=== PATIENT | male | born 1960 | race Caucasian/White ===

== ENCOUNTER 2022-11-24 09:02 | Outpatient (CLI) | payer MEDICARE, SELFPAY ==
[2022-11-24 13:42] LABS: Chloride* 105 mmol/L (96-114); Sodium* 138 mmol/L (135-149)
[2022-11-24 13:43] LABS: Potassium* 4.7 mmol/L (3.6-5.1)
[2022-11-24 13:45] LABS: Carbon Dioxide* 28 mmol/L (20-32); Estimated Glomerular Filt Rate 84 ml/min
[2022-11-24 13:46] LABS: Blood Urea Nitrogen* 18 mg/dL (7-30); Calcium* 9.2 mg/dL (8.4-10.6); Glucose* 93 mg/dL (60-115); HDL Cholesterol* 59 mg/dL (>=40); Triglycerides* 168 mg/dL (40-149)
[2022-11-24 15:47] LABS: PSA Screen* 7.33 ng/mL (0.10-4.00)
[2022-11-25 08:56] LABS: Cholesterol* 364 mg/dL (90-199); LDL Cholesterol Calculated 271 mg/dL (<100)
== END 2022-11-24 09:03 | disposition home or self-care (01) ==
PROVIDERS: PCP Family Medicine; Visit Provider Family Medicine
DX: Z00.00 Encounter for general adult medical examination without abnormal findings (principal); R31.9 Hematuria, unspecified; E78.5 Hyperlipidemia, unspecified; I10 Essential (primary) hypertension; I48.91 Unspecified atrial fibrillation; R97.20 Elevated prostate specific antigen [PSA]
CPT/HCPCS: 80048; 80061; 84153

== ENCOUNTER 2023-03-21 11:05 | Outpatient (CLI) | payer MEDICARE, SELFPAY | END 2023-03-21 11:06 | disposition home or self-care (01) | LOC: NFLDREF 03-22 05:45 | PROVIDERS: PCP Family Medicine; Referring Provider Family Medicine; Visit Provider Family Medicine | DX: Z79.01 Long term (current) use of anticoagulants (principal) | CPT/HCPCS: 85610 ==

== ENCOUNTER 2024-01-02 09:20 | Outpatient (REF) | payer MEDICARE, SELFPAY ==
--- OUTSIDE RECORDS SUMMARY | 2024-01-03 06:20 | XMS_ITS | Clinical Summary ---
Author Name Unknown Organization [facility] Address [place], [place] [address] Care Team Providers Care Continuous Improvement Lead Name Role Phone Mauricio Pham MD Primary Care Provider Allergies Active Allergy Reactions Criticality Noted Date Comments Cats (Fur, Dander, Saliva) Anaphylaxis High 08/27/20 17 Shellfish Containing Products Anaphylaxis High 08/27 Tramadol Palpitations 10/29/2020 Medications Medication Sig Dispensed Refills Start Date End Date Status warfarin (COUMADIN) 4 mg tablet TK 2 TS PO D 0 09/02/2020 Active amoxicillin (AMOXIL) 500 mg capsule Take 500 mg by mouth. Dentist visits 0 12/23/2020 Active EPINEPHrine (EPIPEN) 0.3 mg/0.3 mL injection INJECT INTRAMUSCULARLY DIRECTED 0 07/31/2020 Active warfarin (COUMADIN) 1 mg tablet Take 8 mg by mouth. 0 Acti ve lisinopriL (PRINIVIL; ZESTRIL) 5 mg tablet Take 5 mg by mouth once daily. 0 08/06/2021 Active metoprolol tartrate (LOPRESSOR) 25 mg tabletIndications:S creening for cardiovascular condition,S/P AVR,Tachycardia Take 1 tablet by mouth for heart rate greater than 130 30 Tablet 2 10/05/2021 Active finasteride (PROSCAR) 5 mg tabletIndications:U rinary retention Take 1 Tablet (5 mg) by mouth once daily. 30 Tablet 11 11/04/2021 Active tamsulosin (FLOMAX) 0.4 mg capsuleIndications: Urinary retention Take 2 Capsules (0.8 mg) by mouth once daily after a meal. 60 Capsule 11 05/12/2022 Active Active Problems No known active problems Social History Tobacco Use Types Packs/Day Years Used Date Smoking Tobacco: Former Cigarettes 1 2002 Passive Smoke Exposure: Never Smokeless Tobacco: Current Chew Tobacco Cessation:Ready to Q uit: Not Asked; Counseling Given: Not Answered Alcohol Use Standard Drinks/Week Comments Never 0 (1 standard drink = 0.6 oz pur e alcohol) Social Connections Answer Date Recorded Frequency of Communication with Friends and Fami ly 0 05/19/2023 Financial Resource Strain Answer Date R ecorded Difficulty of Paying Living Expenses 3 05/19/2023 Difficulty of Paying Living Expenses Not on file 05/19/2023 Food Insecurity Answer Date Recorded Worried About Running Out of Food in the Last Ye ar 1 05/19/2023 Transportation Needs Answer Date Record ed Lack of Transportation (Medical) 1 05/19/2023 Housing Stability Answer Date Recorded Unable to Pay for Housing in the Last Year 1 05/19/2023 Sex and Gender Information Value Date Recorded Sex Assigned at Not on file Gender Identity Not on file Sexual Orientation Not on file Obstetrics History Last Filed Vital Signs Vital Sign Reading Time Taken Comments Blood Pressure 148/99 06/01/2023 12:28 PM CDT Pulse 81 06/01/2023 12:28 PM CDT Temperature 36.6 ??C (97.8 ??F) 06/01/2023 12:28 PM C DT Respiratory Rate 16 06/01/2023 12:28 PM CDT Oxygen Saturation 97% 06/01/2023 12:28 PM CDT Inhaled Oxygen Concentration - - Weight 74.8 kg (165 lb) 06/01/2023 12:28 PM CDT Height 170.2 cm (5' 7) 06/01/2023 12:28 PM CDT Body Mass Index 25.84 06/01/2023 12:28 PM CDT Plan of Treatment Health Maintenance Due Date Last Done Comments COVID-19 vaccine series (#1) 1958 Tdap 1969 Depression screening for age 12+ 1970 HIV for age 15-65 1973 Hepatitis C screening for ag e 18-79 1976 Tetanus booster 1978 Colonoscopy through age 75 2003 Lipids for age 45-75 2003 Zoster (shingles) series for age 50+ (1 of 2) 2008 AAA screening age 65-74 2023 Medicare Wellness for age 65+ 2023 Pneumococcal series for age 65+ (1 of 1 - PCV) 2023 Influenza for age 65+ 07/22/2023 BMI (ht and wt on same day) for age 18+ 06/01/2024 06/01/2023, 05/19/2023, 10/05/2021, Additional history exists Care Teams Continuous Improvement Lead Relationship Specialty Start Date End Date Mauricio Pham MD [address] [place] [id number] PCP - General Family Practice 08/21/21
--- OUTSIDE RECORDS SUMMARY | 2024-01-03 06:20 | XMS_ITS | Referral Summary ---
Author Name Unknown Organization [place] Address [address] [place] [id number] Care Team Providers Care Brim Cutter Name Role Phone [facility]- Primary Care Provider Allergies Active Allergy Reactions Criticality Noted Date Comments Cats 07/24/2021 Shellfish-Derived Products Anaphylaxis High 07/24/20 21 Medications Medication Sig Dispensed Refills Start Date End Date Status tamsulosin (FLOMAX) 0.4 MG capsule Take 0.4 mg by mouth daily 0 Active warfarin ANTICOAGULANT (COUMADIN) 1 MG tablet Take 8 mg by mouth daily 0 Active Social History Tobacco Use Types Packs/Day Years Used Date Smoking Tobacco: Former Cigarettes Q uit: 2000 Smokeless Tobacco: Current Alcohol Use Standard Drinks/Week Comments Not Currently 0 (1 standard drink = 0.6 oz pur e alcohol) Adolescent Education Answer Date Record ed Getting School Help Needed Not on file 08/24 Sex and Gender Information Value Date Recorded Sex Assigned at Not on file Gender Identity Not on file Sexual Orientation Not on file Last Filed Vital Signs Vital Sign Reading Time Taken Comments Blood Pressure 125/89 07/24/2021 11:00 PM CDT Pulse 68 07/24/2021 11:15 PM CDT Temperature 36.7 ??C (98 ??F) 07/24/2021 9:43 PM CDT Respiratory Rate 18 07/24/2021 11:15 PM CDT Oxygen Saturation 95% 07/24/2021 11:15 PM CDT Inhaled Oxygen Concentration - - Weight 77.1 kg (170 lb) 07/24/2021 9:43 PM CDT Height - - Body Mass Index - - Plan of Treatment Not on file Procedures Procedure Name Priority Date/Time Associated Diagnosis Comments DERMATOPATHOLOGY EXAM Routine 10/26/2023 12:00 AM JOINTER MACHINE OPERATOR Squamous cell carcinoma of skin of other parts of face from Last 3 Months Results * Dermatological Path Order and Indications (10/26/2023 12:00 AM JOINTER MACHINE OPERATOR) Case Report Surgical Pathology Report ? Case: [id number] ? Authorizing Provider: ??Silvana Carter ? Collected: ? 10/26/2023 12:00 AM ? Ordering Location: ? [facility] ? Received: ?10/26/2023 08:20 PM ? [facility] ? Pathologist: ? Oleg Lion MD ? Specimen: ?Skin, right superior preauricular cheek ? 10/28/2023 1:12 PM JOINTER MACHINE OPERATOR [facility] Final Diagnosis A. 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 Well-differentiated SCC. 10/28/2023 1:12 PM JOINTER MACHINE OPERATOR [facility] Gross Description A(). Skin, right superior preauricular cheek: The specimen is received in formalin with proper patient identification, labeled R superior preauricular cheek. The specimen consists of a 1.2 x 1.0 cm unoriented ellipse of skin and subcutaneous tissue, excised to a maximum depth of 0.2 cm. No sutures are present; the margin is inked black. The skin surface displays a 0.3 x 0.3 cm long lesion. It is 0.3 cm from the closest peripheral skin margin. No gross deep lesions are present upon sectioning. The specimen is entirely submitted. A1: Tip shave margins A2: Sections from center 10/28/2023 1:12 PM JOINTER MACHINE OPERATOR [facility] Microscopic Description The specimen exhibits flattened epidermis, dermal fibrosis and lymphohistiocytic inflammation consistent with scar from the prior procedure. Immediately adjacent to this, residual squamous cell carcinoma is present, with an endophytic proliferation of atypical squamous epithelium with superficial invasion. This residual lesion is completely excised. 10/28/2023 1:12 PM [facility] Performing Labs The technical component of this testing was completed at [facility] 10/28/2023 1:12 PM JOINTER MACHINE OPERATOR [facility] Skin SPECIMEN FROM SKIN / Unknown 10/26/2023 10/26/2023 8:20 PM JOINTER MACHINE OPERATOR Silvana [facility]EE[facility] [address] [facility] [address], [address] [place] [address], [facility] [phone] [facility] [address] [facility] [address] [facility], [address] [place] [address], [facility] [phone] from Last 3 Months Care Teams Brim Cutter Relationship Specialty Start Date End Date [facility] [address] [place] [address] PCP - General 07/24/21
== END 2024-01-02 09:21 | disposition home or self-care (01) ==
LOC: NFLDREF 09:20
PROVIDERS: PCP Family Medicine; Referring Provider Family Medicine; Visit Provider Family Medicine
DX: I48.91 Unspecified atrial fibrillation (principal); Z79.01 Long term (current) use of anticoagulants
CPT/HCPCS: 85610

== ENCOUNTER 2024-02-04 10:30 | Emergency (ER) | payer MEDICARE, SELFPAY ==
[2024-02-04 10:34] VITALS: BP 135/82; PULSE 60; RESP 18; TEMP 36.4; O2SAT 98; BMI 25.8
--- NOTE | 2024-02-04 10:45 | US_ITS ---
Patient: ARVIL TUCKER Facility:?[facility] Patient ID:?[id number] Site Patient ID:?[id number]. Site :?[id number] Study:?US-Extremity Left LEV-02/04/2024 11:13:46 AM Ordering Physician:GAYLE BRISENO Final Report: INDICATION: Leg pain and swelling TECHNIQUE: Ultrasound venous duplex lower left extremity. Compression venous exam was performed using middleton-scale, color Doppler, and spectral Doppler analysis. COMPARISON: None. FINDINGS: Sonographic imaging demonstrates the left common femoral, deep femoral, superficial femoral, popliteal, posterior tibial and greater saphenous and the contralateral right common femoral veins to be fully compressible with normal color Doppler blood flow. There is likely a small hematoma within the proximal calf measuring 2.4 centimeters x 0.7 centimeters in greatest dimensions. IMPRESSION: Normal left lower extremity venous ultrasound, no sign of deep venous thrombosis. Mild superficial hematoma within the subcutaneous soft tissues in the area of bruising and palpable concern. Dictated by Vladimir Acosta MD @ 02/04/2024 11:41:06 AM Signed by:?Vladimir Acosta MD @02/04/2024 11:41:06 AM (Electronic Signature)
--- NOTE | 2024-02-04 11:23 | ED.GENADULT ---
HPI - General Adult General Date Seen: 02/04/24 Chief complaint: Extremity Pain/Injury, Lower Stated complaint: left calf, poss blood clot Time Seen by Provider: 02/04/24 10:38 Source: patient Mode of arrival: ambulatory Limitations: no limitations History of Present Illness HPI narrative: Patient is 63-year-old male presenting for an area of localized left lower extremity swelling with of a mass felt in his calf. He was told to come here to check for signs of a blood clot. He also noticed some bruising in the area. He is on warfarin and last checked his INR couple weeks ago and was 2.9. Says he checks it once a month it is always within normal limit. Came in today with no pain. Denies chest pain, shortness of breath, lightheadedness, dizziness. States otherwise he feels fine just came to get this area checked out. No other concerns noted Related Data Home Medications Medication Instructions Recorded Confirmed epinephrine 0.3 mg/0.3 mL 0.3 ml IM .As Needed as needed PRN 06/16/22 02/04/24 injection, auto-injector finasteride 5 mg tablet 5 mg PO .Daily With Am Meal 06/16/22 02/04/24 tamsulosin 0.4 mg capsule 0.4 mg PO DAILY 06/16/22 02/04/24 Previous Rx's Medication Instructions Recorded evolocumab 140 mg/mL subcutaneous 140 mg subcut Q2W #2 mL 11/26/22 pen injector (Darin Lyons) lisinopril 5 mg tablet 5 mg PO DAILY #90 tabs 11/26/22 valacyclovir 1 gram tablet 2,000 mg (2 x 1 gram) PO BID PRN 08/05/23 (Valtrex) cold sores #20 tabs warfarin 4 mg tablet 4 mg PO DIRECTED #145 tabs 01/02/24 Allergies Allergy/AdvReac Type Severity Reaction Status Date / Time shellfish derived Allergy Severe Anaphylaxis Verified 02/04/24 10:39 tramadol Allergy Intermediate Lightheaded, Verified 02/04/24 10:39 heart racing, chest pressure cat dander Allergy Mild Verified 02/04/24 10:39 Review of Systems Status of ROS: Reports: 6 or more systems reviewed and unremarkable except as noted in History and below [facility] Medical History Herpes labialis ?B00.1 - Herpesviral vesicular dermatitis (ICD-10) Encounter for preoperative screening laboratory testing for severe acute respiratory syndrome coronavirus 2 (SARS-CoV-2) ?Z01.812 - Encounter for preprocedural laboratory examination (ICD-10) ?Z20.822 - Contact with and (suspected) exposure to covid-19 (ICD-10) Atrial fibrillation with rapid ventricular response (08/24/12) ?I48.91 - Unspecified atrial fibrillation (ICD-10) Chronic pharyngitis ?J31.2 - Chronic pharyngitis (ICD-10) Surgical History S/P right inguinal hernia repair ?Z98.890 - Other specified postprocedural states (ICD-10) ?Z87.19 - Personal history of other diseases of the digestive system (ICD-10) Status post total knee replacement ?Z96.659 - Presence of unspecified artificial knee joint (ICD-10) Status post tonsillectomy and adenoidectomy (08/21/12) ?Z90.89 - Acquired absence of other organs (ICD-10) History of prostate biopsy ?Z98.890 - Other specified postprocedural states (ICD-10) History of arthroscopy of left knee (12/30/10) ?Z98.890 - Other specified postprocedural states (ICD-10) History of aortic valve replacement (08/21/12) ?Z95.2 - Presence of prosthetic heart valve (ICD-10) Family History Brother Prostate cancer Social History Smoking Status: Never smoker Do you use any of these nicotine containing products: None How often do you have a drink containing alcohol: never AUDIT-C Alcohol total score: 0 Non-prescribed substance use: denies use Little interest or pleasure in doing things: not at all Feeling down, depressed, or hopeless: not at all Exam Narrative: Exam Narrative: Const: Well-nourished, Well-developed, in mild distress Eyes: PERRL, no conjunctival injection, and symmetrical lids HENT: Atraumatic external nose and ears. Moist mucous membranes. Neck: Symmetric, trachea midline, No thyromegaly. CVS: RRR, No murmurs or gallops. Peripheral pulses 2+ and equal in all extremities RESP: Unlabored respiratory effort. Clear to auscultation bilaterally. GI: Nontender/Nondistended, No rebound or guarding. MSK:Extremities w/o deformity, Normal Active ROM, cord-like mass palpated in the medial upper calf with bruising around it Skin: Warm, Dry. Bruising in the medial upper calf Neuro: Normal Muscle tone, No focal neurological deficits. Psych: Awake, Alert, & Oriented x3. Appropriate mood and affect. Const: Vital Signs, click to edit/add: Vital Signs - 24 hr 02/04/24 10:34 Temperature 97.5 F L Pulse Rate [Pulse Oximeter] 60 Respiratory Rate 18 Blood Pressure [Ri ght Upper Arm] 135/82 Pulse Oximetry 98 Oxygen Delivery Me thod Room Air Course Vital Signs Vital signs: Initial Vital Signs Temperature 97.5 F L 02/04/24 10:34 Temperature Source Temporal Artery Scan 02/04/24 10:34 Pulse Rate 60 02/04/24 10:34 Respiratory Rate 18 02/04/24 10:34 Blood Pressure 135/82 02/04/24 10:34 Blood Pressure Mean 99 02/04/24 10:34 Blood Pressure Position Sitting 02/04/24 10:34 Pulse Oximetry 98 02/04/24 10:34 Oxygen Delivery Method Room Air 02/04/24 10:34 Vital Signs Temperature 97.5 F L 02/04/24 10:34 Pulse Rate 60 02/04/24 10:34 Respiratory Rate 18 02/04/24 10:34 Blood Pressure 135/82 02/04/24 10:34 Pulse Oximetry 98 02/04/24 10:34 Oxygen Delivery Method Room Air 02/04/24 10:34 Temperature 97.5 F L 02/04/24 10:34 Pulse Rate 60 02/04/24 10:34 Respiratory Rate 18 02/04/24 10:34 Blood Pressure 135/82 02/04/24 10:34 Pulse Oximetry 98 02/04/24 10:34 Oxygen Delivery Method Room Air 02/04/24 10:34 Medical Decision Making MDM Narrative Medical decision making narrative: Patient is a 63-year-old male presenting for concern for a blood clot. On exam this is not appear to be I DVT. Tell patient I do have some concern for a large for superficial thrombophlebitis. This would be odd though considering his INR level. There is also concern for hematoma. We did ultrasound of this like to better evaluate it and check his INR level. Patient's ultrasound week tenderness showing a superficial hematoma in the area of concern. No signs of a DVT. We did check his INR is 2.84. Consider this is a relatively small hematoma do not find necessary for him to hold his Coumadin at this time. I did inform to speak to his primary care provider that is managing his Coumadin if he gets worsening symptoms or expanding hematoma. He is understandable. He will be discharged home. Lab Data Labs: Lab Results 02/04/24 Range/Units 11:09 INR 2.84 H (0.91-1.10) Imaging Data Lower extremity ultrasound: Radiologist's impression: Normal left lower extremity venous ultrasound, no sign of deep venous thrombosis. Mild superficial hematoma within the subcutaneous soft tissues in the area of bruising and palpable concern. Dictated by Vladimir Acosta MD @ 02/04/2024 11:41:06 AM Discharge Plan Discharge Clinical Impression: Hematoma Patient Disposition: Home, Self-Care Condition: Stable Instructions: Hematoma (ED) Additional Instructions: Continue to take your Coumadin normally. If he knows worsening pain or an expanding area of the hematoma follow-up with primary care provider on if they want to hold her Coumadin or not. Return to emergency department for new or worsening symptoms Prescriptions: No Action finasteride 5 mg tablet 5 mg PO .Daily With Am Meal tamsulosin 0.4 mg capsule 0.4 mg PO DAILY Rx Instructions: gets rx from Urologist epinephrine 0.3 mg/0.3 mL auto-injector 0.3 ml IM .As Needed as needed PRN Repatha SureClick 140 mg/mL pen injector 140 mg subcut Q2W Qty: 2 3RF lisinopril 5 mg tablet 5 mg PO DAILY Qty: 90 3RF valacyclovir [Valtrex] 1 gram tablet 2,000 mg PO BID PRN (Reason: cold sores) Qty: 20 1RF warfarin 4 mg tablet 4 mg PO DIRECTED Qty: 145 0RF Protocol: Dose Management Condition: Tuesday Dose/Route: 4 mg Instruction: 1 x 4 mg tablet Condition: Tuesday Dose/Route: 8 mg Instruction: 2 x 4 mg tablets Condition: Tuesday Dose/Route: 4 mg Instruction: 1 x 4 mg tablet Condition: Tuesday Dose/Route: 8 mg Instruction: 2 x 4 mg tablets Condition: Dose/Route: 8 mg Instruction: 2 x 4 mg tablets Condition: Tuesday Dose/Route: 8 mg Instruction: 2 x 4 mg tablets Condition: Tuesday Dose/Route: 8 mg Instruction: 2 x 4 mg tablets Protocol Text: Adjustment Start Date: Tuesday01/03/24 INR Value: 2.97 INR Date: 01/02/24 Recheck Date: 02/02/24 Rx Instructions: Girard 4 MG, M 8 MG, Tu 4 MG, W 8 MG, Th 8 MG, F 8 MG, Sa 8 MG Follow Up/Referrals: Mauricio Pham MD [Primary Care Provider] - Stand Alone Forms: [facility] Info [facility]
[2024-02-04 11:53] LABS: INR 2.84 (0.91-1.10)
== END 2024-02-04 12:24 | disposition home or self-care (01) ==
PROVIDERS: Emergency Provider Student in an Organized Health Care Education/Training Program; PCP Family Medicine
DX: R22.42 Localized swelling, mass and lump, left lower limb (principal); M79.81 Nontraumatic hematoma of soft tissue; M79.662 Pain in left lower leg
CPT/HCPCS: 36415; 85610; 93971; 99282; 99283; 99284

== ENCOUNTER 2024-05-25 11:19 | Outpatient (CLI) | payer MEDICARE, SELFPAY ==
--- OUTSIDE RECORDS SUMMARY | 2024-05-27 07:41 | XMS_ITS | Clinical Summary ---
Author Organization [place] Address [address] [place] [address]. [place] [address] Care Team Providers Care Kiln Car Repairer Name Role Phone [facility]- Primary Care Provider Allergies Active Allergy Reactions Criticality Noted Date Comments Cats 07/24/2021 Shellfish-Derived Products Anaphylaxis High 07/24/20 21 Medications Medication Sig Dispensed Refills Start Date End Date Status tamsulosin (FLOMAX) 0.4 MG capsule Take 0.4 mg by mouth daily Active warfarin ANTICOAGULANT (COUMADIN) 1 MG tablet Take 8 mg by mouth daily Active Social History Tobacco Use Types Packs/Day [...] Mass Index - - Plan of Treatment Health Maintenance Due Date Last Done Comments ADVANCE CARE PLANNING 1960 ANNUAL REVIEW OF HM ORDERS 1960 CT COLONOGRAPHY 1958 FIT 1960 FLEX SIG 1960 sDNA (Cologuard) 1958 COLONOSCOPY 1968 COLORECTAL CANCER SCREENING 1968 HEPATITIS C SCREENING 1976 DTAP/TDAP/TD IMMUNIZATION (1 - Tdap) 1983 LIPID 1998 LUNG CANCER SCREENING 2008 ZOSTER IMMUNIZATION (1 of 2) 2008 RSV VACCINE ( & 60+ ) (1 - 1-dose 60+ series) 2018 FALL RISK ASSESSMENT 2023 MEDICARE ANNUAL WELLNESS VISIT 2023 Pneumococcal Vaccine: 65+ Ye ars (1 of 1 - PCV) 2023 COVID-19 Vaccine (1 - 2022-2 4 season) 2023 PHQ-2 (once per calendar year) 2023 INFLUENZA VACCINE (#1) 2024 GLUCOSE 07/24/2024 07/24/2021 HPV IMMUNIZATION Aged Out No longer e ligible based on patient's age to complete this topic IPV IMMUNIZATION Aged Out No longer e ligible based on patient's age to complete this topic MENINGITIS IMMUNIZATION Aged Out No l onger eligible based on patient's age to complete this topic RSV MONOCLONAL ANTIBODY Aged Out No l onger eligible based on patient's age to complete this topic Procedures Procedure Name Priority Date/Time Associated Diagnosis Comments BASIC METABOLIC PANEL STAT 07/24/2021 9:48 PM CDT from Last 3 Months or Most Recently Relevant to Health Maintenance Results * (ABNORMAL) Basic metabolic panel (07/24/2021 9:48 PM CDT) Sodium 139 133 - 144 mmol/L 07/24/2021 10:14 PM CDT LABORATORY Potassium 4.1 3.4 - 5.3 mmol/L 07/24/2021 10:14 PM CDT LABORATORY Chloride 108 94 - 109 mmol/L 07/24/2021 10:14 PM CDT LABORATORY Carbon Dioxide (CO2) 26 20 - 32 mmol/L 07/24/2021 10:14 PM CDT LABORATORY Anion Gap 5 3 - 14 mmol/L 07/24/2021 10:14 PM CDT LABORATORY Urea Nitrogen 17 7 - 30 mg/dL 07/24/2021 10:14 PM CDT LABORATORY Creatinine 0.84 0.66 - 1.25 mg/dL 07/24/2021 10:14 PM CDT LABORATORY Calcium 9.3 8.5 - 10.1 mg/dL 07/24/2021 10:14 PM CDT LABORATORY Glucose 116(H) 70 - 99 mg/dL 07/24/2021 10:14 PM CDT LABORATORY GFR Estimate >90 >60 mL/min/1.7 3m2 07/24/2021 10:14 PM CDT LABORATORY Comment:As of May 31, 2021, eGFR is calculated by the CKD-EPI creatinine equation, without race adjustment. eGFR can be influenced by muscle mass, exercise, and diet. The reported eGFR is an estimation only and is only applicable if the renal function is stable. Blood STRUCTURE OF LEFT UPPER LIMB / Unknown Venipuncture / Unknown 07/24/2021 9:48 PM CDT 07/24/2021 9:56 PM CDT Adrian West MD LAB - BLOOD CECELIA INIGUEZ [facility] Organization Address City/State/ZIP Co de Phone Number LABORATORY [facility] [address], [address] [place] [address], [facility] [phone] from Last 3 Months or Most Recently Relevant to Health Maintenance Care Teams Kiln Car Repairer Relationship Specialty Start Date End Date [facility]- [address] [address] PCP - General 07/24/21
--- OUTSIDE RECORDS SUMMARY | 2024-05-27 07:42 | XMS_ITS | Data Portability ---
Author Organization [facility], [facility] Address [address] [place] [address] Care Team Providers Care Payroll Director Name Role Phone [facility] Primary Care Provider MARIA ANTONIA MONTES DE OCA Primary Care Provider Assessment No assessment recorded. Plan of Treatment Reminders Order Date Submit Date Provider Last Modified By Organization Details Last Modified Time Details Appointments None recorded. Lab biopsy, prostate 2021 022 [facility], [address], [place], [address], 2 13:27:37 prostate specific Ag, serum or plasma 2023 024 [facility], [address], [place], [address], 4 15:00:47 urinalysis, dipstick 2023 024 [facility], [address], [place], [address], 4 16:57:40 urinalysis, microscopic 2023 024 [facility], [address], [place], [address], 4 16:57:42 culture, urine 2023 024 [facility], [address], [place], [address], 4 10:08:11 Referral None recorded. Procedures None recorded. Surgeries None recorded. Imaging MRI, prostate, w/wo contrast - elevated PSA, possible UroNav biopsy 2023 024 [email or web address] 1 [facility], [address], [place], [address], 4 09:42:17 Medication Orders gentamicin 40 mg/mL injection solution 2021 022 [email or web address] 6 [facility] #[id number], [address] [place], [place], [id number], 4 12:29:20 finasteride 5 mg tablet 2023 024 [id number], [address] [place], [place], [id number], 4 22:00:16 tamsulosin 0.[address] [id number], [address] [place], [place], [id number], 4 22:00:16 Patient TargetsNo targets recorded. Patient Instructions Encounter Date Encounter Id Patient Instructions Last Modified By Organization Details Last Modified Time 11/23/2021 [id number] We will increase Flomax to 0.8 mg daily if you have difficulty voiding post biopsy. Also be prepared to catheterize yourself if needed for urinary retention.Make sure to finish the antibiotics as instructed on the handout. Drink plenty of fluids, rest and take it easy for the rest of today. Dr. Garcia will contact you with results of biopsy in 2-3 business days. Continue finasteride 5 mg daily to help shrink the prostate. You may need to temporarily increase Flomax to 0.8 mg daily for the next few days if you have difficulty urinating. You may also need to catheterize yourself if needed for urinary retention. Not available 11/23/2021 15:30:09 Elevated PSA: Patient's PSA is elevated from historic levels and may be even higher because of being on finasteride (one needs to double the PSA if one has been on finasteride for 6-12 months). His prostate is very large on exam but without nodules. Elevated PSA could be due to his enlarged prostate and/or prostate cancer. At this point, I recommend a prostate MRI to see if there are any lesions present. He may need a prostate biopsy but would have to come off anticoagulation. Will contact him with MRI results when available. I asked that he please provide me a copy of his blood work (patient has already requested labs be mailed to him). I recommend that he stop testosterone replacement therapy at this time. Gross hematuria: Discussed the different causes of blood in the urine including infections, stones, benign tumors, and cancer. I recommended obtaining urine cytology, CT urogram, and cystoscopy. Discussed that sometimes a source is not found, but my goal is to make sure that I rule out or find significant pathology. Cystoscopy today showed a very large prostate but no tumors or stones in the bladder. Will contact with urine cytology and CT urogram results. If these are negative, then I think that the bleeding was likely from the prostate due to his supratherapeutic INR. [email or web address] Not available 11/20/2021 15:15:10 12/23/2023 [id number] BPH/weak stream: Will continue the tamsulosin and finasteride. Refills sent. Discussed that he has a very large prostate. Discussed that he could be a candidate for a robotic simple prostatectomy and/or a HOLEP ( holmium laser enucleation of prostate). I recommended that he have a consultation with Dr. Reji Solis to discuss these options further and see if he's a candidate. Prostate cancer screening: Will check a PSA today. No nodules on prostate exam. [email or web address] Not available 12/23/2023 12:44:57 02/16/2024 [id number] Today we discuss ed the patient's ongoing urinary symptoms. He does have enlarged prostate (approximate 118 g on prostate MRI in 2021). It has likely grown since that time. Overall symptoms are moderate with IPSS score 14. Subjectively his description of symptoms are also mild to moderate. He is emptying the bladder well with a postvoid residual of 1 mL today. He is however averse to taking medications long-term which is why he is considering surgical management. In light of the fact that he is on chronic anticoagulation for mechanical valve with warfarin and require Lovenox bridge he is at elevated risk of having bleeding complications. With this in mind we could consider prostatic arterial embolization as a minimally invasive technique which can be performed while he is on anticoagulation. This may provide relief of symptoms. If it only provides partial relief it may make surgical procedure such as HoLEP safer with potentially reducing the risk of bleeding complications after an embolization. He will consider these options and we will discuss them at the next visit. Due to his prostate size he is interested in HoLEP. We discussed the surgery usually takes 1-4 hours under general anesthesia depending on the size of the prostate. A typical post-operative course includes need for indwelling box catheter and monitoring after surgery, including possible overnight hospital stay for observation. We discussed the associated risks of the HoLEP surgery including but not limited to the following: -Bleeding, potentially significant enough to require clot evacuation and blood transfusion -Infection, for which we will plan to treat preoperatively based on targeted antibiotic therapy -Damage to the bladder, urethra and penis including the risk of urethral stricture and bladder neck contracture -Risk of incidentally discovered prostate cancer. We discussed that this would not preclude him from further therapy though it could prolong recovery and potentially increase risk of complications associated with cancer treatment. Further preoperative workup to assess for prostate cancer prior to surgery was offered but patient deferred. -Risk of retrograde ejaculation which would be expected to occur in the majority if not all men after HoLEP -Risk of urinary incontinence. We discussed that in the majority of men this is a transient process that is generally self limited to the first 6-12 weeks after surgery though could take longer to resolve depending on baseline bladder instability. There is a high chance of short term incontinence for 4-6 weeks that may require pads or diapers. At 3 months, approximately 5% of men are still having leakage and at 6 months and beyond it is 1-2%. -Risk of postoperative urinary retention though in published series HoLEP has been found to be associated with high success rates of achieving spontaneous voiding even in men with underactive and atonic bladders. -We would need to proceed with preoperative clearance with preference to minimize all anticoagulation (if applicable) as deemed acceptable by his primary care provider. He does have an elevated PSA as high as 26 (double due to being on finasteride). We discussed the risk of potential prostate cancer in light of this elevated number. We will need to work this up further with repeat prostate MRI. We may need to proceed with a repeat prostate biopsy before considering any outlet surgery. He will be called to schedule the MRI with [facility]. I will call him once I have the MRI results and we will discuss next steps. [email or web address] Not available 02/16/2024 11:36:49 Reason for Referral None Reported. Results Created Date Observation Date Name Description Value Unit Range Abnormal Flag LastModifiedBy Organization Detail LastModifiedTime 12/23/1912/23/2023 PSA, TOTAL , SCREE N PSA, total 13.27 NG/mL 0.00-4 .00 high Not Available [facility] [address], [place], [address], 12/23/2023 15:00:47 05/21/20 24 05/21/2024 UA WITHO UT MICRO - CS URISC AN blood - uriscan LARGE negati ve abnormal Not Available [facility] [address], [place], [address], 05/21/2024 16:57:40 05/21/20 24 05/21/2024 UA WITHO UT MICRO - CS URISC AN bilirubin - uriscan NEGATI VE mg/dL negati ve Not Available [facility] [address], [place], [address], 05/21/2024 16:57:40 05/21/20 24 05/21/2024 UA WITHO UT MICRO - CS URISC AN urobilinogen - uriscan NORMAL mg/dL normal Not Available [facility] [address], [place], [address], 05/21/2024 16:57:40 05/21/20 24 05/21/2024 UA WITHO UT MICRO - CS URISC AN ketones - uriscan NEGATI VE mg/dL negati ve Not Available [facility] [address], [place], [address], 05/21/2024 16:57:40 05/21/20 24 05/21/2024 UA WITHO UT MICRO - CS URISC AN protein - uriscan 30 mg/dL negati ve abnormal Not Available [facility] [address] [place] [address], [place], [address], 05/21/2024 16:57:40 05/21/20 24 05/21/2024 UA WITHO UT MICRO - CS URISC AN nitrites - uriscan POSITI VE negati ve abnormal Not Available [facility] [address], [place], [address], 05/21/2024 16:57:40 05/21/20 24 05/21/2024 UA WITHO UT MICRO - CS URISC AN glucose - uriscan NEGATI VE mg/dL negati ve Not Available [facility] [address] [place] [address], [place], [address], 05/21/2024 16:57:40 05/21/20 24 05/21/2024 UA WITHO UT MICRO - CS URISC AN pH - uriscan 5.50 5.00-9 .00 Not Available [facility] [address] [place] [address], [place], [address], 05/21/2024 16:57:40 05/21/20 24 05/21/2024 UA WITHO UT MICRO - CS URISC AN sp. gravity - uriscan 1.01 1.01-1 .03 Not Available [facility] [address] [place] [address], [place], [address], 05/21/2024 16:57:40 05/21/20 24 05/21/2024 UA WITHO UT MICRO - CS URISC AN leukocytes - uriscan TRACE negati ve abnormal Not Available [facility] [address], [place], [address], 05/21/2024 16:57:40 05/21/20 24 05/21/2024 UA WITHO UT MICRO - CS URISC AN color - uriscan YELLOW lt. yellow ;yello w Not Available [facility] [address] [place] [address], [place], [address], 05/21/2024 16:57:40 05/21/20 24 05/21/2024 UA WITHO UT MICRO - CS URISC AN clarity - uriscan CLEAR clear Not Available [facility] [address] [place] [address], [place], [address], 05/21/2024 16:57:40 05/21/20 24 05/21/2024 UA WITHO UT MICRO - CS URISC AN total urine volume (mL) 60ML /mL Not Available [facility] [address] [place] [address], [place], [address], 05/21/2024 16:57:40 05/21/20 24 05/21/2024 UA MICRO SCOPI C U-WBC 50 - 100 [hpf] 0 - 2 abnormal Not Available [facility] [address] [place] [address], [place], [address], 05/21/2024 16:57:42 05/21/20 24 05/21/2024 UA MICRO SCOPI C U-RBC 10 - 25 [hpf] 0 - 2 abnormal Not Available [facility] [address] [place] [address], [place], [address], 05/21/2024 16:57:42 05/21/20 24 05/21/2024 UA MICRO SCOPI C bacteria MODERA TE [hpf] none;r are abnormal Not Available [facility] [address] [place] [address], [place], [address], 05/21/2024 16:57:42 05/21/20 24 05/21/2024 UA MICRO SCOPI C squamous epi SMALL /lpf negati ve,sma ll Not Available [facility] [address], [place], [address], 05/21/2024 16:57:42 05/21/20 24 05/21/2024 URINE CULTU RE final report MICROB IOLOGY RESULT S abnormal Not Available [facility] [address], [place], [address], 05/23/2024 10:08:11 12/01/19 22 11/23/2021 US, prost ate No observ ation record ed. Not Available 12/01/2021 07:50:53 02/16/20 24 bladd er scan (PROC ) No observ ation record ed. [email or web address] Not Available 02/16/2024 16:16:32 02/17/20 24 02/16/2024 imagi ng/di agnos tic resul t No observ ation record ed. [email or web address] Not Available 02/17/2024 09:41:16 Result Notes None recorded. Problems Name Status Onset Date Resolution Date Notes Provider Name and Address Organization Details Recorded Time Benign prostatic hyperplasia Active 012 600.00 : BPH (HYPERTROPHY ) WITHOUT URINARY OBSTRUCTIO Not Available [facility] 0 02:05:17 Testicular hypofunction Active 012 257.2 : TESTICULAR DYSFUNCTION/ HYPOGONADISM Not Available [facility] 0 02:05:17 Prostate specific antigen above reference range Active 013 790.93 : ELEVATED PSA Not Available [facility] 0 02:05:17 Benign prostatic hyperplasia with outflow obstruction Active 021 Victorino Edmonds MD [address] [place] [address],[address] [place] [address], [address], [place] [facility] 1 14:32:18 Slowing of urinary stream Active 021 Victorino Edmonds MD [address] [place] [address],[address], [place], [address], [place] [facility] 1 14:32:19 Elvis hematuria Active 021 Victorino Edmonds MD [address] [place] [address],[address], [place], [address], [facility] 1 14:32:20 Screening for malignant neoplasm of prostate Active 024 Victorino Edmonds MD [address] [place] [address],[address], [place], [address], [facility] 4 12:43:12 Lower urinary tract symptoms due to benign prostatic hypertrophy Active 024 Victorino Edmonds MD [address] [place] [address],[address], [place], [address], [facility] 4 12:43:14 Problem Notes None recorded. Procedures Surgical History Date Name Laterality Status Provider Name and Address Organization Details Recorded Time 05/21/20 24 Urine Culture completed Fabby white [facility] 05/21/2024 15:28:58 05/21/20 24 Urinalysis completed Fabby white [facility] 05/21/2024 16:18:17 05/21/20 24 Bladder Scan completed Fabby white [facility] 05/21/2024 16:18:30 02/16/20 24 COMPLEX VISIT completed REJI SOLIS MD [address] [place] [address],[address], [place], [address], [facility] 02/16/2024 11:31:27 02/16/20 24 Bladder Scan completed Dayanna white [facility] 02/16/2024 10:49:59 12/23/19 24 Blood Draw/BLOW PIT HELPER/PSA RESULTS completed Eh white [facility] 12/23/2023 12:49:16 11/23/19 22 Prostate Biopsy Procedure completed Kane white [facility] 11/23/2021 15:29:24 11/23/19 22 [facility] 14:11:03 07/24/20 21 Cystoscopy- male completed Victorino Edmonds MD [address] [facility],[address], [place], [address], [facility] 07/24/2021 14:37:51 07/24/20 21 Bladder Scan completed CHERYL Medina [facility] 07/24/2021 14:16:44 11/21/19 19 Colonoscopy completed CHERYL Medina [facility] 07/24/2021 14:16:32 Excise epiphyseal bar completed Not Available [facility] 07/23/2021 18:12:41 Insert epicard eltrd open completed Not Available [facility] 07/23/2021 18:12:41 Diagnostic colonoscopy completed Not Available [facility] 12/23/2023 07:52:32 Hernia repair w/mesh completed Not Available [facility] 12/23/2023 07:52:32 Imaging Results Imaging Date Name Status LastModified by Organiz ation Details LastModified Time 11/23/2021 US, prostate completed Information not available 12/01/2021 07:50:53 02/16/2024 bladder scan (PROC) completed [email or web address] Information not available 02/16/2024 16:16:32 02/16/2024 imaging/diagn ostic result completed [email or web address] Information not available 02/17/2024 09:41:16 Procedure Notes None recorded. Medical Equipment None Reported. Allergies Allergen ID Allergen Name Allergen Category Reaction Reaction Severity Criticality Documentation Date Start Date Code Code System Note Provider Name and Address Organization Details Recorded Time 031056 shellfish derived food,medi cation anaphylax is flushing Not available Not available Not available 12/23/2023 Not Available [facility] Note 4 07:52:31 024488 cat dander environme nt anaphylax is flushing respirato ry distress Not available Not available Not available Not available 12/23/2023 Not Available Health Note 4 07:52:31 683627 tramadol medicatio n irregular heart rate palpitati ons Not available Not available Not available 12/23/2023 04166 RxNorm Not Available Health Note 4 07:52:31 Medications Name Sig Start Date Stop Date Status Note LastModified by Organization Details LastModified Time amoxicill in 500 mg capsule TAKE 4 CAPSULES BY MOUTH ONE HOUR PRIOR TO DENTAL APPT 07/24 completed Not Available Not Available Not Available valacyclo vir 1 gram tablet TAKE 1 TABLET BY MOUTH TWICE DAILY NEEDED FOR COLD SORES active HN: Patient reports no longer taking Not Available Not Available Not Available hydrocodo ne 5 mg-acetam inophen 325 mg tablet TAKE 1 TABLET BY MOUTH EVERY 6 HR NEEDED FOR PAIN 07/24 completed Not Available Not Available Not Available minocycli ne 100 mg capsule TAKE 1 CAPSULE BY MOUTH EVERY DAY 12/23 completed HN: Patient reports no longer taking Not Available Not Available Not Available acetamino phen 300 mg-codein e 30 mg tablet 1 TAB BY MOUTH EVERY 6 HOURS NEEDED FOR PAIN DO NOT TAKE AT SAME TIME ADDITION AL TYLENOL 07/24 completed Not Available Not Available Not Available sulfameth oxazole 800 mg-trimet hoprim 160 mg tablet TAKE 1 TABLET BY MOUTH TWICE DAILY FOR 7 DAYS 12/23 completed HN: Patient reports no longer taking Not Available Not Available Not Available doxycycli ne monohydra te 100 mg tablet Take 1 tablet twice a day by oral route for 7 days, for UTI. 2023 active Not Available Not Available Not Avai lable triamcino lone acetonide 0.1 % topical cream APPLY TOPICALL Y TO THE AFFECTED AREA TWICE DAILY 12/23 completed HN: Patient reports no longer taking Not Available Not Available Not Available warfarin 4 mg tablet TAKE 1 TABLET BY MOUTH ON TUESDAY AND TUESDAY . TAKE 2 TABLETS ALL OTHER DAYS active Not Available Not Available No t Available famotidin e 20 mg tablet TAKE 1 TABLET BY MOUTH DAILY 12/23 completed HN: Patient reports no longer taking Not Available Not Available Not Available tamsulosi n 0.4 mg capsule TAKE 1 CAPSULE BY MOUTH EVERY DAY AT BEDTIME active Not Available Not Available No t Available cephalexi n 500 mg capsule Take 1 capsule every 8 hours by oral route for 5 days. 2023 active Not Available Not Available Not Avai lable oseltamiv ir 75 mg capsule TAKE 1 CAPSULE BY MOUTH EVERY DAY active Not Available Not Available No t Available lisinopri l 5 mg tablet TAKE 1 TABLET BY MOUTH DAILY active Not Available Not Available No t Available warfarin 1 mg tablet 12/23 completed HN: Patient reports no longer taking Not Available Not Available Not Available epinephri ne 0.3 mg/0.3 mL injection , auto-inje ctor INJECT INTRAMUS CULARLY DIRECTED 07/24 completed Not Available Not Available Not Available levofloxa charissa 500 mg tablet TAKE ONE TABLET BY MOUTH ON THE MORNING OF THE PROCEDUR E active Not Available Not Available No t Available gentamici n 40 mg/mL injection solution Take 160 mg by injectio n route. 12/23 completed HN: Patient reports no longer taking Not Available Not Available Not Available finasteri de 5 mg tablet Take 1 tablet every day by oral route. 2023 active Not Available Not Available Not Avai lable enoxapari n 80 mg/0.8 mL subcutane ous syringe NEED INSUR. INJECT 70 MG SUBCUTAN EOUSLY TWICE PER DAY 07/24 completed Not Available Not Available Not Available metoprolo l tartrate 25 mg tablet active HN: Patient reports no longer taking Not Available Not Available Not Available nitrofura ntoin monohydra te/macroc rystals 100 mg capsule TAKE 1 CAPSULE BY MOUTH TWICE DAILY 07/24 completed Not Available Not Available Not Available testoster one cypionate .5ml/200 mg 2/week active Not Available Not Available No t Available ID NOW COVID-19 Test Kit TEST DIRECTED TODAY 12/23 completed HN: Patient reports no longer taking Not Available Not Available Not Available Vitals Date Recorded Body weight Body height Body mass index (BMI) Provider Name and Address Organization Details Last Updated DateTime 12/23/2023 66528.24901 98868 g 170.18 cm 25.8 kg/m2 Not Available Health Note 12/23/2023 12:28:34 Date Recorded Body height Heart rate Systolic blood pressure Diastolic blood pressure Provider Name and Address Organization Details Last Updated DateTime 11/23/2021 170.18 cm 73 /min 149 mm[Hg] 92 mm[Hg] Vee Anguiano [facility] 11/23/2021 14:19:30 Social History Question Answer Notes LastModified by Organizat ion Details LastModified Time Tobacco Smoking Status Former Smoker Not Available Health Note 12/23/2023 07:52:32 What Is Your Level Of Alcohol Consumption? NONE [email or web address] Information not available 12/23/2023 What Is Your Level Of Caffeine Consumption? Moderate [email or web address] Information not available 12/23/2023 How Much Tobacco Do You Chew? None [email or web address] Information not available 12/23/2023 Do You Or Have You Ever Used E-cigarettes Or Vape? Never Used Electronic Cigarettes [email or web address] Information not available 12/23/2023 When Did You Quit Smoking? <1 - 5 Years Since Last Cigarette [email or web address] Information not available 12/23/2023 Recreational Drug Use No [email or web address] Information not available 07/23/2021 What Was The Date Of Your Most Recent Tobacco Screening? 05/21/2024 [email or web address] Information not available 05/21/2024 What Is Your Relationship Status? Single [email or web address] Information not available 12/23/2023 Are You Sexually Active? No [email or web address] Information not available 12/23/2023 Do You Or Have You Ever Used Smokeless Tobacco? Former Smokeless Tobacco User [email or web address] Information not available 12/23/2023 Do You Use Any Illicit Or Recreational Drugs? No [email or web address] Information not available 12/23/2023 How Many Years Have You Smoked Tobacco? 25 [email or web address] Information not available 12/23/2023 How Many Days In The Past Year Have You Consumed 5 Or More Drinks? 1 [email or web address] Information no t available 12/23/2023 Sex: Unknown Functional Status None recorded. Mental Status None recorded. Family History Nothing Reported. Medical History Condition Response High Blood Pressure N Kidney Stones N Depression N Sexually Transmitted Infection N Cancer N Bleeding Disorder N Lung Disease N GERD/Acid Reflux N High Cholesterol Y Diabetes N Heart Disease N Past Encounters Encounter ID Performer Location Encounter Start Date Encounter Closed Date Diagnosis/Indication Diagnosis SNOMED-CT Code [id number] Victorino Edmonds MD [facility] [address] [place] [id number] 07/24/2021 14:08:06 07/24/2021 14:45:22 Prostate specific antigen above reference range [id number] Benign pro static hyperplasia with outflow obstruction 850141666 Slowing of urinary stream 12173754 Elvis hematuria 62285143 5 [id number] Kane Garcia [facility] [address] [place] [id number] 11/23/2021 14:10:12 11/23/2021 16:28:42 Prostate specific antigen above reference range 451837703 Benign pro static hyperplasia with outflow obstruction 375014207 Slowing of urinary stream 95990297 Elvis hematuria 15894009 5 [id number] Vee Anguiano [facility] [address] [address] 11/23/2021 14:09:21 11/23/2021 14:20:54 Prostate specific antigen above reference range [id number] Eh Sheppard [facility] [address] [place] [id number] 12/23/2023 12:26:23 12/23/2023 12:56:11 Lower urinary tract symptoms due to benign prostatic hypertrophy [id number] Slowing of urinary stream [id number] Screening for malignant neoplasm of prostate [id number] REJ[facility] SOLIS [facility] [address] [facility] [address] [place] [address] 02/16/2024 10:37:58 02/16/2024 11:59:59 Lower urinary tract symptoms due to benign prostatic hypertrophy [id number] Prostate s pecific antigen above reference range [id number] Elvis hematuria [id number] Fabby Casey [facility] [address] [place] [id number] 05/21/2024 15:17:15 05/22/2024 08:24:21 Lower urinary tract symptoms due to benign prostatic hypertrophy [id number] Health Concerns Section Related Observation LastModified by Organization Detai ls LastModified Time None Recorded Concern Status LastModified by Organization Details LastModified Time None Recorded Advance Directives Directive None Recorded Payers Encounter Date Sequence Insurance Name Policy Number Policy Armenta Covered Member ID Armenta Member ID Guarantor Name 11/23/2021 1 [place] [employer] Oleg Sparks [id number] 8 Oleg Sparks 11/23/2021 1 [place] [employer] Oleg Sparks [id number] Oleg [place]acho 12/23/2023 1 [place] [employer] Oleg Sparks [id number] Oleg Trenthedchacho 02/16/2024 1 MEDICARE [place]: [employer] [facility] Oleg Christinel [id number] 8 Oleg Trenthedl 05/21/2024 1 MEDICARE [employer]: [facility] [employer] [facility] Oleg Christinel [id number] 8 Oleg Sparks Notes Date Note Type Note Provider Name and Address Organization Details Recorded Time 11/23/2021 text/html HPI Notes: 1: HLD, HTN, low testosterone, a. fib, mechanical AVR, on lifetime warfarin. PSA 02/19/13 = 5.2 ng/mL. Prostate biopsy on 08/29/[address] Riley was negative. PSA 12/24/13 = 6.59 ng/mL. Had voiding difficulty after inguinal surgery in winter and finasteride was added to his Flomax. PSA 07/31/2020 = 6.4 ng/mL. PSA 01/28/21 = 4.06 ng/mL. Saw Dr. Islas last on 01/28/21 (initially saw him after voiding difficulties after his inguinal surgery) and patient does know how to do self catheterization. Had gross hematuria in early/mid April 2021. Cr 05/02/21 = 0.7 (GFR >60). INR 05/02/21 = 5.37. UCx 05/02/12 and 05/05/21 = negative. States that he is here for his elevated PSA and a while back he was having gross hematuria and his INR was above 5. States that that the gross hematuria resolved in a few days. States that the gross hematuria was in April 2021. States that since he started testosterone replacement about 4 months ago -> states that he gets an injection in the butt, abdomen, and he takes a pill. He states that this is managed by a clinic called [facility]. He shows me a picture that shows he's taking testosterone 100 mg IM BID, gonadorelin 0.25 mL SQ BID, and anastrozole 0.25 mg. He states that Dr. Islas checked his testosterone and it was 800. Then he had [facility] check it and it was 350. With the finasteride, he feels that his voiding has been better. He's still taking the Flomax. He was started on Flomax around 2018. No straining to void. At times it takes a while to start his stream if he holds it too long. Nocturia 0-1x/night. Force of stream moderate. Empties bladder. No prior history of kidney stones. He states that he had a PSA drawn about 2 weeks ago with [facility] (he was getting labs for his testosterone) and he states that it was 8.1. Patient does not have the lab records with him today. MRI of the prostate August 05, 2021 showed prostate gland measuring 118 cm??. There is a PI-RADS category 3 lesion less than 1 cm in diameter right peripheral zone. Continence Function Questionnaire: [2] Urinary control: Occasional dribbling [1] Leaked urine: Never ` ng Kane Garcia [facility] 11/23/2021 15:30:25 12/23/2023 text/html HPI Notes: 1: HLD, HTN, low testosterone, a. fib, mechanical AVR, on lifetime warfarin. PSA 02/19/13 = 5.2 ng/mL. Prostate biopsy on 08/29/[address] Riley was negative. PSA 12/24/13 = 6.59 ng/mL. Had voiding difficulty after inguinal surgery in winter and finasteride was added to his Flomax. PSA 07/31/2020 = 6.4 ng/mL. PSA 01/28/21 = 4.06 ng/mL. Saw Dr. Islas last on 01/28/21 (initially saw him after voiding difficulties after his inguinal surgery) and patient does know how to do self catheterization. Had gross hematuria in early/mid April 2021. Cr 05/02/21 = 0.7 (GFR >60). INR 05/02/21 = 5.37. UCx 05/02/12 and 05/05/21 = negative. States that he is here for his elevated PSA and a while back he was having gross hematuria and his INR was above 5. States that that the gross hematuria resolved in a few days. States that the gross hematuria was in April 2021. States that since he started testosterone replacement about 4 months ago -> states that he gets an injection in the butt, abdomen, and he takes a pill. He states that this is managed by a clinic called [facility]. He shows me a picture that shows he's taking testosterone 100 mg IM BID, gonadorelin 0.25 mL SQ BID, and anastrozole 0.25 mg. He states that Dr. Islas checked his testosterone and it was 800. Then he had [facility] check it and it was 350. With the finasteride, he feels that his voiding has been better. He's still taking the Flomax. He was started on Flomax around 2018. No straining to void. At times it takes a while to start his stream if he holds it too long. Nocturia 0-1x/night. Force of stream moderate. Empties bladder. No prior history of kidney stones. He states that he had a PSA drawn about 2 weeks ago with [facility] (he was getting labs for his testosterone) and he states that it was 8.1. Patient does not have the lab records with him today. 12/23/23: When I saw him last, I recommended that he stop testosterone replacement and to get a prostate MRI. Cystoscopy 07/24/21 showed a very large prostate without any bladder tumors or stones. Urine cytology 07/24/21 = negative. Prostate MRI 08/05/21 ([place]) = 118 gram prostate, PIRADS [address] urogram 08/05/21 ([place]) = normal upper tracts, enlarged prostate, no kidney stones. S/p Uronav prostate biopsy by Dr. Garcia on 11/23/21 = negative. Dr. Garcia recommended continuing Flomax 0.8 mg and finasteride and to resume testosterone replacement therapy and follow up in 1 year. UCx 05/19/23 and 06/01/23 = >100K coag neg Staph. Hct 11/24/22 = 49.1%. Cr 11/24/22 = 1.0 (GFR >60). IPSS = 14. Here for follow up. He states that everything has been normal for a couple 3 years. He states he drinks 16 oz water, OJ, and a big mug of coffee in the morning and he'll have frequency for a couple hours. No bothersome voiding through the day. He'll have urgency sometimes. He's on tamsulosin 0.4 mg and finasteride. CHERYL Franklin - [facility] 12/23/2023 12:49:44 02/16/2024 text/html HPI Notes: 63-year-old male with history of BPH with LUTS, gross hematuria, and elevated PSA. Previously evaluated by Dr. Garcia and Dr. Edmonds with last visit on 12/23/2023. Referred for BPH management. BPH WITH LUTS Currently on dual medical therapy with tamsulosin 0.4 mg daily and finasteride 5 mg daily. 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 Riley was negative. Prostate MRI 08/05/21 ([place]) = 118 gram prostate, PIRADS 3 lesion x 1. S/p Uronav prostate biopsy by Dr. Garcia on 11/23/21 = negative. GROSS HEMATURIA Had gross hematuria in early/mid April 2021. Reportedly associated with elevated INR (~5). He underwent work up as below: Cystoscopy 07/24/21 showed a very large prostate without any bladder tumors or stones. Urine cytology 07/24/21 = negative. CT urogram 08/05/21 ([place]) = normal upper tracts, enlarged prostate, no kidney stone TESTOSTERONE He recently restarted testosterone replacement recently in [place]. PMH: HLD, HTN, low testosterone, a. fib, mechanical AVR, on lifetime warfarin. Anticoagulation: He has to bridge on lovenox for surgical procedures. REJI SOLIS MD [address] [facility],[address], [place], [address], [facility] 02/16/2024 11:50:03
--- OUTSIDE RECORDS SUMMARY | 2024-05-27 07:42 | XMS_ITS | Clinical Summary ---
Author Organization [facility] Address [place], [place] [address] Care Team Providers Care Fuel Storage Technician Name Role Phone Mauricio Pham MD Primary Care Provider [phone] Allergies Active Allergy Reactions Criticality Noted Date Comments Cats (Fur, Dander, Saliva) Anaphylaxis High 08/27/20 17 Shellfish Containing Products Anaphylaxis High 08/27 Tramadol Palpitations 10/29/2020 Medications Medication Sig Dispensed Refills Start Date End Date Status warfarin (COUMADIN) 4 mg tablet TK 2 TS PO D 09/02/2020 Active amoxicillin (AMOXIL) 500 mg capsule Take 500 mg by mouth. Dentist visits 12/23/2020 Active EPINEPHrine (EPIPEN) 0.3 mg/0.3 mL injection INJECT INTRAMUSCULARLY DIRECTED 07/31/2020 Active warfarin (COUMADIN) 1 mg tablet Take 8 mg by mouth. Acti ve lisinopriL (PRINIVIL; ZESTRIL) 5 mg tablet Take 5 mg by mouth once daily. 08/06/2021 Active metoprolol tartrate (LOPRESSOR) 25 mg [...] a meal. 60 Capsule 11 05/12/2022 Active cephalexin (KEFLEX) 500 mg capsuleIndications: UTI (urinary tract infection), uncomplicated Take 1 capsule by mouth twice daily for 10 days for urine infection 20 Capsule 04/23/2024 Active Active Problems No known active problems Encounters Date Type Department Care Team Description 04/23/2024 2:15 PM CDT Office Visit [facility] [address] [place] [address] Darcy Goodman PA Tick Bite (Happened a week ago. Right bicep area. ); Bladder Infection (Started about a week ago) 04/23/2024 Telephone [facility] [address] [address] Darcy Goodman PA Anticoagulation (bpa) 04/23/2024 Travel from Last 3 Months Social History Tobacco Use Types Packs/Day Years [...] Sign Reading Time Taken Comments Blood Pressure 148/83 04/23/2024 2:23 PM CDT Pulse 60 04/23/2024 2:23 PM CDT Temperature 36.6 ??C (97.8 ??F) 04/23/2024 2:23 PM CD T Respiratory Rate 16 04/23/2024 2:23 PM CDT Oxygen Saturation 97% 04/23/2024 2:23 PM CDT Inhaled Oxygen Concentration - - Weight 73.5 kg (162 lb) 04/23/2024 2:23 PM CDT Height 170.2 cm (5' 7) 06/01/2023 12:28 PM CDT Body Mass Index 25.37 06/01/2023 12:28 PM CDT Plan of Treatment Health Maintenance Due Date Last Done Comments Tdap 1969 Depression screening for age 12+ 1970 Hepatitis C screening for ag e 18-79 1976 Tetanus booster 1978 Colonoscopy through age 75 2003 Lipids for age 45-75 2003 Zoster (shingles) series for age 50+ (1 of 2) 2008 AAA screening age 65-74 2023 Medicare Wellness for age 65+ 2023 Pneumococcal series for age 65+ (1 of 1 - PCV) 2023 COVID-19 vaccine series ( - 2022-24 season) 2023 BMI (ht and wt on same day) for age 18+ 06/01/2024 06/01/2023, 05/19/2023, 10/05/2021, Additional history exists Influenza for age 65+ 07/22/2024 Procedures Procedure Name Priority Date/Time Associated Diagnosis Comments ANAPLASMA EHRLICHIA DETECTION PCR Routine 04/23/2024 3:20 PM CDT Skin rash LYME SCREEN W/REFLEX Routine 04/23/2024 3:20 PM CDT Skin rash URINALYSIS MICROSCOPIC STAT 04/23/2024 2:55 PM CDT UTI (urinary tract infection), uncomplicated URINE CULTURE STAT 04/23/2024 2:55 PM CDT UTI (urinary tract infection), uncomplicated UA W/ SEDIMENT EXAM REFLEXED PER CRITERIA STAT 04/23/2024 2:55 PM CDT UTI (urinary tract infection), uncomplicated from Last 3 Months Results * ANAPLASMA EHRLICHIA DETECTION PCR (04/23/2024 3:20 PM CDT) A phagocytophilum PCR Negative Negative 04/27/2024 3:10 PM CDT [facility] ([facility]) Comment: No Anaplasma phagocytophilum DNA detected. ??A. phagocytophilum has been characterized as the causative agent of Human Granulocytic Ehrlichiosis (HGE). Ehrlichia chaffeensis PCR Negative Negative 04/27/2024 3:10 PM CDT [facility] ([facility]) Comment: No Ehrlichia chaffeensis DNA detected. ??E. chaffeensis has been characterized as the causative agent of Human Monocytic Ehrlichiosis (HME). Blood BLOOD SPECIMEN / Unknown Venipuncture / Unknown 04/23/2024 3:20 PM CDT 04/23/2024 3:21 PM CDT Narrative [facility] ([facility]) - 04/27/2024 3:10 PM CDT Test(s) 992130-E. phagocytophilum PCR; [id number]- Ehrlichia chaffeensis PCR was developed and its performance characteristics determined by [facility]. It has not been cleared or approved by the Food and Drug Administration. Performed at: ??[address] ??[id number] [employer] [place]: Anabel Almeida MD, Phone: ??[phone] Darcy TORRES SEND OUTS [facility] ([facility]) [address] [place] [phone], * LYME SCREEN W/REFLEX (04/23/2024 3:20 PM CDT) Pathologist [facility] LYME SCREEN W/REFLEX Negative Negative 04/24/2024 10:47 AM CDT [facility] Comment: No laboratory evidence of infection with B. burgdorferi (Lyme disease). Negative results may occur in patients recently infected (less than or equal to 14 days) with B. burgdorferi. If recent infection is suspected, repeat testing on a new sample collected in 7-14 days is recommended. Blood BLOOD SPECIMEN / Unknown Venipuncture / Unknown 04/23/2024 3:20 PM CDT 04/23/2024 3:21 PM CDT Darcy TORRES SEND OUTS Performing Organization Address [facility]/ZIP Co de Phone Number [facility] [address] [place] [address], [place] * (ABNORMAL) URINALYSIS MICROSCOPIC (04/23/2024 2:55 PM CDT) RBC 11-25(A) 0-2, None Seen /HPF 04/23/2024 3:01 PM CDT [facility] WBC >100(A) 0-2, 3-5, None Seen /HPF 04/23/2024 3:01 PM CDT [facility] BACTERIA Moderate(A ) None Seen, Rare, Few Bacteria/H PF 04/23/2024 3:01 PM CDT [facility] EPITHELIAL CELLS Few None Seen, Few Epi/HPF 04/23/2024 3:01 PM CDT [facility] WHITE CELL CLUMPS Present(A) (none) 04/23/2024 3:01 PM CDT [facility] Urine URINE SPECIMEN / Unknown Non-Blood / Unknown 04/23/2024 2:55 PM CDT 04/23/2024 2:55 PM CDT Darcy TORRES URINE Performing Organization Address [facility]/ZIP Co de Phone Number [facility] [address] [place] [address], [place] * URINE CULTURE (04/23/2024 2:55 PM CDT) CULTURE <10,000 CFU/mL multiple organisms 04/25/2024 12:02 PM CDT [facility] Urine URINE SPECIMEN / Unknown Non-Blood / Unknown 04/23/2024 2:55 PM CDT 04/23/2024 2:55 PM CDT Darcy TORRES MICROBIOLOGY [facility] [address] [place] [address], [place] * (ABNORMAL) UA W/ SEDIMENT EXAM REFLEXED PER CRITERIA (04/23/2024 2:55 PM CDT) COLOR Yellow Yellow Color 04/23/2024 3:00 PM CDT [facility] CLARITY Cloudy(A) Clear Clarity 04/23/2024 3:00 PM CDT [facility] SPECIFIC GRAVITY,URINE 1.025 1.010, 1.015, 1.020, 1.025 04/23/2024 3:00 PM CDT [facility] PH,URINE 6.0 6.0, 7.0, 8.0, 5.5, 6.5, 7.5, 8.5 04/23/2024 3:00 PM CDT [facility] UROBILINOGEN, QUALITATIVE Normal Normal EU/dl 04/23/2024 3:00 PM CDT [facility] PROTEIN, URINE Trace(A) Negative mg/dL 04/23/2024 3:00 PM CDT [facility] GLUCOSE, URINE Negative Negative mg/dL 04/23/2024 3:00 PM CDT [facility] KETONES,URINE Negative Negative mg/dL 04/23/2024 3:00 PM CDT [facility] BILIRUBIN,URI NE Negative Negative 04/23/2024 3:00 PM CDT [facility] OCCULT BLOOD,URINE Moderate(A) Negative 04/23/2024 3:00 PM CDT [facility] NITRITE Positive(A) Negative 04/23/2024 3:00 PM CDT [facility] LEUKOCYTE ESTERASE Large(A) Negative 04/23/2024 3:00 PM CDT [facility] Urine URINE SPECIMEN / Unknown Non-Blood / Unknown 04/23/2024 2:55 PM CDT 04/23/2024 2:55 PM CDT Darcy TORRES URINE [facility] [address] [place] [address], from Last 3 Months Care Teams Fuel Storage Technician Relationship Specialty Start Date End Date Mauricio Pham MD [address] [place] [place] [id number] PCP - General Family Practice 08/21/21
--- OUTSIDE RECORDS SUMMARY | 2024-05-27 07:42 | XMS_ITS | Continuity of Care Document ---
Author Organization [facility], [facility] Address [address] [facility] [address] [place] [address] Care Team Providers Care On Site Manager Name Role Phone [facility] Primary Care Provider [phone] MARIA ANTONIA MONTES DE OCA Primary Care Provider Assessment No assessment recorded. Plan of Treatment Reminders Order Date Submit Date Provider Last Modified By Organization Details Last Modified Time Details Appointments None recorded. Lab urinalysis, dipstick 2023 024 [facility], [address], [place], [address], 4 16:57:40 urinalysis, microscopic 2023 024 [facility], [address], [place], [address], 4 16:57:42 culture, urine 2023 024 [facility], [address], [place], [address], 4 10:08:11 Referral None recorded. Procedures None recorded. Surgeries None recorded. Imaging None recorded. Medication Orders None recorded. Patient TargetsNo targets recorded. Patient InstructionsNo instructions recorded. Reason for Referral None Reported. Problems Name Status Onset Date Resolution Date Notes Provider Name and Address Organization Details Recorded Time Benign prostatic hyperplasia Active 012 600.00 : BPH (HYPERTROPHY ) WITHOUT URINARY OBSTRUCTIO Not Available [facility] 0 02:05:17 Testicular hypofunction Active 012 257.2 : TESTICULAR DYSFUNCTION/ HYPOGONADISM Not Available [facility] 0 02:05:17 Prostate specific antigen above reference range Active 013 790.93 : ELEVATED PSA Not Available [facility] 0 02:05:17 Benign prostatic hyperplasia with outflow obstruction Active 021 Victorino Edmonds MD [address] [place] [address],[address], [address], [facility] 1 14:32:18 Slowing of urinary stream Active 021 Victorino Edmonds MD [address] [place] [address],[facility] [address], [place], [address], [facility] 1 14:32:19 Elvis hematuria Active 021 Victorino Edmonds MD [address] [place] [address],[address], [address], [facility] 1 14:32:20 Screening for malignant neoplasm of prostate Active 024 Victorino Edmonds MD [address] [place] [address],[address], [place], [address], [facility] 4 12:43:12 Lower urinary tract symptoms due to benign prostatic hypertrophy Active 024 Victorino Edmonds MD [address] [place] [address],[address], [place], [address], [facility] 4 12:43:14 Problem Notes None recorded. Procedures Surgical History Date Name Laterality Status Provider Name and Address Organization Details Recorded Time 05/21/20 24 Urine Culture completed Fabby white [facility] 05/21/2024 15:28:58 05/21/20 24 Urinalysis completed Fabby white [facility] 05/21/2024 16:18:17 05/21/20 24 Bladder Scan completed Fabby white [facility] 05/21/2024 16:18:30 02/16/20 24 COMPLEX VISIT completed NAMRATA ROCKWELL MD [address] [place] [address],[facility] [address], [place], [address], [facility] 02/16/2024 11:31:27 02/16/20 24 Bladder Scan completed Dayanna Corona null, [facility] 02/16/2024 10:49:59 12/23/19 24 Blood Draw/QUALITY INTERNSHIP/PSA RESULTS completed Eh Sheppard null, [facility] 12/23/2023 12:49:16 11/23/19 22 Prostate Biopsy Procedure completed Kane Garcia null, [facility] 11/23/2021 15:29:24 11/23/19 22 Gentamicin Injection completed Vee Stubbsie null, [facility] 11/23/2021 14:11:03 07/24/20 21 Cystoscopy- male completed Victorino Edmonds MD [address] [facility],[address], [place], [address], [facility] 07/24/2021 14:37:51 07/24/20 21 Bladder Scan completed Rosana Oconnell null, [facility] 07/24/2021 14:16:44 11/21/19 19 Colonoscopy completed Rosana Oconnell [facility], [facility] 07/24/2021 14:16:32 Excise epiphyseal bar completed Not Available Health Note 07/23/2021 18:12:41 Insert epicard eltrd open completed Not Available Health Note 07/23/2021 18:12:41 Diagnostic colonoscopy completed Not Available Health Note 12/23/2023 07:52:32 Hernia repair w/mesh completed Not Available Health Note 12/23/2023 07:52:32 Imaging Results None recorded. Procedure Notes None recorded. Medical Equipment None Reported. Allergies Allergen ID Allergen Name Allergen Category Reaction Reaction Severity Criticality Documentation Date Start Date Code Code System Note Provider Name and Address Organization Details Recorded Time 648849 shellfish derived food,medi cation anaphylax is flushing Not available Not available Not available 12/23/2023 Not Available Health Note 07:52:31 267345 cat dander environme nt anaphylax is flushing respirato ry distress Not available Not available Not available Not available 12/23/2023 Not Available Health Note 07:52:31 585349 tramadol medicatio n irregular heart rate palpitati ons Not available Not available Not available 12/23/2023 98840 RxNorm Not Available Health Note 07:52:31 Medications Name Sig Start Date Stop [...] hours by oral route for 5 days. 07/02/ 2024 active Not Available Not Available Not Avai [...] Not Available Not Available Not Available Vitals None Recorded Social History Question Answer Notes LastModified by [...] Of Your Most Recent Tobacco Screening? 05/21/2024 [email or web address] Information not available 05/21/2024 What Is Your [...] Encounter Closed Date Diagnosis/Indication Diagnosis SNOMED-CT Code [id number] [facility]by [facility] [address] [place] [address] 05/21/2024 15:17:15 05/22/2024 08:24:21 Lower urinary tract symptoms due to benign prostatic hypertrophy [id number] Health Concerns Section Related Observation LastModified by Organization Detai ls LastModified Time None Recorded Concern Status LastModified by Organization Details LastModified Time None Recorded Payers Encounter Date Sequence Insurance Name Policy Number Policy Armenta Covered Member ID Armenta Member ID Guarantor Name 05/21/2024 1 [place] [employer] Oleg Sparks [id number] Oleg Sparks
--- OUTSIDE RECORDS SUMMARY | 2024-05-27 07:42 | XMS_ITS | Referral Summary ---
Author Organization [facility] Address [address] [place] [address] Care Team Providers Care Manager Heavy Duty Name Role Phone [facility]- Primary Care Provider Allergies Active Allergy [...] West MD LAB - BLOOD CECELIA INIGUEZ [facility] Organization Address City/State/ZIP Co de Phone Number LABORATORY [facility] Acute Care Lab [address] floor, [address] [place] [address], [facility] [phone] from Last 3 Months or Most Recently Relevant to Health Maintenance Care Teams Manager Heavy Duty Relationship Specialty Start Date End Date [facility]- [address] [place] [address] PCP - General 07/24/21
== END 2024-05-25 11:20 | disposition home or self-care (01) ==
LOC: NFLDREF 05-27 07:40
PROVIDERS: PCP Family Medicine; Referring Provider Family Medicine; Visit Provider Family Medicine
DX: Z95.2 Presence of prosthetic heart valve (principal); Z79.01 Long term (current) use of anticoagulants
CPT/HCPCS: 85610

== ENCOUNTER 2024-06-08 13:26 | Outpatient (CLI) | payer MEDICARE, SELFPAY ==
--- OUTSIDE RECORDS SUMMARY | 2024-06-08 13:38 | XMS_ITS | Clinical Summary ---
Author Organization [employer] [facility] Address [place], [place] [address] Care Team Providers Care Clinical Research Coordinator Name Role Phone Mauricio Pham MD Primary Care Provider [phone] Allergies Active Allergy Reactions Criticality Noted Date [...] Description 04/23/2024 2:15 PM CDT Office Visit [facility] [address] [place] [address] Darcy Goodman PA Tick Bite (Happened a week ago. Right bicep area. ); Bladder Infection (Started about a week ago) 04/23/2024 Telephone [facility] [address] [address] [...] PCR Negative Negative 04/27/2024 3:[address] [facility]) Comment: No Anaplasma phagocytophilum DNA detected. ??A. phagocytophilum has been characterized as the causative agent of Human Granulocytic Ehrlichiosis (HGE). Ehrlichia chaffeensis PCR Negative Negative 04/27/2024 3:[address] [facility] ([facility]) Comment: No Ehrlichia chaffeensis DNA detected. ??E. chaffeensis has been characterized as the causative agent of Human Monocytic Ehrlichiosis (HME). Blood BLOOD SPECIMEN / Unknown Venipuncture / Unknown 04/23/2024 3:20 PM CDT 04/23/2024 3:[address] [facility] ([facility]) - 04/27/2024 3:10 PM CDT Test(s) 622578-T. phagocytophilum PCR; 826488- Ehrlichia chaffeensis PCR was developed and its performance characteristics determined by [facility]. It has not been cleared or approved by the Food and Drug Administration. Performed at: ??[address] ??[id number] Deputy Sheriff K9 Handler: Anabel Almeida MD, Phone: ??[phone] Darcy TORRES SEND OUTS [facility] ([facility]) [address] [place] [address], * LYME SCREEN W/REFLEX (04/23/2024 3:20 PM CDT) Pathologist [facility] LYME SCREEN W/REFLEX Negative Negative 04/24/2024 10:47 AM CDT [facility] Comment: No laboratory evidence of [...] Darcy TORRES SEND OUTS Performing Organization Address [facility]/ZIP Co de Phone Number [facility]-C[facility]AL LABORATORY [address] [place] [address], [place] * (ABNORMAL) URINALYSIS MICROSCOPIC (04/23/2024 2:55 PM CDT) RBC 11-25(A) 0-2, None Seen /HPF 04/23/2024 3:01 PM CDT [facility] WBC >100(A) 0-2, 3-5, None Seen /HPF 04/23/2024 3:01 PM CDT [facility] BACTERIA Moderate(A ) None Seen, Rare, Few Bacteria/H PF 04/23/2024 3:01 PM CDT [facility] EPITHELIAL CELLS Few None Seen, Few Epi/HPF 04/23/2024 3:01 PM CDT [facility] WHITE CELL CLUMPS Present(A) (none) 04/23/2024 3:01 PM CDT [facility] Urine URINE SPECIMEN / Unknown Non-Blood / Unknown 04/23/2024 2:55 PM CDT 04/23/2024 2:55 PM CDT Darcy TORRES URINE Performing Organization Address [facility]/ZIP Co de Phone Number [facility] [address] [place] [address], [place] * URINE CULTURE (04/23/2024 2:55 PM CDT) CULTURE <10,000 CFU/mL multiple organisms 04/25/2024 12:02 PM CDT [facility] TRAL LABORATORY Urine URINE SPECIMEN / Unknown Non-Blood / Unknown 04/23/2024 2:55 PM CDT 04/23/2024 2:55 PM CDT Darcy TORRES MICROBIOLOGY [facility]-CENTRAL LABORATORY [address] [place] [address], [place] * (ABNORMAL) UA W/ SEDIMENT EXAM REFLEXED PER CRITERIA (04/23/2024 2:55 PM CDT) COLOR Yellow Yellow Color 04/23/2024 3:00 PM CDT [facility] CLARITY Cloudy(A) Clear Clarity 04/23/2024 3:00 PM CDT [facility] SPECIFIC GRAVITY,URINE 1.025 1.010, 1.015, 1.020, 1.025 04/23/2024 3:00 PM CDT [facility] PH,URINE 6.0 6.0, 7.0, 8.0, 5.5, 6.5, 7.5, 8.5 04/23/2024 3:00 PM CDT [facility] UROBILINOGEN, QUALITATIVE Normal Normal EU/dl 04/23/2024 3:00 PM CDT [facility] PROTEIN, URINE Trace(A) Negative mg/dL 04/23/2024 3:00 PM CDT [facility] GLUCOSE, URINE Negative Negative mg/dL 04/23/2024 3:00 PM CDT [facility] KETONES,URINE Negative Negative mg/dL 04/23/2024 3:00 PM CDT [facility] BILIRUBIN,URI NE Negative Negative 04/23/2024 3:00 PM CDT [facility] OCCULT BLOOD,URINE Moderate(A) Negative 04/23/2024 3:00 PM CDT [facility] NITRITE Positive(A) Negative 04/23/2024 3:00 PM CDT [facility] LEUKOCYTE ESTERASE Large(A) Negative 04/23/2024 3:00 PM CDT [facility] Urine URINE SPECIMEN / Unknown Non-Blood / Unknown 04/23/2024 2:55 PM CDT 04/23/2024 2:55 PM CDT Darcy TORRES URINE [facility] [address] [place] [address], from Last 3 Months Care Teams Clinical Research Coordinator Relationship Specialty Start Date End Date Mauricio Pham MD [address] [place] [address] PCP - General Family Practice 08/21/21
--- OUTSIDE RECORDS SUMMARY | 2024-06-08 13:38 | XMS_ITS | Clinical Summary ---
Author Organization [facility] Address [address] [place] [address]. [place] [address] Care Team Providers Care Associate Software Engineer Name Role Phone [facility]- Primary Care Provider Allergies Active Allergy Reactions [...] West MD LAB - BLOOD CECELIA INIGUEZ [facility] Organization Address City/State/ZIP Co de Phone Number LABORATORY [facility] Acute Care Lab [address] floor, [address] [place] [address], [facility] [phone] from Last 3 Months or Most Recently Relevant to Health Maintenance Care Teams Associate Software Engineer Relationship Specialty Start Date End Date [facility]- [address], [place] [address] PCP - General 07/24/21
--- OUTSIDE RECORDS SUMMARY | 2024-06-08 13:38 | XMS_ITS | Referral Summary ---
Author Organization [place] Address [address] [place] [address] Care Team Providers Care Physiologist Name Role Phone [facility]- Primary Care Provider Allergies Active [...] West MD LAB - BLOOD CECELIA INIGUEZ [facility] Organization Address City/State/ZIP Co de Phone Number LABORATORY [facility] [address] floor, [address] [place] [address], [facility] [phone] from Last 3 Months or Most Recently Relevant to Health Maintenance Care Teams Physiologist Relationship Specialty Start Date End Date [facility]- [address] [place] [address] PCP - General 07/24/21
--- OUTSIDE RECORDS SUMMARY | 2024-06-08 13:38 | XMS_ITS | Continuity of Care Document ---
Author Organization [facility] Address [address] [facility] [address] [place] [address] Care Team Providers Care Roustabout Supervisor Name Role Phone [facility] Primary Care Provider MARIA ANTONIA MONTES DE OCA Primary Care Provider Assessment No assessment recorded. Plan of Treatment Reminders Order Date Submit Date Provider Last Modified By Organization Details Last Modified Time Details Appointments None recorded. Lab urinalysis, dipstick 2023 024 [facility], [address], [place], [address], 4 16:57:40 urinalysis, microscopic 2023 024 [facility], [address], [place], [address], 4 16:57:42 culture, urine 2023 024 [facility], [address], [place], [address], 4 10:08:11 Referral None recorded. Procedures None recorded. Surgeries None recorded. Imaging None recorded. Medication Orders None recorded. Patient TargetsNo targets recorded. Patient InstructionsNo instructions recorded. Reason for Referral None Reported. 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 : TESTICULAR DYSFUNCTION/ HYPOGONADISM Not Available [facility] 0 02:05:17 Prostate specific antigen above reference range Active 013 790.93 : ELEVATED PSA Not Available [facility] 0 02:05:17 Benign prostatic hyperplasia with outflow obstruction Active 021 Victorino Edmonds MD [address] [place] [address],[address], [address], [facility] 1 14:32:18 Slowing of urinary stream Active 021 Victorino Edmonds MD [address] [place] [address],[address], [address], [facility] 1 14:32:19 Elvis hematuria Active 021 Victorino Edmonds MD [address] [place] [address],[address], [address], [facility] 1 14:32:20 Screening for malignant neoplasm of prostate Active 024 Victorino Edmonds MD [address] [place] [address],[address], [place], [address], [facility] 4 12:43:12 Lower urinary tract symptoms due to benign prostatic hypertrophy Active 024 Victorino Edmonds MD [address] [place] [address],[address], [place], [address], [facility] 4 12:43:14 Problem Notes None recorded. Procedures Surgical History Date Name Laterality Status Provider Name and Address Organization Details Recorded Time 05/29/20 24 Bladder Scan completed Brianna white [facility] 05/29/2024 16:21:06 05/21/20 24 Urine Culture completed Fabby white [facility] 05/21/2024 15:28:58 05/21/20 24 Urinalysis completed Fabby white [facility] 05/21/2024 16:18:17 05/21/20 24 Bladder Scan completed Fabby white [facility] 05/21/2024 16:18:30 02/16/20 24 COMPLEX VISIT completed NAMRATA ROCKWELL MD [address] [facility],[address], [place], [address], [facility] 02/16/2024 11:31:27 02/16/20 24 Bladder Scan completed Dayanna Corona null, [facility] 02/16/2024 10:49:59 12/23/19 24 Blood Draw/ENGINEERING DOCUMENT CONTROL CLERK/PSA RESULTS completed Eh Sheppard null, [facility] 12/23/2023 12:49:16 11/23/19 22 Prostate Biopsy Procedure completed Kane Garcia null, [facility] 11/23/2021 15:29:24 11/23/19 22 Gentamicin Injection completed Vee Anguiano null, [facility] 11/23/2021 14:11:03 07/24/20 21 Cystoscopy- male completed Victorino Edmonds MD [address] [facility],[address], [place], [address], [facility] 07/24/2021 14:37:51 07/24/20 21 Bladder Scan completed Rosana Oconnell [facility], [facility] 07/24/2021 14:16:44 11/21/19 19 Colonoscopy completed Rosana Oconnell [facility], [facility] 07/24/2021 14:16:32 Excise epiphyseal bar completed [...] Name and Address Organization Details Recorded Time 768629 shellfish derived food,medi cation anaphylax is flushing Not available Not available Not available 12/23/2023 Not Available Health Note 4 07:52:31 715633 cat dander environme nt anaphylax is flushing respirato ry distress Not available Not available Not available Not available 12/23/2023 Not Available Health Note 4 07:52:31 973354 tramadol medicatio n irregular heart rate palpitati ons Not available Not available Not available 12/23/2023 62273 RxNorm Not Available Health Note 07:52:31 Medications [...] doxycycli ne monohydra te 100 mg tablet TAKE 1 TABLET BY MOUTH TWICE DAILY FOR 14 DAYS active Not Available Not Available No t Available triamcino lone acetonide 0.1 % topical cream [...] t Available cephalexi n 500 mg capsule TAKE 1 CAPSULE BY MOUTH EVERY 8 HOURS FOR 5 DAYS active Not Available Not Available No t Available oseltamiv ir 75 mg capsule TAKE 1 [...] Date Of Your Most Recent Tobacco Screening? 05/29/2024 [email or web address] Information not available 05/29/2024 What Is Your Relationship Status? Single [email or web address] [...] History Nothing Reported. Medical History Condition Response Sexually Transmitted Infection N Diabetes N Bleeding Disorder N High Blood Pressure N Kidney Stones N Cancer N Lung Disease N Depression N High Cholesterol Y GERD/Acid Reflux N Heart Disease N Past Encounters Encounter ID Performer Location Encounter Start Date Encounter Closed Date Diagnosis/Indication Diagnosis SNOMED-CT Code [id number] Fabby Casey [facility] [address] [address] 05/21/2024 15:17:15 05/22/2024 08:24:21 Lower urinary tract symptoms due to benign prostatic hypertrophy [id number] Health Concerns Section Related Observation LastModified by Organization Detai ls LastModified Time None Recorded Concern Status LastModified by Organization Details LastModified Time None Recorded Payers Encounter Date Sequence Insurance Name Policy Number Policy Armenta Covered Member ID Armenta Member ID Guarantor Name 05/21/2024 1 [place] [employer] Oleg Sparks [id number] 8 Oleg Sparks
== END 2024-06-08 13:27 | disposition home or self-care (01) ==
PROVIDERS: PCP Family Medicine; Visit Provider Family Medicine
DX: E78.5 Hyperlipidemia, unspecified (principal); I10 Essential (primary) hypertension; Z91.013 Allergy to seafood; Z01.82 Encounter for allergy testing
CPT/HCPCS: 80053; 80061; 82785; 86003

== ENCOUNTER 2024-08-09 13:01 | Outpatient (CLI) | payer MEDICARE, SELFPAY ==
--- OUTSIDE RECORDS SUMMARY | 2024-08-10 09:20 | XMS_ITS | Encounter Summary ---
Author Organization [place] Address [address] [facility] [place] [address] Care Team Providers Care Plating Inspector Name Role Phone [facility]- Primary Care Provider Encounter Details Date Type Department Care Team (Latest Contact Info) Description 08/09/2024 Travel Social History Tobacco Use Types Packs/Day Years Used Date Smoking Tobacco: Former Cigarettes Q uit: 1999 Smokeless Tobacco: Current Alcohol Use Standard Drinks/Week Comments Not Currently 0 (1 standard drink = 0.6 oz pur e alcohol) Adolescent Education Answer Date Record ed Getting School Help Needed Not on file 08/24 Food Insecurity Answer Date Recorded Within the past 12 months, d id you worry that your food would run out before you got money to buy more? No 08/09/2024 Within the past 12 months, d id the food you bought just not last and you didn? t have money to get more? No 08/09/2024 Housing Stability Answer Date Recorded Do you have housing? ([place] g is defined as stable permanent housing and does not include staying ouside in a car, in a tent, in an abandoned building, in an overnight fpc, or couch-surfing.) Yes 08/09/2024 Are you worried about losing your housing? No 08/09/2024 Financial Resource Strain Answer Date R ecorded Within the past 12 months, h ave you or your family members you live with been unable to get utilities (heat, electricity) when it was really needed? No 08/09/2024 Transportation Needs Answer Date Record ed Within the past 12 months, h as lack of transportation kept you from medical appointments, getting your medicines, non-medical meetings or appointments, work, or from getting things that you need? No 08/09/2024 Interpersonal Safety Answer Date Record ed Do you feel physically and e motionally safe where you currently live? Yes 08/09/2024 Within the past 12 months, h ave you been hit, slapped, kicked or otherwise physically hurt by someone? No 08/09/2024 Within the past 12 months, h ave you been humiliated or emotionally abused in other ways by your partner or ex-partner? No 08/09/2024 Sex and Gender Information Value Date Recorded Sex Assigned at Not on file Gender Identity Not on file Sexual Orientation Not on file documented as of this encounter Plan of Treatment Not on file documented as of this encounter Visit Diagnoses Not on filedocumented in this encounter Care Teams Plating Inspector Relationship Specialty Start Date End Date [facility]- [address] [place] [address] PCP - General 07/24/21 documented as of this encounter
--- OUTSIDE RECORDS SUMMARY | 2024-08-10 09:20 | XMS_ITS | Encounter Summary ---
Author Organization [facility] Address [address] [place] [id number] Care Team Providers Care Brickmason Helper Name Role Phone [facility]- Primary Care Provider Reason for Visit * Reason Comments Hematuria * Auth/Cert (Routine) Specialty Diagnoses / Procedures Referred By Eric hernandez Referred To Contact Med Surg Diagnoses Gross hematuria Supratherapeutic INR Problem with Box catheter, initial encounter (H24) Gross hematuria Problem with Box catheter, initial encounter (H24) Supratherapeutic INR 5 Medical Surgical [address] [place] [address] Referral ID Status Reason Start Date Expiration Date Visits Re quested Visits Authorized [id number] 1 1 Encounter Details Date Type Department Care Team (Late st Contact Info) Description 08/09/2024 3:49 PM CDT - Present Hospital Encounter [facility] 5 Medical Surgical [address] [place] [address] Amilcar Holt MD [facility] [address] [place], [place] [id number] Ortega Preciado MD [facility] [address], [address] [address] Uziel Easton MD [address] [place] [address] Gross hematuria; Problem with Box catheter, initial encounter (H24); Supratherapeutic INR Social History Tobacco Use Types Packs/Day Years [...] Date Recorded Do you have housing? (Albino herron is defined as stable permanent housing and does not include staying ouside in a car, in a tent, in an abandoned building, in an overnight intermediate, or couch-surfing.) Yes 08/09/2024 Are you worried [...] on file documented as of this encounter Last Filed Vital Signs Vital Sign Reading Time Taken Comments Blood Pressure 109/57 08/10/2024 7:45 AM CDT Pulse 62 08/10/2024 7:45 AM CDT Temperature 37.1 ??C (98.8 ??F) 08/10/2024 7:45 AM CD T Respiratory Rate 16 08/10/2024 7:45 AM CDT Oxygen Saturation 98% 08/10/2024 7:45 AM CDT Inhaled Oxygen Concentration - - Weight 70.1 kg (154 lb 8.7 oz) 08/09/2024 3:48 P M CDT Height 170.2 cm (5' 7) 08/09/2024 3:48 PM CDT Body Mass Index 24.2 08/09/2024 3:48 PM CDT documented in this encounter Progress Notes * Zainab Magallon MD - 08/10/2024 2:46 AM CDT Cross cover note Patient with hematuria now on CBI. Previous hemoglobin 14.7 -Systolic blood pressure down to 88 -Will check hemoglobin -Normal saline bolus 500 ml -Reassess response to fluid and repeat hemoglobin. * Ash Casey MD - 08/10/2024 12:04 AM CDT Brief note: Irrigated at bedside for minimal clot, CBI restarted. He is having severe spasms resulting in urinebypassing the catheter, though I have low suspicion for obstruction. His hematuria is grade 5 with CBI off, grade 3 on a fast drip. With his elevated INR I suspect there is an active bleed. -ordered B&O suppository prn for bladder spasms - NPO @ midnight * Pam Chin RN - 08/09/2024 10:54 PM CDT Paged cross cover Dr. Jemma JUAREZ: Patient is bleeding quite a bit from his catheter insertion site. Gushes of blood coming out when he is moving around. * Pam Chin RN - 08/09/2024 10:48 PM CDT Admitted/transferred from: 2 RN full skin assessment completed by Pam Chin RN and Sabine Goldberg. Skin assessment finding: other Bruise and scan on left forearm Interventions/actions: other none Will continue to monitor. Associated attestation - Sabine Goldberg RN - 08/10/2024 12:11 AM CDT Cosign this 2 RN skin check with Pam Chin. Sabine Goldberg RN on 08/10/2024 at 12:11 AM * Ash Casey MD - 08/09/2024 7:59 PM CDT Brief note: 64M w/ GH after initiation of bactrim for UTI, on Warfarin for valve, INR supratherapeutic at 4. Ended up in retention, catheter placed which became quite bloody resulting in his presentation to the ER. Irrigated and started on CBI in the ER which remains bloody. Admitted to hospitalist. - Rec bladder US to evaluate clot burden - Safely correct INR as able - Nursing can manually irrigate for clots/catheter obstruction tonight, notify me if unable to clear obstruction with manual irrigation - Urology will evaluate tomorrow Ash Casey MD Urology PGY-5 documented in this encounter H&P Notes * Uziel Easton MD - 08/09/2024 9:26 PM CDT [facility] History and Physical Hospitalist Date of Admission: 08/09/2024 Date of Service (when I saw the patient): 08/09/24 Assessment & Plan Oleg Sparks is a 64 year old male patient with past medical history of aortic valve replacementon anticoagulation with Coumadin with INR goal of 2.5- 3.5,history of prostate enlargement, who cam[place] emergency room for evaluation for hematuria. He stated that he has been doing self-catheterization intermittently for urinary retention with his prostate enlargement. He states that he usually self catheterizes once in 3 months. He [place] on [place]. He states that he had urinary retention. After he went home he tried to self catheterize but started having bleeding. He went to the hospital and had Box catheter placed. He was discharged next day. States that he continued to have bleeding. Bleeding worsened today and came to emergencyroom for evaluation. Laboratory workup showed sodium 136, potassium 4.3, 1.19, WBC 11.5, hemoglobin 14.6. INR 4.26. In the ER, Box catheter was exchanged. He was put on bladder irrigation. Urology was also consulted for emergency room. He was admitted to the hospital to continue bladder irrigation further evaluation in the morning by urology. Hematuria Prostate enlargement with urine retention Supratherapeutic INR Patient states that he was trying to self catheterize on Tuesday and started having bleeding. Foleycatheter placed on Tuesday. He states that he had increased bleeding today. Currently on Coumadin. Hemoglobin 14.6 today. Box catheter exchanged in the ER and started on bladder irrigation. -Will continue bladder irrigation -Urology consult -Will monitor hemoglobin every 8 hours -Will hold Coumadin in the setting of hematuria Elevated creatinine, likely CKD Creatinine in 2020 was 0.84. Creatinine 1.19 today -Will monitor renal function. Status post aortic valve replacement On Coumadin with INR goal of 2.5-3.5. INR 4.26 today. -Will hold Coumadin due to bleeding. Will closely monitor INR. DVT Prophylaxis: Pneumatic Compression Devices Code Status: Full Code Disposition: Expected discharge in 1-2 days Uziel Easton MD Primary Care Physician [facility] Chief Complaint Hematuria History is obtained from the patient History of Present Illness Oleg Sparks is a 64 year old male patient with past medical history of aortic valve replacementon anticoagulation with Coumadin with INR goal of 2.5-3.5, prostate enlargement, who came to emergency room for evaluation for hematuria. He stated that he has been doing self-catheterization intermittently for urinary retention with his prostate enlargement. He states that he usually self catheterizes once in 3 months. He [place] hours on Tuesday. He states that he had urinary retention. After he went home he tried to self catheterize but started having bleeding. He went to the hospital and had Box catheter placed. He was discharged next day. States that he continued to have bleeding. Bleeding worsened today and came to emergency room for evaluation. On arrival to emergency room, his initial vital signs showed temperature 97.7, pulse 105, blood pressure 143/96, oxygen saturation 99% on room air. Laboratory workup showed sodium 136, potassium 4.3, 1.19, WBC 11.5, hemoglobin 14.6. In the ER, Box catheter was exchanged. He was put on bladder irrigation. Urology was also consulted for emergency room. He was admitted to the hospital to continue bladder irrigation further evaluation in the morning by urology. Past Medical History I have reviewed this patient's medical history and updated it with pertinent information if needed. Past Medical History: Diagnosis Date Aortic valve replaced Enlarged prostate Past Surgical History I have reviewed this patient's surgical history and updated it with pertinent information if needed. Past Surgical History: Procedure Laterality Date CARDIAC SURGERY aortic valve replacement HERNIA REPAIR ORTHOPEDIC SURGERY L knee replacement Prior to Admission Medications Prior to Admission Medications Prescriptions Last Dose Informant Patient Reported? Taking? tamsulosin (FLOMAX) 0.4 MG capsule Yes No Sig: Take 0.4 mg by mouth daily warfarin ANTICOAGULANT (COUMADIN) 1 MG tablet Yes No Sig: Take 8 mg by mouth daily Facility-Administered Medications: None Allergies Allergies Allergen Reactions Shellfish-Derived Products Anaphylaxis Cats Social History I have reviewed this patient's social history and updated it with pertinent information if needed. Oleg Kasey Sparks reports that he quit smoking about 24 years ago. He uses smokeless tobacco. He reports that he does not currently use alcohol. He reports that he does not use drugs. Family History I have reviewed this patient's family history and updated it with pertinent information if needed. No family history on file. Review of Systems The 10 point Review of Systems is negative other than noted in the HPI or here. hematuria Physical Exam Temp: 97.7 ??F (36.5 ??C) Temp src: Temporal BP: (!) 143/96 Pulse: 105 Resp: 16 SpO2: 99 % O2 Device: None (Room air) Vital Signs with Ranges Temp: [97.7 ??F (36.5 ??C)] 97.7 ??F (36.5 ??C) Pulse: [105] 105 Resp: [16] 16 BP: (143)/(96) 143/96 SpO2: [99 %] 99 % 154 lbs 8.68 oz GEN: Alert, oriented x 3, appears comfortable, NAD. HEENT: Normocephalic/atraumatic, no scleral icterus, no nasal discharge, mouth moist. CV: Regular rate and rhythm, no murmur or JVD. S1 + S2 noted, no S3 or S4. LUNGS: Clear to auscultation bilaterally without rales/rhonchi/wheezing/retractions. Symmetric chest rise on inhalation noted. ABD: Active bowel sounds, soft, non-tender/non-distended. No rebound/guarding/rigidity. EXT: No edema or cyanosis. Hands/feet warm to touch with good signs of peripheral perfusion. No joint synovitis noted. SKIN: Dry to touch, no exanthems noted in the visualized areas. NEURO: Symmetric muscle strength, sensation to touch grossly intact. No new focal deficits appreciated. Data Data reviewed today: I personally reviewed no images or EKG's today. Recent Labs Lab 08/09/24 1740 WBC 11.5* HGB 14.6 MCV 89 PLT 262 INR 4.26* NA 136 POTASSIUM 4.3 CHLORIDE 102 CO2 22 BUN 15.3 CR 1.19* ANIONGAP 12 TREVIN 8.6* GLC 91 No results found for this or any previous visit (from the past 24 hour(s)). documented in this encounter Consult Notes * Adalberto Eldridge MD - 08/10/2024 8:22 AM CDTAssociated Order(s): UROLOGY IP CONSULT Images from the original note were not included. [facility] Consultation by [facility] @NAME@ Age: [age] year old Date of : 1960 Date of Admission: 08/09/2024 Reason for consult: Gross hematuria Requesting DENIS/MD: Dr Easton Level of consult: Consult, follow and place orders Assessment and Plan: Assessment: Severe gross hematuria after self catheterization attempt. Urinary retention with clot retention. Plan: See my note below. This patient will need to be followed closely today. I had irrigated the catheter at the bedside and now the catheter is running reasonably well with irrigation running. I plan to proceed with noncontrast CT scan abdomen pelvis (his creatinine 1.2) to rule out any upper tract causes of hematuria and also to evaluate potential hematoma in the bladder. I will follow-up with the denis rader once the CT scan is completed. Please keep patient n.p.o. for now. Hand irrigate catheter as needed. Adalberto Eldridge M.D. [facility] [phone] Chief Complaint: History is obtained from the patient and EMR. History of Present Illness: This patient is a 64 year old male admitted with gross hematuria and clot retention. He has a knownenlarged prostate with elevated PSA. He sees Dr. Stubbs with [facility]. The patient that he has an MRI scheduled for the near future to evaluate his prostate, I am not certain what his PSA level is. He has a prior history of urinary retention as well and has had a known enlarged prostate for years. He does self catheterize occasionally he has difficulty. He [place] and was diagnosed with a likely urinary tract infection and was started on antibiotics. At the same time he needed to self catheterize a few times. With one of the catheterizations he had a hard time ge tting a catheter in and had severe hematuria. He came to the emergency department here with the above complaints. The emergency department he had a three-way Box catheter placed and an irrigation started and was admitted. On exam when I walked in the room the patient was actively in pain. He stated he had pain in the bladder because the catheter was not draining. The patient states that he was not allowing the nurses to run the irrigation as quickly as possible or hand irrigate as much as they had recommended because he was concerned this is what was causing the pain. I clamped the Box catheter for 1 moment and the output was dark red. Procedure: I hand irrigated the catheter with 500 mL of sterile water. I got out a great deal of clots but at the end of the 500 mL the clots were less frequent. I left the catheter to rapid irrigation, normal saline to gravity A urine sample from an outside clinic on July 29 did show nitrite positivity and leukocytes in the urine. Currently his hemoglobin is 11.6 and creatinine is 1.19. Past Medical History: Past Medical History: Diagnosis Date Aortic valve replaced Enlarged prostate Past Surgical History: Past Surgical History: Procedure Laterality Date CARDIAC SURGERY aortic valve replacement HERNIA REPAIR ORTHOPEDIC SURGERY L knee replacement Social History: Social History Tobacco Use Smoking status: Former Current packs/day: 0.00 Types: Cigarettes Quit date: 1999 Years since quittin.7 Smokeless tobacco: Current Substance Use Topics Alcohol use: Not Currently Family History: No family history on file. Family history reviewed. Allergies: Allergies Allergen Reactions Shellfish-Derived Products Anaphylaxis Cats Tramadol Fatigue Light headed Medications: Current Facility-Administered Medications Medication Dose Route Frequency Provider Last Rate Last Admin acetaminophen (TYLENOL) tablet 650 mg 650 mg Oral Q4H PRN Uziel Easton MD Or acetaminophen (TYLENOL) Suppository 650 mg 650 mg Rectal Q4H PRN Uziel Easton MD calcium carbonate (TUMS) chewable tablet 1,000 mg 1,000 mg Oral 4x Daily PRN Uziel Easton MD HYDROmorphone (DILAUDID) injection 0.2 mg 0.2 mg Intravenous Q2H PRN Olvin Alejandre, HYDROmorphone (DILAUDID) injection 0.4 mg 0.4 mg Intravenous Q2H PRN Olvin Alejandre, hydrOXYzine HCl (ATARAX) tablet 25 mg 25 mg Oral Q6H PRN Olvin Alejandre, DO lidocaine (LMX4) cream Topical Q1H PRN Uziel Easton MD lidocaine (XYLOCAINE) 2 % external gel 6 mL 6 mL Urethral Once Amilcar Holt MD lidocaine 1 % 0.1-1 mL 0.1-1 mL Other Q1H PRN Uziel Easton MD melatonin tablet 1 mg 1 mg Oral At Bedtime PRN Uziel Easton MD naloxone (NARCAN) injection 0.2 mg 0.2 mg Intravenous Q2 Min PRN Uziel Easton MD Or naloxone (NARCAN) injection 0.4 mg 0.4 mg Intravenous Q2 Min PRN Uziel aEston MD Or naloxone (NARCAN) injection 0.2 mg 0.2 mg Intramuscular Q2 Min PRN Uziel Easton MD Or naloxone (NARCAN) injection 0.4 mg 0.4 mg Intramuscular Q2 Min PRN Uziel Easton MD ondansetron (ZOFRAN ODT) ODT tab 4 mg 4 mg Oral Q6H PRN Uziel Easton MD Or ondansetron (ZOFRAN) injection 4 mg 4 mg Intravenous Q6H PRN Uziel Easton MD opium-belladonna (B&O SUPPRETTES) 60-16.2 MG per suppository 1 suppository 60 mg Rectal Q8H PRNUziel Easton MD 1 suppository at 08/10/24 0635 oxyCODONE (ROXICODONE) tablet 5 mg 5 mg Oral Q4H PRN Olvin Alejandre, DO oxyCODONE IR (ROXICODONE) half-tab 2.5 mg 2.5 mg Oral Q4H PRN Olvin Alejandre, senna-docusate (SENOKOT-S/PERICOLACE) 8.6-50 MG per tablet 1 tablet 1 tablet Oral BID PRN Uziel Easton MD Or senna-docusate (SENOKOT-S/PERICOLACE) 8.6-50 MG per tablet 2 tablet 2 tablet Oral BID PRN Uziel Easton MD sodium chloride (PF) 0.9% PF flush 3 mL 3 mL Intracatheter Q8H Uziel Easton MD 3 mL at 08/10/24 0144 sodium chloride (PF) 0.9% PF flush 3 mL 3 mL Intracatheter q1 min prn Uziel Easton MD 3mL at 08/10/24 0325 tamsulosin (FLOMAX) capsule 0.4 mg 0.4 mg Oral Daily Uziel Easton MD Review of Systems: A comprehensive 10-point review of systems was performed and found to be negative except as described in the HPI. BP 109/57 (BP Location: Right arm) Pulse 62 Temp 98.8 ??F (37.1 ??C) (Oral) Resp 16 Ht 1.702 m (5' 7) Wt 70.1 kg (154 lb 8.7 oz) SpO2 98% BMI 24.20 kg/m?? PSYCH: NAD EYES: EOMI MOUTH: MMM NEURO: AAO x3 Data: Lab Results Component Value Date WBC 11.5 (H) 08/09/2024 HGB 11.6 (L) 08/10/2024 HCT 44.4 08/09/2024 MCV 89 08/09/2024 PLT 262 08/09/2024 Lab Results Component Value Date CR 1.19 (H) 08/09/2024 documented in this encounter ED Notes * Tangela Artis RN - 08/09/2024 9:30 PM CDT Patient's son noted to come to nursing station stating my dad is bleeding everywhere. RN attempted to notify ED provider and hospital provider of status change. Hospital provider notified ED staff that ED provider would have to see patient. On assessment, patient had clots around meatus and ED provider responded to bedside. Plan to continue CBI and move patient to floor. * Tangela Artis RN - 08/09/2024 9:14 PM CDT 0.3 mg Dilaudid given to patient. Package accidentally thrown away prior to scanning. Recreation Leader administered with JENNIFER Alvarez also at bedside. * Tangela Artis RN - 08/09/2024 9:00 PM CDT Patient's son continually pressing call light and coming out of room asking for pain medication/nursing intervention. Provider notified and 0.3mg dilaudid and ditropan ordered. * Pam Chin RN - 08/09/2024 8:03 PM CDT [facility] ED Nurse Handoff Report ED Chief complaint: Hematuria . ED Diagnosis: Final diagnoses: Gross hematuria Problem with Box catheter, initial encounter (H24) Supratherapeutic INR Allergies: Allergies Allergen Reactions Shellfish-Derived Products Anaphylaxis Cats Code Status: Full Code Activity level - Baseline/Home: independent. Activity Level - Current: standby. Lift room needed: No. Bariatric: No Grades 9 Thru 12 Visiting Teacher Needed: No Isolation: No. Infection: Not Applicable. Respiratory status: Room air Vital Signs (within 30 minutes): Vitals: 08/09/24 1548 BP: (!) 143/96 Pulse: 105 Resp: 16 Temp: 97.7 ??F (36.5 ??C) TempSrc: Temporal SpO2: 99% Weight: 70.1 kg (154 lb 8.7 oz) Height: 1.702 m (5' 7) Cardiac Rhythm: , Pain level: Patient confused: No. Patient Falls Risk: nonskid shoes/slippers when out of bed, patient and family education, assistivedevice/personal items within reach, and activity supervised. Elimination Status: Has voided Patient Report - Initial Complaint: Hematuria. Focused Assessment: Oleg Sparks is a 64 year old male with a history of AVR and enlarged prostate who presents to the emergency department for hematuria. The patient state states that 2 days ago,he was fishing in [facility] near [place] and began experiencing an onset of urinary retention and was diagnosed with a UTI, starting on Bactrim. The patient notes that he is able to urinate at baseline, rarely requiring self-catheterization. He reports that since then, he has been experiencing hematuria. He notes that he observed clots in his catheter bag and is concerned that there is a clot blocking the catheter. He follows with [facility] for his hx of enlarged prostate. He adds thathe is on Warfarin for his hx of aortic valve replacement. He notes that his most recent INR is 3.5 and his hemoglobin was 16.4. Denies hx of hypertension or cancer. 3 way box placed and continuous bladder irrigation started. Abnormal Results: Labs Ordered and Resulted from Time of ED Arrival to Time of ED Departure BASIC METABOLIC PANEL - Abnormal Result Value Sodium 136 Potassium 4.3 Chloride 102 Carbon Dioxide (CO2) 22 Anion Gap 12 Urea Nitrogen 15.3 Creatinine 1.19 (*) GFR Estimate 67 Calcium 8.6 (*) Glucose 91 INR - Abnormal INR 4.26 (*) ROUTINE UA WITH MICROSCOPIC REFLEX TO CULTURE - Abnormal Color Urine Brown (*) Appearance Urine Cloudy (*) Glucose Urine Negative Bilirubin Urine Negative Ketones Urine Negative Specific [place] Urine 1.005 Blood Urine Large (*) pH Urine 5.5 Protein Albumin Urine 20 (*) Urobilinogen Urine Normal Nitrite Urine Negative Leukocyte Esterase Urine Trace (*) RBC Urine >182 (*) WBC Urine 7 (*) CBC WITH PLATELETS AND DIFFERENTIAL - Abnormal WBC Count 11.5 (*) RBC Count 4.99 Hemoglobin 14.6 Hematocrit 44.4 MCV 89 MCH 29.3 MCHC 32.9 RDW 14.7 Platelet Count 262 % Neutrophils 79 % Lymphocytes 10 % Monocytes 9 % Eosinophils 1 % Basophils 1 % Immature Granulocytes 0 NRBCs per 100 WBC 0 Absolute Neutrophils 9.1 (*) Absolute Lymphocytes 1.2 Absolute Monocytes 1.0 Absolute Eosinophils 0.2 Absolute Basophils 0.1 Absolute Immature Granulocytes 0.1 Absolute NRBCs 0.0 No orders to display Treatments provided: See MAR Family Comments: No family at bedside OBS brochure/video discussed/provided to patient: N/A ED Medications: Medications lidocaine (XYLOCAINE) 2 % external gel 6 mL (has no administration in time range) Drips infusing: No For the majority of the shift this patient was Green. Interventions performed were N/A. Sepsis treatment initiated: No Cares/treatment/interventions/medications to be completed following ED care: Refer to inpatient care plan. ED Nurse Name: Tangela Artis RN 8:03 PM RECEIVING UNIT ED HANDOFF REVIEW Above ED Nurse Handoff Report was reviewed: Yes Reviewed by: Pam Chin RN on August 09, 2024 at 8:42 PM I Vocera called the ED to inform them the note was read: Yes * Amilcar Holt MD - 08/09/2024 3:51 PM CDT Emergency Department Note History of Present Illness Chief Complaint Hematuria HPI Oleg Sparks is a 64 year old male with a history of AVR and enlarged prostate who presents to the emergency department for hematuria. The patient state states that 2 days ago, he was fishing in [facility] near [place] and began experiencing an onset of urinary retention and was diagnosedwith a UTI, starting on Bactrim. The patient notes that he is able to urinate at baseline, rarely requiring self-catheterization. He reports that since then, he has been experiencing hematuria. He notes that he observed clots in his catheter bag and is concerned that there is a clot blocking the catheter. He follows with [facility] for his hx of enlarged prostate. He adds that he is on Warfarin for his hx of aortic valve replacement. He notes that his most recent INR is 3.5 and his hemoglobin was 16.4. Denies hx of hypertension or cancer. Independent Historian None Review of External Notes ED note from 08/07/24, seen for urinary retention and UTI. Past Medical History Medical History and Problem List AVR Enlarged prostate Medications tamsulosin (FLOMAX) 0.4 MG capsule warfarin ANTICOAGULANT (COUMADIN) 1 MG tablet Surgical History AVR Hernia repair L TKA Physical Exam Patient Vitals for the past 24 hrs: BP Temp Temp src Pulse Resp SpO2 Height Weight 08/09/24 1548 (!) 143/96 97.7 ??F (36.5 ??C) Temporal 105 16 99 % 1.702 m (5' 7) 70.1 kg (154 lb 8.7 oz) Physical Exam HEENT: Oropharynx is moist Eyes: Conjunctiva normal Neck: Supple, no meningismus. CV: Regular rate and rhythm. No murmurs, rubs or gallops. PULM: Clear to auscultation bilateral. No respiratory distress. Good air exchange. ABD: Soft, non-distended. Moderate focal tenderness in the midline low abdomen with palpable bladder No rebound, guarding or rigidity. No CVA tenderness. : Box catheter in position with clots and bleeding where the catheter inserts into the urethra Gross hematuria without overt clots in the collection bag MSK: No gross deformity to all four extremities. LYMPH: No cervical lymphadenopathy. NEURO: Alert. Good muscular tone, no atrophy. Skin: Warm, dry and intact. Psych: Mood is good and affect is appropriate. Diagnostics Lab Results Labs Ordered and Resulted from Time of ED Arrival to Time of ED Departure BASIC METABOLIC PANEL - Abnormal Result Value Sodium 136 Potassium 4.3 Chloride 102 Carbon Dioxide (CO2) 22 Anion Gap 12 Urea Nitrogen 15.3 Creatinine 1.19 (*) GFR Estimate 67 Calcium 8.6 (*) Glucose 91 INR - Abnormal INR 4.26 (*) ROUTINE UA WITH MICROSCOPIC REFLEX TO CULTURE - Abnormal Color Urine Brown (*) Appearance Urine Cloudy (*) Glucose Urine Negative Bilirubin Urine Negative Ketones Urine Negative Specific [place] Urine 1.005 Blood Urine Large (*) pH Urine 5.5 Protein Albumin Urine 20 (*) Urobilinogen Urine Normal Nitrite Urine Negative Leukocyte Esterase Urine Trace (*) RBC Urine >182 (*) WBC Urine 7 (*) CBC WITH PLATELETS AND DIFFERENTIAL - Abnormal WBC Count 11.5 (*) RBC Count 4.99 Hemoglobin 14.6 Hematocrit 44.4 MCV 89 MCH 29.3 MCHC 32.9 RDW 14.7 Platelet Count 262 % Neutrophils 79 % Lymphocytes 10 % Monocytes 9 % Eosinophils 1 % Basophils 1 % Immature Granulocytes 0 NRBCs per 100 WBC 0 Absolute Neutrophils 9.1 (*) Absolute Lymphocytes 1.2 Absolute Monocytes 1.0 Absolute Eosinophils 0.2 Absolute Basophils 0.1 Absolute Immature Granulocytes 0.1 Absolute NRBCs 0.0 Imaging No orders to display Independent Interpretation None ED Course Medications Administered Medications lidocaine (XYLOCAINE) 2 % external gel 6 mL (has no administration in time range) Procedures Procedures Discussion of Management Admitting Hospitalist, Dr. Easton Urology, Dr. Casey ED Course ED Course as of 08/09/242025 [facility] Aug 09, 2024 1614 I obtained history and examined the patient as noted above. Additional Documentation None Medical Decision Making / Diagnosis [facility] Diagnoses: None MIPS None [facility] Oleg Sparks is a 64 year old male presents the ED with hematuria. Patient is anticoagulated on warfarin for a mechanical aortic valve. He is supratherapeutic at 4.2. Urinalysis is no longer consistent with infection. His Box catheter appeared obstructed secondary to clots. A three-way catheter was placed and he was initiated on bladder irrigation. He continued to have gross hematuria and intermittent bleeding and clots at the urethral meatus. Bedside ultrasound is concerning for bladder clot measuring 3 x 4 cm[address] I spoke with Dr[address] Casey who agrees with admission with continuous bladder irrigation. Patient may require evacuation of bladder hematoma but no indication for emergent intervention. Urology will evaluate tomorrow for potential need of surgical invention. I discussed coagulopathy with hospital medicine service and we have agreed on withholding warfarin as opposed to reversing INR due to mechanical aortic valve Disposition The patient was admitted to the hospital. Diagnosis ICD-10-CM 1. Gross hematuria R31.0 2. Problem with Box catheter, initial encounter (H24) T83.9XXA 3. Supratherapeutic INR R79.1 Discharge Medications New Prescriptions No medications on file Scribe Disclosure: I, Ajay Lion, am serving as a scribe at 3:52 PM on 08/09/2024 to document services personally performed by Amilcar Holt MD based on my observations and the provider's statements to me. Amilcar Holt MD 08/09/242027 * Renae Owens RN - 08/09/2024 3:47 PM CDT Box placed 2 days ago. Extensive bleeding. Pt on thinners. documented in this encounter Miscellaneous Notes * Provider Notification - Sabine Goldberg RN - 08/10/2024 7:03 AM CDT Notification Notified Person: Andrew musa MD Notified Person Name: Zainab Magallon Notification Date/Time: 08/10/2024 0624 Mechanism of Provider Notification: [employer] messaging Purpose of Notification: Paged to request Dilaudid to accompany B + O suppository for severe bladder spasms. worried about giving B + O with low BPs overnight. Got an updated BP and ok'd to give. MD Magallon ordered IV Dilaudid 0.2mg x1 dose. Recreation Leader asked if CBI should continue despite spasms, red color, and high output. wanted it to keep running. Orders Received: Comments: * Plan of Care - Sabine Goldberg RN - 08/10/2024 7:03 AM CDT Assumed care [id number]. A&Ox4. Ax1 when OOB. On RA. NPO with the exception of meds. PIV in L arm is saline locked. Had some bladder spasms overnight that lasted for short periods of time until this AM. Had spasms that were intense this AM. Irrigated obx with no clot removal, still having output. Given PRN B + O suppository and PRN Dilaudid with reports of relief. Still having hematuria despite the CBI running at a rapid rate overnight. Having blood and clots coming from meatus, MD Easton and MD Ash Casey aware. Ash Casey MD irrigated the box at the bedside overnight. BP dropped overnight and patient got a 500 mL NS bolus, Hgb dropped from 14.7-11.6 (was drawn while getting bolus). See provider notification note. Plan of care ongoing. Goal Outcome Evaluation: Plan of Care Reviewed With: patient Overall Patient Progress: no changeOverall Patient Progress: no change Outcome Evaluation: A&Ox4, hematuria continues despite CBI running at rapid rate overnight, some bladder spasms that last for short period of time, low BP overnight Problem: Adult Inpatient Plan of Care Goal: Plan of Care Review Description: The Plan of Care Review/Shift note should be completed every shift. The Outcome Evaluation is a brief statement about your assessment that the patient is improving, declining, or no change. This information will be displayed automatically on your shift note. Outcome: Progressing Flowsheets (Taken 08/10/2024 1302) Outcome Evaluation: A&Ox4, hematuria continues despite CBI running at rapid rate overnight, some bladder spasms that last for short period of time, low BP overnight Plan of Care Reviewed With: patient Overall Patient Progress: no change Goal: Patient-Specific Goal (Individualized) Description: You can add care plan individualizations to a care plan. Examples of Individualizationmight be: Parent requests to be called daily at 9am for status, I have a hard time hearing out of my right ear, or Do not touch me to wake me up as it startles me. Outcome: Progressing Goal: Absence of Hospital-Acquired Illness or Injury Outcome: Progressing Intervention: Identify and Manage Fall Risk Recent Flowsheet Documentation Taken 08/10/202432 by Sabine Goldberg RN Safety Promotion/Fall Prevention: activity supervised lighting adjusted nonskid shoes/slippers when out of bed room near nurse's station safety round/check completed Intervention: Prevent Skin Injury Recent Flowsheet Documentation Taken 08/10/202432 by Sabine Goldberg RN Body Position: position changed independently Intervention: Prevent and Manage VTE (Venous Thromboembolism) Risk Recent Flowsheet Documentation Taken 08/10/202432 by Sabine Goldberg RN VTE Prevention/Management: SCDs off (sequential compression devices) Intervention: Prevent Infection Recent Flowsheet Documentation Taken 08/10/202432 by Sabine Goldberg RN Infection Prevention: equipment surfaces disinfected hand hygiene promoted personal protective equipment utilized rest/sleep promoted single patient room provided Goal: Optimal Comfort and Wellbeing Outcome: Progressing Goal: Readiness for Transition of Care Outcome: Progressing Problem: Urinary Retention Goal: Effective Urinary Elimination Outcome: Progressing Problem: Pain Acute Goal: Optimal Pain Control and Function Outcome: Progressing Intervention: Prevent or Manage Pain Recent Flowsheet Documentation Taken 08/10/202432 by Sabine Goldberg RN Medication Review/Management: medications reviewed * Provider Notification - Sabine Goldberg RN - 08/10/2024 2:43 AM CDT MD Notification Notified Person: Andrew musa MD Notified Person Name: Zainab Magallon Notification Date/Time: 08/10/2024 0243 Mechanism of Provider Notification: [employer] messaging Purpose of Notification: FYI Patient's most recent BP 83/44. Having some bleeding going on with CBI. Andrew Easton and Ahs Casey with urology aware. Hgb just before midnight was 14.7. Orders Received: 500 mL NS bolus ordered, STAT Hgb recheck ordered, reassess response to fluids nanyck BP Comments: Notified MD Magallon of updates Hgb 11.6. Most likely dilutional. Most recent BP 92/48 MD Magallon responded to check AM Hgb unless BP continues to be low * Pharmacy-Admission Medication History - Niall Jaeger RPH - 08/09/2024 9:01 PM CDT Pharmacist Admission Medication History Admission medication history is complete. The information provided in this note is only as accurateas the sources available at the time of the update. Information Source(s): Patient via in-person Pertinent Information: outside meds Changes made to [employer] PROJECT MANAGER medication list: Added: valtrex, lisinopril, ditropan, Bactrim DS, proscar Deleted: None Changed: warfarin Allergies reviewed with patient and updates made in EHR: yes --added tramadol Medication History Completed By: Niall Jaeger RPH 08/09/2024 9:01 PM IS PRO[employer] MANAGER Med List Medication Sig Last Dose finasteride (PROSCAR) 5 MG tablet Take 5 mg by mouth daily. Past Month lisinopril (ZESTRIL) 5 MG tablet Take 5 mg by mouth daily. 08/09/2024 oxyBUTYnin (DITROPAN) 5 MG tablet Take 5 mg by mouth every 8 hours as needed for bladder spasms. 08/09/2024 at am sulfamethoxazole-trimethoprim (BACTRIM DS) 800-160 MG tablet Take 1 tablet by mouth 2 times daily. For 10 days 08/09/2024 at am tamsulosin (FLOMAX) 0.4 MG capsule Take 0.4 mg by mouth daily Past Week valACYclovir (VALTREX) 1000 mg tablet Take 1,000 mg by mouth 2 times daily as needed (cold sores). Unknown warfarin ANTICOAGULANT (COUMADIN) 1 MG tablet Take by mouth daily. 4mg= [place], 8mg=ROW 08/08/2024 at 8mg documented in this encounter Plan of Treatment Pending Results Name Type Priority Associated Diagnoses Date /Time CT Abdomen Pelvis w/o Contrast Imaging Routine 08/10/2024 9:15 AM CDT Scheduled Orders Name Type Priority Associated Diagnoses Orde r Schedule Basic metabolic panel Lab Routine AM Draw for 1 Occurrences starting 08/10/2024 until 08/10/2024 CBC with platelets differential Lab Panel Routine AM Draw for 1 Occurrences starting 08/10/2024 until 08/10/2024 Hemoglobin Lab Timed Every 8hr unti l discontinued starting 08/10/2024 CT Abdomen Pelvis w/o Contrast Imaging Routine One time imaging for 1 Occurrences starting 08/10/2024 until 08/10/2024 INR Lab Routine AM Draw for 1 Occurrences starting 08/11/2024 until 08/11/2024 INR Lab Timed Timed - Once f or 1 Occurrences starting 08/10/2024 until 08/10/2024 documented as of this encounter Procedures The patient is currently admitted. The information in this section might not be complete until the patient is discharged. Procedure Name Priority Date/Time Associated Diagnosis Comments HEMOGLOBIN STAT 08/10/2024 3:07 AM CDT HEMOGLOBIN STAT 08/09/2024 11:33 PM CDT ROUTINE UA WITH MICROSCOPIC REFLEX TO CULTURE STAT 08/09/2024 7:33 PM CDT CBC WITH PLATELETS AND DIFFERENTIAL STAT 08/09/2024 5:40 PM CDT CBC WITH PLATELETS & DIFFERENTIAL STAT 08/09/2024 5:40 PM CDT INR STAT 08/09/2024 5:40 PM CDT BASIC METABOLIC PANEL STAT 08/09/2024 5:40 PM CDT documented in this encounter Results * (ABNORMAL) Hemoglobin (08/10/2024 3:07 AM CDT) Hemoglobin 11.6(L) 13.3 - 17.7 g/dL 08/10/2024 3:52 AM CDT LABORATORY Blood STRUCTURE OF RIGHT HAND / Unknown Venipuncture / Unknown 08/10/2024 3:07 AM CDT 08/10/2024 3:09 AM CDT Zainab Magallon MD LAB - BLOOD ORDER AMANDA LABORATORY [facility] [address] Lab (1st floor, no room number) [place] [address], [facility] * Hemoglobin (08/09/2024 11:33 PM CDT) Hemoglobin 14.7 13.3 - 17.7 g/dL 08/09/2024 11:43 PM CDT [facility] Blood STRUCTURE OF RIGHT HAND / Unknown Venipuncture / Unknown 08/09/2024 11:33 PM CDT 08/09/2024 11:41 PM CDT Uziel Easton MD LAB - BLOOD OR DERABLES LABORATORY [facility] [address] [facility] Lab (1st floor, no room number) [place] [address] * (ABNORMAL) UA with Microscopic reflex to Culture (08/09/2024 7:33 PM CDT) Color Urine Brown(A) Colorless, Straw, Light Yellow, Yellow 08/09/2024 7:55 PM CDT LABORATORY Appearance Urine Cloudy(A) Clear 08/09/20 24 7:55 PM CDT LABORATORY Glucose Urine Negative Negative mg/dL 08/09/2024 7:55 PM CDT LABORATORY Bilirubin Urine Negative Negative 7:55 PM CDT [facility] LAB[facility] Ketones Urine Negative Negative mg/dL 08/09/2024 7:55 PM CDT LABORATORY Specific [place] Urine 1.005 1.003 - 1.035 08/09/2024 7:55 PM CDT LABORATORY Blood Urine Large(A) Negative 08/09/2024 7:55 PM CDT LABORATORY pH Urine 5.5 5.0 - 7.0 08/09/2024 7:55 PM CDT [facility] Protein Albumin Urine 20(A) Negative mg/dL 08/09/2024 7:55 PM CDT [facility] Urobilinogen Urine Normal Normal, 2.0 mg/dL 08/09/2024 7:55 PM CDT [facility] Nitrite Urine Negative Negative 08/09/2024 7:55 PM CDT [facility] Leukocyte Esterase Urine Trace(A) Negative 08/09/2024 7:55 PM CDT LABORATORY RBC Urine >182(H) <=2 /HPF 08/09/2024 7:55 PM CDT [facility] WBC Urine 7(H) <=5 /HPF 08/09/2024 7:55 PM CDT [facility] Urine URINE SPECIMEN OBTAINED VIA [employer]WELLING URINARY CATHETER / Unknown Non-blood Collection / Unknown 08/09/2024 7:33 PM CDT 08/09/2024 7:38 PM CDT Narrative [facility] - 08/09/2024 7:55 PM CDT Urine Culture not indicated Amilcar Holt MD LAB - URINE ORDER AMANDA [facility] [address] Lab (1st floor, no room number) [place] [address] * (ABNORMAL) CBC with platelets and differential (08/09/2024 5:40 PM CDT) WBC Count 11.5(H) 4.0 - 11.0 10e3/uL 08/09/2024 5:47 PM CDT [facility] RBC Count 4.99 4.40 - 5.90 10e6/uL 08/09/2024 5:47 PM CDT [facility] Hemoglobin 14.6 13.3 - 17.7 g/dL 08/09/2024 5:47 PM CDT [facility] Hematocrit 44.4 40.0 - 53.0 % 08/09/2024 5:47 PM CDT [facility] MCV 89 78 - 100 fL 08/09/2024 5:47 PM CDT [facility] MCH 29.3 26.5 - 33.0 pg 08/09/2024 5:47 PM CDT [facility] MCHC 32.9 31.5 - 36.5 g/dL 08/09/2024 5:47 PM CDT [facility] RDW 14.7 10.0 - 15.0 % 08/09/2024 5:47 PM CDT [facility] Platelet Count 262 150 - 450 10e3/uL 08/09/2024 5:47 PM CDT [facility] % Neutrophils 79 % 08/09/2024 5:47 PM CDT [facility] % Lymphocytes 10 % 08/09/2024 5:47 PM CDT [facility] % Monocytes 9 % 08/09/2024 5:47 PM CDT [facility] % Eosinophils 1 % 08/09/2024 5:47 PM CDT [facility] % Basophils 1 % 08/09/2024 5:47 PM CDT [facility] % Immature Granulocytes 0 % 08/09/2024 5:47 PM CDT [facility] NRBCs per 100 WBC 0 <1 /100 024 5:47 PM CDT [facility] Absolute Neutrophils 9.1(H) 1.6 - 8.3 10e3/uL 08/09/2024 5:47 PM CDT [facility] Absolute Lymphocytes 1.2 0.8 - 5.3 10e3/uL 08/09/2024 5:47 PM CDT [facility] Absolute Monocytes 1.0 0.0 - 1.3 10e3/uL 08/09/2024 5:47 PM CDT [facility] Absolute Eosinophils 0.2 0.0 - 0.7 10e3/uL 08/09/2024 5:47 PM CDT [facility] Absolute Basophils 0.1 0.0 - 0.2 10e3/uL 08/09/2024 5:47 PM CDT [facility] Absolute Immature Granulocytes 0.1 <=0.4 10e3/uL 08/09/2024 5:47 PM CDT [facility] Absolute NRBCs 0.0 10e3/uL 08/09/2024 5:47 PM CDT [facility] Blood STRUCTURE OF LEFT UPPER LIMB / Unknown Venipuncture / Unknown 08/09/2024 5:40 PM CDT 08/09/2024 5:44 PM CDT Amilcar Holt MD LAB - BLOOD ORDER AMANDA [facility] [address] Lab (1st floor, no room number) [place] [address], [facility] * (ABNORMAL) INR (08/09/2024 5:40 PM CDT) INR 4.26(H) 0.85 - 1.15 08/09/2024 7:06 PM CDT [facility] LAB[facility] Blood STRUCTURE OF LEFT UPPER LIMB / Unknown Venipuncture / Unknown 08/09/2024 5:40 PM CDT 08/09/2024 5:44 PM CDT Amilcar Holt MD LAB - BLOOD ORDER AMANDA [facility] [address] Lab (1st floor, no room number) [place] [address], [facility] * (ABNORMAL) Basic metabolic panel (08/09/2024 5:40 PM CDT) Sodium 136 135 - 145 mmol/L 08/09/2024 6:08 PM CDT LABORATORY Potassium 4.3 3.4 - 5.3 mmol/L 08/09/2024 6:08 PM CDT LABORATORY Chloride 102 98 - 107 mmol/L 08/09/2024 6:08 PM CDT LABORATORY Carbon Dioxide (CO2) 22 22 - 29 mmol/L 08/09/2024 6:08 PM CDT LABORATORY Anion Gap 12 7 - 15 mmol/L 08/09/2024 6:08 PM CDT LABORATORY Urea Nitrogen 15.3 8.0 - 23.0 mg/dL 08/09/2024 6:08 PM CDT LABORATORY Creatinine 1.19(H) 0.67 - 1.17 mg/dL 08/09/2024 6:08 PM CDT LABORATORY GFR Estimate 67 >60 mL/min/1.7 3m2 08/09/2024 6:08 PM CDT LABORATORY Comment:eGFR calculated usin 2020 CKD-EPI equation. Calcium 8.6(L) 8.8 - 10.4 mg/dL 08/09/2024 6:08 PM CDT [facility] Comment:Reference intervals for this test were updated on 06/05/2024 to reflect our healthy population more accurately. There may be differences in the flagging of prior results with similar values performed with this method. Those prior results can be interpreted in the context of the updated reference intervals. Glucose 91 70 - 99 mg/dL 08/09/2024 6:08 PM CDT LABORATORY Blood STRUCTURE OF LEFT UPPER LIMB / Unknown Venipuncture / Unknown 08/09/2024 5:40 PM CDT 08/09/2024 5:44 PM CDT Amilcar Holt MD LAB - BLOOD ORDER AMANDA [facility] [address] [facility] Lab (1st floor, no room number) [place] [address], [facility] documented in this encounter Visit Diagnoses Diagnosis Gross hematuria Problem with Box catheter, initial encounter (H24) Supratherapeutic INR Abnormal coagulation profile Gross hematuria Supratherapeutic INR Abnormal coagulation profile Problem with Box catheter, initial encounter (H24) documented in this encounter Administered Medications Active Administered Medications - up to 3 most recent administrations Medication Order MAR Action Action Date Dose Rate Site acetaminophen (TYLENOL) Suppository 650 mg 650 mg, Rectal, EVERY 4 HOURS PRN, mild pain, other, and adjunct with moderate or severe pain or per patient request, Starting on Renee 08/09/24 at 2223, Alternate with ibuprofen if ordered. Maximum acetaminophen dose from all sources = 75 mg/kg/day not to exceed 4 grams/day. acetaminophen (TYLENOL) tablet 650 mg 650 mg, Oral, EVERY 4 HOURS PRN, mild pain, other, and adjunct with moderate or severe pain or per patient request, Starting on Renee 08/09/24 at 2223, Alternate with ibuprofen if ordered. Maximum acetaminophen dose from all sources = 75 mg/kg/day not to exceed 4 grams/day. HYDROmorphone (DILAUDID) injection 0.2 mg 0.2 mg, Intravenous, EVERY 2 HOURS PRN, moderate pain, Starting on Tue08/10/24 at 0800 HYDROmorphone (DILAUDID) injection 0.4 mg 0.4 mg, Intravenous, EVERY 2 HOURS PRN, severe pain, Starting on Tue08/10/24 at 0800 hydrOXYzine HCl (ATARAX) tablet 25 mg 25 mg, Oral, EVERY 6 HOURS PRN, itching, pain, Starting on Tue08/10/24 at 0801 LORazepam (ATIVAN) tablet 0.5 mg 0.5 mg, Oral, EVERY 8 HOURS PRN, anxiety, Starting on Tue08/10/24 at 0913 naloxone (NARCAN) injection 0.2 mg 0.2 mg, Intravenous, EVERY 2 MIN PRN, opioid reversal, Starting on Tue08/10/24 at 0636, Administer intravenous route when available and notify provider when administered. For unintended sedation or respiratory depression if all of the below criteria are met: ~ respiratory rate LESS than or EQUAL to 8. ~SaO2 less than 92% and or/end-tidal CO2 is greater than 50. ~ the patient is receiving an opioid, has unintended sedations assessed as RASS (-3), and is currently not on mechanical ventilation. RASS scale moderate (-3) is movement or eye opening to voice but no eye contact. Patient Monitoring Once the patient has demonstrated a response to the naloxone, continue to monitor respiratory rate, depth, oxygen saturation and end-tidal CO2 (if available) every 15 minutes x 2, then every 30 minutes x 2, then every 1 hour x 1 after each naloxone dose. Consider transfer to ICU if patient respiratory parameters have not improved after 4 naloxone doses. naloxone (NARCAN) injection 0.2 mg 0.2 mg, Intramuscular, EVERY 2 MIN PRN, opioid reversal, Starting on Tue08/10/24 at 0636, Administer intramuscular if an intravenous route is not available and notify provider when administered. For unintended sedation or respiratory depression if all of the below criteria are met: ~ respiratory rate LESS than or EQUAL to 8. ~SaO2 less than 92% and or/end-tidal CO2 is greater than 50. ~ the patient is receiving an opioid, has unintended sedations assessed as RASS (-3), and is currently not on mechanical ventilation. RASS scale moderate (-3) is movement or eye opening to voice but no eye contact. Patient Monitoring Once the patient has demonstrated a response to the naloxone, continue to monitor respiratory rate, depth, oxygen saturation and end-tidal CO2 (if available) every 15 minutes x 2, then every 30 minutes x 2, then every 1 hour x 1 after each naloxone dose. Consider transfer to ICU if patient respiratory parameters have not improved after 4 naloxone doses. naloxone (NARCAN) injection 0.4 mg 0.4 mg, Intravenous, EVERY 2 MIN PRN, opioid reversal, Starting on Tue08/10/24 at 0636, Administer intravenous route when available and notify provider when administered. For unintended sedation or respiratory depression if all of the below criteria are met: ~ respiratory rate LESS than or EQUAL to 8. ~ SaO2 less than 92% and or/end-tidal CO2 is greater than 50. ~ the patient is receiving an opioid, has unintended sedation assessed as RASS (-4) or (-5) and patient is currently not on mechanical ventilation. RASS scale (-4) is deep sedation with no response to voice but movement or eye opening to physical stimulation. RASS scale (-5) is unarousable. Patient Monitoring Once the patient has demonstrated a response to the naloxone, continue to monitor respiratory rate, depth, oxygen saturation and end-tidal CO2 (if available) every 15 minutes x 2, then every 30 minutes x 2, then every 1 hour x 1 after each naloxone dose. Consider transfer to ICU if patient respiratory parameters have not improved after 4 naloxone doses. naloxone (NARCAN) injection 0.4 mg 0.4 mg, Intramuscular, EVERY 2 MIN PRN, opioid reversal, Starting on Tue08/10/24 at 0636, Administer intramuscular if an intravenous route is not available and notify provider when administered. For unintended sedation or respiratory depression if all of the below criteria are met: ~ respiratory rate LESS than or EQUAL to 8. ~ SaO2 less than 92% and or/end-tidal CO2 is greater than 50. ~ the patient is receiving an opioid, has unintended sedation assessed as RASS (-4) or (-5) and patient is currently not on mechanical ventilation. RASS scale (-4) is deep sedation with no response to voice but movement or eye opening to physical stimulation. RASS scale (-5) is unarousable. Patient Monitoring Once the patient has demonstrated a response to the naloxone, continue to monitor respiratory rate, depth, oxygen saturation and end-tidal CO2 (if available) every 15 minutes x 2, then every 30 minutes x 2, then every 1 hour x 1 after each naloxone dose. Consider transfer to ICU if patient respiratory parameters have not improved after 4 naloxone doses. ondansetron (ZOFRAN ODT) ODT tab 4 mg 4 mg, Oral, EVERY 6 HOURS PRN, nausea, vomiting, Starting on Renee 08/09/24 at 2223, This is Step 1 of nausea and vomiting management. If nausea not resolved in 15 minutes, go to Step 2 prochlorperazine (COMPAZINE). With dry hands, peel back foil backing and gently remove tablet. Do not push oral disintegrating tablet through foil backing. Administer immediately on tongue and oral disintegrating tablet dissolves in seconds, then swallow with saliva. Liquid not required. ondansetron (ZOFRAN) injection 4 mg 4 mg, Intravenous, EVERY 6 HOURS PRN, nausea, vomiting, Administer over 2-5 Minutes, Starting on Tue08/09/24 at 2223, Give IF patient unable to tolerate oral medication. This is Step 1 of nausea and vomiting management. If nausea not resolved in 15 minutes, go to Step 2 prochlorperazine (COMPAZINE). opium-belladonna (B&O SUPPRETTES) 60-16.2 MG per suppository 1 suppository 1 suppository (60 mg), Rectal, EVERY 8 HOURS PRN, bladder spasms, Starting on Tue08/09/24 at 2321 $Given 08/10/2024 6:35 AM CDT 1 suppository oxyCODONE (ROXICODONE) tablet 5 mg 5 mg, Oral, EVERY 4 HOURS PRN, severe pain, Starting on Tue08/10/24 at 0800 oxyCODONE IR (ROXICODONE) half-tab 2.5 mg 2.5 mg, Oral, EVERY 4 HOURS PRN, moderate pain, Starting on Tue08/10/24 at 0800 senna-docusate (SENOKOT-S/PERICOLACE) 8.6-50 MG per tablet 1 tablet 1 tablet, Oral, 2 TIMES DAILY PRN, constipation, Starting on Tue08/09/24 at 2223, If no bowel movement in 24 hours, increase to 2 tablets by mouth. IF more than 1 constipation PRN medication is ordered, administer step-paz as indicated, moving to the next step ONLY if prior step ineffective. Step 1: senna-docusate (SENOKOT-S; PERICOLACE) OR bisacodyl (DULCOLAX) EC tablet Step 2: polyethylene glycol (MIRALAX/GLYCOLAX) Step 3: bisacodyl (DULCOLAX) suppository Step 4: enema Hold for loose stools. senna-docusate (SENOKOT-S/PERICOLACE) 8.6-50 MG per tablet 2 tablet 2 tablet, Oral, 2 TIMES DAILY PRN, constipation, Starting on Tue08/09/24 at 2223, IF more than 1 constipation PRN medication is ordered, administer step-paz as indicated, moving to the next step ONLY if prior step ineffective. Step 1: senna-docusate (SENOKOT-S; PERICOLACE) OR bisacodyl (DULCOLAX) EC tablet Step 2: polyethylene glycol (MIRALAX/GLYCOLAX) Step 3: bisacodyl (DULCOLAX) suppository Step 4: enema Hold for loose stools. sodium chloride (PF) 0.9% PF flush 3 mL 3 mL, Intracatheter, EVERY 8 HOURS, First dose on Tue08/09/24 at 2230, to lock peripheral IV dormant line $Given 08/10/2024 1:44 AM CDT 3 mLs sodium chloride (PF) 0.9% PF flush 3 mL 3 mL, Intracatheter, EVERY 1 MIN PRN, line flush, other, to ensure patency or to lock dormant line, Starting on Tue08/09/24 at 2223 $Given 08/10/2024 3:25 AM CDT 3 mLs Inactive Administered Medications - up to 3 most recent administrations Medication Order MAR Action Action Date Dose Rate Site HYDROmorphone (DILAUDID) injection 0.2 mg 0.2 mg, Intravenous, ONCE, On Tue08/10/24 at 0700, For 1 dose $Given 08/10/2024 6:41 AM CDT 0.2 mg HYDROmorphone (DILAUDID) injection 1 mg 1 mg, Intravenous, ONCE, On Tue08/09/24 at 2150, For 1 dose $Given 08/09/2024 9:52 PM CDT 1 mg HYDROmorphone (PF) (DILAUDID) injection 0.3 mg 0.3 mg, Intravenous, ONCE, On Tue08/09/24 at 2054, For 1 dose $Given 08/09/2024 9:16 PM CDT 0.3 mg oxyBUTYnin (DITROPAN) tablet 5 mg 5 mg, Oral, ONCE, On Tue08/09/24 at 2054, For 1 dose $Given 08/09/2024 10:00 PM CDT 5 mg sodium chloride 0.9% BOLUS 500 mL Intravenous, 500 mL, ONCE, at 500 mL/hr, Administer over 1 Hours, On Tue08/10/24 at 0300, For 1 dose $New Bag 08/10/2024 2:51 AM CDT 500 mLs 500 mL/hr documented in this encounter Active and Recently Administered Medications Times are shown in CDT. Scheduled Medication Order 08/08/2024 08/09/2024 08/10/2024 HYDROmorphone (DILAUDID) injection 0.2 mg (COMPLETED) 0.2 mg, Intravenous, ONCE, On Tue08/10/24 at 0700, For 1 dose 0641 ($Given - Provi peter: Sabine Goldberg RN) HYDROmorphone (DILAUDID) injection 1 mg (COMPLETED) 1 mg, Intravenous, ONCE, On Renee 08/09/24 at 2150, For 1 dose 2152 ($Given - Provider: Agnieszka Hein RN) HYDROmorphone (PF) (DILAUDID) injection 0.3 mg (COMPLETED) 0.3 mg, Intravenous, ONCE, On Renee 08/09/24 at 2055, For 1 dose 2116 ($Given - Provider: Tangela Artis RN - Comment: Administered by Jairo Soriano RN with Kim Jamil RN in room as witness. See ED note) lidocaine (XYLOCAINE) 2 % external gel 6 mL Urethral, ONCE, On Tue08/09/24 at 1650, For 1 dose 1650 (Due) oxyBUTYnin (DITROPAN) tablet 5 mg (COMPLETED) 5 mg, Oral, ONCE, On Tue08/09/24 at 2055, For 1 dose 2200 ($Given - Provider: Agnieszka Hein RN) sodium chloride (PF) 0.9% PF flush 3 mL 3 mL, Intracatheter, EVERY 8 HOURS, First dose on Tue08/09/24 at 2230, to lock peripheral IV dormant line 0144 ($Given - Provi peter: Sabine Goldberg RN)0630 (Not Given - Provider: Sabine Goldberg RN - Reason: Other - Comment: Given at [phone] (Due)2230 (Due) sodium chloride 0.9% BOLUS 500 mL (COMPLETED) Intravenous, 500 mL, ONCE, at 500 mL/hr, Administer over 1 Hours, On Tue08/10/24 at 0300, For 1 dose 0251 ($New Bag - Provider: Sabine Goldberg RN) tamsulosin (FLOMAX) capsule 0.4 mg 0.4 mg, Oral, DAILY, First dose on Tue08/10/24 at 0900, Administer 30 minutes after the same meal each day. Capsules should be swallowed whole; do not crush chew or open. 0900 (Due) PRN Medication Order 08/08/2024 08/09/2024 08/10/2024 acetaminophen (TYLENOL) Suppository 650 mg(Linked Group 1) 650 mg, Rectal, EVERY 4 HOURS PRN, mild pain, other, and adjunct with moderate or severe pain or per patient request, Starting on Renee 08/09/24 at 2223, Alternate with ibuprofen if ordered. Maximum acetaminophen dose from all sources = 75 mg/kg/day not to exceed 4 grams/day. acetaminophen (TYLENOL) tablet 650 mg(Linked Group 1) 650 mg, Oral, EVERY 4 HOURS PRN, mild pain, other, and adjunct with moderate or severe pain or per patient request, Starting on Renee 08/09/24 at 2223, Alternate with ibuprofen if ordered. Maximum acetaminophen dose from all sources = 75 mg/kg/day not to exceed 4 grams/day. calcium carbonate (TUMS) chewable tablet 1,000 mg 1,000 mg, Oral, 4 TIMES DAILY PRN, heartburn, Starting on Tue08/09/24 at 2223 HYDROmorphone (DILAUDID) injection 0.2 mg 0.2 mg, Intravenous, EVERY 2 HOURS PRN, moderate pain, Starting on Tue08/10/24 at 0800 HYDROmorphone (DILAUDID) injection 0.4 mg 0.4 mg, Intravenous, EVERY 2 HOURS PRN, severe pain, Starting on Tue08/10/24 at 0800 hydrOXYzine HCl (ATARAX) tablet 25 mg 25 mg, Oral, EVERY 6 HOURS PRN, itching, pain, Starting on Tue08/10/24 at 0801 lidocaine (LMX4) cream Topical, EVERY 1 HOUR PRN, pain, with VAD insertion, Starting on Renee 08/09/24 at 2223, Apply at least 30 minutes prior to VAD insertion in divided doses as needed for size of site for insertion. MAX Dose: 2.5 g (?? of 5 g tube) Do NOT give if patient has a history of allergy to any local anesthetic or any raman product. Do NOT use both lidocaine intradermal/subcutaneous injection and the lidocaine cream on the same site. lidocaine 1 % 0.1-1 mL 0.1-1 mL, Other, EVERY 1 HOUR PRN, mild pain with VAD insertion, Starting on Renee 08/09/24 at 2223, MAX dose 1 mL subcutaneous OR intradermal along the side of the vein in divided doses as needed for VAD insertion. Do NOT give if patient has a history of allergy to any local anesthetic or any raman product. Do NOT use both lidocaine intradermal/subcutaneous injection and the lidocaine cream on the same site. LORazepam (ATIVAN) tablet 0.5 mg 0.5 mg, Oral, EVERY 8 HOURS PRN, anxiety, Starting on Tue08/10/24 at 0913 melatonin tablet 1 mg 1 mg, Oral, AT BEDTIME PRN, sleep, Starting on Renee 08/09/24 at 2223, Do not give unless at least 6 hours of uninterrupted sleep is expected. If patient has multiple medications ordered PRN sleep/insomnia, offer melatonin first. naloxone (NARCAN) injection 0.2 mg(Linked Group 2) 0.2 mg, Intravenous, EVERY 2 MIN PRN, opioid reversal, Starting on Tue08/10/24 at 0636, Administer intravenous route when available and notify provider when administered. For unintended sedation or respiratory depression if all of the below criteria are met: ~ respiratory rate LESS than or EQUAL to 8. ~SaO2 less than 92% and or/end-tidal CO2 is greater than 50. ~ the patient is receiving an opioid, has unintended sedations assessed as RASS (-3), and is currently not on mechanical ventilation. RASS scale moderate (-3) is movement or eye opening to voice but no eye contact. Patient Monitoring Once the patient has demonstrated a response to the naloxone, continue to monitor respiratory rate, depth, oxygen saturation and end-tidal CO2 (if available) every 15 minutes x 2, then every 30 minutes x 2, then every 1 hour x 1 after each naloxone dose. Consider transfer to ICU if patient respiratory parameters have not improved after 4 naloxone doses. naloxone (NARCAN) injection 0.2 mg(Linked Group 2) 0.2 mg, Intramuscular, EVERY 2 MIN PRN, opioid reversal, Starting on Tue08/10/24 at 0636, Administer intramuscular if an intravenous route is not available and notify provider when administered. For unintended sedation or respiratory depression if all of the below criteria are met: ~ respiratory rate LESS than or EQUAL to 8. ~SaO2 less than 92% and or/end-tidal CO2 is greater than 50. ~ the patient is receiving an opioid, has unintended sedations assessed as RASS (-3), and is currently not on mechanical ventilation. RASS scale moderate (-3) is movement or eye opening to voice but no eye contact. Patient Monitoring Once the patient has demonstrated a response to the naloxone, continue to monitor respiratory rate, depth, oxygen saturation and end-tidal CO2 (if available) every 15 minutes x 2, then every 30 minutes x 2, then every 1 hour x 1 after each naloxone dose. Consider transfer to ICU if patient respiratory parameters have not improved after 4 naloxone doses. naloxone (NARCAN) injection 0.4 mg(Linked Group 2) 0.4 mg, Intravenous, EVERY 2 MIN PRN, opioid reversal, Starting on Tue08/10/24 at 0636, Administer intravenous route when available and notify provider when administered. For unintended sedation or respiratory depression if all of the below criteria are met: ~ respiratory rate LESS than or EQUAL to 8. ~ SaO2 less than 92% and or/end-tidal CO2 is greater than 50. ~ the patient is receiving an opioid, has unintended sedation assessed as RASS (-4) or (-5) and patient is currently not on mechanical ventilation. RASS scale (-4) is deep sedation with no response to voice but movement or eye opening to physical stimulation. RASS scale (-5) is unarousable. Patient Monitoring Once the patient has demonstrated a response to the naloxone, continue to monitor respiratory rate, depth, oxygen saturation and end-tidal CO2 (if available) every 15 minutes x 2, then every 30 minutes x 2, then every 1 hour x 1 after each naloxone dose. Consider transfer to ICU if patient respiratory parameters have not improved after 4 naloxone doses. naloxone (NARCAN) injection 0.4 mg(Linked Group 2) 0.4 mg, Intramuscular, EVERY 2 MIN PRN, opioid reversal, Starting on Tue08/10/24 at 0636, Administer intramuscular if an intravenous route is not available and notify provider when administered. For unintended sedation or respiratory depression if all of the below criteria are met: ~ respiratory rate LESS than or EQUAL to 8. ~ SaO2 less than 92% and or/end-tidal CO2 is greater than 50. ~ the patient is receiving an opioid, has unintended sedation assessed as RASS (-4) or (-5) and patient is currently not on mechanical ventilation. RASS scale (-4) is deep sedation with no response to voice but movement or eye opening to physical stimulation. RASS scale (-5) is unarousable. Patient Monitoring Once the patient has demonstrated a response to the naloxone, continue to monitor respiratory rate, depth, oxygen saturation and end-tidal CO2 (if available) every 15 minutes x 2, then every 30 minutes x 2, then every 1 hour x 1 after each naloxone dose. Consider transfer to ICU if patient respiratory parameters have not improved after 4 naloxone doses. ondansetron (ZOFRAN ODT) ODT tab 4 mg(Linked Group 3) 4 mg, Oral, EVERY 6 HOURS PRN, nausea, vomiting, Starting on Renee 08/09/24 at 2223, This is Step 1 of nausea and vomiting management. If nausea not resolved in 15 minutes, go to Step 2 prochlorperazine (COMPAZINE). With dry hands, peel back foil backing and gently remove tablet. Do not push oral disintegrating tablet through foil backing. Administer immediately on tongue and oral disintegrating tablet dissolves in seconds, then swallow with saliva. Liquid not required. ondansetron (ZOFRAN) injection 4 mg(Linked Group 3) 4 mg, Intravenous, EVERY 6 HOURS PRN, nausea, vomiting, Administer over 2-5 Minutes, Starting on Renee 08/09/24 at 2223, Give IF patient unable to tolerate oral medication. This is Step 1 of nausea and vomiting management. If nausea not resolved in 15 minutes, go to Step 2 prochlorperazine (COMPAZINE). opium-belladonna (B&O SUPPRETTES) 60-16.2 MG per suppository 1 suppository 1 suppository (60 mg), Rectal, EVERY 8 HOURS PRN, bladder spasms, Starting on Renee 08/09/24 at 2321 0635 ($Given - Provi peter: Sabine Goldberg RN) oxyCODONE (ROXICODONE) tablet 5 mg 5 mg, Oral, EVERY 4 HOURS PRN, severe pain, Starting on Tue08/10/24 at 0800 oxyCODONE IR (ROXICODONE) half-tab 2.5 mg 2.5 mg, Oral, EVERY 4 HOURS PRN, moderate pain, Starting on Tue08/10/24 at 0800 senna-docusate (SENOKOT-S/PERICOLACE) 8.6-50 MG per tablet 1 tablet(Linked Group 4) 1 tablet, Oral, 2 TIMES DAILY PRN, constipation, Starting on Tue08/09/24 at 2223, If no bowel movement in 24 hours, increase to 2 tablets by mouth. IF more than 1 constipation PRN medication is ordered, administer step-paz as indicated, moving to the next step ONLY if prior step ineffective. Step 1: senna-docusate (SENOKOT-S; PERICOLACE) OR bisacodyl (DULCOLAX) EC tablet Step 2: polyethylene glycol (MIRALAX/GLYCOLAX) Step 3: bisacodyl (DULCOLAX) suppository Step 4: enema Hold for loose stools. senna-docusate (SENOKOT-S/PERICOLACE) 8.6-50 MG per tablet 2 tablet(Linked Group 4) 2 tablet, Oral, 2 TIMES DAILY PRN, constipation, Starting on Tue08/09/24 at 2223, IF more than 1 constipation PRN medication is ordered, administer step-paz as indicated, moving to the next step ONLY if prior step ineffective. Step 1: senna-docusate (SENOKOT-S; PERICOLACE) OR bisacodyl (DULCOLAX) EC tablet Step 2: polyethylene glycol (MIRALAX/GLYCOLAX) Step 3: bisacodyl (DULCOLAX) suppository Step 4: enema Hold for loose stools. sodium chloride (PF) 0.9% PF flush 3 mL 3 mL, Intracatheter, EVERY 1 MIN PRN, line flush, other, to ensure patency or to lock dormant line, Starting on Tue08/09/24 at 2223 0325 ($Given - Provi peter: Sabine Goldberg RN) Linked Groups Order Group 1: acetaminophen (TYLENOL) tablet 650 mgJump to med 650 mg, Oral, EVERY 4 HOURS PRN, mild pain, other, and adjunct with moderate or severe pain or per patient request, Starting on Tue08/09/24 at 2223, Alternate with ibuprofen if ordered. Maximum acetaminophen dose from all sources = 75 mg/kg/day not to exceed 4 grams/day. Or acetaminophen (TYLENOL) Suppository 650 mgJump to med 650 mg, Rectal, EVERY 4 HOURS PRN, mild pain, other, and adjunct with moderate or severe pain or per patient request, Starting on Renee 08/09/24 at 2223, Alternate with ibuprofen if ordered. Maximum acetaminophen dose from all sources = 75 mg/kg/day not to exceed 4 grams/day. Group 2: naloxone (NARCAN) injection 0.2 mgJump to med 0.2 mg, Intravenous, EVERY 2 MIN PRN, opioid reversal, Starting on Tue08/10/24 at 0636, Administer intravenous route when available and notify provider when administered. For unintended sedation or respiratory depression if all of the below criteria are met: ~ respiratory rate LESS than or EQUAL to 8. ~SaO2 less than 92% and or/end-tidal CO2 is greater than 50. ~ the patient is receiving an opioid, has unintended sedations assessed as RASS (-3), and is currently not on mechanical ventilation. RASS scale moderate (-3) is movement or eye opening to voice but no eye contact. Patient Monitoring Once the patient has demonstrated a response to the naloxone, continue to monitor respiratory rate, depth, oxygen saturation and end-tidal CO2 (if available) every 15 minutes x 2, then every 30 minutes x 2, then every 1 hour x 1 after each naloxone dose. Consider transfer to ICU if patient respiratory parameters have not improved after 4 naloxone doses. Or naloxone (NARCAN) injection 0.4 mgJump to med 0.4 mg, Intravenous, EVERY 2 MIN PRN, opioid reversal, Starting on Tue08/10/24 at 0636, Administer intravenous route when available and notify provider when administered. For unintended sedation or respiratory depression if all of the below criteria are met: ~ respiratory rate LESS than or EQUAL to 8. ~ SaO2 less than 92% and or/end-tidal CO2 is greater than 50. ~ the patient is receiving an opioid, has unintended sedation assessed as RASS (-4) or (-5) and patient is currently not on mechanical ventilation. RASS scale (-4) is deep sedation with no response to voice but movement or eye opening to physical stimulation. RASS scale (-5) is unarousable. Patient Monitoring Once the patient has demonstrated a response to the naloxone, continue to monitor respiratory rate, depth, oxygen saturation and end-tidal CO2 (if available) every 15 minutes x 2, then every 30 minutes x 2, then every 1 hour x 1 after each naloxone dose. Consider transfer to ICU if patient respiratory parameters have not improved after 4 naloxone doses. Or naloxone (NARCAN) injection 0.2 mgJump to med 0.2 mg, Intramuscular, EVERY 2 MIN PRN, opioid reversal, Starting on Tue08/10/24 at 0636, Administer intramuscular if an intravenous route is not available and notify provider when administered. For unintended sedation or respiratory depression if all of the below criteria are met: ~ respiratory rate LESS than or EQUAL to 8. ~SaO2 less than 92% and or/end-tidal CO2 is greater than 50. ~ the patient is receiving an opioid, has unintended sedations assessed as RASS (-3), and is currently not on mechanical ventilation. RASS scale moderate (-3) is movement or eye opening to voice but no eye contact. Patient Monitoring Once the patient has demonstrated a response to the naloxone, continue to monitor respiratory rate, depth, oxygen saturation and end-tidal CO2 (if available) every 15 minutes x 2, then every 30 minutes x 2, then every 1 hour x 1 after each naloxone dose. Consider transfer to ICU if patient respiratory parameters have not improved after 4 naloxone doses. Or naloxone (NARCAN) injection 0.4 mgJump to med 0.4 mg, Intramuscular, EVERY 2 MIN PRN, opioid reversal, Starting on Tue08/10/24 at 0636, Administer intramuscular if an intravenous route is not available and notify provider when administered. For unintended sedation or respiratory depression if all of the below criteria are met: ~ respiratory rate LESS than or EQUAL to 8. ~ SaO2 less than 92% and or/end-tidal CO2 is greater than 50. ~ the patient is receiving an opioid, has unintended sedation assessed as RASS (-4) or (-5) and patient is currently not on mechanical ventilation. RASS scale (-4) is deep sedation with no response to voice but movement or eye opening to physical stimulation. RASS scale (-5) is unarousable. Patient Monitoring Once the patient has demonstrated a response to the naloxone, continue to monitor respiratory rate, depth, oxygen saturation and end-tidal CO2 (if available) every 15 minutes x 2, then every 30 minutes x 2, then every 1 hour x 1 after each naloxone dose. Consider transfer to ICU if patient respiratory parameters have not improved after 4 naloxone doses. Group 3: ondansetron (ZOFRAN ODT) ODT tab 4 mgJump to med 4 mg, Oral, EVERY 6 HOURS PRN, nausea, vomiting, Starting on Renee 08/09/24 at 2223, This is Step 1 of nausea and vomiting management. If nausea not resolved in 15 minutes, go to Step 2 prochlorperazine (COMPAZINE). With dry hands, peel back foil backing and gently remove tablet. Do not push oral disintegrating tablet through foil backing. Administer immediately on tongue and oral disintegrating tablet dissolves in seconds, then swallow with saliva. Liquid not required. Or ondansetron (ZOFRAN) injection 4 mgJump to med 4 mg, Intravenous, EVERY 6 HOURS PRN, nausea, vomiting, Administer over 2-5 Minutes, Starting on Renee 08/09/24 at 2223, Give IF patient unable to tolerate oral medication. This is Step 1 of nausea and vomiting management. If nausea not resolved in 15 minutes, go to Step 2 prochlorperazine (COMPAZINE). Group 4: senna-docusate (SENOKOT-S/PERICOLACE) 8.6-50 MG per tablet 1 tabletJump to med 1 tablet, Oral, 2 TIMES DAILY PRN, constipation, Starting on Renee 08/09/24 at 2223, If no bowel movement in 24 hours, increase to 2 tablets by mouth. IF more than 1 constipation PRN medication is ordered, administer step-paz as indicated, moving to the next step ONLY if prior step ineffective. Step 1: senna-docusate (SENOKOT-S; PERICOLACE) OR bisacodyl (DULCOLAX) EC tablet Step 2: polyethylene glycol (MIRALAX/GLYCOLAX) Step 3: bisacodyl (DULCOLAX) suppository Step 4: enema Hold for loose stools. Or senna-docusate (SENOKOT-S/PERICOLACE) 8.6-50 MG per tablet 2 tabletJump to med 2 tablet, Oral, 2 TIMES DAILY PRN, constipation, Starting on Renee 08/09/24 at 2223, IF more than 1 constipation PRN medication is ordered, administer step-paz as indicated, moving to the next step ONLY if prior step ineffective. Step 1: senna-docusate (SENOKOT-S; PERICOLACE) OR bisacodyl (DULCOLAX) EC tablet Step 2: polyethylene glycol (MIRALAX/GLYCOLAX) Step 3: bisacodyl (DULCOLAX) suppository Step 4: enema Hold for loose stools. documented in this encounter Care Teams [employer] Relationship Specialty Start Date End Date [facility] [address] [place] [id number] PCP - General 07/24/21 documented as of this encounter
--- OUTSIDE RECORDS SUMMARY | 2024-08-10 09:20 | XMS_ITS | Clinical Summary ---
Author Organization [facility] Address [address] [place] [address]. [place] [address] Care Team Providers Care Mold Runner Name Role Phone [facility]- Primary Care Provider Allergies Active Allergy Reactions Criticality Noted Date Comments Cats 07/24/2021 Shellfish-Derived Products Anaphylaxis High 07/24/20 21 Tramadol Fatigue 08/09/2024 Light headed Medications Medication Sig Dispensed Refills Start Date End Date Status tamsulosin (FLOMAX) 0.4 MG capsule Take 0.4 mg by mouth daily Suspended warfarin ANTICOAGULANT (COUMADIN) 1 MG tablet Take by mouth daily. 4mg= Tue and Sun, 8mg=ROW Suspended finasteride (PROSCAR) 5 MG tablet Take 5 mg by mouth daily. Suspended lisinopril (ZESTRIL) 5 MG tablet Take 5 mg by mouth daily. Suspended oxyBUTYnin (DITROPAN) 5 MG tablet Take 5 mg by mouth every 8 hours as needed for bladder spasms. Suspended sulfamethoxazole-trime thoprim (BACTRIM DS) 800-160 MG tablet Take 1 tablet by mouth 2 times daily. For 10 days Suspended valACYclovir (VALTREX) 1000 mg tablet Take 1,000 mg by mouth 2 times daily as needed (cold sores). Suspended Active Problems Problem Noted Date Diagnosed Date Gross hematuria 08/09/2024 Supratherapeutic INR 08/09/2024 Problem with Weber catheter, initial encounter ( H24) 08/09/2024 Encounters Date Type Department Care Team Description 08/09/2024 3:49 PM CDT - Present Hospital Encounter [place] [address] [facility] [address] [place] [id number] HoltAmilcar canas MD Foss, Kevin, MD Jaleta, Uziel Hay MD Gross hematuria; Problem with Weber catheter, initial encounter (H24); Supratherapeutic INR 08/09/2024 Travel from Last 3 Months Social History [...] in an abandoned building, in an overnight retirement, or couch-surfing.) Yes 08/09/2024 Are you worried [...] Mass Index 24.2 08/09/2024 3:48 PM CDT Plan of Treatment Health Maintenance Due Date Last Done Comments ADVANCE CARE PLANNING 1960 ANNUAL REVIEW OF HM ORDERS 1958 CT COLONOGRAPHY 1958 FIT 1958 FLEX SIG 1958 sDNA (Cologuard) 1958 HEPATITIS C SCREENING 1976 LIPID 1998 LUNG CANCER SCREENING 2008 ZOSTER IMMUNIZATION (1 of 2) 2008 FALL RISK ASSESSMENT 2023 MEDICARE ANNUAL WELLNESS VISIT 2023 Pneumococcal Vaccine: 65+ Years (1 of 1 - PCV) 2023 PHQ-2 (once per calendar year) 2023 COVID-19 Vaccine (1 - 2023-2 5 season) 2024 INFLUENZA VACCINE (#1) 2024 GLUCOSE 08/09/2027 08/09/2024, 07/24/2021 COLONOSCOPY 11/20/2028 11/20/2018 COLORECTAL CANCER SCREENING 11/20/2028 DTAP/TDAP/TD IMMUNIZATION (3 - Td or Tdap) 11/26/2032 11/26/2022, 02/04/2012 RSV VACCINE (1 - 1-dose 75+ series) 2033 HPV IMMUNIZATION Aged Out No longer e ligible based on patient's age to complete this topic MENINGITIS IMMUNIZATION Aged Out No l onger eligible based on patient's age to complete this topic RSV MONOCLONAL ANTIBODY Aged Out No l onger eligible based on patient's age to complete this topic Procedures The patient is currently admitted. The information in this section might not be complete until the patient is discharged. Procedure Name Priority Date/Time Associated Diagnosis Comments HEMOGLOBIN STAT 08/10/2024 3:07 AM CDT HEMOGLOBIN STAT 08/09/2024 11:33 PM CDT ROUTINE UA WITH MICROSCOPIC REFLEX TO CULTURE STAT 08/09/2024 7:33 PM CDT CBC WITH PLATELETS & DIFFERENTIAL STAT 08/09/2024 5:40 PM CDT CBC WITH PLATELETS AND DIFFERENTIAL STAT 08/09/2024 5:40 PM CDT INR STAT 08/09/2024 5:40 PM CDT BASIC METABOLIC PANEL STAT 08/09/2024 5:40 PM CDT from Last 3 Months Results * (ABNORMAL) Hemoglobin (08/10/2024 3:07 AM CDT) Only the most recent of2 resultswithin the time period is included. Hemoglobin 11.6(L) 13.3 - 17.7 g/dL 08/10/2024 3:52 AM CDT [facility] Blood STRUCTURE OF RIGHT HAND / Unknown Venipuncture / Unknown 08/10/2024 3:07 AM CDT 08/10/2024 3:09 AM CDT Zainab Magallon MD LAB - BLOOD ORDER [facility] [address] [facility] Lab (1st floor, no room number) [place] [address], [facility] * (ABNORMAL) UA with Microscopic reflex to Culture (08/09/2024 7:33 PM CDT) Color Urine Brown(A) Colorless, Straw, Light Yellow, Yellow 08/09/2024 7:55 PM CDT [facility] Appearance Urine Cloudy(A) Clear 08/09/20 7:55 PM CDT [facility] Glucose Urine Negative Negative mg/dL 08/09/2024 7:55 PM CDT [facility] Bilirubin Urine Negative Negative 7:55 PM CDT [facility] Ketones Urine Negative Negative mg/dL 08/09/2024 7:55 PM CDT [facility] Specific [place] Urine 1.005 1.003 - 1.035 08/09/2024 7:55 PM [facility]T [facility] Blood Urine Large(A) Negative 08/09/2024 7:55 PM [facility]T [facility] pH Urine 5.5 5.0 - 7.0 08/09/2024 7:55 PM CDT LAB[facility] Protein Albumin Urine 20(A) Negative mg/dL 08/09/2024 7:55 PM CDT [facility] Urobilinogen Urine Normal Normal, 2.0 mg/dL 08/09/2024 7:55 PM CDT [facility] Nitrite Urine Negative Negative 08/09/2024 7:55 PM CDT [facility] Leukocyte Esterase Urine Trace(A) Negative 08/09/2024 7:55 PM CDT [facility] RBC Urine >182(H) <=2 /HPF 08/09/2024 7:55 PM CDT [facility] WBC Urine 7(H) <=5 /HPF 08/09/2024 7:55 PM CDT LABOR[facility] Urine URINE SPECIMEN OBTAINED VIA INDWELLING URINARY CATHETER / Unknown Non-blood Collection / Unknown 08/09/2024 7:33 PM CDT 08/09/2024 7:38 PM CDT Narrative [facility] - 08/09/2024 7:55 PM CDT Urine Culture not indicated Amilcar Holt MD LAB - URINE ORDER [facility] [address] [facility] Lab (1st floor, no room number) [place] [address], [facility] * (ABNORMAL) CBC with platelets and differential [...] Holt MD LAB - BLOOD ORDER [facility] [address] [place] Lab (1st floor, no room number) [address] [place] [id number] * (ABNORMAL) INR (08/09/2024 5:40 PM CDT) INR 4.26(H) 0.85 - 1.15 08/09/2024 7:06 PM CDT [facility] Blood STRUCTURE OF LEFT UPPER LIMB / Unknown Venipuncture / Unknown 08/09/2024 5:40 PM CDT 08/09/2024 5:44 PM CDT Amilcar Holt MD LAB - BLOOD ORDER [facility] [address] Lab (1st floor, no room number) [address] [place] [id number] * (ABNORMAL) Basic metabolic panel (08/09/2024 5:40 PM CDT) Sodium 136 135 - 145 mmol/L 08/09/2024 6:08 PM CDT [facility] Potassium 4.3 3.4 - 5.3 mmol/L 08/09/2024 6:08 PM CDT [facility] Chloride 102 98 - 107 mmol/L 08/09/2024 6:08 PM CDT [facility] Carbon Dioxide (CO2) 22 22 - 29 mmol/L 08/09/2024 6:08 PM CDT [facility] Anion Gap 12 7 - 15 mmol/L 08/09/2024 6:08 PM CDT [facility] Urea Nitrogen 15.3 8.0 - 23.0 mg/dL 08/09/2024 6:08 PM CDT [facility] Creatinine 1.19(H) 0.67 - 1.17 mg/dL 08/09/2024 6:08 PM CDT [facility] GFR Estimate 67 >60 mL/min/1.7 3m2 08/09/2024 6:08 PM CDT [facility] Comment:eGFR calculated us2020 CKD-EPI equation. Calcium 8.6(L) 8.8 - 10.4 [...] - 99 mg/dL 08/09/2024 6:08 PM CDT [facility] Blood STRUCTURE OF LEFT UPPER LIMB / Unknown Venipuncture / Unknown 08/09/2024 5:40 PM CDT 08/09/2024 5:44 PM CDT Amilcar Holt MD LAB - BLOOD ORDER [facility] [address] [facility] Lab (1st floor, no room number) [place] [address], [facility] from Last 3 Months Advance Directives For more information, please contact: [phone] * Full Code (Latest Code Status on File) Date Activated Date Inactivated Comments 08/09/2024 10:23 PM All basic and advanced life-sustaining interventions are performed as appropriate Question Answer Comments Code status determined by: Discussion with ange nt/ legal decision maker Care Teams Mold Runner Relationship Specialty Start Date End Date [facility]- [address] [place] [address] PCP - General 07/24/21
--- OUTSIDE RECORDS SUMMARY | 2024-08-10 09:20 | XMS_ITS | Clinical Summary ---
Author Organization [facility] Address [place], [place] [address] Care Team Providers Care Visual Education Teacher Name Role Phone Pcp, No Primary Care Provider Unavailabl e Allergies Active Allergy Reactions Criticality Noted Date Comments Cats (Fur, Dander, Saliva) Anaphylaxis High 08/27/20 17 Shellfish Containing Products Anaphylaxis High 08/27 Tramadol Palpitations 10/29/2020 Medications Medication Sig Dispensed Refills Start Date End Date Status warfarin (COUMADIN) 4 mg tablet TK 2 TS PO D 0 Active amoxicillin (AMOXIL) 500 mg capsule Take 500 mg by mouth. Dentist visits 1 Active EPINEPHrine (EPIPEN) 0.3 mg/0.3 mL injection INJECT INTRAMUSCULARLY DIRECTED 0 Active warfarin (COUMADIN) 1 mg tablet Take 8 mg by mouth. Acti ve lisinopriL (PRINIVIL; ZESTRIL) 5 mg tablet Take 5 mg by mouth once daily. 1 Active metoprolol tartrate (LOPRESSOR) 25 mg tabletIndications:S creening for cardiovascular condition,S/P AVR,Tachycardia Take 1 tablet by mouth for heart rate greater than 130 30 Tablet 2 1 Active finasteride (PROSCAR) 5 mg tabletIndications:U rinary retention Take 1 Tablet (5 mg) by mouth once daily. 30 Tablet 11 1 Active tamsulosin (FLOMAX) 0.4 mg capsuleIndications: Urinary retention Take 2 Capsules (0.8 mg) by mouth once daily after a meal. 60 Capsule 11 2 Active cephalexin (KEFLEX) 500 mg capsuleIndications: UTI (urinary tract infection), uncomplicated Take 1 capsule by mouth twice daily for 10 days for urine infection 20 Capsule 4 Active trimethoprim-sulfam ethoxazole 160-800 mg tabIndications:Urin leah retention,Urinary tract infection associated with catheterization of urinary tract, unspecified indwelling urinary catheter type, initial encounter (HC) Take 1 Tablet by mouth two times daily for 10 days. 20 Tablet 4 024 Active cefdinir (OMNICEF) 300 mg capsuleIndications: Acute cystitis without hematuria Take 1 Capsule (300 mg) by mouth two times daily for 10 days. 20 Capsule 4 024 Discontinu ed(*Med ineffectiv e) trimethoprim-sulfam ethoxazole 160-800 mg tabIndications:Acut e cystitis without hematuria Take 1 Tablet by mouth two times daily for 5 days. 10 Tablet 4 024 Active Problems No known active problems Encounters Date Type Department Care Team Description 08/07/2024 4:34 PM CDT - 08/07/2024 7:[address] [facility] [address] [place] [address] Tobin Ku PA Urinary retention (Primary Dx); Urinary tract infection associated with catheterization of urinary tract, unspecified indwelling urinary catheter type, initial encounter (HC) Discharge Disposition: Home Self Care 08/07/2024 Travel 07/31/2024 Telephone [facility] [address] [place] [address] Nupur Miranda NP Results 07/31/2024 Telephone [facility] [address] [place] [address] Yvonne Malone PA Anticoagulation (BPA) 07/29/2024 11:30 AM CDT Office Visit [facility] [address] [place] [address] Yvonne Malone PA Urinary Problem 07/29/2024 Travel from Last 3 Months Social History Tobacco Use Types Packs/Day Years Used Date Smoking Tobacco: Former Cigarettes 1 20 1 983 - 2002 Passive Smoke Exposure: Never Smokeless Tobacco: [...] Sign Reading Time Taken Comments Blood Pressure 204/116 08/07/2024 4:41 PM CDT Pulse 83 08/07/2024 4:41 PM CDT Temperature 36.8 ??C (98.2 ??F) 08/07/2024 4:41 PM CD T Respiratory Rate 18 08/07/2024 4:41 PM CDT Oxygen Saturation 98% 08/07/2024 4:41 PM CDT Inhaled Oxygen Concentration - - Weight 75.8 kg (167 lb) 08/07/2024 4:41 PM CDT Height 170.2 cm (5' 7) 08/07/2024 4:41 PM CDT Body Mass Index 26.16 08/07/2024 4:41 PM CDT Plan of Treatment Health Maintenance [...] 65+ (1 of 1 - PCV) 2023 BMI (ht and wt on same day) for age 18+ 06/01/2024 06/01/2023, 05/19/2023, 10/05/2021, Additional history exists COVID-19 vaccine series (2022-24 season) 2024 Influenza for age 65+ 07/22/2024 Procedures Procedure Name Priority Date/Time Associated Diagnosis Comments URINE CULTURE STAT 08/07/2024 5:35 PM CDT URINALYSIS MICROSCOPIC STAT 08/07/2024 5:35 PM CDT UA W/ SEDIMENT EXAM REFLEXED PER CRITERIA STAT 08/07/2024 5:35 PM CDT URINALYSIS MICROSCOPIC Routine 07/29/2024 11:45 AM CDT Acute cystitis without hematuria URINE CULTURE Routine 07/29/2024 11:45 AM CDT Acute cystitis without hematuria UA W/ SEDIMENT EXAM REFLEXED PER CRITERIA Routine 07/29/2024 11:45 AM CDT Acute cystitis without hematuria from Last 3 Months Results * (ABNORMAL) URINALYSIS MICROSCOPIC (08/07/2024 5:35 PM CDT) Only the most recent of2 resultswithin the time period is included. RBC >100(A) None Seen, 0-2 /HPF 08/07/2024 6:[address] [facility] WBC >100(A) None Seen, 0-2 /HPF 08/07/2024 6:[address] [facility] BACTERIA Moderate(A ) None Seen Bacteria/H PF 08/07/2024 6:[address] [facility] HYALINE CASTS None Seen None Seen, 0-2, 3-5 /LPF 08/07/2024 6:[address] [facility] EPITHELIAL CELLS None Seen None Seen Epi/HPF 08/07/2024 6:[address] [facility] CALCIUM OXALATE CRYSTALS Present(A) Absent 08/07/2024 6:[address] [facility] Urine URINE SPECIMEN / Unknown Non-Blood / Unknown 08/07/2024 5:35 PM CDT 08/07/2024 6:02 PM CDT Tobin TORRES URINE Performing Organization Address City/[facility]/ZIP Co de Phone Number [facility] [address] [place] [address], [place] [phone] * URINE CULTURE (08/07/2024 5:35 PM CDT) Only the most recent of2 resultswithin the time period is included. CULTURE No growth (<1,000 CFU/mL) 08/09/2024 6:13 PM CDT [facility] Urine URINE SPECIMEN / Unknown Non-Blood / Unknown 08/07/2024 5:35 PM CDT 08/07/2024 6:02 PM CDT Tobin TORRES MICROBIOLOGY Performing Organization Address City/[facility]/ZIP Co de Phone Number [facility] [address] [place] [address], * (ABNORMAL) UA W/ SEDIMENT EXAM REFLEXED PER CRITERIA (08/07/2024 5:35 PM CDT) Only the most recent of2 resultswithin the time period is included. COLOR Red(A) Yellow Color 08/07/2024 6:[address] [facility] CLARITY Extra Turbid(A) Clear Clarity 08/07/2024 6:[address] [facility] SPECIFIC GRAVITY,URINE 1.008 >1.005 - <1.030 08/07/2024 6:[address] [facility] PH,URINE 6.5 5.5 - 8.5 08/07/2024 6:[address] [facility] UROBILINOGEN, QUALITATIVE Normal Normal EU/dl 08/07/2024 6:[address] [facility] PROTEIN, URINE 2+(A) Negative mg/dL 08/07/2024 6:[address] [facility] GLUCOSE, URINE Negative Negative mg/dL 08/07/2024 6:[address] [facility] KETONES,URINE Negative Negative mg/dL 08/07/2024 6:[address] [facility] BILIRUBIN,URI NE Negative Negative 08/07/2024 6:[address] [facility] OCCULT BLOOD,URINE 3+(A) Negative 08/07/2024 6:[address] [facility] NITRITE Negative Negative 08/07/2024 6:[address] [facility] LEUKOCYTE ESTERASE 1+(A) Negative 08/07/2024 6:[address] [facility] Urine URINE SPECIMEN / Unknown Non-Blood / Unknown 08/07/2024 5:35 PM CDT 08/07/2024 6:02 PM CDT Tobin TORRES URINE [facility] [address] [place] [address], from Last 3 Months Care Teams Visual Education Teacher Relationship Specialty Start Date End Date Pcp, No . PCP - General 08/07/24
--- OUTSIDE RECORDS SUMMARY | 2024-08-10 09:20 | XMS_ITS | Referral Summary ---
Author Organization [facility] Address [address] [place] [address] Care Team Providers Care Treating Plant Operator Name Role Phone [facility]- Primary Care Provider Encounters Date Type Department Care Team Description 08/09/2024 Travel 08/09/2024 3:49 PM CDT - Present Hospital Encounter [place] [address] [facility] [address] [place] [address] Amilcar Holt MD Foss, MD Jemma Vivas, Uziel Hay MD Gross hematuria; Problem with Weber catheter, initial encounter (H24); Supratherapeutic INR from Last 3 Months Allergies Active Allergy Reactions Criticality Noted Date [...] Weber catheter, initial encounter ( H24) 08/09/2024 Social History Tobacco Use Types Packs/Day Years [...] in an abandoned building, in an overnight mcc, or couch-surfing.) Yes 08/09/2024 Are you worried [...] 08/09/2024 3:48 PM CDT Plan of Treatment Not on file Procedures The patient is currently admitted. The [...] Magallon MD LAB - BLOOD ORDER [facility] Lab [address] Lab (1st floor, no room number) [place] [address], [facility] * (ABNORMAL) UA with Microscopic reflex to Culture (08/09/2024 7:33 PM CDT) Color Urine Brown(A) Colorless, Straw, Light Yellow, Yellow 08/09/2024 7:55 PM CDT LABORATORY Appearance Urine Cloudy(A) Clear 08/09/20 24 7:55 PM CDT LABORATORY Glucose Urine Negative Negative mg/dL 08/09/2024 7:55 PM CDT LABORATORY Bilirubin Urine Negative Negative 7:55 PM CDT LABORATORY Ketones Urine Negative Negative mg/dL 08/09/2024 7:55 PM CDT LABORATORY Specific [place] Urine 1.005 1.003 - 1.035 08/09/2024 7:55 PM CDT LABORATORY Blood Urine Large(A) Negative 08/09/2024 7:55 PM CDT LABORATORY pH Urine 5.5 5.0 - 7.0 08/09/2024 7:55 PM CDT LABORATORY Protein Albumin Urine 20(A) Negative mg/dL 08/09/2024 7:55 PM CDT LABORATORY Urobilinogen Urine Normal Normal, 2.0 mg/dL 08/09/2024 7:55 PM CDT LABORATORY Nitrite Urine Negative Negative 08/09/2024 7:55 PM CDT LABORATORY Leukocyte Esterase Urine Trace(A) Negative 08/09/2024 7:55 PM CDT LABORATORY RBC Urine >182(H) <=2 /HPF 08/09/2024 7:55 PM CDT LABORATORY WBC Urine 7(H) <=5 /HPF 08/09/2024 7:55 PM CDT LABORATORY Urine URINE SPECIMEN OBTAINED VIA INDWELLING URINARY CATHETER / Unknown Non-blood Collection / Unknown 08/09/2024 7:33 PM CDT 08/09/2024 7:38 PM CDT Narrative [facility] - 08/09/2024 7:55 PM CDT Urine Culture not indicated Amilcar Holt MD LAB - URINE ORDER [facility]DA [facility] [address] Lab (1st floor, no room number) [place] [address], [facility] * (ABNORMAL) CBC with platelets and differential [...] Holt MD LAB - BLOOD ORDER AMANDA [facility] Lab [address] Lab (1st floor, no room number) [place] [address] * (ABNORMAL) INR (08/09/2024 5:40 PM CDT) INR 4.26(H) 0.85 - 1.15 08/09/2024 7:06 PM CDT [facility] Blood STRUCTURE OF LEFT UPPER LIMB / Unknown Venipuncture / Unknown 08/09/2024 5:40 PM CDT 08/09/2024 5:44 PM CDT Amilcar Holt MD LAB - BLOOD ORDER AMANDA [facility] Lab [address] Lab (1st floor, no room number) [place] [address], [facility] * (ABNORMAL) Basic metabolic panel (08/09/2024 5:40 [...] 6:08 PM CDT [facility] Comment:eGFR calculated usin 2020 CKD-EPI equation. [...] LAB - BLOOD ORDER AMANDA [facility] [address] Lab (1st floor, no room number) [place] [address], [facility] from Last 3 Months Advance Directives For more information, please contact: [phone] * Full Code (Latest Code Status on File) Date Activated Date Inactivated Comments 08/09/2024 10:23 PM All basic and advanced life-sustaining interventions are performed as appropriate Question Answer Comments Code status determined by: Discussion with ange yousif/ legal decision maker Care Teams Treating Plant Operator Relationship Specialty Start Date End Date [facility]- [address] [place] [address] PCP - General 07/24/21
== END 2024-08-09 13:02 | disposition home or self-care (01) ==
LOC: NFLDREF 08-10 09:17
PROVIDERS: PCP Family Medicine; Referring Provider Family Medicine; Visit Provider Family Medicine
DX: N48.89 Other specified disorders of penis (principal); Z79.01 Long term (current) use of anticoagulants
CPT/HCPCS: 85610

== ENCOUNTER 2024-09-17 09:57 | Outpatient (CLI) | payer MEDICARE, SELFPAY ==
--- OUTSIDE RECORDS SUMMARY | 2024-09-18 16:11 | XMS_ITS | Clinical Summary ---
Author Organization [facility] Address [place], [place] [address] Care Team Providers Care In Store Representative Name Role Phone Pcp, No Primary Care [...] CDT - 08/07/2024 7:08 PM CDT Emergency [facility] [address] [place] [address] Tobin Ku PA Urinary retention (Primary Dx); Urinary tract infection associated with catheterization of urinary tract, unspecified indwelling urinary catheter type, initial encounter (HC) Discharge Disposition: Home Self Care 08/07/2024 Travel 07/31/2024 Telephone [facility] [address] [place] [address] Nupur Miranda NP Results 07/31/2024 Telephone [facility] [address] [place] [address] Yvonne Malone PA Anticoagulation (BPA) 07/29/2024 11:30 AM CDT Office Visit [facility] [id number] [place] [address] Yvonne Malone PA Urinary Problem 07/29/2024 Travel [...] 10/05/2021, Additional history exists COVID-19 vaccine series ( season) 2024 Influenza for age 65+ 07/22/2024 [...] Seen, 0-2 /HPF 08/07/2024 6:23 PM CDT [facility] WBC >100(A) None Seen, 0-2 /HPF 08/07/2024 6:23 PM CDT [facility] BACTERIA Moderate(A ) None Seen Bacteria/H PF 08/07/2024 6:23 PM CDT [facility] HYALINE CASTS None Seen None Seen, 0-2, 3-5 /LPF 08/07/2024 6:23 PM CDT [facility] EPITHELIAL CELLS None Seen None Seen Epi/HPF 08/07/2024 6:23 PM CDT [facility] CALCIUM OXALATE CRYSTALS Present(A) Absent 08/07/2024 6:23 PM CDT [facility] Urine URINE SPECIMEN / Unknown Non-Blood / Unknown 08/07/2024 5:35 PM CDT 08/07/2024 6:02 PM CDT Tobin TORRES URINE [facility] [address] [place] [address], * URINE CULTURE (08/07/2024 5:35 PM CDT) Only the most recent of2 resultswithin the time period is included. CULTURE No growth (<1,000 CFU/mL) 08/09/2024 6:13 PM CDT [facility] Urine URINE SPECIMEN / Unknown Non-Blood / Unknown 08/07/2024 5:35 PM CDT 08/07/2024 6:02 PM CDT Tobin TORRES MICROBIOLOGY [facility] [address] [place] [address], [place] * (ABNORMAL) UA W/ SEDIMENT EXAM REFLEXED PER CRITERIA (08/07/2024 5:35 PM CDT) Only the most recent of2 resultswithin the time period is included. COLOR Red(A) Yellow Color 08/07/2024 6:11 PM CDT [facility] CLARITY Extra Turbid(A) Clear Clarity 08/07/2024 6:11 PM T [facility] SPECIFIC GRAVITY,URINE 1.008 >1.005 - <1.030 08/07/2024 6:11 PM CDT [facility] PH,URINE 6.5 5.5 - 8.5 08/07/2024 6:11 PM T [facility] UROBILINOGEN, QUALITATIVE Normal Normal EU/dl 08/07/2024 6:11 PM CDT [facility] PROTEIN, URINE 2+(A) Negative mg/dL 08/07/2024 6:11 PM T [facility] GLUCOSE, URINE Negative Negative mg/dL 08/07/2024 6:11 PM T [facility] KETONES,URINE Negative Negative mg/dL 08/07/2024 6:11 PM T [facility] BILIRUBIN,URI NE Negative Negative 08/07/2024 6:11 PM CDT [facility] OCCULT BLOOD,URINE 3+(A) Negative 08/07/2024 6:11 PM CDT [facility] NITRITE Negative Negative 08/07/2024 6:11 PM T [facility] LEUKOCYTE ESTERASE 1+(A) Negative 08/07/2024 6:11 PM CDT [facility] Urine URINE SPECIMEN / Unknown Non-Blood / Unknown 08/07/2024 5:35 PM CDT 08/07/2024 6:02 PM CDT Tobin TORRES URINE [facility] [address] [place] [address], from Last 3 Months Care Teams In Store Representative Relationship Specialty Start Date End Date Pcp, No . PCP - General 08/07/24
--- OUTSIDE RECORDS SUMMARY | 2024-09-18 16:12 | XMS_ITS | Clinical Summary ---
Author Organization [place] Address [address] [place] [id number] Care Team Providers Care Cinder Block Maker Name Role Phone [facility]- Primary Care Provider Adalberto Eldridge MD Unavailable [phone] Allergies Active Allergy Reactions Criticality Noted Date Comments Cats 07/24/2021 Shellfish-Derived Products Anaphylaxis High 07/24/20 21 Tramadol Fatigue 08/09/2024 Light headed Medications tamsulosin (FLOMAX) 0.4 MG capsule Take 0.4 mg by mouth daily Active warfarin ANTICOAGULANT (COUMADIN) 1 MG tablet Take by mouth daily. 4mg= Tue and Sun, 8mg=ROW Active finasteride (PROSCAR) 5 MG tablet Take 5 mg by mouth daily. Active lisinopril (ZESTRIL) 5 MG tablet Take 5 mg by mouth daily. Active oxyBUTYnin (DITROPAN) 5 MG tablet Take 5 mg by mouth every 8 hours as needed for bladder spasms. Active valACYclovir (VALTREX) 1000 mg tablet Take 1,000 mg by mouth 2 times daily as needed (cold sores). Active acetaminophen (TYLENOL) 325 MG tabletIndications :Gross hematuria Take 2 tablets (650 mg) by mouth every 4 hours as needed for mild pain or other (and adjunct with moderate or severe pain or per patient request). 08/13/20 24 Active ferrous sulfate (FEROSUL) 325 (65 Fe) MG tabletIndications :Gross hematuria Take 1 tablet (325 mg) by mouth daily. 30 tablet 08/13/20 Active Additional Information Patient not taking.Reported on 08/31/2024 senna-docusate (SENOKOT-S/MARCOS LACE) 8.6-50 MG tabletIndications :Gross hematuria Take 1 tablet by mouth 2 times daily as needed for constipation. 15 tablet 08/13/20 Active Additional Information Patient not taking.Reported on 08/31/2024 ciprofloxacin (CIPRO) 500 MG tabletIndications :Elevated prostate specific antigen (PSA) Take 1 tablet (500 mg) by mouth 2 times daily for 3 days. 6 tablet 09/04/20 24 024 Active Problems Problem Noted Date Diagnosed Date Gross hematuria 08/09/2024 Supratherapeutic INR 08/09/2024 Problem with Weber catheter, initial encounter 0 08/09/2024 Encounters Date Type Department Care Team Description 09/18/2024 Telephone [facility] [address] [place] [phone] Adalberto Eldridge MD Medication Question 09/10/2024 8:40 AM CDT - 09/10/2024 11:59 PM CDT Hospital Encounter [facility] [place] [address] Adalberto Eldridge MD Discharge Disposition: Home or Self Care 09/07/2024 Orders Only [facility] [address] [place] [phone] Adalberto Eldridge MD 09/05/2024 Telephone [facility] [address] [place] [phone] Adalberto Eldridge MD Appointment (Called pt to discuss scheduling a prostate biopsy with Dr Eldridge in the [place] office) 09/04/2024 Orders Only [facility] [address] [place] [phone] Adalberto Eldridge MD Elevated prostate specific antigen (PSA) (Primary Dx) 08/31/2024 11:00 AM CDT Office Visit [facility] [address] [place] [phone] Adalberto Eldridge MD Urinary retention (Primary Dx); Enlarged prostate; Gross hematuria; Elevated prostate specific antigen (PSA) 08/31/2024 Travel 08/23/2024 Telephone [facility] [address] [place] [phone] Adalberto Eldridge MD Call Back 08/11/2024 3:14 PM CDT Anesthesia Event [facility] [address] [place] [address] Jai Flores, DO 08/11/2024 3:00 PM CDT - 08/11/2024 3:50 PM CDT Surgery [facility] [address] [place] [address] Adalberto Eldridge MD Cystoscopy, fulguration of the prostate 08/11/2024 12:10 AM CDT Anesthesia Event [facility] [address] [facility] [address] [place] [address] Walter Crowley MD Wood, Sarah Ann, APRN CRNA 08/09/2024 3:49 PM CDT - 08/13/2024 1:29 PM CDT Hospital Encounter [place] [address] [facility] [address] [place] [address] Amilcar Holt MD Foss, Kevin, MD Jaleta, Cherinet Negeri, MD Gross hematuria; Problem with Weber catheter, initial encounter (H); Supratherapeutic INR Discharge Disposition: Home or Self Care 08/09/2024 Travel from Last 3 Months Social History Tobacco Use Types Packs/Day Years Used Date Smoking Tobacco: Former Cigarettes Q uit: 2000 Smokeless Tobacco: Current Tobacco Cessation:Ready to Q uit: Not Asked; Counseling Given: Not Answered Alcohol Use Standard Drinks/Week Comments Not Currently [...] in an abandoned building, in an overnight residential, or couch-surfing.) Yes 08/09/2024 Are you worried [...] Recorded Sex Assigned at Not on file Legal Sex 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 Gender Identity Not on file Sexual Orientation Not on file Last Filed Vital Signs Vital Sign Reading Time Taken Comments Blood Pressure 119/76 08/31/2024 11:06 AM CDT Pulse 55 08/31/2024 11:06 AM CDT Temperature 36.9 ??C (98.4 ??F) 08/13/2024 7:29 AM CD T Respiratory Rate 16 08/13/2024 7:29 AM CDT Oxygen Saturation 97% 08/13/2024 7:29 AM CDT Inhaled Oxygen Concentration - - Weight 72.6 kg (160 lb) 08/31/2024 11:06 AM CDT Height 170.2 cm (5' 7) 08/31/2024 11:06 AM CDT Body Mass Index 25.06 08/31/2024 11:06 AM CDT Plan of Treatment Upcoming Encounters Date Type Department Care Team (Late st Contact Info) Description 09/25/2024 8:00 AM REIMBURSEMENT COUNSELOR Office Visit [facility] [address] [place] [phone] Adalberto Eldridge MD [address] [place] [phone] 10/02/2024 11:00 AM REIMBURSEMENT COUNSELOR Virtual Visit [facility] [address] [place] [phone] Adalberto Eldridge MD [address] [place] [phone] Health Maintenance Due Date Last Done Comments ADVANCE CARE PLANNING 1960 ANNUAL REVIEW OF HM ORDERS 1960 CT COLONOGRAPHY 1958 FIT 1958 FLEX SIG 1958 sDNA (Cologuard) 1960 HEPATITIS C SCREENING 1976 LIPID 1998 ZOSTER IMMUNIZATION (1 of 2) 2008 FALL RISK ASSESSMENT 2023 MEDICARE ANNUAL WELLNESS VISIT 2023 Pneumococcal Vaccine: 65+ Years (1 of 1 - PCV) 2023 PHQ-2 (once per calendar year) 2023 COVID-19 Vaccine (1 - 2023- season) 2024 INFLUENZA VACCINE (#1) 2024 GLUCOSE 08/13/2027 08/13/2024, 07/23, 08/11/2024, Additional history exists COLONOSCOPY 11/20/2028 11/20/2018 COLORECTAL CANCER SCREENING 11/20/2028 DTAP/TDAP/TD IMMUNIZATION (3 - Td or Tdap) 11/26/2032 11/26/2022, 02/04/2012 RSV VACCINE (1 - 1-dose 75+ series) 2033 AORTIC ANEURYSM SCREENING (SYSTEM ASSIGNED) Completed 08/10/2024 HPV IMMUNIZATION Aged Out No longer e ligible based on patient's age to complete this topic MENINGITIS IMMUNIZATION Aged Out No l onger eligible based on patient's age to complete this topic RSV MONOCLONAL ANTIBODY Aged Out No l onger eligible based on patient's age to complete this topic Procedures Procedure Name Priority Date/Time Associated Diagnosis Comments MT MEASURE POST-VOID RESIDUAL URINE/BLADDER CAPACITY, US NON-IMAGING Routine 08/31/2024 Urinary retention CBC WITH PLATELETS Routine 08/13/2024 6: 48 AM CDT HEPARIN UNFRACTIONATED ANTI XA LEVEL Timed 08/13/2024 6:37 AM CDT INR Routine 08/13/2024 6:37 AM CDT BASIC METABOLIC PANEL Routine 08/13/2024 6:37 AM CDT IONIZED CALCIUM Routine 08/13/2024 6:37 AM CDT INR STAT 08/12/2024 11:24 PM CDT CBC WITH PLATELETS STAT 08/12/2024 11 :24 PM CDT HEMOGLOBIN Timed 08/12/2024 12:27 PM CDT BASIC METABOLIC PANEL Routine 08/12/2024 6:12 AM CDT INR Routine 08/12/2024 6:12 AM CDT CBC WITH PLATELETS Routine 08/12/2024 6: 12 AM CDT HEMOGLOBIN Timed 08/11/2024 6:03 PM CDT STONE ANALYSIS Routine 08/11/2024 3:34 PM CDT ANE AIRWAY SUPRAGLOTTIC PERFORMABLE Routine 08/11/2024 3:26 PM CDT REMOVAL, CALCULUS, BLADDER, CYSTOSCOPIC 08/11/2024 3:16 PM CDT Gross hematuria CYSTOSCOPY, WITH FULGURATION OF HEMORRHAGING BLOOD VESSEL AND THROMBUS REMOVAL 08/11/2024 3:16 PM CDT Gross hematuria CYSTOURETHROSCOPY 08/11/2024 3:1 6 PM CDT Gross hematuria PREPARE PLASMA (UNIT) Routine 08/11/2024 1:18 PM CDT ABO/RH TYPE AND SCREEN STAT 12:27 PM CDT TYPE AND SCREEN, ADULT STAT 12:27 PM CDT INR STAT 08/11/2024 12:27 PM CDT CBC WITH PLATELETS Routine 08/11/2024 5: 51 AM CDT BASIC METABOLIC PANEL Routine 08/11/2024 5:51 AM CDT INR Routine 08/11/2024 5:51 AM CDT HEMOGLOBIN Timed 08/10/2024 10:40 PM CDT INR STAT 08/10/2024 3:58 PM CDT GLUCOSE BY METER Routine 08/10/2024 3:50 PM CDT CBC WITH PLATELETS & DIFFERENTIAL Routine 08/10/2024 10:34 AM CDT CBC WITH PLATELETS AND DIFFERENTIAL Routine 08/10/2024 10:34 AM CDT INR Timed 08/10/2024 10:34 AM CDT HEMOGLOBIN Timed 08/10/2024 10:34 AM CDT BASIC METABOLIC PANEL Routine 08/10/2024 10:[address] ABDOMEN PELVIS W/O CONTRAST Routine 08/10/2024 9:15 AM CDT HEMOGLOBIN STAT 08/10/2024 3:07 AM CDT HEMOGLOBIN STAT 08/09/2024 11:33 PM CDT ROUTINE UA WITH MICROSCOPIC REFLEX TO CULTURE STAT 08/09/2024 7:33 PM CDT CBC WITH PLATELETS & DIFFERENTIAL STAT 08/09/2024 5:40 PM CDT CBC WITH PLATELETS AND DIFFERENTIAL STAT 08/09/2024 5:40 PM CDT INR STAT 08/09/2024 5:40 PM CDT BASIC METABOLIC PANEL STAT 08/09/2024 5:40 PM CDT LAB RESULT - HIM SCAN 08/09/2024 12:00 AM CDT from Last 3 Months Results * MEASURE POST-VOID RESIDUAL URINE/BLADDER CAPACITY, US NON-IMAGING (52573) (08/31/2024) [facility] Residual Volume (RV) (External) 59 us Adalberto Eldridge MD PROCEDURES Final R esult * (ABNORMAL) CBC with platelets (08/13/2024 6:48 AM CDT) Only the most recent of4 resultswithin the time period is included. Pathologist [facility] WBC Count 8.4 4.0 - 11.0 10e3/uL 08/13/2024 6:53 AM CDT [facility] RBC Count 2.85(L) 4.40 - 5.90 10e6/uL 08/13/2024 6:53 AM CDT [facility] Hemoglobin 8.5(L) 13.3 - 17.7 g/dL 08/13/2024 6:53 AM CDT [facility] Hematocrit 25.9(L) 40.0 - 53.0 % 08/13/2024 6:53 AM CDT [facility] MCV 91 78 - 100 fL 08/13/2024 6:53 AM CDT [facility] MCH 29.8 26.5 - 33.0 pg 08/13/2024 6:53 AM CDT [facility] MCHC 32.8 31.5 - 36.5 g/dL 08/13/2024 6:53 AM CDT [facility] RDW 14.4 10.0 - 15.0 % 08/13/2024 6:53 AM CDT [facility] Platelet Count 227 150 - 450 10e3/uL 08/13/2024 6:53 AM CDT [facility] Blood BLOOD SPECIMEN / Unknown Venipuncture / Unknown 08/13/2024 6:48 AM CDT 08/13/2024 6:49 AM CDT us Olvin Alejandre DO LAB - BLOOD ORDERABLES Fin al Result [facility] [address] Lab (1st floor, no room number) [place] [address] * Heparin Unfractionated Anti Xa Level (08/13/2024 6:37 AM CDT) [facility] Signature Anti Xa Unfractionated Heparin <0.10 For Reference Range, See Comment IU/mL 08/13/2024 8:16 AM CDT [facility] Blood STRUCTURE OF RIGHT HAND / Unknown Venipuncture / Unknown 08/13/2024 6:37 AM CDT 08/13/2024 6:49 AM CDT Narrative [facility] - 08/13/2024 8:16 AM CDT Therapeutic Range: UFH: 0.25-0.50 IU/mL for low intensity dosing, 0.30-0.70 IU/mL for high intensity dosing DVT and PE. This test is not validated for other direct factor X inhibitors (e.g. rivaroxaban, apixaban, edoxaban, betrixaban, fondaparinux) and should not be used for monitoring of other medications. us Uziel Easton MD LAB - BLOOD ORDERABLES Final Result Performing Organization Address City/[facility]/ZIP Co de Phone Number [facility] [address] Lab (1st floor, no room number) [address] * (ABNORMAL) INR (08/13/2024 6:37 AM CDT) Only the most recent of8 resultswithin the time period is included. INR 1.16(H) 0.85 - 1.15 08/13/2024 7:01 AM CDT LABORATORY Blood STRUCTURE OF RIGHT HAND / Unknown Venipuncture / Unknown 08/13/2024 6:37 AM CDT 08/13/2024 6:49 AM CDT Olvin Alejandre DO LAB - BLOOD ORDERABLES Fin al Result Performing Organization Address [facility] Co de Phone Number [facility] [address] Lab (1st floor, no room number) [address] * (ABNORMAL) Ionized Calcium (08/13/2024 6:37 AM CDT) Calcium Ionized Whole Blood 4.2(L) 4.4 - 5.2 mg/dL 08/13/2024 7:00 AM CDT LABORATORY Blood STRUCTURE OF RIGHT HAND / Unknown Venipuncture / Unknown 08/13/2024 6:37 AM CDT 08/13/2024 6:49 AM CDT us Olvin Alejandre DO LAB - BLOOD ORDERABLES Fin al Result Performing Organization Address City/[facility]/ZIP Co de Phone Number [facility] [address] Lab (1st floor, no room number) [address] * (ABNORMAL) Basic metabolic panel (08/13/2024 6:37 AM CDT) Only the most recent of5 resultswithin the time period is included. Sodium 137 135 - 145 mmol/L 08/13/2024 7:14 AM CDT LABORATORY Potassium 4.1 3.4 - 5.3 mmol/L 08/13/2024 7:14 AM CDT LABORATORY Chloride 107 98 - 107 mmol/L 08/13/2024 7:14 AM CDT LABORATORY Carbon Dioxide (CO2) 22 22 - 29 mmol/L 08/13/2024 7:14 AM CDT LABORATORY Anion Gap 8 7 - 15 mmol/L 08/13/2024 7:14 AM CDT LABORATORY Urea Nitrogen 12.8 8.0 - 23.0 mg/dL 08/13/2024 7:14 AM CDT LABORATORY Creatinine 0.80 0.67 - 1.17 mg/dL 08/13/2024 7:14 AM CDT LABORATORY GFR Estimate >90 >60 mL/min/1.7 3m2 08/13/2024 7:14 AM CDT LABORATORY Comment:eGFR calculated us2020 CKD-EPI equation. Calcium 8.0(L) 8.8 - 10.4 mg/dL 08/13/2024 7:14 AM CDT LABORATORY Comment:Reference intervals for this test were updated on 06/05/2024 to reflect our healthy population more accurately. There may be differences in the flagging of prior results with similar values performed with this method. Those prior results can be interpreted in the context of the updated reference intervals. Glucose 99 70 - 99 mg/dL 08/13/2024 7:14 AM CDT LABORATORY Blood STRUCTURE OF RIGHT HAND / Unknown Venipuncture / Unknown 08/13/2024 6:37 AM CDT 08/13/2024 6:48 AM CDT us Olvin Alejandre DO LAB - BLOOD ORDERABLES Fin al Result LABORATORY [facility] [address] Lab (1st floor, no room number) [place] [address], [facility] * (ABNORMAL) Hemoglobin (08/12/2024 12:27 PM CDT) Only the most recent of6 resultswithin the time period is included. Hemoglobin 8.9(L) 13.3 - 17.7 g/dL 08/12/2024 12:56 PM CDT LABORATORY Blood STRUCTURE OF RIGHT HAND / Unknown Venipuncture / Unknown 08/12/2024 12:27 PM CDT 08/12/2024 12:53 PM CDT Adalberto Eldridge MD LAB - BLOOD ORDERABLES Final Result LABORATORY [facility] [address] Lab (1st floor, no room number) [place] [address], [facility] * Stone analysis (08/11/2024 3:34 PM CDT) Stone Mass 273 mg 08/16/2024 9:47 AM CDT [facility] Calculi Description See Note 08/16/2024 9:47 AM CDT [facility] Comment: Specimen consists of numerous brown calculi. The total weight is 273 mg. Stone Composition See Note 024 9:47 AM CDT [facility] Comment: Calculi composed primarily of: 20% calcium oxalate monohydrate, 10% calcium oxalate dihydrate, and 70% calcium phosphate (hydroxy- and carbonate- apatite). INTERPRETIVE INFORMATION: Calculi (Stone) analysis Calculi are the products of physiological processes that yield crystalline compounds in a matrix of biological compounds and blood. ??Matrix components are not reported. ?? The clinically significant crystalline components identified in calculi specimens are reported. ??Gross description may not be consistent with composition determined by FTIR analysis. Performed By: [facility] [address] [place] [address] [place]: Noah Moran MD, PhD CLIA Number: [id number] Calculus/Stone URINARY BLADDER STRUCTURE / Unknown Non-blood Collection / Unknown 08/11/2024 3:34 PM CDT 08/11/2024 4:00 PM CDT Adalberto Eldridge MD LAB - BODY FLUIDS ORDER AMANDA Final Result [facility] [address] [address], [facility] [phone] * ANE AIRWAY SUPRAGLOTTIC PERFORMABLE (08/11/2024 3:26 PM CDT) Narrative Yvonne White APRN CASHIER GAMBLING - 08/11/2024 3:26 PM CDT Yvonne White APRN CRNA ? 08/11/2024 ??3:26 PM Airway ? Patient location during procedure: OR Staff - ? CASHIER GAMBLING: Yvonne White APRN CRNA ? Performed By: CRNAIndications and Patient Condition ? Indications for airway management: raymond-procedural ? Induction type:intravenous ? Mask difficulty assessment: 1 - vent by mask Final Airway Details ? Final airway type: supraglottic airway Supraglottic Airway Details ? Type: LMA ? Brand: I-Gel ? LMA size: 5 Post intubation assessment ? Placement verified by: capnometry, equal breath sounds and chest rise ? Number of attempts at approach: 1 ? Number of other approaches attempted: 0 ? Secured with: commercial tube mcgill ? Ease of procedure: easy ? Dentition: Intact and Unchanged us Jai Flores DO MT ANESTHESIA Final Result * Adult Type and Screen (08/11/2024 12:27 PM CDT) ABO/RH(D) O POS 08/11/2024 12:17 PM CDT RH BLOOD BANK Antibody Screen Negative Negative 08/11/2024 12:17 PM CDT RH BLOOD BANK SPECIMEN EXPIRATION DATE [id number] 08/11/2024 12:17 PM CDT RH BLOOD BANK Blood STRUCTURE OF RIGHT HAND / Unknown Venipuncture / Unknown 08/11/2024 12:27 PM CDT 08/11/2024 12:33 PM CDT us Olvin Alejandre DO LAB - BLOOD BANK TEST ORDE R Final Result [facility] BLOOD BANK [address] [facility] [place] [address], [facility] * (ABNORMAL) Glucose by meter (08/10/2024 3:50 PM CDT) [facility] GLUCOSE BY METER POCT 102(H) 70 - 99 mg/dL 08/10/2024 4:21 PM CDT [facility] POC Blood, Capillary BLOOD SPECIMEN / Unknown 08/10/2024 3:50 PM CDT 08/10/2024 4:21 PM CDT us Uziel Easton MD LAB - BEAKER POCT Joy l Result [facility] LABORATORY [facility] [address] [facility] Lab (1st floor, no room number) [place] [address], [facility] * (ABNORMAL) CBC with platelets and differential (08/10/2024 10:34 AM CDT) Only the most recent of2 resultswithin the time period is included. [facility] WBC Count 10.5 4.0 - 11.0 10e3/uL 08/10/2024 10:44 AM CDT [facility] RBC Count 4.47 4.40 - 5.90 10e6/uL 08/10/2024 10:44 AM CDT [facility] Hemoglobin 13.4 13.3 - 17.7 g/dL 08/10/2024 10:44 AM CDT [facility] Hematocrit 39.5(L) 40.0 - 53.0 % 08/10/2024 10:44 AM CDT [facility] MCV 88 78 - 100 fL 08/10/2024 10:44 AM CDT [facility] MCH 30.0 26.5 - 33.0 pg 08/10/2024 10:44 AM CDT [facility] MCHC 33.9 31.5 - 36.5 g/dL 08/10/2024 10:44 AM CDT [facility] RDW 14.6 10.0 - 15.0 % 08/10/2024 10:44 AM CDT [facility] Platelet Count 262 150 - 450 10e3/uL 08/10/2024 10:44 AM CDT [facility] % Neutrophils 78 % 08/10/2024 10:44 AM CDT [facility] % Lymphocytes 10 % 08/10/2024 10:44 AM CDT [facility] % Monocytes 9 % 08/10/2024 10:44 AM CDT [facility] % Eosinophils 1 % 08/10/2024 10:44 AM CDT [facility] % Basophils 1 % 08/10/2024 10:44 AM CDT [facility] % Immature Granulocytes 1 % 08/10/2024 10:44 AM CDT [facility] NRBCs per 100 WBC 0 <1 /100 024 10:44 AM CDT [facility] Absolute Neutrophils 8.2 1.6 - 8.3 10e3/uL 08/10/2024 10:44 AM CDT [facility] Absolute Lymphocytes 1.1 0.8 - 5.3 10e3/uL 08/10/2024 10:44 AM CDT [facility] Absolute Monocytes 1.0 0.0 - 1.3 10e3/uL 08/10/2024 10:44 AM CDT [facility] Absolute Eosinophils 0.1 0.0 - 0.7 10e3/uL 08/10/2024 10:44 AM CDT [facility] Absolute Basophils 0.1 0.0 - 0.2 10e3/uL 08/10/2024 10:44 AM CDT [facility] Absolute Immature Granulocytes 0.1 <=0.4 10e3/uL 08/10/2024 10:44 AM CDT [facility] Absolute NRBCs 0.0 10e3/uL 08/10/2024 10:44 AM CDT [facility] Blood STRUCTURE OF RIGHT UPPER LIMB / Unknown Venipuncture / Unknown 08/10/2024 10:34 AM CDT 08/10/2024 10:41 AM CDT us Uziel Easton MD LAB - BLOOD ORDERABLES Final Result [facility] [address] [facility] Lab (1st floor, no room number) [place] [address], [facility] * CT Abdomen Pelvis w/o Contrast (08/10/2024 9:15 AM CDT) Anatomical Region Laterality Modality Abdomen/Pelvis, SUBRAD CT LORI DY, UMP CT ABDOMEN PELVIS, RAD CT Computed Tomography Impressions 08/10/2024 3:02 PM CDT IMPRESSION: 1. ??Distended urinary bladder with a large amount of clot around the Weber balloon. Multiple stones in the bladder. 2. ??Marked prostatomegaly. 3. ??Two right renal calculi measuring 2 to 3 mm and a 5 mm left renal calculus. No hydronephrosis. ALBERT ADAMS MD SYSTEM ID: ??[id number] Narrative 08/10/2024 3:[address] ABDOMEN PELVIS W/O CONTRAST 08/10/2024 9:15 AM CLINICAL HISTORY: gross hematuria TECHNIQUE: CT scan of the abdomen and pelvis was performed without IV contrast. Multiplanar reformats were obtained. Dose reduction techniques were used. CONTRAST: None. COMPARISON: None available. FINDINGS: LOWER CHEST: Normal. HEPATOBILIARY: Normal. PANCREAS: Normal. SPLEEN: Normal. ADRENAL GLANDS: Normal. KIDNEYS/BLADDER: Two nonobstructing calculi in the right kidney measuring 2-3 mm. Nonobstructing calculus in the left kidney measuring 5 mm. No hydronephrosis or perinephric stranding. Weber catheter in the urinary bladder. Multiple stones layering within the urinary bladder. A rind of hyperdense soft tissue around the Weber balloon, likely large amount of clot material measuring 8 x 7 cm. Gas within the urinary bladder lumen related to the Weber. BOWEL: Multiple duodenal diverticula. No small bowel or colonic obstruction or inflammatory changes. Normal appendix. LYMPH NODES: No lymphadenopathy. VASCULATURE: No abdominal aortic aneurysm. PELVIC ORGANS: Marked prostatomegaly with the prostate gland measuring 6.5 x 7.0 x 6.0 cm. Small hyperdense nodule within the right seminal vesicle measuring 0.7 cm, may be a cyst containing hemorrhagic or proteinaceous material. OTHER: No free fluid or fluid collections. No free air. MUSCULOSKELETAL: Unremarkable. Procedure Note Albert Adams MD - 08/10/2024 CT ABDOMEN PELVIS W/O CONTRAST 08/10/2024 9:15 AM CLINICAL HISTORY: gross hematuria TECHNIQUE: CT scan of the abdomen and pelvis was performed without IV contrast. Multiplanar reformats were obtained. Dose reduction techniques were used. CONTRAST: None. COMPARISON: None available. FINDINGS: LOWER CHEST: Normal. HEPATOBILIARY: Normal. PANCREAS: Normal. SPLEEN: Normal. ADRENAL GLANDS: Normal. KIDNEYS/BLADDER: Two nonobstructing calculi in the right kidney measuring 2-3 mm. Nonobstructing calculus in the left kidney measuring 5 mm. No hydronephrosis or perinephric stranding. Weber catheter in the urinary bladder. Multiple stones layering within the urinary bladder. A rind of hyperdense soft tissue around the Weber balloon, likely large amount of clot material measuring 8 x 7 cm. Gas within the urinary bladder lumen related to the Weber. BOWEL: Multiple duodenal diverticula. No small bowel or colonic obstruction or inflammatory changes. Normal appendix. LYMPH NODES: No lymphadenopathy. VASCULATURE: No abdominal aortic aneurysm. PELVIC ORGANS: Marked prostatomegaly with the prostate gland measuring 6.5 x 7.0 x 6.0 cm. Small hyperdense nodule within the right seminal vesicle measuring 0.7 cm, may be a cyst containing hemorrhagic or proteinaceous material. OTHER: No free fluid or fluid collections. No free air. MUSCULOSKELETAL: Unremarkable. IMPRESSION: 1. Distended urinary bladder with a large amount of clot around the Weber balloon. Multiple stones in the bladder. 2. Marked prostatomegaly. 3. Two right renal calculi measuring 2 to 3 mm and a 5 mm left renal calculus. No hydronephrosis. ALBERT ADAMS MD SYSTEM ID: [id number] Adalberto Eldridge MD [facility] CT ORDERABLES Final Result * (ABNORMAL) UA with Microscopic reflex to Culture (08/09/2024 7:33 PM CDT) Color Urine Brown(A) Colorless, Straw, Light Yellow, Yellow 08/09/2024 7:55 PM CDT [facility] Appearance Urine Cloudy(A) Clear 08/09/20 24 7:55 PM CDT [facility] Glucose Urine Negative Negative mg/dL 08/09/2024 7:55 PM CDT [facility] Bilirubin Urine Negative Negative 4 7:55 PM CDT [facility] Ketones Urine Negative Negative mg/dL 08/09/2024 7:55 PM CDT [facility] Specific [place] Urine 1.005 1.003 - 1.035 08/09/2024 7:55 PM CDT [facility] Blood Urine Large(A) Negative 08/09/2024 7:55 PM CDT RH LABORATORY pH Urine 5.5 5.0 - 7.0 08/09/2024 7:55 PM CDT [facility] Protein Albumin Urine 20(A) Negative mg/dL 08/09/2024 7:55 PM CDT [facility] Urobilinogen Urine Normal Normal, 2.0 mg/dL 08/09/2024 7:55 PM CDT [facility] Nitrite Urine Negative Negative 08/09/2024 7:55 PM CDT [facility] Leukocyte Esterase Urine Trace(A) Negative 08/09/2024 7:55 PM CDT [facility] RBC Urine >182(H) <=2 /HPF 08/09/2024 7:55 PM CDT [facility] WBC Urine 7(H) <=5 /HPF 08/09/2024 7:55 PM CDT [facility] Urine URINE SPECIMEN OBTAINED VIA [facility]WELLING URINARY CATHETER / Unknown Non-blood Collection / Unknown 08/09/2024 7:33 PM CDT 08/09/2024 7:38 PM CDT Narrative [facility] - 08/09/2024 7:55 PM CDT Urine Culture not indicated Amilcar Holt MD LAB - URINE ORDERABLES Fi nal Result LABORATORY [facility] [address] Lab (1st floor, no room number) [place] [address], [facility] * Lab Result - HIM Scan (08/09/2024 12:00 AM CDT) 08/09/2024 Provider Outside NON-BEAKER LAB TESTING Final Result from Last 3 Months Insurance MEDICARE Advance Directives For more information, please contact: [phone] * Full Code (Latest Code Status on File) Date Activated Date Inactivated Comments 08/09/2024 10:23 PM 08/13/2024 3:35 PM All basic a nd advanced life-sustaining interventions are performed as appropriate Question Answer Comments Code status determined by: Discussion with ange nt/ legal decision maker Care Teams Cinder Block Maker Relationship Specialty Start Date End Date [facility]- [address] [place] [address] PCP - General 07/24/21 Adalberto Eldridge MD [address] [facility] [address] [place] [address] Assigned Surgical Provider 09/12/24
--- OUTSIDE RECORDS SUMMARY | 2024-09-18 16:12 | XMS_ITS | Encounter Summary ---
Author Organization [place] Address [facility] [place] [address] Care Team Providers Care Charcoal Kiln Burner Name Role Phone [facility]- Primary Care Provider Reason for Visit * Reason Onset Date Comments Call Back 08/23/2024 Encounter Details Date Type Department Care Team (Late st Contact Info) Description 08/23/2024 Telephone [facility] [address] [place] [address] Adalberto Eldridge MD [address] [phone] Call Back Social History Tobacco Use Types Packs/Day Years [...] Answer Date Recorded Do you have housing? 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 Please call back patient to discuss. Action Taken: Other: [facility] Travel Screening: Not Applicable * Telephone Encounter - Julia Humphreys - 08/23/2024 1:53 PM CDT [facility] Phone Message May a detailed message be left on voicemail: yes Reason for Call: Appointment Intake Referring Provider Name: self (currently under Dr Solis - [facility]) Diagnosis and/or Symptoms: needs laser treatment to shrink prostate and current urologist can't do it until Spring. Dr Solis has not performed any of his surgeries/procedures yet. Dr Eldridge recently did a cysto on this patient. Please call pt back to discuss/schedule. Thank you! Action Taken: Message routed to: [facility] Travel Screening: Not Applicable Date of Service: documented in this encounter Plan of Treatment Upcoming Encounters Date Type Department Care Team (Late st Contact Info) Description 09/25/2024 8:00 AM CONTINUOUS VULCANIZING MACHINE OPERATOR Office Visit [facility] [address] [place] [phone] Adalberto Eldridge MD [address] [place] [address] [place] [address] 10/02/2024 11:00 AM CONTINUOUS VULCANIZING MACHINE OPERATOR Virtual Visit [facility] [address] [place] [phone] Adalberto Eldridge MD [address] [place] [address] [place] [phone] documented as of this encounter Visit Diagnoses Not on filedocumented in this encounter Care Teams Charcoal Kiln Burner Relationship Specialty Start Date End Date [facility]- [address] [place] [address] PCP - General 07/24/21 documented as of this encounter
--- OUTSIDE RECORDS SUMMARY | 2024-09-18 16:12 | XMS_ITS | Encounter Summary ---
Author Organization [place] Address [address] [facility] [place] [address] Care Team Providers Care Artificial Glass Eye Maker Name Role Phone [facility]- Primary Care Provider Reason for Visit * Reason Onset Date Comments Appointment 09/05/2024 Called pt to dis cuss scheduling a prostate biopsy with Dr Eldridge in the [place] office Encounter Details Date Type Department Care Team (Late st Contact Info) Description 09/05/2024 Telephone [facility] [address] [place] [address] Adalberto Eldridge MD [address] [facility] [address] [place] [address] Appointment (Called pt to discuss scheduling a prostate biopsy with Dr Eldridge in the [place] office) Social History Tobacco Use Types Packs/Day Years [...] Answer Date Recorded Do you have housing? 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 Gender Identity Not on file Sexual Orientation Not on file documented as of this encounter Miscellaneous Notes * Telephone Encounter - Marge Forman - 09/05/2024 10:29 AM CDT Called pt to discuss scheduling a prostate biopsy with Dr Eldridge in the [place] office documented in this encounter Plan of Treatment Upcoming Encounters Date Type Department Care Team (Late st Contact Info) Description 09/25/2024 8:00 AM STEELSCOPE OPERATOR Office Visit [facility] [address] [place] [phone] Adalberto Eldridge MD [address] [place] [address] [place] [address] 10/02/2024 11:00 AM STEELSCOPE OPERATOR Virtual Visit [facility] [address] [place] [phone] Adalberto Eldridge MD [address] [place] [address] [place] [id number] documented as of this encounter Visit Diagnoses Not on filedocumented in this encounter Care Teams Artificial Glass Eye Maker Relationship Specialty Start Date End Date [facility]- [address] [place] [address] PCP - General 07/24/21 documented as of this encounter
--- OUTSIDE RECORDS SUMMARY | 2024-09-18 16:12 | XMS_ITS | Encounter Summary ---
Author Organization [place] Address [address] [place] [address] Care Team Providers Care Equine Breeder Name Role Phone [facility]- Primary Care Provider Reason for Referral * Diagnostic Imaging MRI (Routine) - Closed Specialty Diagnoses / Procedures Referred By Eric hernandez Referred To Contact Radiology. Procedures MR Outside Read Adalberto Eldridge MD [address] [place] [address] Phone: tel: fax: Referral ID Status Reason Start Date Expiration Date Visits Re quested Visits Authorized [id number] Closed 09/07/2024 09/07/2025 1 1 Reason for Visit * Diagnostic Imaging MRI (Routine) - Closed Specialty Diagnoses / Procedures Referred By Eric hernandze Referred To Contact Radiology. Procedures MR Outside Read Adalberto Eldridge MD [address] [place] [address] Phone: tel: fax: Referral ID Status Reason Start Date Expiration Date Visits Re quested Visits Authorized [id number] Closed 09/07/2024 09/07/2025 1 1 Encounter Details Date Type Department Care Team (Latest Contact Info) Description 09/10/2024 8:40 AM CDT - 09/10/2024 11:59 PM CDT Hospital Encounter [facility] [address] [place] [phone] Adalberto Eldridge MD [address] [place] [address] [place] [address] Discharge Disposition: Home or Self Care Social History Tobacco Use Types Packs/Day Years [...] in an abandoned building, in an overnight snf, or couch-surfing.) Yes 08/09/2024 Are you worried [...] on file Legal Sex Male 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 08/13/2024 ferrous sulfate (FEROSUL) 325 (65 Fe) MG tabletIndications:Judson ross hematuria Take 1 tablet (325 mg) by mouth daily. 30 tablet 08/13/2024 finasteride (PROSCAR) 5 MG tablet Take 5 mg by mouth daily. lisinopril (ZESTRIL) 5 MG tablet Take 5 mg by mouth daily. oxyBUTYnin (DITROPAN) 5 MG tablet Take 5 mg by mouth every 8 hours as needed for bladder spasms. senna-docusate (SENOKOT-S/PERICOLA CE) 8.6-50 MG tabletIndications:Judson ash hematuria Take 1 tablet by mouth 2 times daily as needed for constipation. 15 tablet 08/13/2024 tamsulosin (FLOMAX) 0.4 MG capsule Take 0.4 mg by mouth daily valACYclovir (VALTREX) 1000 mg tablet Take 1,000 mg by mouth 2 times daily as needed (cold sores). warfarin ANTICOAGULANT (COUMADIN) 1 MG tablet Take by mouth daily. 4mg= Tue and Sun, 8mg=ROW documented as of this encounter Plan of Treatment Upcoming Encounters Date Type Department Care Team (Late st Contact Info) Description 09/25/2024 8:00 AM NOZZLE TENDER Office Visit [facility] [place] [address] [place] [phone] Adalberto Eldridge MD [address] [place] [address] [place] [address] 10/02/2024 11:00 AM NOZZLE TENDER Virtual Visit [facility] [place] [address] [place] [phone] Adalberto Eldridge MD [address] [place] [address] [place] [address] Pending Results Name Type Priority Associated Diagnoses Date /Time MR Outside Read Imaging Routine 8:40 AM CDT Scheduled Orders Name Type Priority Associated Diagnoses Orde r Schedule MR Outside Read Imaging Routine 1 Occurre nces starting 09/10/2024 until 09/10/2024 documented as of this encounter Visit Diagnoses Not on filedocumented in this encounter Care Teams Equine Breeder Relationship Specialty Start Date End Date [facility]- [address] [place] [address] PCP - General 07/24/21 documented as of this encounter
--- OUTSIDE RECORDS SUMMARY | 2024-09-18 16:12 | XMS_ITS | Encounter Summary ---
Author Organization [place] Address [address] [facility] 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 Gender Identity Not on file Sexual Orientation Not on file documented as of this encounter Plan of Treatment Upcoming Encounters Date Type Department Care Team (Late st Contact Info) Description 09/25/2024 8:00 AM SUPERVISOR WATERWORKS Office Visit [facility] Urology [facility] [address] [place] [phone] Adalberto Eldridge MD [address] [place] [address] [place] [address] 10/02/2024 11:00 AM SUPERVISOR WATERWORKS Virtual Visit [facility] [address] [place] [phone] Adalberto Eldridge MD [address] [place] [address] [place] [address] documented as of this encounter Visit Diagnoses Not on filedocumented in this encounter Care Teams Beater Engineer Helper Relationship Specialty Start Date End Date [facility]- [address] [place] [address] PCP - General 07/24/21 documented as of this encounter
--- OUTSIDE RECORDS SUMMARY | 2024-09-18 16:12 | XMS_ITS | Encounter Summary ---
Author Organization [place] Address [id number] 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 MANAGER ONCOLOGY Gender Identity Not on file Sexual Orientation Not on file documented as of this encounter Plan of Treatment Upcoming Encounters Date Type Department Care Team (Late st Contact Info) Description 09/25/2024 8:00 AM MANAGER ONCOLOGY Office Visit [facility] Urology [facility] [address] [place] [phone] Adalberto Eldridge MD [address] [place] [address] [place] [address] 10/02/2024 11:00 AM MANAGER ONCOLOGY Virtual Visit [facility] Urology [facility] [address] [place] [phone] Adalberto Eldridge MD [address] [place] [address] [place] [address] documented as of this encounter Visit Diagnoses Diagnosis Elevated prostate specific antigen (PSA)- Primary documented in this encounter Care Teams Residential Program Worker Relationship Specialty Start Date End Date [facility]- [address] [place] [address] PCP - General 07/24/21 documented as of this encounter
--- OUTSIDE RECORDS SUMMARY | 2024-09-18 16:12 | XMS_ITS | Encounter Summary ---
Author Organization [facility] Address [address] [place] [address] Care Team Providers Care Architecture Consultant Name Role Phone [facility]- Primary Care Provider Reason for Visit * Reason Comments Bladder hematoma Urinary Retention Encounter Details Date Type Department Care Team (Late st Contact Info) Description 08/31/2024 11:00 AM CDT Office Visit [facility] [address] [place] [address] Adalberto Eldridge MD [address] [id number] Urinary retention (Primary Dx); Enlarged prostate; Gross hematuria; Elevated prostate specific antigen (PSA) Social History Tobacco Use Types Packs/Day Years Used Date Smoking Tobacco: Former Cigarettes Q uit: 1999 Smokeless Tobacco: Current Tobacco Cessation:Ready to Q [...] in an abandoned building, in an overnight alf, or couch-surfing.) Yes 08/09/2024 Are you worried [...] on file 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 Gender Identity Not on file Sexual Orientation Not on file documented as of this encounter Last Filed Vital Signs Vital Sign Reading Time Taken Comments Blood Pressure 119/76 08/31/2024 11:06 AM CDT Pulse 55 08/31/2024 11:06 AM CDT Temperature - - Respiratory Rate - - Oxygen Saturation - - Inhaled Oxygen Concentration - - Weight 72.6 kg (160 lb) 08/31/2024 11:06 AM CDT Height 170.2 cm (5' 7) 08/31/2024 11:06 AM CDT Body Mass Index 25.06 08/31/2024 11:06 AM CDT documented in this encounter Patient Instructions * Patient Instructions* Marge Forman - 08/31/2024 11:00 AM CDT Ultrasound Guided Prostate Biopsy What is a prostate biopsy? A prostate biopsy is a relatively painless procedure performed in the physician's office, outpatient facility or hospital. A long, thin needle is inserted into the prostateto collect a sample of tissue from the prostate. These samples are then examined by a pathologist for abnormal cells. Why do I need a prostate biopsy? During a man's lifetime the prostate gradually increases in size. The patient may or may not experience symptoms. Symptoms of an enlarged prostate include: Increased frequency of urination Decreased force of urinary stream Trouble with urination Awakening at night to urinate When the prostate is examined, the physician may feel a nodule (hard or firm growth) which would require a biopsy. Another reason for having a prostate biopsy is an increase in the prostate specific androgen (PSA) in your blood. A prostate biopsy may be necessary to determine the cause of the increased PSA. Your physician will also perform an ultrasound (an image created by sound waves). The ultrasound isperformed by placing a small probe in the rectum to image the prostate gland. Preparation for the Prostate Biopsy Blood thinning medications must be stopped prior to your biopsy. Please stop the following medication the appropriate number of days before: 10 days-acetylsalicylic acid, vitamin E, fish oil, aspirin, baby aspirin, tumeric 7 days- Plavix, Brilinta, ibuprofen (Advil, Motrin, Aleve), Celebrex 5 days-Pradaxa (For you Oleg, please hold Coumadin x 5 days prior and bridge with Lovenox injections and hold Lovenox x 24 hours prior to biopsy)3 days-Eliquis, Xarelto 2. If you have any bleeding problems (thin blood), please tell your doctor. 3. If you have been told by another doctor to take antibiotics before dental work or surgery, please tell the doctor. This is common for patients that have had a joint replacement. YOU HAVE BEEN PRESCRIBED AN ANTIBIOTIC. Please take your antibiotic at 8am and 8pm the day before, day of and day after your biopsy. The day of the biopsy you will be asked to use an enema 1 1/2-2 hours before you leave for your appointment. PLEASE EAT YOUR REGULAR MEALS ON THE DAY OF YOUR BIOPSY. Unless you have been prescribed a sedative (Valium or a similar drug) you will be able to drive to and from your appointment. If you have taken a sedative you must have a ride. AFTER THE BIOPSY DANGER SIGNS Small amount of blood in the urine for 10-14 days Excessive blood in the urine, stool or ejaculate Small amount of blood in the stool for 48 hours Fever over 100 or chills Small amount of blood in the ejaculate for up to Frequent urination or burning when you urinate 4 weeks CALL THE DOCTOR'S OFFICE AT [phone] DURING OFFICE HOURS IF YOU HAVE ANY OF THESE SYMPTOMS. IF YOU CANNOT CONTACT THE OFFICE, GO TO THE EMERGENCY ROOM. Your biopsy is scheduled on 09/25/24, at our [place] office located at [address] [place] [address],[address], [place] [address]. Please be at the office at 8:00 AM. A follow up visit has been scheduled for you on 10/02/24, at 11:00 AM. This is a virtual visit. Your doctor will discuss your results with you at this visit. documented in this encounter Progress Notes * Adalberto Eldridge MD - 08/31/2024 11:00 AM CDT Office Visit Note [facility] UROLOGIC DIAGNOSES: Urinary retention Enlarged prostate Elevated PSA Bladder stones CURRENT INTERVENTIONS: Self-catheterization HISTORY: Oleg returns to clinic today for urologic follow-up. He had his MRI of the prostate performed at [facility] and it revealed a significantly enlarged prostate measuring 160 cm??. There is a PI-RADS 3 lesion seen in the in the transition zone. He reports that he had his Weber catheter removed yesterday morning at [facility]. He says that they have been spoken to him about potential prostatic artery embolism. Apparently there was some sort of delay in getting that appointment so he wanted to come see me today for another opinion. Since he had his catheter removed yesterday first recommended that we check a bladder scan today and his PVR is 59mL Originally when he was in the hospital with hematuria he had a supratherapeutic INR but that has not been a problem since discharge. PAST MEDICAL HISTORY: Past Medical History: Diagnosis Date Aortic valve replaced Enlarged prostate PAST SURGICAL HISTORY: Past Surgical History: Procedure Laterality Date CARDIAC SURGERY aortic valve replacement CYSTOSCOPY N/A 08/11/2024 Procedure: Cystoscopy, fulguration of the prostate; Surgeon: Adalberto Eldridge MD; Location: [facility] OR CYSTOSCOPY BLADDER WITH STONE EXTRACTION 08/11/2024 Procedure: removal of bladder stones; Surgeon: Adalberto Eldridge MD; Location: [facility] OR CYSTOSCOPY, FULGURATE BLEEDERS, EVACUATE CLOT(S), COMBINED N/A 08/11/2024 Procedure: evacuation of bladder hematoma,; Surgeon: Adalberto Eldridge MD; Location: [facility] OR HERNIA REPAIR ORTHOPEDIC SURGERY L knee replacement FAMILY HISTORY: No family history on file. SOCIAL HISTORY: Social History Socioeconomic History Marital status: Single Tobacco Use Smoking status: Former Current packs/day: 0.00 Types: Cigarettes Quit date: 1999 Years since quittin. Smokeless tobacco: Current Substance and Sexual Activity Alcohol use: Not Currently Drug use: Never Social Determinants of Health Financial Resource Strain: Low Risk (08/09/2024) Financial Resource Strain Within the past 12 months, have you or your family members you live with been unable to get utilities (heat, electricity) when it was really needed?: No Food Insecurity: Low Risk (08/09/2024) Food Insecurity Within the past 12 months, did you worry that your food would run out before you got money to buy more?: No Within the past 12 months, did the food you bought just not last and you didn???t have money to getmore?: No Transportation Needs: Low Risk (08/09/2024) Transportation Needs Within the past 12 months, has lack of transportation kept you from medical appointments, getting your medicines, non-medical meetings or appointments, work, or from getting things that you need?: No Social Connections: Socially Integrated (05/19/2023) Received from [facility] [employer] [facility] Social Connections Frequency of Communication with Friends and Family: 0 Interpersonal Safety: Low Risk (08/09/2024) Interpersonal Safety Do you feel physically and emotionally safe where you currently live?: Yes Within the past 12 months, have you been hit, slapped, kicked or otherwise physically hurt by someone?: No Within the past 12 months, have you been humiliated or emotionally abused in other ways by your partner or ex-partner?: No Housing Stability: Low Risk (08/09/2024) Housing Stability Do you have housing? : Yes Are you worried about losing your housing?: No Review Of Systems: Skin: No rash, pruritis, or skin pigmentation Eyes: No changes in vision Ears/Nose/Throat: No changes in hearing, no nosebleeds Respiratory: No shortness of breath, dyspnea on exertion, cough, or hemoptysis Cardiovascular: No chest pain or palpitations Gastrointestinal: No diarrhea or constipation. No abdominal pain. No hematochezia Genitourinary: see HPI Musculoskeletal: No pain or swelling of joints, normal range of motion Neurologic: No weakness or tremors Psychiatric: No recent changes in memory or mood Hematologic/Lymphatic/Immunologic: No easy bruising or enlarged lymph nodes Endocrine: No weight gain or loss PHYSICAL EXAM: There were no vitals taken for this visit. Constitutional: Well developed. Conversant and in no acute distress Eyes: Anicteric sclera, conjunctiva clear, normal extraocular movements ENT: Normocephalic and atraumatic, Skin: Warm and dry. No rashes or lesions Cardiac: No peripheral edema Back/Flank: Not done INTERNATIONAL SPECIALIST/PNS: Normal musculature and movements, moves all extremities normally Respiratory: Normal non-labored breathing Abdomen: Soft nontender and nondistended Peripheral Vascular: No peripheral edema Mental Status/Psych: Alert and Oriented x 3. Normal mood and affect Penis: Not done Scrotal Skin: Not done Testicles: Not done Epididymis: Not done Digital Rectal Exam: Cystoscopy: Not done Imaging: None Urinalysis: UA RESULTS: Recent Labs Lab Test 08/09/24 193 COLOR Brown* APPEARANCE Cloudy* URINEGLC Negative URINEBILI Negative URINEKETONE Negative SG 1.005 UBLD Large* URINEPH 5.5 PROTEIN 20* NITRITE Negative LEUKEST Trace* RBCU >182* WBCU 7* PSA: Unknown Post Void Residual: 59mL Other labs: None today IMPRESSION: Elevated PSA Enlarged prostate Bladder stones History of hematuria PLAN: We discussed his various urologic diagnoses. We discussed his history as well. We discussed the results of his most recent MRI of the prostate. Most recent MRI of the prostate shows a substantially enlarged prostate and is equivocal for the presence of a prostate cancer. I counseled him that normally given these findings I would recommend a biopsy of the prostate. However, he does tell me that hehad another MRI performed 2 to 3 years ago as well as a prostate biopsy performed 2 to 3 years ago and the biopsy was negative. We are not certain at this time if there been any changes in either thePSA or in the MRI findings. I counseled Oleg that we will need to obtain records from [facility] to get information onhis previous MRI, his previous prostate biopsy, as well as his PSA history. This will guide us as to whether or not he requires another prostate biopsy. Those records have been requested and I will call him when those results are available. He does have bladder stones present as well. Today he is emptying his bladder well and voiding welland I counseled him that we will hold off on treatment for the bladder stones at this time. If he should end up having a surgical procedure for BPH the bladder stones can be taken care of during thatsame procedure. Addendum: Records from [facility] reviewed. Patient had an MRI of the prostate performed in 2020 that also showed a PI-RADS 3 lesion. He had a UroNav biopsy performed by Dr. Garcia in November 2021 that was negative. Prostate measured 118 g at that time and now measures 160 g on most recent MRI. His PSA has seen a significant jump recently. His PSA in 2019 and 2020 was 6.4 and then 4.06. It is now at 13.27, and that is after starting finasteride. I tried reaching the patient with no success, I will try again later. He will need to either repeata PSA in the near future looking for improvement or he could consider repeat UroNav prostate biopsy. Adalberto Eldridge M.D. 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 [place] [address] [place] [phone] Adalberto Eldridge MD [address] [place] [id number] 10/02/2024 11:00 AM BRUSH TRIMMING MACHINE SETTER Virtual Visit [facility] [place] [address] [place] [phone] Adalberto Eldridge MD [address] [place] [id number] documented as of this encounter Procedures Procedure Name Priority Date/Time Associated Diagnosis Comments SD MEASURE POST-VOID RESIDUAL URINE/BLADDER CAPACITY, US NON-IMAGING Routine 08/31/2024 Urinary retention documented in this encounter Results * MEASURE POST-VOID RESIDUAL URINE/BLADDER CAPACITY, US NON-IMAGING (73798) (08/31/2024) Residual Volume (RV) (External) 59 us Adalberto Eldridge MD PROCEDURES Final R esult documented in this encounter Visit Diagnoses Diagnosis Urinary retention- Primary Retention of urine, unspecified Enlarged prostate Hypertrophy of prostate without urinary obstruction and other lower urinary tract symptoms (LUTS) Gross hematuria Elevated prostate specific antigen (PSA) documented in this encounter Care Teams Architecture Consultant Relationship Specialty Start Date End Date [facility]- [address] [place] [address] PCP - General 07/24/21 documented as of this encounter
--- OUTSIDE RECORDS SUMMARY | 2024-09-18 16:12 | XMS_ITS | Referral Summary ---
Author Organization [place] Address [address] [place] [address] Care Team Providers Care Rouge Presser Name Role Phone [facility]- Primary Care Provider Adalberto Eldridge MD Unavailable [phone] Encounters Date Type Department Care Team Description 09/18/2024 Telephone [facility] [address] [place] [phone] Adalberto Eldridge MD Medication Question 09/10/2024 8:40 AM CDT - 09/10/2024 11:59 PM CDT Hospital Encounter [facility] [address] [place] [phone] Adalberto Eldridge MD Discharge Disposition: Home or Self Care 09/07/2024 Orders Only [facility] [address] [place] [phone] dAalberto Eldridge MD 09/05/2024 Telephone [facility] [address] [place] [phone] Adalberto Eldridge MD Appointment (Called pt to discuss scheduling a prostate biopsy with Dr Eldridge in the [place] office) 09/04/2024 Orders Only [facility] [address] [place] [phone] Adalberto Eldridge MD Elevated prostate specific antigen (PSA) (Primary Dx) 08/31/2024 Travel 08/31/2024 11:00 AM CDT Office Visit [facility] [address] [place] [phone] Adalberto Eldridge MD Urinary retention (Primary Dx); Enlarged prostate; Gross hematuria; Elevated prostate specific antigen (PSA) 08/23/2024 Telephone [facility] [address] [place] [phone] Adalberto Eldridge MD Call Back 08/09/2024 3:49 PM CDT - 08/13/2024 1:29 PM CDT Hospital Encounter [place] [facility] [facility] [address] [place] [address] Amilcar Holt MD Foss, Kevin, MD Jaleta, Uziel Hay MD Gross hematuria; Problem with Weber catheter, initial encounter (H); Supratherapeutic INR Discharge Disposition: Home or Self Care 08/11/2024 3:14 PM CDT Anesthesia Event [facility] [address] [place] [address] Jai Flores, 08/11/2024 3:00 PM CDT - 08/11/2024 3:50 PM [facility] [address] [place] [address] Adalberto Eldridge MD Cystoscopy, fulguration of the prostate 08/11/2024 12:10 AM CDT Anesthesia Event [place] [facility] [facility] [address] [place] [phone] Walter Crowley MD Wood, Sarah Ann, APRN CRNA 08/09/2024 Travel from Last 3 Months Allergies Active Allergy Reactions Criticality Noted Date Comments Cats 07/24/2021 Shellfish-Derived Products Anaphylaxis High 07/24/20 Tramadol Fatigue 08/09/2024 Light headed Medications tamsulosin [...] severe pain or per patient request). 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 Gender Identity Not on file Sexual Orientation [...] st Contact Info) Description 09/25/2024 8:00 AM APPLIED BEHAVIOR SCIENCE SPECIALIST Office Visit [facility] [place] [address] [place] [phone] Adalberto Eldridge MD [address] [place] [id number] 10/02/2024 11:00 AM APPLIED BEHAVIOR SCIENCE SPECIALIST Virtual Visit [facility] [place] [address] [place] [phone] Adalberto Eldridge MD [address] [place] [id number] Procedures Procedure Name Priority Date/Time Associated Diagnosis Comments MA MEASURE POST-VOID RESIDUAL URINE/BLADDER CAPACITY, US NON-IMAGING [...] MEASURE POST-VOID RESIDUAL URINE/BLADDER CAPACITY, US NON-IMAGING (26850) (08/31/2024) Residual Volume (RV) (External) 59 us Adalberto Eldridge MD PROCEDURES Final R esult * (ABNORMAL) CBC with platelets (08/13/2024 6:48 AM CDT) Only the most recent of4 resultswithin the time period is included. WBC Count 8.4 4.0 - 11.0 10e3/uL [...] 6:48 AM CDT 08/13/2024 6:49 AM CDT Olvin Alejandre DO LAB - BLOOD ORDERABLES Fin al Result [facility] LABORATORY [facility] [address] Lab (1st floor, no room number) [place] [address], [facility] * Heparin Unfractionated Anti Xa Level (08/13/2024 6:37 AM CDT) Anti Xa Unfractionated Heparin <0.10 For Reference [...] be used for monitoring of other medications. Uziel Easton MD LAB - BLOOD ORDERABLES Final Result Performing Organization Address City/[facility]/ZIP Co de Phone Number [facility] [address] Lab (1st floor, no room number) [place] [phone] * (ABNORMAL) INR (08/13/2024 6:37 AM CDT) Only the most recent of8 resultswithin the time period is included. INR 1.16(H) 0.85 - 1.15 08/13/2024 7:01 AM CDT LABORATORY Blood STRUCTURE OF RIGHT HAND / Unknown Venipuncture / Unknown 08/13/2024 6:37 AM CDT 08/13/2024 6:49 AM CDT Olvin Alejandre DO LAB - BLOOD ORDERABLES Fin al Result Performing Organization Address City/[facility]/ZIP Co de Phone Number [facility] [address] Lab (1st floor, no room number) [place] [address] * (ABNORMAL) Ionized Calcium (08/13/2024 6:37 AM CDT) Calcium Ionized Whole Blood 4.2(L) 4.4 - 5.2 mg/dL 08/13/2024 7:00 AM CDT LABORATORY Blood STRUCTURE OF RIGHT HAND / Unknown Venipuncture / Unknown 08/13/2024 6:37 AM CDT 08/13/2024 6:49 AM CDT Olvin Alejandre DO LAB - BLOOD ORDERABLES Fin al Result LABORATORY [facility] [address] [facility] Lab (1st floor, no room number) [place] [address], [facility] * (ABNORMAL) Basic metabolic panel (08/13/2024 6:37 AM CDT) Only the most recent of5 resultswithin the time period is included. [facility] Signature Sodium 137 135 - 145 mmol/L 08/13/2024 [...] 08/13/2024 7:14 AM CDT LABORATORY Comment:eGFR calculated usin 2020 CKD-EPI equation. Calcium 8.0(L) 8.8 - 10.4 [...] 6:37 AM CDT 08/13/2024 6:48 AM CDT Olvin Alejandre DO LAB - BLOOD ORDERABLES Fin al Result Performing Organization Address City/[facility]/ZIP Co de Phone Number [facility] Care Lab [address] Lab (1st floor, no room number) [place] [phone] * (ABNORMAL) Hemoglobin (08/12/2024 12:27 PM CDT) Only the most recent of6 resultswithin the time period is included. Hemoglobin 8.9(L) 13.3 - 17.7 g/dL 08/12/2024 12:56 PM CDT LABORATORY Blood STRUCTURE OF RIGHT HAND / Unknown Venipuncture / Unknown 08/12/2024 12:27 PM CDT 08/12/2024 12:53 PM CDT Adalberto Eldridge MD LAB - BLOOD ORDERABLES Final Result Performing Organization Address [facility] Co de Phone Number [facility] [address] Lab (1st floor, no room number) [place] [address] * Stone analysis (08/11/2024 3:34 PM CDT) Stone Mass 273 mg 08/16/2024 9:47 AM CDT [facility] Calculi Description See Note 08/16/2024 9:47 AM CDT [facility] Comment: Specimen consists of numerous brown calculi. The total weight is 273 mg. Stone Composition See Note 9:47 AM CDT [facility] Comment: Calculi composed primarily of: 20% [...] composition determined by FTIR analysis. Performed By: [facility] [address] [place] [address] Compressor Battery Pellets: Noah Moran MD, PhD CLIA Number: [id number] Calculus/Stone URINARY BLADDER STRUCTURE / Unknown Non-blood Collection / Unknown 08/11/2024 3:34 PM CDT 08/11/2024 4:00 PM CDT Adalberto Eldridge MD LAB - BODY FLUIDS ORDER AMANDA Final Result [facility] [address] [place] [address], [facility] [phone] * ANE AIRWAY SUPRAGLOTTIC PERFORMABLE (08/11/2024 3:26 PM CDT) Narrative Yvonne White APRN STAMPS [employer] COINS SALESPERSON - 08/11/2024 3:26 PM CDT Yvonne White APRN STAMPS OR COINS SALESPERSON ? 08/11/2024 ??3:26 PM Airway ? Patient location during procedure: OR Staff - ? STAMPS [employer] COINS SALESPERSON: Yvonne White APRN CRNA ? Performed By: [...] Intact and Unchanged us Jai Flores DO MA ANESTHESIA Final Result * Adult Type and Screen (08/11/2024 12:27 PM CDT) ABO/RH(D) O POS 08/11/2024 12:17 PM CDT RH BLOOD BANK Antibody Screen Negative Negative 08/11/2024 12:17 PM CDT RH BLOOD BANK SPECIMEN EXPIRATION DATE [id number] 08/11/2024 12:17 PM CDT RH BLOOD BANK Blood STRUCTURE OF RIGHT HAND / Unknown Venipuncture / Unknown 08/11/2024 12:27 PM CDT 08/11/2024 12:33 PM CDT Olvin Alejandre DO LAB - BLOOD BANK TEST ORDE R Final Result BLOOD BANK [address] [place] [address], [facility] * (ABNORMAL) Glucose by meter (08/10/2024 3:50 PM CDT) GLUCOSE BY METER POCT 102(H) 70 - 99 mg/dL 08/10/2024 4:21 PM CDT [facility] LABORATORY POC Blood, Capillary BLOOD SPECIMEN / Unknown 08/10/2024 3:50 PM CDT 08/10/2024 4:21 PM CDT Uziel Easton MD LAB - BEAKER POCT Joy l Result LABORATORY POC [facility] [address] [facility] ([facility]st floor, no room number) [place] [address], [facility] * (ABNORMAL) CBC with platelets and differential (08/10/2024 10:34 AM CDT) Only the most recent of2 resultswithin the time period is included. WBC Count 10.5 4.0 - 11.0 10e3/uL [...] 10:34 AM CDT 08/10/2024 10:41 AM CDT Uziel Easton MD LAB - BLOOD ORDERABLES Final Result [facility] [address] Lab (1st floor, no room number) [place] [address] * CT Abdomen Pelvis w/o Contrast [...] No hydronephrosis. ALBERT ADAMS MD SYSTEM ID: ??[id number] Narrative 08/10/2024 3:[address] ABDOMEN [...] No hydronephrosis. ALBERT ADAMS MD SYSTEM ID: [id number] Adalberto Eldridge MD [facility] CT ORDERABLES Final Result * (ABNORMAL) UA with Microscopic reflex to Culture (08/09/2024 7:33 PM CDT) Color Urine Brown(A) Colorless, Straw, Light Yellow, Yellow 08/09/2024 7:55 PM CDT LABORATORY Appearance Urine Cloudy(A) Clear 08/09/20 7:55 PM CDT LABORATORY Glucose Urine Negative Negative mg/dL 08/09/2024 7:55 PM CDT LABORATORY Bilirubin Urine Negative Negative 7:55 PM CDT LABORATORY Ketones Urine Negative Negative mg/dL 08/09/2024 7:55 PM CDT LABORATORY Specific [place] Urine 1.005 1.003 - 1.035 08/09/2024 7:55 [...] 7:55 PM CDT Urine Culture not indicated us Amilcar Holt MD LAB - URINE ORDERABLES Fi nal Result LABORATORY [facility] [address] Lab (1st floor, no room number) [place] [address], [facility] * Lab Result - HIM Scan (08/09/2024 12:00 AM CDT) 08/09/2024 us Provider Outside NON-BEAKER LAB TESTING Final Result from Last 3 Months Insurance MEDICARE Advance Directives For more information, please contact: [phone] * Full Code (Latest Code Status on File) Date Activated Date Inactivated Comments 08/09/2024 10:23 PM 08/13/2024 3:35 PM All basic a nd advanced life-sustaining interventions are performed as appropriate Question Answer Comments Code status determined by: Discussion with patie nt/ legal decision maker Care Teams Rouge Presser Relationship Specialty Start Date End Date [facility]- [address] [place] [address] PCP - General 07/24/21 Adalberto Eldridge MD [address] [place] [address] [place] [id number] Assigned Surgical Provider 09/12/24
--- OUTSIDE RECORDS SUMMARY | 2024-09-18 16:12 | XMS_ITS | Encounter Summary ---
Author Organization [place] Address Replaced by [facility] [place] [address] Care Team Providers Care Force Adjustment Supervisor Name Role Phone [facility]- Primary Care Provider Reason for Visit * Auth/Cert (Routine) Specialty Diagnoses / Procedures Referred By Eric hernandez Referred To Contact Med Surg Diagnoses Gross hematuria Supratherapeutic INR Problem with Weber catheter, initial encounter (H) Gross hematuria Problem with Weber catheter, initial encounter (H24) Supratherapeutic INR [facility] 5 Medical Surgical [address] [place] [address] Phone: tel: fax: Referral ID Status Reason Start Date Expiration Date Visits Re quested Visits Authorized [id number] 1 1 Encounter Details Date Type Department Care Team (Late st Contact Info) Description 08/11/2024 3:14 PM CDT Anesthesia Event [facility] PeriOp Services [address] [place] [phone] Jai Flores DO [facility] [place] ANESTHESIA [address] [facility] [address] [place] [address] Anesthesia Record Procedure Summary Procedure Name Responsible Anesthesiologist Anesthesia Start Time Anesthesia Stop Time Cystoscopy, fulguration of the prostate (Urethra) Jai Flores DO 08/11/24 1514 08/11/24 1550 Events Date Time Event Comment 08/11/2024 1505 SOAP DRIER OPERATOR Ready for Procedure 1514 An Start Anesthesia Star t is defined as when the anesthesia provider assumed care, began anesthesia prep, remained continuously present with the patient, and excludes all time for performing the pre-anesthesia evaluation. The Pre-Anesthesia Evaluation was completed before Anesthesia Start. 1515 MD Present 1516 An Start Data 1516 AN REASSESS I attest that I have identified and re-evaluated the patient immediately before the induction of anesthesia and I am satisfied that the anesthetic plan is suitable for the patient's condition and procedure. The first vital signs recorded are pre- induction. Yvonne White APRN SOAP DRIER OPERATOR 1517 An Induction 1518 An LMA 1518 Anesthesia Ready for Procedu re 1520 MD Present 1538 LMA Removed 1546 MD Present 1547 an stop data 1550 An Stop Electronically signed by Yvonne White APRN CRNA on August 11, 2024 3:53 PM Meds Name Total fentaNYL 50 mcg/mL 100 mcg lidocaine 2% 40 mg propofol 10 mg/mL 150 mg phenylephrine (ULISES-SYNEPHRINE) injection 300 mcg dexamethasone (DECADRON) 4 mg/mL 8 mg ondansetron 2 mg/mL 4 mg glycopyrrolate 0.2 mg/mL 0.2 mg ceFAZolin Sodium (ANCEF) injection 2 g 2 g lactated ringers infusion 500 mL * Agents Name O2 N2O Air Exp Sevoflurane Exp Isoflurane Exp Desflurane Ins Sevoflurane Ins Isoflurane Ins Desflurane * Blood No blood administrations on file. Lines, Drains, and Airways Type Details Placement Removal Incision/Surgical Site No Incision; 07/23 12/14; 1537; Urethral meatus; procedure, through scope, no incision 08/11/24 1537 by Martha Geller RN Urethral Catheter 08/09/24; 1645; No; Acute retention or obstruction; 22 fr 08/09/24 1645 by Debora Singh RN 08/11/24 1520 by Martha Geller RN Peripheral IV 08/09/24; 2110; 20 G ; Anterior, Left; Upper forearm; Chlorhexidine 08/09/24 2110 by Eileen Mclaughlin RN 08/13/24 1207 by Rosette Nicole RN Supraglottic Airway Placement Date: 08/11/24; Placement Time: 1526 (created via procedure documentation); Mask Ventilation: 1; LMA Size: 5; Airway Brand: I-Gel; Attempts: 1 08/11/24 1526 by Yvonne White APRN SOAP DRIER OPERATOR 08/11/24 1538 by Yvonne White APRN CRNA Urethral Catheter 08/11/24; 1533; No; Surgical procedure, Other (Comment) (continuous irrigation); 24 fr 08/11/24 1533 by Martha Geller RN 08/13/24 1435 by Inpatient, Nurse documented in this encounter Social History Tobacco Use Types Packs/Day Years [...] in an abandoned building, in an overnight correction, or couch-surfing.) Yes 08/09/2024 Are you worried [...] on file Legal Sex Male 3:18 AM SERVICE CONTROL OPERATOR Gender Identity Not on file Sexual Orientation Not on file documented as of this encounter OR Notes * Anesthesia Postprocedure Evaluation - Jai Flores DO - 08/11/2024 6:07 PM CDT Patient: Oleg Sparks Procedure: Procedure(s): CYSTOSCOPY, EVACUATION OF BLADDER HEMATOMA, REMOVAL OF BLADDER STONES Anesthesia Type: General Note: Postop Pain Control: Uneventful Sign Out: Well controlled pain PONV: No Neuro/Psych: Uneventful Sign Out: Acceptable/Baseline neuro status Airway/Respiratory: Sign Out: Acceptable/Baseline resp. status CV/Hemodynamics: Sign Out: Acceptable CV status Other NRE: DID A NON-ROUTINE EVENT OCCUR? Last vitals: Vitals Value Taken Time BP 102/62 08/11/24 1635 Temp 97.7 ??F (36.5 ??C) 08/11/24 1630 Pulse 66 08/11/24 1637 Resp 6 08/11/24 1637 SpO2 97 % 08/11/24 1636 Vitals shown include unfiled device data. Electronically Signed By: Jai Flores DO August 11, 2024 6:07 PM * Anesthesia Procedure Notes - Yvonne White APRN CRNA - 08/11/2024 3:26 PM CDTAssociated Order(s): Airway Airway Patient location during procedure: OR Staff - SOAP DRIER OPERATOR: Yvonne White APRN SOAP DRIER OPERATOR Performed By: CRNAIndications and Patient Condition Indications for airway management: raymond-procedural Induction type:intravenous Mask difficulty assessment: 1 - vent by mask Final Airway Details Final airway type: supraglottic airway Supraglottic Airway Details Type: LMA Brand: I-Gel LMA size: 5 Post intubation assessment Placement verified by: capnometry, equal breath sounds and chest rise Number of attempts at approach: 1 Number of other approaches attempted: 0 Secured with: commercial tube mcgill Ease of procedure: easy Dentition: Intact and Unchanged * Anesthesia Preprocedure Evaluation - Jai Flores DO - 08/11/2024 2:16 PM CDT Anesthesia Pre-Procedure Evaluation Patient: Oleg Sparks : 1960 Procedure : Procedure(s): CYSTOSCOPY, EVACUATION OF BLADDER HEMATOMA, REMOVAL OF BLADDER STONES WITH THE THULIUM LASER Past Medical History: Diagnosis Date Aortic valve replaced Enlarged prostate Past Surgical History: Procedure Laterality Date CARDIAC SURGERY aortic valve replacement HERNIA REPAIR ORTHOPEDIC SURGERY L knee replacement Allergies Allergen Reactions Shellfish-Derived Products Anaphylaxis Cats Tramadol Fatigue Light headed Social History Tobacco Use Smoking status: Former Current packs/day: 0.00 Types: Cigarettes Quit date: 1999 Years since quittin. Smokeless tobacco: Current Substance Use Topics Alcohol use: Not Currently Wt Readings from Last 1 Encounters: 08/09/24 70.1 kg (154 lb 8.7 oz) Anesthesia Evaluation ROS/MED HX ENT/Pulmonary: - neg pulmonary ROS (+) tobacco use, Past use, Neurologic: - neg neurologic ROS Cardiovascular: (+) - - - - - Taking blood thinners valvular problems/murmurs AVR. METS/Exercise Tolerance: Hematologic: - neg hematologic ROS Musculoskeletal: - neg musculoskeletal ROS GI/Hepatic: - neg GI/hepatic ROS Renal/Genitourinary: Comment: Bladder hematoma, Bladder stones (+) BPH, Endo: - neg endo ROS Psychiatric/Substance Use: - neg psychiatric ROS Infectious Disease: - neg infectious disease ROS Malignancy: - neg malignancy ROS Other: - neg other ROS Physical Exam Airway Mallampati: II Neck ROM: full Respiratory Devices and Support Dental Cardiovascular cardiovascular exam normal Rhythm and rate: regular Pulmonary pulmonary exam normal OUTSIDE LABS: CBC: Lab Results Component Value Date WBC 7.8 08/11/2024 WBC 10.5 08/10/2024 HGB 10.1 (L) 08/11/2024 HGB 11.1 (L) 08/10/2024 HCT 30.0 (L) 08/11/2024 HCT 39.5 (L) 08/10/2024 PLT 236 08/11/2024 PLT 262 08/10/2024 BMP: Lab Results Component Value Date NA 132 (L) 08/11/2024 NA 131 (L) 08/10/2024 POTASSIUM 4.3 08/11/2024 POTASSIUM 4.6 08/10/2024 CHLORIDE 102 08/11/2024 CHLORIDE 101 08/10/2024 CO2 21 (L) 08/11/2024 CO2 21 (L) 08/10/2024 BUN 20.9 08/11/2024 BUN 17.3 08/10/2024 CR 1.02 08/11/2024 CR 1.04 08/10/2024 GLC 97 08/11/2024 GLC 102 (H) 08/10/2024 COAGS: Lab Results Component Value Date INR 2.47 (H) 08/11/2024 POC: No results found for: BGM, HCG, HCGS HEPATIC: No results found for: ALBUMIN, PROTTOTAL, ALT, AST, GGT, ALKPHOS, BILITOTAL,BILIDIRECT, MARISELA OTHER: Lab Results Component Value Date TREVIN 7.7 (L) 08/11/2024 TSH 2.18 07/24/2021 Anesthesia Plan ASA Status: 3 Anesthesia Type: General. Induction: Intravenous, Propofol. Maintenance: Balanced. Consents Anesthesia Plan(s) and associated risks, benefits, and realistic alternatives discussed. Questions answered and patient/physician relations representative(s) expressed understanding. - Discussed: - Discussed with: Patient Postoperative Care Pain management: IV analgesics, Oral pain medications, Multi-modal analgesia. PONV prophylaxis: Ondansetron (or other 5HT-3), Dexamethasone or Solumedrol Comments: Jai Flores DO I have reviewed the pertinent notes and labs in the chart from the past 30 days and (re)examined the patient. Any updates or changes from those notes are reflected in this note. documented in this encounter Miscellaneous Notes * Anesthesia Care Transfer Note - Yvonne White APRN SOAP DRIER OPERATOR - 08/11/2024 3:53 PM CDT Patient: Oleg Sparks Procedure: Procedure(s): CYSTOSCOPY, EVACUATION OF BLADDER HEMATOMA, REMOVAL OF BLADDER STONES Diagnosis: Gross hematuria [R31.0] Diagnosis Additional Information: No value filed. Anesthesia Type: General Note: Oropharynx: oropharynx clear of all foreign objects Level of Consciousness: awake Oxygen Supplementation: face mask Level of Supplemental Oxygen (L/min / FiO2): 8 Independent Airway: airway patency satisfactory and stable Dentition: dentition unchanged Vital Signs Stable: post-procedure vital signs reviewed and stable Report to RN Given: handoff report given Patient transferred to: PACU Handoff Report: Identifed the Patient, Identified the Reponsible Provider, Reviewed the pertinent medical history, Discussed the surgical course, Reviewed Intra-OP anesthesia mangement and issues during anesthesia, Set expectations for post-procedure period and Allowed opportunity for questions andacknowledgement of understanding Vitals: Vitals Value Taken Time BP 111/63 08/11/24 1550 Temp Pulse 71 08/11/24 1552 Resp 14 08/11/24 1552 SpO2 100 % 08/11/24 1552 Vitals shown include unfiled device data. Electronically Signed By: Yvonne White APRN CRNA August 11, 2024 3:53 PM documented in this encounter Plan of Treatment Upcoming Encounters Date Type Department Care Team (Late st Contact Info) Description 09/25/2024 8:00 AM SERVICE CONTROL OPERATOR Office Visit [facility] [address] [place] [phone] Adalberto Eldridge MD [address] [place] [address] 10/02/2024 11:00 AM SERVICE CONTROL OPERATOR Virtual Visit [facility] [address] [place] [phone] Adalberto Eldridge MD [address] [place] [id number] documented as of this encounter Procedures Procedure Name Priority Date/Time Associated Diagnosis Comments ANE AIRWAY SUPRAGLOTTIC PERFORMABLE Routine 08/11/2024 3:26 PM CDT documented in this encounter Results * ANE AIRWAY SUPRAGLOTTIC PERFORMABLE (08/11/2024 3:26 PM CDT) Narrative Yvonne White APRN SOAP DRIER OPERATOR - 08/11/2024 3:26 PM CDT Yvonne White APRN SOAP DRIER OPERATOR ? 08/11/2024 ??3:26 PM Airway ? Patient location during procedure: OR Staff - ? SOAP DRIER OPERATOR: Yvonne White APRN CRNA ? Performed By: [...] procedure: easy ? Dentition: Intact and Unchanged Jai Flores DO DC ANESTHESIA Final Result documented in this encounter Visit Diagnoses Not on filedocumented in this encounter Administered Medications Inactive Administered Medications - up to 3 most recent administrations Medication Order MAR Action Action Date Dose Rate Site ceFAZolin Sodium (ANCEF) injection 2 g Routine, 2 g, Intravenous, PRE-OP/PRE-PROCEDURE, Starting on 08/11/24 at 1408, For 1 dose, Give first dose within 1 hour PRIOR to incision. If patient weight is greater than or equal to 120 kg increase dose to 3 g., Indications: Perioperative Pharmacoprophylaxis, Pre-procedureIndications:Perioperat gaurav Pharmacoprophylaxis $Given 08/11/2024 3:14 PM CDT 2 g dexAMETHasone (DECADRON) injection Intravenous, PRN, Administer over 1 Minutes, Starting on 08/11/24 at 1518, Anesthesia Intra-op $Given 08/11/2024 3:18 PM CDT 8 mg fentaNYL (PF) (SUBLIMAZE) injection Intravenous, PRN, Administer over 3-5 Minutes, Starting on 08/11/24 at 1517, Anesthesia Intra-op $Given 08/11/2024 3:17 PM CDT 100 mcg glycopyrrolate (ROBINUL) injection Intravenous, PRN, Administer over 1-2 Minutes, Starting on 08/11/24 at 1517, Anesthesia Intra-op $Given 08/11/2024 3:17 PM CDT 0.2 mg lactated ringers infusion at 10 mL/hr, Intravenous, CONTINUOUS, IF patient NOT on dialysis., Starting on 08/11/24 at 1430, Until 08/13/24 at 1529 Restarted 08/11/2024 3:47 PM CDT $New Bag 08/11/2024 2:32 PM CDT 10 mL/hr lidocaine 2% injection (MDV) Intravenous, PRN, Starting on 08/11/24 at 1517, Anesthesia Intra-op $Given 08/11/2024 3:17 PM CDT 40 mg ondansetron (ZOFRAN) injection Intravenous, PRN, Administer over 2-5 Minutes, Starting on 08/11/24 at 1524, Anesthesia Intra-op $Given 08/11/2024 3:24 PM CDT 4 mg phenylephrine (ULISES-SYNEPHRINE) injection Intravenous, CONTINUOUS PRN, Starting on 08/11/24 at 1521, Anesthesia Intra-op $Bolus 08/11/2024 3:25 PM CDT 100 mcg $New Bag 08/11/2024 3:21 PM CDT 200 mcg propofol (DIPRIVAN) injection 10 mg/mL vial Intravenous, PRN, Starting on 08/11/24 at 1517, Anesthesia Intra-op $Given 08/11/2024 3:17 PM CDT 150 mg documented in this encounter Care Teams Force Adjustment Supervisor Relationship Specialty Start Date End Date [facility]- [address] [place] [address] PCP - General 07/24/21 documented as of this encounter
--- OUTSIDE RECORDS SUMMARY | 2024-09-18 16:12 | XMS_ITS | Encounter Summary ---
Author Organization [place] Address [address] [facility] [place] [address] Care Team Providers Care Body Mechanic Apprentice Name Role Phone [facility]- Primary Care Provider Adalberto Eldridge MD Unavailable Reason for Visit * Reason Onset Date Comments Medication Question 09/18/2024 Encounter Details Date Type Department Care Team (Late st Contact Info) Description 09/18/2024 Telephone [facility] [place] [address] [place] [address] Adalberto Eldridge MD [address] [place] [address] Medication Question Social History Tobacco Use Types Packs/Day Years [...] in an abandoned building, in an overnight prison, or couch-surfing.) Yes 08/09/2024 Are you worried [...] on file Legal 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 Eldridge wouldn't prescribe this medication for patient. Explained that the Lovenox order would need to come from his PCP. Patientexpressed understanding. Priscilla Casey LPN * Telephone Encounter - Ramana Pugh - 09/18/2024 3:53 PM CDT Health Call Center Phone Message May a detailed message be left on voicemail: yes Reason for Call: Other: Patient called and stated that he needs to talk to the nurse about getting lovenox before his upcoming procedure. Please call patient back to discuss. Action Taken: Other: [place] [facility] Travel Screening: Not Applicable Date of Service: documented in this encounter Plan of Treatment Upcoming Encounters Date Type Department Care Team (Late st Contact Info) Description 09/25/2024 8:00 AM BRAND ENGINEER Office Visit [facility] [place] [address] [place] [phone] Adalberto Eldridge MD [address] [place] [address] 10/02/2024 11:00 AM BRAND ENGINEER Virtual Visit [facility] [place] [address] [place] [phone] Adalberto Eldridge MD [address] [place] [address] documented as of this encounter Visit Diagnoses Not on filedocumented in this encounter Care Teams Body Mechanic Apprentice Relationship Specialty Start Date End Date [facility]- [address] [place] [address] PCP - General 07/24/21 Adalberto Eldridge MD [address] [place], [place] [address] Assigned Surgical Provider 09/12/24 documented as of this encounter
--- OUTSIDE RECORDS SUMMARY | 2024-09-18 16:12 | XMS_ITS | Encounter Summary ---
Author Organization [place] Address [address] [place] [address]. [place] [address] Care Team Providers Care Events Solutions Consultant Name Role Phone [facility]- Primary Care Provider Reason for Referral * Diagnostic Imaging MRI (Routine) - Closed Specialty Diagnoses / Procedures Referred By Contkaylah t Referred To Contact Radiology. Procedures MR Outside Read Adalberto Eldridge MD [address] [place] [address] Phone: tel: fax: Referral ID Status Reason Start Date Expiration Date Visits Re quested Visits Authorized [id number] Closed 09/07/2024 09/07/2025 1 1 Encounter Details Date Type Department Care Team (Late st Contact Info) Description 09/07/2024 Orders Only [facility] [place] [address] [place] [phone] Adalberto Eldridge MD [address] [place] [address] Social History Tobacco Use Types Packs/Day Years [...] in an abandoned building, in an overnight longterm, or couch-surfing.) Yes 08/09/2024 Are you worried [...] on file Legal Sex Male 3:18 AM BITUMASTIC APPLIER Gender Identity Not on file Sexual Orientation Not on file documented as of this encounter Plan of Treatment Upcoming Encounters Date Type Department Care Team (Late st Contact Info) Description 09/25/2024 8:00 AM BITUMASTIC APPLIER Office Visit [facility] Urology [facility] [address] [place] [phone] Adalberto Eldridge MD [address] [place] [address] 10/02/2024 11:00 AM BITUMASTIC APPLIER Virtual Visit [facility] [address] [place] [phone] Adalberto Eldridge MD [address] [place] [address] Pending Results Name Type Priority Associated Diagnoses Date /Time MR Outside Read Imaging Routine 8:40 AM CDT Scheduled Orders Name Type Priority Associated Diagnoses Orde r Schedule MR Outside Read Imaging Routine Expected: 09/07/2024 (Approximate), Expires: 09/07/2025 documented as of this encounter Visit Diagnoses Not on filedocumented in this encounter Care Teams Events Solutions Consultant Relationship Specialty Start Date End Date [facility]- [address] [place] [address] PCP - General 07/24/21 documented as of this encounter
--- OUTSIDE RECORDS SUMMARY | 2024-09-18 16:12 | XMS_ITS | Encounter Summary ---
Author Organization [facility] Address [address] [place] [id number] Care Team Providers Care Crime Analyst Name Role Phone [facility]- Primary Care Provider Reason for Visit * Reason Comments Hematuria * Auth/Cert (Routine) Specialty Diagnoses / Procedures Referred By Eric hernandez Referred To Contact Med Surg Diagnoses Gross hematuria Supratherapeutic INR Problem with Box catheter, initial encounter (H) Gross hematuria Problem with Box catheter, initial encounter (H24) Supratherapeutic INR [place] [address] [facility] [address] [place] [address] Phone: tel: fax: Referral ID Status Reason Start Date Expiration Date Visits Re quested Visits Authorized [id number] 1 1 Encounter Details Date Type Department Care Team (Late st Contact Info) Description 08/09/2024 3:49 PM CDT - 08/13/2024 1:29 PM CDT Hospital Encounter [place] [address] [facility] [address] [place] [address] Amilcar Holt MD [facility] [address] [place] [id number] Ortega Preciado MD [facility] [address] [place], [place] [address] Uziel Esaton MD [address] [place] [address] Gross hematuria; Problem with Box catheter, initial encounter (H); Supratherapeutic INR Discharge Disposition: Home or Self Care Social [...] in an abandoned building, in an overnight chcf, or couch-surfing.) Yes 08/09/2024 Are you worried [...] on file 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[employer] Gender Identity Not on file Sexual Orientation Not on file documented as of this encounter Last Filed Vital Signs Vital Sign Reading Time Taken Comments Blood Pressure 130/75 08/13/2024 7:29 AM CDT Pulse 64 08/13/2024 7:29 AM CDT Temperature 36.9 ??C (98.4 ??F) 08/13/2024 7:29 AM CD T Respiratory Rate 16 08/13/2024 7:29 AM CDT Oxygen Saturation 97% 08/13/2024 7:29 AM CDT Inhaled Oxygen Concentration - - Weight 72.8 kg (160 lb 7.9 oz) 08/12/2024 11:56 PM CDT Height 170.2 cm (5' 7) 08/09/2024 3:48 PM CDT Body Mass Index 25.14 08/09/2024 3:48 PM CDT documented in this encounter Discharge Summaries * Olvin Alejandre DO - 08/13/2024 1:[address] [facility] Hospitalist Discharge Summary Date of Admission: 08/09/2024 Date of Discharge: 08/13/2024 Discharging Provider: Olvin Alejandre DO Discharge Service: Hospitalist Service Discharge Diagnoses Gross hematuria. Acute blood loss anemia. Supratherapeutic INR. Drug-induced coagulation defect. Previous mechanical aortic valve replacement. BPH. Urinary retention. Hyponatremia. Hypocalcemia. Chronic kidney disease stage II. Recent urinary tract infection. Clinically Significant Risk Factors # Overweight: Estimated body mass index is 25.14 kg/m?? as calculated from the following: Height as of this encounter: 1.702 m (5' 7). Weight as of this encounter: 72.8 kg (160 lb 7.9 oz). Follow-ups Needed After Discharge Follow-up Appointments Follow-up and recommended labs and tests Follow up with primary care provider, [facility], within 7 days for hospital follow- up. The following labs/tests are recommended: INR in 2 days, CBC in 7 days. Discharge Disposition Discharged to home Condition at discharge: Stable Hospital Course Oleg Sparks is a 64 year old [...] Urology was also consulted for emergency room. Warfarin held. Required vitamin K. Seen in consultation by urology. Did go tot operating room for cystoscopy on 08/11. Hematuria much improved by discharge. Hemoglobin stable on day of discharge. Has been restarted on warfarin. Bridging therapy with enoxaparin 1 mg/kg twice a day for the next few days. Recheck INR in 2 days. Recheck CBC in 7 days. Follow-up with primary care provider in 1 week. Follow-up with his primary urologist in the outpatient setting within 2 weeks. Consultations This Hospital Stay UROLOGY IP CONSULT PHARMACY IP CONSULT PHARMACY TO DOSE WARFARIN Code Status Full Code Time Spent on this Encounter I spent 40 minutes with Mr. Sparks and working on discharge on 08/13/2024. Olvin Alejandre, [place] [address] [facility] [address] [facility] [address] Physical Exam Vital Signs: Temp: 98.4 ??F (36.9 ??C) Temp src: Oral BP: 130/75 Pulse: 64 Resp: 16 SpO2: 97 % O2 Device: None (Room air) Weight: 160 lbs 7.92 oz Gen: NAD, A&Ox3. Eyes: PERRL, sclera anicteric. OP: MMM, no lesions. Neck: Supple. CV: Regular, +1/6 murmur. Positive mechanical click. Lung: CTA b/l, normal effort. Ab: +BS, soft. Skin: Warm, dry to touch. No rash. Ext: No pitting edema LE b/l. Primary Care Physician [facility] Discharge Orders INR CBC with platelets Reason for your hospital stay Hematuria. Follow-up and recommended labs and tests Follow up with primary care provider, [facility], within 7 days for hospital follow- up. The following labs/tests are recommended: INR in 2 days, CBC in 7 days. Activity Your activity upon discharge: activity as tolerated Diet Follow this diet upon discharge: Regular Discharge Medications Current Discharge Medication List START taking these medications Details acetaminophen (TYLENOL) 325 MG tablet Take 2 tablets (650 mg) by mouth every 4 hours as needed for mild pain or other (and adjunct with moderate or severe pain or per patient request). Associated Diagnoses: Gross hematuria enoxaparin ANTICOAGULANT (LOVENOX) 80 MG/0.8ML syringe Inject 0.7 mLs (70 mg) subcutaneously every 12 hours for 5 days. Qty: 8 mL, Refills: 0 Associated Diagnoses: Gross hematuria ferrous sulfate (FEROSUL) 325 (65 Fe) MG tablet Take 1 tablet (325 mg) by mouth daily. Qty: 30 tablet, Refills: 0 Associated Diagnoses: Gross hematuria senna-docusate (SENOKOT-S/PERICOLACE) 8.6-50 MG tablet Take 1 tablet by mouth 2 times daily as needed for constipation. Qty: 15 tablet, Refills: 0 Associated Diagnoses: Gross hematuria CONTINUE these medications which have NOT CHANGED Details finasteride (PROSCAR) 5 MG tablet Take 5 mg by mouth daily. lisinopril (ZESTRIL) 5 MG tablet Take 5 mg by mouth daily. oxyBUTYnin (DITROPAN) 5 MG tablet Take 5 mg by mouth every 8 hours as needed for bladder spasms. tamsulosin (FLOMAX) 0.4 MG capsule Take 0.4 mg by mouth daily valACYclovir (VALTREX) 1000 mg tablet Take 1,000 mg by mouth 2 times daily as needed (cold sores). warfarin ANTICOAGULANT (COUMADIN) 1 MG tablet Take by mouth daily. 4mg= Tue and Sun, 8mg=ROW STOP taking these medications sulfamethoxazole-trimethoprim (BACTRIM DS) 800-160 MG tablet Comments: Reason for Stopping: Allergies Allergies Allergen Reactions Shellfish-Derived Products Anaphylaxis Cats Tramadol Fatigue Light headed * Rosette Nicole RN - 08/13/2024 1:29 PM CDT Discharge Note Patient discharged to home via private vehicle accompanied by brother. IV: Discontinued Prescriptions filled and given to patient/family. Belongings reviewed and sent with patient. Home medications returned to patient: NA Equipment sent with: patient, N/A. patient verbalizes understanding of discharge instructions. AVS given to patient. Additional education completed? Anticoagulation Therapy documented in this encounter Medications at Time of Discharge acetaminophen (TYLENOL) 325 MG tabletIndications: Gross hematuria Take 2 tablets (650 mg) by mouth every 4 hours as needed for mild pain or other (and adjunct with moderate or severe pain or per patient request). 4 ferrous sulfate (FEROSUL) 325 (65 Fe) MG tabletIndications: Gross hematuria Take 1 tablet (325 mg) by mouth daily. 30 tablet 4 finasteride (PROSCAR) 5 MG tablet Take 5 mg by mouth daily. lisinopril (ZESTRIL) 5 MG tablet Take 5 mg by mouth daily. oxyBUTYnin (DITROPAN) 5 MG tablet Take 5 mg by mouth every 8 hours as needed for bladder spasms. senna-docusate (SENOKOT-S/PERICOL CLAIRE) 8.6-50 MG tabletIndications: Gross hematuria Take 1 tablet by mouth 2 times daily as needed for constipation. 15 tablet 4 tamsulosin (FLOMAX) 0.4 MG capsule Take 0.4 mg by mouth daily valACYclovir (VALTREX) 1000 mg tablet Take 1,000 mg by mouth 2 times daily as needed (cold sores). warfarin ANTICOAGULANT (COUMADIN) 1 MG tablet Take by mouth daily. 4mg= Tue and Sun, 8mg=ROW enoxaparin ANTICOAGULANT (LOVENOX) 80 MG/0.8ML syringeIndications :Gross hematuria Inject 0.7 mLs (70 mg) subcutaneously every 12 hours for 5 days. 8 mL 08/18/20 24 documented as of this encounter Progress Notes * Genesis Morris PA-C - 08/13/2024 10:15 AM CDT [facility] Urology Progress Note Assessment and Plan: Assessment: POD 2 Cystoscopy, evacuation of bladder hematoma, removal of bladder stones, fulguration of the prostate Gross hematuria Supratherapeutic INR Problem with Box catheter, initial encounter (H24) Plan: -Continue with three-way Box catheter. Can plug CBI irrigation port. -Continue Flomax 0.4 mg once daily and finasteride 5 mg daily. -Follow-up as planned with primary urologist at [facility] for MRI of the prostate and consider ation of possible outlet procedure and bladder stone removal. -Okay to cautiously transition blood thinner. Given patient's mechanical valve, will need to limitiholding anticoagulation. -Patient is willing to learn/discharge with information on how to flush is Box catheter at home. -Okay to discharge from a urology perspective. Will follow peripherally. Genesis Morris PA-C [facility] [phone] Interval History: Had quite a bit of concern and stress yesterday with how low his INR is. Blood thinner was being held. Concerned given his mechanical heart valve. Patient was started on a heparin drip. He is feelingbetter this morning. Three-way Box catheter in place with CBI on a slow drip. Urine is clear sangeetha. Hemoglobin 8.5. He is afebrile without tachycardia. Denies nausea, vomiting, fevers, chills. On Ancef. Review of Systems: The 5 point Review of Systems is negative other than noted in the HPI Medications: Current Facility-Administered Medications Medication Dose Route Frequency Provider Last Rate Last Admin acetaminophen (TYLENOL) tablet 650 mg 650 mg Oral Q4H PRN Adalberto Eldridge MD 650 mg at 08/12/24 1628 Or acetaminophen (TYLENOL) Suppository 650 mg 650 mg Rectal Q4H PRN Adalberto Eldridge MD calcium carbonate (TUMS) chewable tablet 1,000 mg 1,000 mg Oral 4x Daily PRN Adalberto Eldridge MD ceFAZolin Sodium (ANCEF) injection 2 g 2 g Intravenous See Admin Instructions Adalberto Eldridge MD enoxaparin ANTICOAGULANT (LOVENOX) injection 70 mg 1 mg/kg Subcutaneous Q12H Olvin Alejandre DO ferrous sulfate (FEROSUL) tablet 325 mg 325 mg Oral Daily Olvin Alejandre DO finasteride (PROSCAR) tablet 5 mg 5 mg Oral Daily Olvin Alejandre DO 5 mg at 08/13/24 0828 HYDROmorphone (DILAUDID) injection 0.2 mg 0.2 mg Intravenous Q2H PRN Adalberto Eldridge MD HYDROmorphone (DILAUDID) injection 0.4 mg 0.4 mg Intravenous Q2H PRN Adalberto Eldridge MD 0.4mg at 08/11/24 1152 hydrOXYzine HCl (ATARAX) tablet 25 mg 25 mg Oral Q6H PRN Adalberto Eldridge MD 25 mg at 08/10/24 0943 lactated ringers infusion Intravenous Continuous Adalberto Eldridge MD 10 mL/hr at 08/11/24 1432 Restarted at 08/11/24 1547 lidocaine (LMX4) cream Topical Q1H PRN Adalberto Eldridge MD lidocaine (XYLOCAINE) 2 % external gel 6 mL 6 mL Urethral Once Adalberto Eldridge MD lidocaine 1 % 0.1-1 mL 0.1-1 mL Other Q1H PRN Adalberto Eldridge MD LORazepam (ATIVAN) tablet 0.5 mg 0.5 mg Oral Q8H PRN Adalberto Eldridge MD melatonin tablet 1 mg 1 mg Oral At Bedtime PRN Adalberto Eldridge MD naloxone (NARCAN) injection 0.2 mg 0.2 mg Intravenous Q2 Min PRN Adalberto Eldridge MD Or naloxone (NARCAN) injection 0.4 mg 0.4 mg Intravenous Q2 Min PRN Adalberto Eldridge MD Or naloxone (NARCAN) injection 0.2 mg 0.2 mg Intramuscular Q2 Min PRN Adalberto Eldridge MD Or naloxone (NARCAN) injection 0.4 mg 0.4 mg Intramuscular Q2 Min PRN Adalberto Eldridge MD ondansetron (ZOFRAN ODT) ODT tab 4 mg 4 mg Oral Q6H PRN Adalberto Eldridge MD Or ondansetron (ZOFRAN) injection 4 mg 4 mg Intravenous Q6H PRN Adalberto Eldridge MD opium-belladonna (B&O SUPPRETTES) 60-16.2 MG per suppository 1 suppository 60 mg Rectal Q8H PRAdalberto Walton MD 1 suppository at 08/10/24 0635 oxyBUTYnin (DITROPAN) tablet 5 mg 5 mg Oral Q8H PRN Olvin Alejandre DO oxyCODONE (ROXICODONE) tablet 5 mg 5 mg Oral Q4H PRN Adalberto Eldridge MD oxyCODONE IR (ROXICODONE) half-tab 2.5 mg 2.5 mg Oral Q4H PRN Adalberto Eldridge MD 2.5 mg at 08/12/24 0013 senna-docusate (SENOKOT-S/PERICOLACE) 8.6-50 MG per tablet 1 tablet 1 tablet Oral BID PRN Adalberto Eldridge MD Or senna-docusate (SENOKOT-S/PERICOLACE) 8.6-50 MG per tablet 2 tablet 2 tablet Oral BID PRN Adalberto Eldridge MD 2 tablet at 08/13/24 0618 sodium chloride (PF) 0.9% PF flush 3 mL 3 mL Intracatheter Q8H Adalberto Eldridge MD 3 mL at 08/12/24 1629 sodium chloride (PF) 0.9% PF flush 3 mL 3 mL Intracatheter q1 min prn Adalberto Eldridge MD 3 mL at 08/10/24 0325 sodium chloride 0.9% irrigation (bag) Irrigation Continuous Adalberto Eldridge MD 3,000 mL at 08/11/24 1708 tamsulosin (FLOMAX) capsule 0.4 mg 0.4 mg Oral Daily Adalberto Eldridge MD 0.4 mg at 08/13/24 0828 Warfarin Dose Required Daily - Pharmacist Managed 1 each Oral See Admin Instructions Grant Fernandez MD Physical Exam: Vitals were reviewed Patient Vitals for the past 8 hrs: BP Temp Temp src Pulse Resp SpO2 08/13/24 0729 130/75 98.4 ??F (36.9 ??C) Oral 64 16 97 % GEN: NAD, sitting up in bed EYES: EOMI MOUTH: MMM NECK: Supple RESP: Unlabored breathing SKIN: Warm NEURO: AAO URO: 3-way Box catheter in place with CBI on slow drip. Clamped. Urine is clear sangeetha. Data: No results found for: NTBNPI, NTBNP Lab Results Component Value Date WBC 8.4 08/13/2024 WBC 9.8 08/12/2024 WBC 10.3 08/12/2024 HGB 8.5 (L) 08/13/2024 HGB 8.5 (L) 08/12/2024 HGB 8.9 (L) 08/12/2024 HCT 25.9 (L) 08/13/2024 HCT 25.7 (L) 08/12/2024 HCT 26.5 (L) 08/12/2024 MCV 91 08/13/2024 MCV 90 08/12/2024 MCV 93 08/12/2024 PLT 227 08/13/2024 PLT 220 08/12/2024 PLT 211 08/12/2024 Lab Results Component Value Date INR 1.16 (H) 08/13/2024 INR 1.35 (H) 08/12/2024 INR 1.84 (H) 08/12/2024 * Grant Fernandez MD - 08/12/2024 11:06 PM CDT Patient reportedly tearful and very anxious about his INR that has significantly decreased since holding his warfarin since he has a mechanical valve replacement. In review of chart, here with hematuria and Hgb stable today. Day team planning to hold until tomorrow and restart warfarin at that timeif stable. Checking repeat hgb now to ensure no significant drop, but will start warfarin and heparin gtt tonight as well. Grant Fernandez MD Hospitalist * Pili Olvin Omero, DO - 08/12/2024 1:59 PM CDT [facility] Medicine Progress Note - Hospitalist Service Date of Admission: 08/09/2024 Assessment & Plan Oleg Sparks is a [...] further evaluation in the morning by urology. Hematuria. Acute blood loss anemia. -Appreciate urology input. -Previously on continuous bladder irrigation. -Continue to monitor serial hemoglobin. -Urology took the operating room on 08/11 for cystoscopy. -Continue to hold warfarin today. -Plan to restart tomorrow if hemoglobin stays stable. Drug-induced coagulation defect. Supratherapeutic INR. Previous mechanical aortic valve replacement. -Hold warfarin. -Had vitamin K 2.5 mg once on 08/10. -INR currently down to 1.8. -Monitor INR daily while in hospital. -Plan to restart warfarin tomorrow if hemoglobin remained stable. BPH. Urinary retention. -Continue tamsulosin 0.4 mg a day. -Restart finasteride 5 mg a day. -Urology following. -Planning for discharge with Box catheter in place and follow-up with urology in the outpatient setting. Hyponatremia. -Mild. Sodium 132. -Stop IV fluids. -Recheck metabolic panel tomorrow. Chronic kidney disease stage II. -Avoid nephrotoxins as able. -Recheck metabolic panel tomorrow. Hypocalcemia. -Check ionized calcium. Diet: Regular Diet Adult DVT Prophylaxis: Warfarin Box Catheter: PRESENT, indication: Gross hematuria, Gross hematuria Lines: None Cardiac Monitoring: None Code Status: Full Code Clinically Significant Risk Factors # Hyponatremia: Lowest Na = 132 mmol/L in last 2 days, will monitor as appropriate # Coagulation Defect: INR = 1.84 (Ref range: 0.85 - 1.15) and/or PTT = N/A, will monitor for bleeding Disposition Plan Medically Ready for Discharge: Anticipated Tomorrow Olivn Alejandre DO Hospitalist Service [facility] Securely message with [employer] (more info) Text page via [facility] Paging/Directory Interval History Some bladder pain. Improved from previous. Denies chest pain, shortness of breath, fevers, chills, nausea, vomiting. Physical Exam Vital Signs: Temp: 98.5 ??F (36.9 ??C) Temp src: Oral BP: 132/62 Pulse: 68 Resp: 20 SpO2: 97 % O2 Device: None (Room air) Oxygen Delivery: 4 LPM Weight: 154 lbs 8.68 oz Gen: NAD, A&Ox3. Eyes: PERRL, sclera anicteric. OP: MMM, no lesions. Neck: Supple. CV: Regular, no murmurs. Positive mechanical click. Lung: CTA b/l, normal effort. Ab: +BS, soft. Skin: Warm, dry to touch. No rash. Ext: No pitting edema LE b/l. Medical Decision Making 40 MINUTES SPENT BY ME on the date of service doing chart review, history, exam, documentation & further activities per the note. Data I have personally reviewed the following data over the past 24 hrs: 10.3 \ 8.9 (L) / 211 136 107 16.9 / 152 (H) 4.5 20 (L) 0.78 \ INR: 1.84 (H) PTT: N/A D-dimer: N/A Fibrinogen: N/A Imaging results reviewed over the past 24 hrs: No results found for this or any previous visit (from the past 24 hour(s)). * Adalberto Eldridge MD - 08/12/2024 7:38 AM CDT Urology No events since surgery yesterday. He has felt well. The catheter has been draining well. On exam he is alert and oriented and in no acute distress. His Box catheter was draining clear urine with the CBI running. I hand irrigated the catheter andgot back no clots. I left the catheter to down drain with no CBI running. INR this morning is 1.84, hemoglobin 8.6 A/P: Leave CBI off this morning Recheck hemoglobin at noon Possible discharge later today with Box catheter in place He will plan to follow-up with his urologist with [facility]. (He does not know the name of his current urologist) for his MRI prostate followed by bladder stone removal and BPH outlet procedure * Sonia Griggs RN - 08/11/2024 2:[address] Eldridge, saarh plasma. Do not administer at this time. * Adalberto Eldridge MD - 08/11/2024 2:13 PM CDT Urology INR currently at 2.47 The catheter has been clogging on the hospital floor, nurses have been hand irrigating but now are not able to keep the catheter running at all. Catheter is currently clogged and we recently turned off the continuous bladder irrigation. A/P: Due to the catheter not draining, I recommended that the patient that we proceed to the operating at this time for cystoscopy and evacuation of bladder hematoma and possible fulguration of the prostate. However, given his INR levels I would not recommend treating the bladder stones at this time. I recommend that we leave the bladder stone treatment for a later date when the INR is improved. He has mechanical heart valve and that increases the risk of reversing Coumadin as well. He understands this and wishes to proceed. Will proceed to the operating room at this time for cystoscopy and evacuation of bladder hematoma, possible fulguration of the prostate. He will be readmitted to the hospital with a three-way Box in place postoperatively. We will continue to hold his Coumadin as well. * Olvin Alejandre, DO - 08/11/2024 1:34 PM CDT [facility] Medicine Progress Note - Hospitalist Service Date of Admission: 08/09/2024 Assessment & Plan Oleg Sparks is a [...] further evaluation in the morning by urology. Hematuria. Acute blood loss anemia. -Appreciate urology input. -On continuous bladder irrigation. -Continue to monitor serial hemoglobin. -Urology planning to take the operating room for cystoscopy on 08/11. -INR remains elevated at 2.5 on recheck. -Give FFP 1 unit now. Drug-induced coagulation defect. Supratherapeutic INR. Previous mechanical aortic valve replacement. -Hold warfarin. -Had vitamin K 2.5 mg once on 08/10. -Urology planning to take to operating room. -Repeat INR this afternoon remains elevated at 2.5. -Give 1 unit FFP now. BPH. Urinary retention. -Continue tamsulosin 0.4 mg a day. -Currently with Box for continuous bladder irrigation. -Urology following. Hyponatremia. -Mild. Sodium 132. -Continuous IV fluids. -Recheck metabolic panel tomorrow. Chronic kidney disease stage II. -Avoid nephrotoxins as able. -Recheck metabolic panel tomorrow. Diet: NPO per Anesthesia Guidelines for Procedure/Surgery Except for: Meds, Ice Chips DVT Prophylaxis: Warfarin Box Catheter: PRESENT, indication: Gross hematuria Lines: None Cardiac Monitoring: None Code Status: Full Code Clinically Significant Risk Factors # Hyponatremia: Lowest Na = 131 mmol/L in last 2 days, will monitor as appropriate # Coagulation Defect: INR = 2.47 (Ref range: 0.85 - 1.15) and/or PTT = N/A, will monitor for bleeding Disposition Plan Medically Ready for Discharge: Anticipated in 2-4 Days Olvin Alejandre DO Hospitalist Service [facility] Securely message with [employer] (more info) Text page via [employer] Paging/Directory Interval History Continues having bladder pain at times. Feels a bit constipated. Denies chest pain, shortness of breath, fevers, chills, nausea, vomiting. Physical Exam Vital Signs: Temp: 98.7 ??F (37.1 ??C) Temp src: Oral BP: 126/72 Pulse: 64 Resp: 16 SpO2: 96 % O2 Device: None (Room air) Weight: 154 lbs 8.68 oz Gen: NAD, A&Ox3. Eyes: PERRL, sclera anicteric. OP: MMM, no lesions. Neck: Supple. CV: Regular, no murmurs, positive mechanical click. Lung: CTA b/l, normal effort. Ab: +BS, soft. Skin: Warm, dry to touch. No rash. Ext: No pitting edema LE b/l. Medical Decision Making 47 MINUTES SPENT BY ME on the date of service doing chart review, history, exam, documentation & further activities per the note. Data I have personally reviewed the following data over the past 24 hrs: 7.8 \ 10.1 (L) / 236 132 (L) 102 20.9 / 97 4.3 21 (L) 1.02 \ INR: 2.47 (H) PTT: N/A D-dimer: N/A Fibrinogen: N/A Imaging results reviewed over the past 24 hrs: No results found for this or any previous visit (from the past 24 hour(s)). * Adalberto Eldridge MD - 08/11/2024 7:03 AM CDT Urology chart check INR still 3.67 this AM Plan to check another INR at noon If INR doesn't improve, may need to delay surgery until tomorrow * Adalberto Eldridge MD - 08/10/2024 4:57 PM CDT INR still 4.3 Surgery needs to be delayed until at least tomorrow NPO after midnight tonight * Olvin Alejandre, - 08/10/2024 2:28 PM CDT [facility] Medicine Progress Note - Hospitalist Service Date of Admission: 08/09/2024 Assessment & Plan Oleg Sparks is a [...] further evaluation in the morning by urology. Hematuria. Acute blood loss anemia. -Appreciate urology input. -On continuous bladder irrigation. -Continue to monitor serial hemoglobin. Drug-induced coagulation defect. Supratherapeutic INR. Previous mechanical aortic valve replacement. -Hold warfarin. -With ongoing hemorrhage, give vitamin K 2.5 mg once. -Serial hemoglobins as above. -Recheck INR tomorrow. BPH. Urinary retention. -Continue tamsulosin 0.4 mg a day. -Currently with Box for continuous bladder irrigation. -Urology following. Hyponatremia. -Mild. Sodium 131. -Continuous IV fluids. -Recheck metabolic panel tomorrow. Chronic kidney disease stage II. -Avoid nephrotoxins as able. -Recheck metabolic panel tomorrow. Diet: NPO per Anesthesia Guidelines for Procedure/Surgery Except for: Meds DVT Prophylaxis: Warfarin Box Catheter: PRESENT, indication: Gross hematuria Lines: None Cardiac Monitoring: None Code Status: Full Code Clinically Significant Risk Factors Present on Admission # Hyponatremia: Lowest Na = 131 mmol/L in last 2 days, will monitor as appropriate # Drug Induced Coagulation Defect: home medication list includes an anticoagulant medication # Hypertension: Home medication list includes antihypertensive(s) Disposition Plan Medically Ready for Discharge: Anticipated in 2-4 Days Olvin Alejandre DO Hospitalist Service [facility] Securely message with Wikidata (more info) Text page via [facility] Paging/Directory Interval History Continues any blood in urine. Having pelvic pain. Denies chest pain, shortness of breath, fevers, chills, nausea, vomiting. Physical Exam Vital Signs: Temp: 98.8 ??F (37.1 ??C) Temp src: Oral BP: 109/57 Pulse: 62 Resp: 16 SpO2: 98 % O2 Device: None (Room air) Weight: 154 lbs 8.68 oz Gen: NAD, A&Ox3. Eyes: PERRL, sclera anicteric. OP: MMM, no lesions. Neck: Supple. CV: Regular, positive mechanical click, no loud murmurs. Lung: CTA b/l, normal effort. Ab: +BS, soft. Skin: Warm, dry to touch. No rash. Ext: No pitting edema LE b/l. Medical Decision Making 40 MINUTES SPENT BY ME on the date of service doing chart review, history, exam, documentation & further activities per the note. Data I have personally reviewed the following data over the past 24 hrs: 10.5 \ 13.4; 13.4 / 262 131 (L) 101 17.3 / 110 (H) 4.6 21 (L) 1.04 \ INR: 4.33 (H) PTT: N/A D-dimer: N/A Fibrinogen: N/A Imaging results reviewed over the past 24 hrs: No results found for this or any previous visit (from the past 24 hour(s)). * Zainab Magallon MD - 08/10/2024 2:46 [...] Interventions/actions: other none Will continue to monitor. Cosigned by Sabine Goldberg RN at 08/10/2024 12:11 AM CDT Associated attestation - Sabine Goldberg RN - [...] Easton MD - 08/09/2024 9:26 PM CDT [facility] History and Physical Hospitalist Date of Admission: [...] days Uziel Easton MD Primary Care Physician [facility] Chief Complaint Hematuria History is obtained from [...] it with pertinent information if needed. Oleg Sparks reports that he quit smoking about [...] from the original note were not included. [facility] Consultation by [facility] @NAME@ Age: [age] year old Date of : 1960 Date of Admission: 08/09/2024 Reason for consult: Gross hematuria Requesting DENIS/: Dr Easton Level of consult: Consult, follow [...] for now. Hand irrigate catheter as needed. His supratherapeutic INR will be corrected as well Adalberto Eldridge M.D. [facility] [phone] Chief Complaint: History is obtained from the [...] hemoglobin is 11.6 and creatinine is 1.19. INR 4.3 upom admission Past Medical History: Past Medical History: Diagnosis [...] 25 mg Oral Q6H PRN Olvin Alejandre, lidocaine (LMX4) cream Topical Q1H PRN Uziel [...] 0.4 mg Intravenous Q2 Min PRN Uziel Easton MD Or naloxone (NARCAN) injection 0.2 mg [...] 2.5 mg Oral Q4H PRN Olvin Alejandre, DO senna-docusate (SENOKOT-S/PERICOLACE) 8.6-50 MG per tablet 1 [...] Package accidentally thrown away prior to scanning. Project Analyst administered with JENNIFER Alvarez also at bedside. * Tangela Artis RN - 08/09/2024 9:00 PM CDT Patient's son continually pressing call light and coming out of room asking for pain medication/nursing intervention. Provider notified and 0.3mg dilaudid and ditropan ordered. * Pam Chin RN - 08/09/2024 8:03 PM CDT [facility] ED Nurse Handoff Report ED Chief complaint: Hematuria . ED Diagnosis: Final diagnoses: Gross hematuria Problem with Box catheter, initial encounter (H24) Supratherapeutic INR Allergies: Allergies Allergen Reactions Shellfish-Derived Products Anaphylaxis Cats Code Status: Full Code Activity level - Baseline/Home: independent. Activity Level - Current: standby. Lift room needed: No. Bariatric: No Human Relations Teacher Needed: No Isolation: No. Infection: Not [...] that 2 days ago,he was fishing in [facility] near [place] and began experiencing an onset of urinary [...] clot blocking the catheter. He follows with [facility] for his hx of enlarged prostate. [...] Bilirubin Urine Negative Ketones Urine Negative Specific [place] Urine 1.005 Blood Urine Large (*) pH [...] on August 09, 2024 at 8:42 PM Paris Bennett called the ED to inform them the [...] 2 days ago, he was fishing in [place] near [place] and began experiencing an onset of urinary [...] clot blocking the catheter. He follows with [facility] for his hx of enlarged prostate. [...] Bilirubin Urine Negative Ketones Urine Negative Specific [place] Urine 1.005 Blood Urine Large (*) pH [...] ED Course ED Course as of 08/09/242025 Renee Aug 09, 2024 161 I obtained history and examined the patient as noted above. Additional Documentation None Medical Decision Making / Diagnosis [facility] Diagnoses: None MIPS None MDM Oleg Sparks is a 64 year old [...] documented in this encounter Miscellaneous Notes * Pharmacy-Anticoagulation Service - Andreia Johnston [facility] - 08/13/2024 12:46 PM CDT Images from the original note were not included. 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 INR Goal= 2.5-3.5 Expected length of therapy lifetime. Warfarin RENEWALS REPRESENTATIVE Regimen: 4mg Tu/Sun, 8mg ROW Anticoagulation Dose History Latest Ref Rng & Units 07/24/2021 08/09/2024 08/10/2024 08/11/2024 08/12/2024 08/13/2024 Recent Dosing and Labs INR 0.85 - 1.15 2.14 Effective 05/31/2021, the reference range for this assay has changed. 4.26 4.32 4.33 2.47 3.67 1.35 1.84 1.16 Details Multiple values from one day are sorted in reverse-chronological order Vitamin K doses administered during the last 7 days: x1 dose on 08/10 FFP administered during the last 7 days: --- Reviewed RENEWALS REPRESENTATIVE, inpt and discharge meds. Pt admitted with elevated INR, likely due to bactrim interaction (RENEWALS REPRESENTATIVE med). Pt INR now subtherapeutic. On enoxaparin bridge. Agree with MD plan to discharge pt on RENEWALS REPRESENTATIVE warfarin dose (Bactrim has been discontinued) and INR in 2 days. * Plan of Care - Sheela Phan RN - 08/13/2024 5:22 AM CDT End of Shift Summary For vital signs and complete assessments, please see documentation flowsheets. Pertinent assessments: A&O x4. VSS on RA. Denies pain, N/V, SOB. Some bladder discomfort, declined intervention. Up SBA with IV pole. CBI clamped, urine light pink to yellow, couple of small clots observed. Tolerating a regular diet, good appetite. Heparin drip 850 units/hr. Prn senna given forconstipation. Major Shift Events: Pt became very anxious and tearful about INR level with PVR. Project Analyst paged xc who then ultimately started a Heparin drip. Treatment Plan: Urology following, monitor for clots, Heparin drip Bedside Nurse: Sheela Phan RN Goal Outcome Evaluation: Plan of Care Reviewed With: patient Overall Patient Progress: improvingOverall Patient Progress: improving Outcome Evaluation: CBI clamped, Heparin drip started Problem: Adult Inpatient Plan of Care Goal: Plan of Care Review Description: The Plan of Care Review/Shift note should be completed every shift. The Outcome Evaluation is a brief statement about your assessment that the patient is improving, declining, or no change. This information will be displayed automatically on your shift note. Outcome: Progressing Flowsheets (Taken 08/13/2024 0522) Outcome Evaluation: CBI clamped, Heparin drip started Plan of Care Reviewed With: patient Overall Patient Progress: improving Goal: Patient-Specific Goal (Individualized) Description: You can [...] Manage Fall Risk Recent Flowsheet Documentation Taken 08/12/20242130 by Sheela Phan RN Safety Promotion/Fall Prevention: activity supervised assistive device/personal items within reach clutter free environment maintained nonskid shoes/slippers when out of bed patient and family education room near nurse's station room organization consistent safety round/check completed supervised activity Intervention: Prevent Skin Injury Recent Flowsheet Documentation Taken 08/12/20242130 by Sheela Phan RN Body Position: position changed independently Device Skin Pressure Protection: absorbent pad utilized/changed Intervention: Prevent and Manage VTE (Venous Thromboembolism) Risk Recent Flowsheet Documentation Taken 08/12/20242130 by Sheela Phan RN VTE Prevention/Management: SCDs off (sequential compression devices) Intervention: Prevent Infection Recent Flowsheet Documentation Taken 08/12/20242130 by Sheela Phan RN Infection Prevention: cohorting utilized hand hygiene promoted rest/sleep promoted single patient room provided Goal: Optimal Comfort and Wellbeing Outcome: Progressing Intervention: Monitor Pain and Promote Comfort Recent Flowsheet Documentation Taken 08/12/20242130 by Sheela Phan RN Pain Management Interventions: declines Goal: Readiness for Transition of Care Outcome: Progressing Problem: Urinary Retention Goal: Effective Urinary Elimination Outcome: Progressing Intervention: Promote Effective Urine Elimination Recent Flowsheet Documentation Taken 08/12/20242130 by Sheela Phan RN Urinary Elimination Promotion: absorbent pad/diaper use encouraged Problem: Pain Acute Goal: Optimal Pain Control and Function Outcome: Progressing Intervention: Develop Pain Management Plan Recent Flowsheet Documentation Taken 08/12/20242130 by Sheela Phan RN Pain Management Interventions: declines Intervention: Prevent or Manage Pain Recent Flowsheet Documentation Taken 08/12/20242130 by Sheela Phan RN Sensory Stimulation Regulation: care clustered television on Sleep/Rest Enhancement: awakenings minimized consistent schedule promoted regular sleep/rest pattern promoted room darkened Bowel Elimination Promotion: adequate fluid intake promoted ambulation promoted Medication Review/Management: medications reviewed Intervention: Optimize Psychosocial Wellbeing Recent Flowsheet Documentation Taken 08/12/20242130 by Sheela Phan RN Supportive Measures: active listening utilized decision-making supported self-care encouraged verbalization of feelings encouraged * Plan of Care - Maci Briggs RN - 08/12/2024 4:59 PM CDT To Do: End of Shift Summary For vital signs and complete assessments, please see documentation flowsheets. Pertinent assessments: A&o---- up in room and halls --- CBI off urine lite red to yellow per box ---- no clots ------- denies bladder spasms -- medicated for pain x2 with T ylenol----appetite good --- Major Shift Events uneventful Treatment Plan: monitor Bedside Nurse: Maci Briggs RN Problem: Adult Inpatient Plan of Care Goal: Plan of Care Review Description: The Plan of Care Review/Shift note should be completed every shift. The Outcome Evaluation is a brief statement about your assessment that the patient is improving, declining, or no change. This information will be displayed automatically on your shift note. Outcome: Progressing Flowsheets (Taken 08/12/2024 6190) Outcome Evaluation: less pain Plan of Care Reviewed With: patient Overall Patient Progress: improving Goal: Patient-Specific Goal (Individualized) Description: You can [...] Manage Fall Risk Recent Flowsheet Documentation Taken 08/12/2024 1100 by Maci Briggs RN Safety Promotion/Fall Prevention: safety round/check completed Intervention: Prevent Skin Injury Recent Flowsheet Documentation Taken 08/12/2024 1100 by Maci Briggs RN Body Position: position changed independently Goal: Optimal Comfort and Wellbeing Outcome: Progressing Goal: Readiness for Transition of Care Outcome: Progressing Problem: Urinary Retention Goal: Effective Urinary Elimination Outcome: Progressing Problem: Pain Acute Goal: Optimal Pain Control and Function Outcome: Progressing Goal Outcome Evaluation: Plan of Care Reviewed With: patient Overall Patient Progress: improvingOverall Patient Progress: improving Outcome Evaluation: less pain * Plan of Care - Sheela Phan RN - 08/12/2024 6:54 AM CDT End of Shift Summary For vital signs and complete assessments, please see documentation flowsheets. Pertinent assessments: A&O x4. VSS on RA. Denies N/V, SOB. Reported bladder spasms and pain to urethra, PRN oxy given x1. UP SBA with IV pole. CBI running slow, urine light pink. Tolerating a regular diet, good appetite. NS 100 mL/hr. Major Shift Events: Uneventful Treatment Plan: Urology following. CBI. Monitor for clots. Bedside Nurse: Sheela Phan RN Goal Outcome Evaluation: Plan of Care Reviewed With: patient Overall Patient Progress: improvingOverall Patient Progress: improving Outcome Evaluation: CBI running, PRN oxy x1 for pain Problem: Adult Inpatient Plan of Care Goal: Plan of Care Review Description: The Plan of Care Review/Shift note should be completed every shift. The Outcome Evaluation is a brief statement about your assessment that the patient is improving, declining, or no change. This information will be displayed automatically on your shift note. Outcome: Progressing Flowsheets (Taken 08/12/2024 0653) Outcome Evaluation: CBI running, PRN oxy x1 for pain Plan of Care Reviewed With: patient Overall Patient Progress: improving Goal: Patient-Specific Goal (Individualized) Description: You can [...] Manage Fall Risk Recent Flowsheet Documentation Taken 08/11/20242099 by Sheela Phan RN Safety Promotion/Fall Prevention: activity supervised assistive device/personal items within reach clutter free environment maintained nonskid shoes/slippers when out of bed patient and family education room near nurse's station room organization consistent safety round/check completed supervised activity Intervention: Prevent Skin Injury Recent Flowsheet Documentation Taken 08/11/20242099 by Sheela Phan RN Body Position: position changed independently Intervention: Prevent and Manage VTE (Venous Thromboembolism) Risk Recent Flowsheet Documentation Taken 08/11/20242099 by Sheela Phan RN VTE Prevention/Management: SCDs off (sequential compression devices) Intervention: Prevent Infection Recent Flowsheet Documentation Taken 08/11/20242099 by Sheela Phan RN Infection Prevention: cohorting utilized hand hygiene promoted rest/sleep promoted single patient room provided Goal: Optimal Comfort and Wellbeing Outcome: Progressing Intervention: Monitor Pain and Promote Comfort Recent Flowsheet Documentation Taken 08/11/20242099 by Sheela Phan RN Pain Management Interventions: declines Goal: Readiness for Transition of Care Outcome: Progressing Problem: Urinary Retention Goal: Effective Urinary Elimination Outcome: Progressing Intervention: Promote Effective Urine Elimination Recent Flowsheet Documentation Taken 08/11/20242099 by Sheela Phan RN Urinary Elimination Promotion: absorbent pad/diaper use encouraged Problem: Pain Acute Goal: Optimal Pain Control and Function Outcome: Progressing Intervention: Develop Pain Management Plan Recent Flowsheet Documentation Taken 08/11/20242099 by Sheela Phan RN Pain Management Interventions: declines Intervention: Prevent or Manage Pain Recent Flowsheet Documentation Taken 08/11/20242099 by Sheela Phan RN Sensory Stimulation Regulation: care clustered television on Sleep/Rest Enhancement: awakenings minimized consistent schedule promoted regular sleep/rest pattern promoted room darkened Bowel Elimination Promotion: adequate fluid intake promoted ambulation promoted Medication Review/Management: medications reviewed Intervention: Optimize Psychosocial Wellbeing Recent Flowsheet Documentation Taken 08/11/20242099 by Sheela Phan RN Supportive Measures: active listening utilized decision-making supported self-care encouraged verbalization of feelings encouraged * Plan of Care - Lo Tate RN - 08/11/2024 6:11 PM CDT Pertinent assessments: A&Ox4. VSS. Pain controlled with IV dilaudid. No nausea reported. CBI running slow, urine clear/very light pink. Tolerating diet. Showered today. Up A1. Senna given x1 for constipation. Major Shift Events: Back from surgery around 1700. Treatment Plan: Urology following. CBI. Monitor for clots. Problem: Adult Inpatient Plan of Care Goal: Plan of Care Review Description: The Plan of Care Review/Shift note should be completed every shift. The Outcome Evaluation is a brief statement about your assessment that the patient is improving, declining, or no change. This information will be displayed automatically on your shift note. Outcome: Progressing Flowsheets (Taken 08/11/2024 181) Outcome Evaluation: CBI running. Await to be clot free Plan of Care Reviewed With: patient Overall Patient Progress: improving Goal: Patient-Specific Goal (Individualized) Description: You can [...] Manage Fall Risk Recent Flowsheet Documentation Taken 08/11/2024756 by Lo Tate RN Safety Promotion/Fall Prevention: activity supervised assistive device/personal items within reach clutter free environment maintained nonskid shoes/slippers when out of bed safety round/check completed room organization consistent Intervention: Prevent Skin Injury Recent Flowsheet Documentation Taken 08/11/2024756 by Lo Tate, RN Device Skin Pressure Protection: absorbent pad utilized/changed Intervention: Prevent and Manage VTE (Venous Thromboembolism) Risk Recent Flowsheet Documentation Taken 08/11/2024756 by Lo Tate, RN VTE Prevention/Management: SCDs off (sequential compression devices) Intervention: Prevent Infection Recent Flowsheet Documentation Taken 08/11/2024 0757 by Lo Tate RN Infection Prevention: cohorting utilized hand hygiene promoted rest/sleep promoted single patient room provided Goal: Optimal Comfort and Wellbeing Outcome: Progressing Intervention: Monitor Pain and Promote Comfort Recent Flowsheet Documentation Taken 08/11/2024 1705 by Lo Tate RN Pain Management Interventions: declines Taken 08/11/2024 1151 by Lo Tate RN Pain Management Interventions: medication (see MAR) Goal: Readiness for Transition of Care Outcome: Progressing Goal Outcome Evaluation: Plan of Care Reviewed With: patient Overall Patient Progress: improvingOverall Patient Progress: improving Outcome Evaluation: CBI running. Await to be clot free * Op Note - Adalberto Eldridge MD - 08/11/2024 3:27 PM CDT SURGEON: Adalberto Eldridge MD PREOPERATIVE DIAGNOSIS: Gross hematuria, enlarged prostate, bladder stones POSTOPERATIVE DIAGNOSIS: Gross hematuria, enlarged prostate, bladder stones PROCEDURE PERFORMED: Cystoscopy, evacuation of bladder hematoma, removal of bladder stones, fulguration of the prostate ANESTHESIA: General. COMPLICATIONS: None INDICATIONS FOR PROCEDURE: This is a 64-year-old gentleman with an enlarged prostate who presents with a supratherapeutic INR, gross hematuria, and bladder stones. He has a Box catheter in place that has stopped draining due to clot retention. I recommended that we proceed to the operating room for cystoscopy and evacuation of bladder hematoma. His INR is still 2.45 so I recommended that we delay the treatment of his bladder stones with laser lithotripsy and he agreed to the plan. Findings: some of the smaller bladder stones were easily flushed out through the scope. The larger bladder stones were not treated today. DETAILS OF PROCEDURE: The patient was brought to the operating room and placed supine on the operating table and underwent general endotracheal anesthetic. The patient was then moved down to the dorsolithotomy position and prepped and draped in standard sterile fashion. I introduced the rigid cystoscope through the urethra into the bladder and I performed cystoscopy. The patient had an enlarged prostate with trilobar enlargement. There were large bladder stones in the dependent portion of the bladder. There is a large hematoma in the bladder. I used the [employer] operations controller to irrigate out the hematoma. With this process of the but smaller bladder stones were removed as well. I then performed cystoscopy to make certain all hematoma had been removed. I flushed out any remaining small bladder stones that I could flush out but there still remained multiple large bladder stones. I looked at the prostate and bleeding was primarily coming from the median lobe of the prostate. I used the Bugbeeelectrode to fulgurate any active bleeding. I removed the scope and drained the bladder with a 24 Portuguese three-way Box catheter. I hand irrigate the catheter until output was clear. I left the catheter to continuous irrigation with normal saline to gravity and the procedure was concluded. The patient tolerated the procedure well without complications. He went to the postanesthetic care unit in good condition. Will monitor him overnight on continuous bladder irrigation and he will needto have his bladder stones treated at a later procedure. He will also require an outlet procedure for BPH in the future as well. * Provider Notification - Lo Tate RN - 08/11/2024 12:37 PM CDT Spoke with Dr. Eldridge on the phone at 12pm to notify him that patient is still passing large clotsdespite CBI running wide open. Project Analyst tried to hand irrigate for over 30 minutes with no success, CBI is clotted off. Received okay to keep CBI clamped for now until patient goes to the OR at 2pm today. * Plan of Care - Sheela Phan RN - 08/11/2024 6:20 AM CDT End of Shift Summary For vital signs and complete assessments, please see documentation flowsheets. Pertinent assessments: A&O x4. VSS on RA. Denies N/V, SOB. Reported bladder spasms and pain to urethra, IV dilaudid given x1. UP SBA with IV pole. CBI running fast, intermittently still needing to be hand irrigated. Urine renner red with clots. Discharge and clots also coming from penile head. Surgery postponed until 08/11 d/t high INR. Tolerating a regular diet, NPO at midnight. NS 100 mL/hr. Major Shift Events: CBI running fast. Treatment Plan: IVF, trend INR, CBI Bedside Nurse: Sheela Phan RN Goal Outcome Evaluation: Plan of Care Reviewed With: patient Overall Patient Progress: no changeOverall Patient Progress: no change Outcome Evaluation: Trend INR, plan for cysto today Problem: Adult Inpatient Plan of Care Goal: Plan of Care Review Description: The Plan of Care Review/Shift note should be completed every shift. The Outcome Evaluation is a brief statement about your assessment that the patient is improving, declining, or no change. This information will be displayed automatically on your shift note. Outcome: Not Progressing Flowsheets (Taken 08/11/2024 06) Outcome Evaluation: Trend INR, plan for cysto today Plan of Care Reviewed With: patient Overall [...] me up as it startles me. Outcome: Not Progressing Goal: Absence of Hospital-Acquired Illness or Injury Outcome: Not Progressing Intervention: Identify and Manage Fall Risk Recent Flowsheet Documentation Taken 08/10/20242115 by Sheela Phan RN Safety Promotion/Fall Prevention: activity supervised assistive device/personal items within reach clutter free environment maintained nonskid shoes/slippers when out of bed patient and family education room near nurse's station room organization consistent safety round/check completed supervised activity Intervention: Prevent Skin Injury Recent Flowsheet Documentation Taken 08/10/20242115 by Sheela Phan RN Body Position: position changed independently Intervention: Prevent and Manage VTE (Venous Thromboembolism) Risk Recent Flowsheet Documentation Taken 08/10/20242115 by Sheela Phan RN VTE Prevention/Management: SCDs off (sequential compression devices) Intervention: Prevent Infection Recent Flowsheet Documentation Taken 08/10/20242115 by Sheela Phan RN Infection Prevention: cohorting utilized hand hygiene promoted rest/sleep promoted single patient room provided Goal: Optimal Comfort and Wellbeing Outcome: Not Progressing Intervention: Monitor Pain and Promote Comfort Recent Flowsheet Documentation Taken 08/10/20242115 by Sheela Phan RN Pain Management Interventions: rest medication (see MAR) Goal: Readiness for Transition of Care Outcome: Not Progressing Problem: Urinary Retention Goal: Effective Urinary Elimination Outcome: Not Progressing Problem: Pain Acute Goal: Optimal Pain Control and Function Outcome: Not Progressing Intervention: Develop Pain Management Plan Recent Flowsheet Documentation Taken 08/10/20242115 by Sheela Phan RN Pain Management Interventions: rest medication (see MAR) Intervention: Prevent or Manage Pain Recent Flowsheet Documentation Taken 08/10/20242115 by Sheela Phan RN Sensory Stimulation Regulation: television on Sleep/Rest Enhancement: awakenings minimized consistent schedule promoted regular sleep/rest pattern promoted room darkened Bowel Elimination Promotion: adequate fluid intake promoted ambulation promoted Medication Review/Management: medications reviewed Intervention: Optimize Psychosocial Wellbeing Recent Flowsheet Documentation Taken 08/10/20242115 by Sheela Phan RN Supportive Measures: active listening utilized decision-making supported self-care encouraged verbalization of feelings encouraged * Plan of Care - Lo Tate RN - 08/10/2024 6:26 PM CDT Patient A&Ox4. Soft BP's all other vitals stable. C/o bladder spasms and pain to urethra, IV dilaudid x2 effective. Denies nausea. CBI running wide open, intermittently still needing to be hand irrigated. Urine renner red. Surgery postponed until 08/11 d/t high INR. Regular diet, NPO at midnight. Up SBA. Problem: Adult Inpatient Plan of Care Goal: Plan of Care Review Description: The Plan of Care Review/Shift note should be completed every shift. The Outcome Evaluation is a brief statement about your assessment that the patient is improving, declining, or no change. This information will be displayed automatically on your shift note. Outcome: Not Progressing Flowsheets (Taken 08/10/2024 1826) Outcome Evaluation: Continue to monitor hematuria. Plan for cysto tomorrow. Plan of Care Reviewed With: patient Overall [...] me up as it startles me. Outcome: Not Progressing Goal: Absence of Hospital-Acquired Illness or Injury Outcome: Not Progressing Intervention: Identify and Manage Fall Risk Recent Flowsheet Documentation Taken 08/10/2024 0815 by Lo Tate RN Safety Promotion/Fall Prevention: activity supervised assistive device/personal items within reach nonskid shoes/slippers when out of bed patient and family education room organization consistent safety round/check completed Intervention: Prevent Skin Injury Recent Flowsheet Documentation Taken 08/10/2024 0815 by Lo Tate RN Body Position: position changed independently Device Skin Pressure Protection: absorbent pad utilized/changed Intervention: Prevent Infection Recent Flowsheet Documentation Taken 08/10/2024 0815 by Lo Tate RN Infection Prevention: hand hygiene promoted personal protective equipment utilized rest/sleep promoted single patient room provided Goal: Optimal Comfort and Wellbeing Outcome: Not Progressing Intervention: Monitor Pain and Promote Comfort Recent Flowsheet Documentation Taken 08/10/2024 1325 by Lo Tate RN Pain Management Interventions: declines Taken 08/10/2024 1304 by Lo Tate RN Pain Management Interventions: medication (see MAR) Taken 08/10/2024 0942 by Lo Tate RN Pain Management Interventions: medication (see MAR) Goal: Readiness for Transition of Care Outcome: Not Progressing Goal Outcome Evaluation: Plan of Care Reviewed With: patient Overall Patient Progress: no changeOverall Patient Progress: no change Outcome Evaluation: Continue to monitor hematuria. Plan for cysto tomorrow. * Provider Notification - Denice Nunez RN - 08/10/2024 5:[address] Luque INR 4.32. Surgery is cancelled per Dr. Luque. 5th floor RN notified and transported patient back up to room 509. Denice Nunez RN on 08/10/2024 at 5:02 PM * Provider Notification - Denice Nunez RN - 08/10/2024 3:[address] Eldridge INR 4.33. 2 06/19/24 mg Vitamin K given. No INR recheck done. Dr. Eldridge verbalized he would like INR rechecked prior to surgery and would like INR to be under 2. Denice Nunez RN on 08/10/2024 at 3:09 PM * Provider Notification - Sabine Goldberg RN - 08/10/2024 7:03 AM CDT MD Notification Notified Person: Andrew musa MD Notified Person Name: Zainab Magallon Notification Date/Time: 08/10/2024 0624 Mechanism of Provider Notification: [employer] Purpose of Notification: Paged MD to request Dilaudid to accompany B + O suppository for severe bladder spasms. worried about giving B + O with low BPs overnight. Got an updated BP and ok'd to give. MD Magallon ordered IV Dilaudid 0.2mg x1 dose. Project Analyst asked if CBI should continue despite spasms, red color, and high output. wanted it to keep running. Orders Received: Comments: * Plan of Care - Sabine Goldberg RN - 08/10/2024 7:03 AM CDT Assumed care [id number]. A&Ox4. Ax1 when OOB. On RA. NPO with the exception of meds. PIV in L arm is saline locked. Had some bladder spasms overnight that lasted for short periods of time until this AM. Had spasms that were intense this AM. Irrigated box with no clot removal, still having output. [...] your shift note. Outcome: Progressing Flowsheets (Taken 08/10/2024426) Outcome Evaluation: A&Ox4, hematuria continues despite CBI [...] Recent Flowsheet Documentation Taken 08/10/202432 by Sabine Goldberg, RN Safety Promotion/Fall Prevention: activity supervised lighting [...] Notified Person Name: Zainab Magallon Notification Date/Time: 08/10/20243 Mechanism of Provider Notification: [employer] Purpose of Notification: FYI Patient's most recent BP 83/44. Having some bleeding going on with CBI. Andrew Easton and Ash Casey with urology aware. Hgb just before midnight was 14.7. Orders Received: 500 mL NS bolus ordered, STAT Hgb recheck ordered, reassess response to fluids florincheck BP Comments: Notified MD Magallon of updates [...] Pertinent Information: outside meds Changes made to [employer]ENEW[employer] REPRESENTATIVE medication list: Added: valtrex, lisinopril, ditropan, Bactrim DS, proscar Deleted: None Changed: warfarin Allergies reviewed with patient and updates made in EHR: yes --added tramadol Medication History Completed By: Niall Jaeger RPH 08/09/2024 9:01 PM [employer] REPRESENTATIVE Med List Medication Sig Last Dose finasteride [...] mouth daily. 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 Office Visit [facility] [place] [address] [place] [phone] Adalberto Eldridge MD [address] [place] [address] 10/02/2024 11:00 AM CUSTOMER COMPLAINT SERVICE SUPERVISOR Virtual Visit [facility] [place] [address] [place] [phone] Adalberto Eldridge MD [address] [place] [address] Pending Results Name Type Priority Associated Diagnoses Date /Time Prepare plasma (unit) Blood Bank Routine 1:18 PM CDT Scheduled Orders Name Type Priority Associated Diagnoses Orde r Schedule INR Lab Routine Gross hematuria Expected: 08/15/2024 (Approximate), Expires: 08/13/2025 CBC with platelets Lab Routine Gross hematuria Expected: 08/20/2024 (Approximate), Expires: 08/13/2025 documented as of this encounter Procedures Procedure Name Priority Date/Time Associated Diagnosis Comments CBC WITH PLATELETS Routine 08/13/2024 6: 48 AM CDT HEPARIN UNFRACTIONATED ANTI XA LEVEL Timed 08/13/2024 6:37 AM CDT INR Routine 08/13/2024 6:37 AM CDT IONIZED CALCIUM Routine 08/13/2024 6:37 AM CDT BASIC METABOLIC PANEL Routine 08/13/2024 6:37 AM CDT INR STAT 08/12/2024 11:24 PM CDT CBC WITH PLATELETS STAT 08/12/2024 11 :24 PM CDT HEMOGLOBIN Timed 08/12/2024 12:27 PM CDT INR Routine 08/12/2024 6:12 AM CDT BASIC METABOLIC PANEL Routine 08/12/2024 6:12 AM CDT CBC WITH PLATELETS Routine 08/12/2024 6: 12 AM CDT HEMOGLOBIN Timed 08/11/2024 6:03 PM CDT STONE ANALYSIS Routine 08/11/2024 3:34 PM CDT REMOVAL, CALCULUS, BLADDER, CYSTOSCOPIC 08/11/2024 3:16 PM CDT Gross hematuria CYSTOSCOPY, WITH FULGURATION OF HEMORRHAGING BLOOD VESSEL AND THROMBUS REMOVAL 08/11/2024 3:16 PM CDT Gross hematuria CYSTOURETHROSCOPY 08/11/2024 3:1 6 PM CDT Gross hematuria PREPARE PLASMA (UNIT) Routine 08/11/2024 1:18 PM CDT TYPE AND SCREEN, ADULT STAT 12:27 PM CDT INR STAT 08/11/2024 12:27 PM CDT ABO/RH TYPE AND SCREEN STAT 12:27 PM CDT INR Routine 08/11/2024 5:51 AM CDT BASIC METABOLIC PANEL Routine 08/11/2024 5:51 AM CDT CBC WITH PLATELETS Routine 08/11/2024 5: 51 AM CDT HEMOGLOBIN Timed 08/10/2024 10:40 PM CDT INR STAT 08/10/2024 3:58 PM CDT GLUCOSE BY METER Routine 08/10/2024 3:50 PM CDT CBC WITH PLATELETS AND DIFFERENTIAL Routine 08/10/2024 10:34 AM CDT CBC WITH PLATELETS & DIFFERENTIAL Routine 08/10/2024 10:34 AM CDT INR [...] documented in this encounter Results * (ABNORMAL) CBC with platelets (08/13/2024 6:48 AM CDT) [facility] WBC Count 8.4 4.0 - 11.0 [...] LAB - BLOOD ORDERABLES Fin al Result [facility] [address] Lab (1st floor, no room number) [place] [address] * Heparin Unfractionated Anti Xa [...] MD LAB - BLOOD ORDERABLES Final Result [facility] [address] Lab (1st floor, no room number) [place] [phone] * (ABNORMAL) INR (08/13/2024 6:37 AM CDT) Pathologist [facility] INR 1.16(H) 0.85 - 1.15 08/13/2024 7:01 AM CDT LABORATORY Blood STRUCTURE OF RIGHT HAND / Unknown Venipuncture / Unknown 08/13/2024 6:37 AM CDT 08/13/2024 6:49 AM CDT Olvin Alejandre DO LAB - BLOOD ORDERABLES Fin al Result LABORATORY [facility] [address] [facility] Lab (1st floor, no room number) [address] * (ABNORMAL) Basic metabolic panel (08/13/2024 6:37 AM CDT) Pathologist [facility] Sodium 137 135 - 145 mmol/L 08/13/2024 [...] - 10.4 mg/dL 08/13/2024 7:14 AM CDT [facility] LABORATORY Comment:Reference intervals for this test were updated on 06/05/2024 to reflect our healthy population more accurately. There may be differences in the flagging of prior results with similar values performed with this method. Those prior results can be interpreted in the context of the updated reference intervals. Glucose 99 70 - 99 mg/dL 08/13/2024 7:14 AM CDT RH LABORATORY Blood STRUCTURE OF RIGHT HAND / Unknown Venipuncture / Unknown 08/13/2024 6:37 AM CDT 08/13/2024 6:48 AM CDT [facility] - BLOOD ORDERABLES Fin al Result [facility] [address] [facility] ([facility], no room number) [place] [address] * (ABNORMAL) Ionized Calcium (08/13/2024 6:37 AM CDT) Calcium Ionized Whole Blood 4.2(L) 4.4 - 5.2 mg/dL 08/13/2024 7:00 AM CDT RH LABORATORY Blood STRUCTURE OF RIGHT HAND / Unknown Venipuncture / Unknown 08/13/2024 6:37 AM CDT 08/13/2024 6:49 AM CDT Olvin Alejandre LAB - BLOOD ORDERABLES Fin al Result [facility] [address] [facility] ([facility] floor, no room number) [place] [address] * (ABNORMAL) INR (08/12/2024 11:24 PM CDT) INR 1.35(H) 0.85 - 1.15 08/12/2024 11:57 PM CDT RH LABORATORY Blood STRUCTURE OF RIGHT HAND / Unknown Venipuncture / Unknown 08/12/2024 11:24 PM CDT 08/12/2024 11:33 PM CDT us Grant Fernandez MD LAB - BLOOD ORDERABLES Final Res ult LABORATORY [facility] [address] Lab (1st floor, no room number) [place] [address] * (ABNORMAL) CBC with platelets (08/12/2024 11:24 PM CDT) [facility] WBC Count 9.8 4.0 - 11.0 10e3/uL 08/12/2024 11:36 PM CDT RH LABORATORY RBC Count 2.85(L) 4.40 - 5.90 10e6/uL 08/12/2024 11:36 PM CDT [facility] LABORATORY Hemoglobin 8.5(L) 13.3 - 17.7 g/dL 08/12/2024 11:36 PM CDT RH LABORATORY Hematocrit 25.7(L) 40.0 - 53.0 % 08/12/2024 11:36 PM CDT RH LABORATORY MCV 90 78 - 100 fL 08/12/2024 11:36 PM CDT RH LABORATORY MCH 29.8 26.5 - 33.0 pg 08/12/2024 11:36 PM CDT RH LABORATORY MCHC 33.1 31.5 - 36.5 g/dL 08/12/2024 11:36 PM CDT RH LABORATORY RDW 14.4 10.0 - 15.0 % 08/12/2024 11:36 PM CDT RH LABORATORY Platelet Count 220 150 - 450 10e3/uL 08/12/2024 11:36 PM CDT RH LABORATORY Blood STRUCTURE OF RIGHT HAND / Unknown Venipuncture / Unknown 08/12/2024 11:24 PM CDT 08/12/2024 11:33 PM CDT Grant Fernandez MD LAB - BLOOD ORDERABLES Final Res ult LABORATORY [facility] [address] Lab (1st floor, no room number) [place] [address], [facility] * (ABNORMAL) Hemoglobin (08/12/2024 12:27 PM CDT) Hemoglobin 8.9(L) 13.3 - 17.7 g/dL 08/12/2024 12:56 PM CDT LABORATORY Blood STRUCTURE OF RIGHT HAND / Unknown Venipuncture / Unknown 08/12/2024 12:27 PM CDT 08/12/2024 12:53 PM CDT us Adalberto Eldridge MD LAB - BLOOD ORDERABLES Final Result RH LABORATORY [facility] [address] Lab (1st floor, no room number) [place] [address], [facility] * (ABNORMAL) Basic metabolic panel (08/12/2024 6:12 AM CDT) Sodium 136 135 - 145 mmol/L 08/12/2024 6:51 AM CDT LABORATORY Potassium 4.5 3.4 - 5.3 mmol/L 08/12/2024 6:51 AM CDT LABORATORY Chloride 107 98 - 107 mmol/L 08/12/2024 6:51 AM CDT LABORATORY Carbon Dioxide (CO2) 20(L) 22 - 29 mmol/L 08/12/2024 6:51 AM CDT LABORATORY Anion Gap 9 7 - 15 mmol/L 08/12/2024 6:51 AM CDT LABORATORY Urea Nitrogen 16.9 8.0 - 23.0 mg/dL 08/12/2024 6:51 AM CDT LABORATORY Creatinine 0.78 0.67 - 1.17 mg/dL 08/12/2024 6:51 AM CDT LABORATORY GFR Estimate >90 >60 mL/min/1.7 3m2 08/12/2024 6:51 AM CDT LABORATORY Comment:eGFR calculated usin g 2020 CKD-EPI equation. Calcium 7.8(L) 8.8 - 10.4 mg/dL 08/12/2024 6:51 AM CDT LABORATORY Comment:Reference intervals for this test were updated on 06/05/2024 to reflect our healthy population more accurately. There may be differences in the flagging of prior results with similar values performed with this method. Those prior results can be interpreted in the context of the updated reference intervals. Glucose 152(H) 70 - 99 mg/dL 08/12/2024 6:51 AM CDT RH LABORATORY Blood STRUCTURE OF RIGHT HAND / Unknown Venipuncture / Unknown 08/12/2024 6:12 AM CDT 08/12/2024 6:30 AM CDT Adalberto Eldridge MD LAB - BLOOD ORDERABLES Final Result LABORATORY [facility] [address] Lab (1st floor, no room number) [place] [phone] * (ABNORMAL) INR (08/12/2024 6:12 AM CDT) Pathologist [facility] INR 1.84(H) 0.85 - 1.15 08/12/2024 6:50 AM CDT LABORATORY Blood STRUCTURE OF RIGHT HAND / Unknown Venipuncture / Unknown 08/12/2024 6:12 AM CDT 08/12/2024 6:30 AM CDT Adalberto Eldridge MD LAB - BLOOD ORDERABLES Final Result Performing Organization Address City/[facility]/ZIP Co de Phone Number LABORATORY [facility] [address] Lab (1st floor, no room number) [place] [phone] [place] [address] * (ABNORMAL) CBC with platelets (08/12/2024 6:12 AM CDT) WBC Count 10.3 4.0 - 11.0 10e3/uL 08/12/2024 6:38 AM CDT RH LABORATORY RBC Count 2.85(L) 4.40 - 5.90 10e6/uL 08/12/2024 6:38 AM CDT RH LABORATORY Hemoglobin 8.6(L) 13.3 - 17.7 g/dL 08/12/2024 6:38 AM CDT RH LABORATORY Hematocrit 26.5(L) 40.0 - 53.0 % 08/12/2024 6:38 AM CDT RH LABORATORY MCV 93 78 - 100 fL 08/12/2024 6:38 AM CDT RH LABORATORY MCH 30.2 26.5 - 33.0 pg 08/12/2024 6:38 AM CDT RH LABORATORY MCHC 32.5 31.5 - 36.5 g/dL 08/12/2024 6:38 AM CDT RH LABORATORY RDW 14.6 10.0 - 15.0 % 08/12/2024 6:38 AM CDT RH LABORATORY Platelet Count 211 150 - 450 10e3/uL 08/12/2024 6:38 AM CDT RH LABORATORY Blood STRUCTURE OF RIGHT HAND / Unknown Venipuncture / Unknown 08/12/2024 6:12 AM CDT 08/12/2024 6:30 AM CDT Adalberto Eldridge MD LAB - BLOOD ORDERABLES Final Result LABORATORY [facility] [address] [facility] Lab (1st floor, no room number) [address] * (ABNORMAL) Hemoglobin (08/11/2024 6:03 PM CDT) Hemoglobin 9.5(L) 13.3 - 17.7 g/dL 08/11/2024 6:10 PM CDT LABORATORY Blood STRUCTURE OF RIGHT UPPER LIMB / Unknown Venipuncture / Unknown 08/11/2024 6:03 PM CDT 08/11/2024 6:07 PM CDT Adalberto Eldridge MD LAB - BLOOD ORDERABLES Final Result LABORATORY [facility] [address] Lab (1st floor, no room number) [address] [place] [address] * Stone analysis (08/11/2024 3:34 PM CDT) Stone Mass 273 mg 08/16/2024 9:47 AM CDT [facility] Calculi Description See Note 08/16/2024 9:47 AM CDT [facility] Comment: Specimen consists of numerous brown calculi. The total weight is 273 mg. Stone Composition See Note 024 9:47 AM CDT [facility] Comment: Calculi composed primarily of: 20% calcium [...] composition determined by FTIR analysis. Performed By: [facility] [address] [place] [address] Electrical Instrumentation Technician: Noah Moran MD, PhD CLIA Number: [id number] Calculus/Stone URINARY BLADDER STRUCTURE / Unknown Non-blood Collection / Unknown 08/11/2024 3:34 PM CDT 08/11/2024 4:00 PM CDT Adalberto Eldridge MD LAB - BODY FLUIDS ORDER AMANDA Final Result [facility] [address] [place] [phone] [phone] * Adult Type and Screen (08/11/2024 12:27 PM CDT) ABO/RH(D) O POS 08/11/2024 12:17 PM CDT RH BLOOD BANK Antibody Screen Negative Negative 08/11/2024 12:17 PM CDT RH BLOOD BANK SPECIMEN EXPIRATION DATE [id number] 08/11/2024 12:17 PM CDT RH BLOOD BANK Blood STRUCTURE OF RIGHT HAND / Unknown Venipuncture / Unknown 08/11/2024 12:27 PM CDT 08/11/2024 12:33 PM CDT Olvin Alejandre DO LAB - BLOOD BANK TEST ORDE R Final Result RH BLOOD BANK [address] [place] [address] * (ABNORMAL) INR (08/11/2024 12:27 PM CDT) INR 2.47(H) 0.85 - 1.15 08/11/2024 1:18 PM CDT RH LABORATORY Blood STRUCTURE OF RIGHT HAND / Unknown Venipuncture / Unknown 08/11/2024 12:27 PM CDT 08/11/2024 12:33 PM CDT us Olvin Alejandre DO LAB - BLOOD ORDERABLES Fin al Result RH LABORATORY [facility] [address] [facility], no room number) [place] [phone] [place] [address] * (ABNORMAL) CBC with platelets (08/11/2024 5:51 AM CDT) WBC Count 7.8 4.0 - 11.0 10e3/uL 08/11/2024 6:06 AM CDT RH LABORATORY RBC Count 3.41(L) 4.40 - 5.90 10e6/uL 08/11/2024 6:06 AM CDT RH LABORATORY Hemoglobin 10.1(L) 13.3 - 17.7 g/dL 08/11/2024 6:06 AM CDT RH LABORATORY Hematocrit 30.0(L) 40.0 - 53.0 % 08/11/2024 6:06 AM CDT RH LABORATORY MCV 88 78 - 100 fL 08/11/2024 6:06 AM CDT RH LABORATORY MCH 29.6 26.5 - 33.0 pg 08/11/2024 6:06 AM CDT RH LABORATORY MCHC 33.7 31.5 - 36.5 g/dL 08/11/2024 6:06 AM CDT RH LABORATORY RDW 14.5 10.0 - 15.0 % 08/11/2024 6:06 AM CDT RH LABORATORY Platelet Count 236 150 - 450 10e3/uL 08/11/2024 6:06 AM CDT RH LABORATORY Blood STRUCTURE OF RIGHT HAND / Unknown Venipuncture / Unknown 08/11/2024 5:51 AM CDT 08/11/2024 6:02 AM CDT us Olvin Alejandre DO LAB - BLOOD ORDERABLES Maurilio pedro Result RH LABORATORY [facility] [address] Lab (1st floor, no room number) [place] [address], [facility] * (ABNORMAL) Basic metabolic panel (08/11/2024 5:51 AM CDT) Sodium 132(L) 135 - 145 mmol/L 08/11/2024 6:42 AM CDT LABORATORY Potassium 4.3 3.4 - 5.3 mmol/L 08/11/2024 6:42 AM CDT LABORATORY Chloride 102 98 - 107 mmol/L 08/11/2024 6:42 AM CDT LABORATORY Carbon Dioxide (CO2) 21(L) 22 - 29 mmol/L 08/11/2024 6:42 AM CDT LABORATORY Anion Gap 9 7 - 15 mmol/L 08/11/2024 6:42 AM CDT LABORATORY Urea Nitrogen 20.9 8.0 - 23.0 mg/dL 08/11/2024 6:42 AM CDT LABORATORY Creatinine 1.02 0.67 - 1.17 mg/dL 08/11/2024 6:42 AM CDT LABORATORY GFR Estimate 81 >60 mL/min/1.7 3m2 08/11/2024 6:42 AM CDT LABORATORY Comment:eGFR calculated usin g 2020 CKD-EPI equation. Calcium 7.7(L) 8.8 - 10.4 mg/dL 08/11/2024 6:42 AM CDT RH LABORATORY Comment:Reference intervals for this test were updated on 06/05/2024 to reflect our healthy population more accurately. There may be differences in the flagging of prior results with similar values performed with this method. Those prior results can be interpreted in the context of the updated reference intervals. Glucose 97 70 - 99 mg/dL 08/11/2024 6:42 AM CDT LABORATORY Blood STRUCTURE OF RIGHT HAND / Unknown Venipuncture / Unknown 08/11/2024 5:51 AM CDT 08/11/2024 6:02 AM CDT Olvin Alejandre DO LAB - BLOOD ORDERABLES Fin al Result Performing Organization Address City/[facility]/ZIP Co de Phone Number [facility] [address] Lab (1st floor, no room number) [place] [address] * (ABNORMAL) INR (08/11/2024 5:51 AM CDT) INR 3.67(H) 0.85 - 1.15 08/11/2024 6:46 AM CDT RH LABORATORY Blood STRUCTURE OF RIGHT HAND / Unknown Venipuncture / Unknown 08/11/2024 5:51 AM CDT 08/11/2024 6:02 AM CDT us Olvin Alejandre DO LAB - BLOOD ORDERABLES Fin al Result Performing Organization Address [facility] Co de Phone Number [facility] [address] Lab (1st floor, no room number) [place] [address] * (ABNORMAL) Hemoglobin (08/10/2024 10:40 PM CDT) Hemoglobin 11.1(L) 13.3 - 17.7 g/dL 08/10/2024 10:46 PM CDT LABORATORY Blood STRUCTURE OF RIGHT HAND / Unknown Venipuncture / Unknown 08/10/2024 10:40 PM CDT 08/10/2024 10:44 PM CDT Olvin Alejandre DO LAB - BLOOD ORDERABLES Fin al Result Performing Organization Address City/[facility]/ZIP Co de Phone Number [facility] [address] Lab (1st floor, no room number) [place] [phone] * (ABNORMAL) INR - Pre-Op (08/10/2024 3:58 PM CDT) INR 4.32(H) 0.85 - 1.15 08/10/2024 4:48 PM CDT RH LABORATORY Blood STRUCTURE OF RIGHT UPPER LIMB / Unknown Venipuncture / Unknown 08/10/2024 3:58 PM CDT 08/10/2024 4:02 PM CDT Adalberto Eldridge MD LAB - BLOOD ORDERABLES Final Result LAB[facility]ORY [facility] [address] Lab (1st floor, no room number) [place] [phone] * (ABNORMAL) Glucose by meter (08/10/2024 3:50 PM CDT) GLUCOSE BY METER POCT 102(H) 70 - 99 mg/dL 08/10/2024 4:21 PM CDT LABORATORY POC Blood, Capillary BLOOD SPECIMEN / Unknown 08/10/2024 3:50 PM CDT 08/10/2024 4:21 PM CDT Uziel Easton MD LAB - BEAKER POCT Joy l Result LABORATORY [facility] [address] Lab (1st floor, no room number) [place] [phone] [place] [address] * (ABNORMAL) CBC with platelets and differential (08/10/2024 10:34 AM CDT) WBC Count 10.5 4.0 - 11.0 10e3/uL [...] MD LAB - BLOOD ORDERABLES Final Result [facility] [address] Lab (1st floor, no room number) [address] * (ABNORMAL) INR (08/10/2024 10:34 AM CDT) INR 4.33(H) 0.85 - 1.15 08/10/2024 11:01 AM CDT LABORATORY Blood STRUCTURE OF RIGHT UPPER LIMB / Unknown Venipuncture / Unknown 08/10/2024 10:34 AM CDT 08/10/2024 10:41 AM CDT Olvin Alejandre DO LAB - BLOOD ORDERABLES Fin al Result Performing Organization Address [facility]/ZIP Co de Phone Number [facility] [address] Lab (1st floor, no room number) [address] * Hemoglobin (08/10/2024 10:34 AM CDT) Hemoglobin 13.4 13.3 - 17.7 g/dL 08/10/2024 10:44 AM CDT LABORATORY Blood STRUCTURE OF RIGHT UPPER LIMB / Unknown Venipuncture / Unknown 08/10/2024 10:34 AM CDT 08/10/2024 10:41 AM CDT Uziel Easton MD LAB - BLOOD ORDERABLES Final Result [facility] [address] Lab (1st floor, no room number) [address] * (ABNORMAL) Basic metabolic panel (08/10/2024 10:34 AM CDT) Sodium 131(L) 135 - 145 mmol/L 08/10/2024 11:07 AM CDT LABORATORY Potassium 4.6 3.4 - 5.3 mmol/L 08/10/2024 11:07 AM CDT LABORATORY Chloride 101 98 - 107 mmol/L 08/10/2024 11:07 AM CDT LABORATORY Carbon Dioxide (CO2) 21(L) 22 - 29 mmol/L 08/10/2024 11:07 AM CDT LABORATORY Anion Gap 9 7 - 15 mmol/L 08/10/2024 11:07 AM CDT LABORATORY Urea Nitrogen 17.3 8.0 - 23.0 mg/dL 08/10/2024 11:07 AM CDT LABORATORY Creatinine 1.04 0.67 - 1.17 mg/dL 08/10/2024 11:07 AM CDT LABORATORY GFR Estimate 79 >60 mL/min/1.7 3m2 08/10/2024 11:07 AM CDT LABORATORY Comment:eGFR calculated usin 2020 CKD-EPI equation. Calcium 8.4(L) 8.8 - 10.4 mg/dL 08/10/2024 11:07 AM CDT LABORATORY Comment:Reference intervals for this test were updated on 06/05/2024 to reflect our healthy population more accurately. There may be differences in the flagging of prior results with similar values performed with this method. Those prior results can be interpreted in the context of the updated reference intervals. Glucose 110(H) 70 - 99 mg/dL 08/10/2024 11:07 AM CDT LABORATORY Blood STRUCTURE OF RIGHT UPPER LIMB / Unknown Venipuncture / Unknown 08/10/2024 10:34 AM CDT 08/10/2024 10:41 AM CDT us Uziel Easton MD LAB - BLOOD ORDERABLES Final Result LABORATORY [facility] [address] [facility] (1st floor, no room number) [place] [address], [facility] * CT Abdomen Pelvis w/o Contrast (08/10/2024 9:15 AM CDT) Anatomical Region Laterality Modality Abdomen/Pelvis, SUBRAD CT LORI DY, UMP CT ABDOMEN PELVIS, RAD CT Computed Tomography Impressions 08/10/2024 3:02 PM CDT IMPRESSION: 1. ??Distended urinary bladder with a large amount of clot around the Box balloon. Multiple stones in the bladder. 2. ??Marked prostatomegaly. 3. ??Two right renal calculi measuring 2 to 3 mm and a 5 mm left renal calculus. No hydronephrosis. ALBERT ADAMS MD SYSTEM ID: ??[id number] Narrative 08/10/2024 3:[address] ABDOMEN [...] 5 mm. No hydronephrosis or perinephric stranding. Box catheter in the urinary bladder. Multiple stones layering within the urinary bladder. A rind of hyperdense soft tissue around the Box balloon, likely large amount of clot material measuring 8 x 7 cm. Gas within the urinary bladder lumen related to the Box. BOWEL: Multiple duodenal diverticula. No small bowel [...] 5 mm. No hydronephrosis or perinephric stranding. Box catheter in the urinary bladder. Multiple stones layering within the urinary bladder. A rind of hyperdense soft tissue around the Box balloon, likely large amount of clot material measuring 8 x 7 cm. Gas within the urinary bladder lumen related to the Box. BOWEL: Multiple duodenal diverticula. No small bowel [...] a large amount of clot around the Box balloon. Multiple stones in the bladder. 2. Marked prostatomegaly. 3. Two right renal calculi measuring 2 to 3 mm and a 5 mm left renal calculus. No hydronephrosis. ALBERT ADAMS MD SYSTEM ID: [id number] us Adalberto Eldridge MD IMG CT ORDERABLES Final Result * (ABNORMAL) Hemoglobin (08/10/2024 3:07 AM CDT) Hemoglobin 11.6(L) 13.3 - 17.7 g/dL 08/10/2024 3:52 AM CDT LABORATORY Blood STRUCTURE OF RIGHT HAND / Unknown Venipuncture / Unknown 08/10/2024 3:07 AM CDT 08/10/2024 3:09 AM CDT us Zainab Magallon MD LAB - BLOOD ORDERABLES Fi nal Result LABORATORY [facility] [address] [facility] (1st floor, no room number) [place] [id number] * Hemoglobin (08/09/2024 11:33 PM CDT) Hemoglobin 14.7 13.3 - 17.7 g/dL 08/09/2024 11:43 PM CDT LABORATORY Blood STRUCTURE OF RIGHT HAND / Unknown Venipuncture / Unknown 08/09/2024 11:33 PM CDT 08/09/2024 11:41 PM CDT us Uziel Easton MD LAB - BLOOD ORDERABLES Final Result LABORATORY [facility] [address] (1st floor, no room number) [place] [id number] * (ABNORMAL) UA with Microscopic [...] mg/dL 08/09/2024 7:55 PM CDT LABORATORY Specific [place] Urine 1.005 1.003 - 1.035 08/09/2024 7:55 [...] LAB - URINE ORDERABLES Fi nal Result RH LABORATORY [facility] [address] (1st floor, no room number) [place] [address], [facility] * (ABNORMAL) CBC with platelets [...] 5:40 PM CDT 08/09/2024 5:44 PM CDT us Amilcar Holt MD LAB - BLOOD ORDERABLES Fi nal Result RH LABORATORY [facility] [address] (1st floor, no room number) [place] [address], [facility] * (ABNORMAL) INR (08/09/2024 5:40 PM CDT) INR 4.26(H) 0.85 - 1.15 08/09/2024 7:06 PM CDT LABORATORY Blood STRUCTURE OF LEFT UPPER LIMB / Unknown Venipuncture / Unknown 08/09/2024 5:40 PM CDT 08/09/2024 5:44 PM CDT us Amilcar Holt MD LAB - BLOOD ORDERABLES Fi nal Result LABORATORY [facility] [address] (1st floor, no room number) [place] [address], [facility] * (ABNORMAL) Basic metabolic panel [...] 5:40 PM CDT 08/09/2024 5:44 PM CDT us Amilcar Holt MD LAB - BLOOD ORDERABLES Fi nal Result LABORATORY [facility] [address] [facility] (1st floor, no room number) [place] [address] documented in this encounter Visit Diagnoses Diagnosis Gross hematuria Problem with Box catheter, initial encounter (H) Supratherapeutic INR Abnormal coagulation profile Gross hematuria Supratherapeutic INR Abnormal coagulation profile Problem with Box catheter, initial encounter (H) documented in this encounter Administered Medications Inactive Administered [...] 75 mg/kg/day not to exceed 4 grams/day. $Given 08/12/2024 4:28 PM CDT 650 mg acetaminophen (TYLENOL) tablet 975 mg 975 mg, Oral, ONCE, On Tue08/10/24 at 1530, For 1 dose, Maximum acetaminophen dose from all sources = 75 mg/kg/day not to exceed 4 grams/day., Pre-procedure $Given 08/10/2024 4:04 PM CDT 975 mg acetaminophen (TYLENOL) tablet 975 mg 975 mg, Oral, ONCE, On Tue08/11/24 at 1430, For 1 dose, Maximum acetaminophen dose from all sources = 75 mg/kg/day not to exceed 4 grams/day., Pre-procedure $Given 08/11/2024 2:34 PM CDT 975 mg calcium gluconate 1 g in 50 mL in sodium chloride intermittent infusion 1 g, Intravenous, Administer over 60 Minutes, ONCE, On Tue08/13/24 at 0800, For 1 dose, Do not infuse in the same IV line as phosphate-containing solutions $Given 08/13/2024 8:55 AM CDT 1 g enoxaparin ANTICOAGULANT (LOVENOX) injection 70 mg 70 mg (rounded from 72.8 mg = 1 mg/kg ? 72.8 kg), Subcutaneous, EVERY 12 HOURS, First dose on Tue08/13/24 at 1300, Give first dose within 1 hour of stopping heparin drip $Given 08/13/2024 1:05 PM CDT 70 mg ferrous sulfate (FEROSUL) tablet 325 mg 325 mg, Oral, DAILY, First dose on Tue08/13/24 at 1200 $Given 08/13/2024 1:06 PM CDT 325 mg finasteride (PROSCAR) tablet 5 mg 5 mg, Oral, DAILY, First dose on Tue08/12/24 at 1500, *Do not handle tablets if you are * $Given 08/13/2024 8:28 AM CDT 5 mg $Given 08/12/2024 4:28 PM CDT 5 mg heparin - BOLUS DOSE from infusion 4,350 Units (rounded from 4,368 Units = 60 Units/kg ? 72.8 kg), Intravenous, ONCE, On Tue08/13/24 at 0830, For 1 dose, IV PUMP PROGRAMMING: Program continuous infusion first, then program bolus dose. Infuse over 5 minutes. For Heparin Anti-Xa value LESS than 0.1 Low Intensity Heparin Treatment- Anti-Xa monitoring Nurse to administer dose from existing infusion. If no infusion bag or syringe for this order is available, contact pharmacist to re-enter medication order. $Given 08/13/2024 8:29 AM CDT 4,350 Units heparin 25,000 units in 0.45% NaCl 250 mL ANTICOAGULANT infusion 0-5,000 Units/hr (0-50 mL/hr), Intravenous, CONTINUOUS, Starting on Tue08/12/24 at 2330, --Nurse to use Heparin Infusion ADULT Dose Adjustments by RN order set after EVERY heparin unfractionated Anti-Xa result to place further orders (for bolus if needed, infusion adjustment if needed, and ordering next lab)- Starting Infusion Rate = 850 Units/hr (12 units/kg/hr). (Ordered: 08/12/2024) Low Intensity Heparin Treatment WITH Boluses. GOAL: Heparin Anti-Xa (10a) LEVEL = 0.25-0.5 IF HEPARIN INFUSION HELD FOR PROCEDURE: Restart heparin infusion at previous rate (no bolus needed). Nurse to place a one-time unfractionated heparin Anti-Xa lab order timed for 6 hours after heparin infusion was restarted., Heparin Therapy Type: Low Intensity Heparin Infusion (Anti Xa 0.25-0.5), Initial Set-up verified by: Gaby Real RN $New Bag 08/13/2024 8:31 AM CDT 1,150 Units/hr 11.5 mL/hr $New Bag 08/13/2024 12:47 AM CDT 850 Units/hr 8.5 mL/hr HYDROmorphone (DILAUDID) injection 0.2 mg 0.2 mg, Intravenous, ONCE, On Tue08/10/24 at 0700, For 1 dose $Given 08/10/2024 6:41 AM CDT 0.2 mg HYDROmorphone (DILAUDID) injection 0.2 mg 0.2 mg, Intravenous, EVERY 2 HOURS PRN, moderate pain, Starting on Tue08/10/24 at 0800 HYDROmorphone (DILAUDID) injection 0.4 mg 0.4 mg, Intravenous, EVERY 2 HOURS PRN, severe pain, Starting on Tue08/10/24 at 0800 $Given 08/11/2024 11:52 AM CDT 0.4 mg $Given 08/10/2024 9:16 PM CDT 0.4 mg $Given 08/10/2024 1:05 PM CDT 0.4 mg HYDROmorphone (DILAUDID) injection 1 mg 1 mg, Intravenous, ONCE, On Tue08/09/24 at 2150, For 1 dose $Given 08/09/2024 9:52 PM CDT 1 mg HYDROmorphone (PF) (DILAUDID) injection 0.3 mg 0.3 mg, Intravenous, ONCE, On Tue08/09/24 at 2054, For 1 dose $Given 08/09/2024 9:16 PM CDT 0.3 mg hydrOXYzine HCl (ATARAX) tablet 25 mg 25 mg, Oral, EVERY 6 HOURS PRN, itching, pain, Starting on Tue08/10/24 at 0801 $Given 08/10/2024 9:43 AM CDT 25 mg lactated ringers infusion at 10 mL/hr, Intravenous, CONTINUOUS, IF patient NOT on dialysis., Starting on 08/11/24 at 1430, Until 08/13/24 at 1529 Restarted 08/11/2024 3:47 PM CDT $New Bag 08/11/2024 2:32 PM CDT 10 mL/hr LORazepam (ATIVAN) tablet 0.5 mg 0.5 mg, [...] $Given 08/10/2024 6:35 AM CDT 1 suppository oxyBUTYnin (DITROPAN) tablet 5 mg 5 mg, Oral, ONCE, On Tue08/09/24 at 2055, For 1 dose $Given 08/09/2024 10:00 PM CDT 5 mg oxyCODONE (ROXICODONE) tablet 5 mg 5 mg, Oral, EVERY 4 HOURS PRN, severe pain, Starting on Tue08/10/24 at 0800 oxyCODONE IR (ROXICODONE) half-tab 2.5 mg 2.5 mg, Oral, EVERY 4 HOURS PRN, moderate pain, Starting on Tue08/10/24 at 0800 $Given 08/12/2024 12:13 AM CDT 2.5 mg phytonadione (MEPHYTON/VITAMIN K) 1 MG/ML oral solution 2.5 mg 2.5 mg, Oral, ONCE, On Tue08/10/24 at 1200, For 1 dose $Given 08/10/2024 1:14 PM CDT 2.5 mg senna-docusate (SENOKOT-S/PERICOLACE) 8.6-50 MG per tablet 1 [...] Step 4: enema Hold for loose stools. $Given 08/13/2024 6:18 AM CDT 2 tablets $Given 08/12/2024 8:16 AM CDT 2 tablets $Given 08/11/2024 9:07 AM CDT 2 tablets sodium chloride (PF) 0.9% PF flush 3 mL 3 mL, Intracatheter, EVERY 8 HOURS, First dose on Tue08/09/24 at 2230, to lock peripheral IV dormant line $Given 08/12/2024 4:29 PM CDT 3 mLs $Given 08/10/2024 1:44 AM CDT 3 mLs sodium chloride (PF) 0.9% PF flush 3 mL 3 mL, Intracatheter, EVERY 1 MIN PRN, line flush, other, to ensure patency or to lock dormant line, Starting on Renee 08/09/24 at 2223 $Given 08/10/2024 3:25 AM CDT 3 mLs sodium chloride 0.9 % infusion at 100 mL/hr, Intravenous, CONTINUOUS, Starting on Tue08/10/24 at 1430, Until Tue08/12/24 at 0822 $New Bag 08/11/2024 7:05 PM CDT 100 mL/hr $New Bag 08/11/2024 3:21 AM CDT 100 mL/hr $New Bag 08/10/2024 3:10 PM CDT 100 mL/hr sodium chloride 0.9% BOLUS 500 mL Intravenous, 500 mL, ONCE, at 500 mL/hr, Administer over 1 Hours, On Tue08/10/24 at 0300, For 1 dose $New Bag 08/10/2024 2:51 AM CDT 500 mLs 500 mL/hr sodium chloride 0.9% irrigation (bag) Irrigation, CONTINUOUS, Starting on 08/11/24 at 1630, For continuous bladder irrigation - Adjust instillation rate to keep outflow at pink or clearer $New Bag 08/11/2024 5:08 PM CDT 3,000 mLs tamsulosin (FLOMAX) capsule 0.4 mg 0.4 mg, Oral, DAILY, First dose on Tue08/10/24 at 0900, Administer 30 minutes after the same meal each day. Capsules should be swallowed whole; do not crush chew or open. $Given 08/13/2024 8:28 AM CDT 0.4 mg $Given 08/12/2024 8:16 AM CDT 0.4 mg $Given 08/11/2024 9:07 AM CDT 0.4 mg warfarin ANTICOAGULANT (COUMADIN) tablet 8 mg 8 mg, Oral, ONCE AT 6PM, On Tue08/13/24 at 1800, For 1 dose Warfarin Dose Required Daily - Pharmacist Managed SEE ADMIN INSTRUCTIONS, Starting on Tue08/12/24 at 2304, Until Tue08/13/24 at 1529, *Note to reorder warfarin daily* Nurse to contact pharmacist if dose not ordered by 6 PM. Pharmacy Warfarin Dosing Service Patient is on Warfarin Therapy - check for daily order documented in this encounter Active and Recently Administered Medications Times are shown in CDT. Scheduled Medication Order 08/11/2024 08/12/2024 08/13/2024 acetaminophen (TYLENOL) tablet 975 mg (COMPLETED)(Linked Group 1) 975 mg, Oral, ONCE, On 08/11/24 at 1430, For 1 dose, Maximum acetaminophen dose from all sources = 75 mg/kg/day not to exceed 4 grams/day., Pre-procedure 1434 ($Given - Provider: Sonia Griggs RN) calcium gluconate 1 g in 50 mL in sodium chloride intermittent infusion (COMPLETED) 1 g, Intravenous, Administer over 60 Minutes, ONCE, On Tue08/13/24 at 0800, For 1 dose, Do not infuse in the same IV line as phosphate-containing solutions 0855 ($Given - Provider: Rosette Nicole RN) ceFAZolin Sodium (ANCEF) injection 2 g (COMPLETED) Routine, 2 g, Intravenous, PRE-OP/PRE-PROCEDURE, Starting on 08/11/24 at 1408, For 1 dose, Give first dose within 1 hour PRIOR to incision. If patient weight is greater than or equal to 120 kg increase dose to 3 g., Indications: Perioperative Pharmacoprophylaxis, Pre-procedure 1514 ($Given - Provider: Yvonne White APRN HAIR SAMPLE MATCHER) enoxaparin ANTICOAGULANT (LOVENOX) injection 70 mg 70 mg (rounded from 72.8 mg = 1 mg/kg ? 72.8 kg), Subcutaneous, EVERY 12 HOURS, First dose on Tue08/13/24 at 1300, Give first dose within 1 hour of stopping heparin drip 1305 ($Given - Provider: Rosette Nicole RN) ferrous sulfate (FEROSUL) tablet 325 mg 325 mg, Oral, DAILY, First dose on Tue08/13/24 at 1200 1306 ($Given - Provider: Rosette Nicole RN) finasteride (PROSCAR) tablet 5 mg 5 mg, Oral, DAILY, First dose on Tue08/12/24 at 1500, *Do not handle tablets if you are * 1628 ($Given - Provider: Maci Briggs, [place]ENNIFER) 0828 ($Given - Provider: Rosette Nicole, [place]ENNIFER) heparin - BOLUS DOSE from infusion (COMPLETED) 4,350 Units (rounded from 4,368 Units = 60 Units/kg ? 72.8 kg), Intravenous, ONCE, On 08/13/24 at 0830, For 1 dose, IV PUMP PROGRAMMING: Program continuous infusion first, then program bolus dose. Infuse over 5 minutes. For Heparin Anti-Xa value LESS than 0.1 Low Intensity Heparin Treatment- Anti-Xa monitoring Nurse to administer dose from existing infusion. If no infusion bag or syringe for this order is available, contact pharmacist to re-enter medication order. 0829 ($Given - Provider: Rosette Nicole, JENNIFER) lidocaine (XYLOCAINE) 2 % external gel 6 mL Urethral, ONCE, On Renee 08/09/24 at 1650, For 1 dose 1344 (Auto Hold - Provider: Orders Generic Provider - Reason: Transfer to a procedural area)1653 (Unhold - Provider: Orders Generic Provider) sodium chloride (PF) 0.9% PF flush 3 mL 3 mL, Intracatheter, EVERY 8 HOURS, First dose on Renee 08/09/24 at 2230, to lock peripheral IV dormant line 0546 (Not Given - Provider: Sheela Phan RN - Reason: IV Infusing)1339 (Not Given - Provider: Lo Tate RN - Reason: IV Infusing)1344 (Auto Hold - Provider: Orders Generic Provider - Reason: Transfer to a procedural area)1653 (Unhold - Provider: Orders Generic Provider)2230 (Not Given - Provider: Sheela Phan RN - Reason: IV Infusing) 0630 (Not Given - Provider: Sheela Phan RN - Reason: IV Infusing)1629 ($Given - Provider: Maci Briggs RN)2230 (Canceled Entry - Provider: Sheela Phan RN) 0630 (Not Given - Provider: Sheela Phan RN - Reason: IV Infusing)1430 (Canceled Entry - Provider: Orders Generic Provider - Comment: Automatically canceled at discontinue of medication order) tamsulosin (FLOMAX) capsule 0.4 mg 0.4 mg, Oral, DAILY, First dose on Tue08/10/24 at 0900, Administer 30 minutes after the same meal each day. Capsules should be swallowed whole; do not crush chew or open. 0907 ($Given - Provider: Lo Tate, [place]ER)1344 (Auto Hold - Provider: Orders Generic Provider - Reason: Transfer to a procedural area)1653 (Unhold - Provider: Orders Generic Provider) 0816 ($Given - Provider: Maci Briggs, [place]ER) 0828 ($Given - Provider: Rosette Nicole RN) warfarin ANTICOAGULANT (COUMADIN) tablet 8 mg 8 mg, Oral, ONCE AT 6PM, On Tue08/13/24 at 1800, For 1 dose Warfarin Dose Required Daily - Pharmacist Managed SEE ADMIN INSTRUCTIONS, Starting on Tue08/12/24 at 2304, Until Tue08/13/24 at 1529, *Note to reorder warfarin daily* Nurse to contact pharmacist if dose not ordered by 6 PM. Pharmacy Warfarin Dosing Service Patient is on Warfarin Therapy - check for daily order Continuous Medication Order 08/11/2024 08/12/2024 08/13/2024 heparin 25,000 units in 0.45% NaCl 250 mL ANTICOAGULANT infusion (CANCELED) 0-5,000 Units/hr (0-50 mL/hr), Intravenous, CONTINUOUS, Starting on Tue08/12/24 at 2330, --Nurse to use Heparin Infusion ADULT Dose Adjustments by RN order set after EVERY heparin unfractionated Anti-Xa result to place further orders (for bolus if needed, infusion adjustment if needed, and ordering next lab)- Starting Infusion Rate = 850 Units/hr (12 units/kg/hr). (Ordered: 08/12/2024) Low Intensity Heparin Treatment WITH Boluses. GOAL: Heparin Anti-Xa (10a) LEVEL = 0.25-0.5 IF HEPARIN INFUSION HELD FOR PROCEDURE: Restart heparin infusion at previous rate (no bolus needed). Nurse to place a one-time unfractionated heparin Anti-Xa lab order timed for 6 hours after heparin infusion was restarted., Heparin Therapy Type: Low Intensity Heparin Infusion (Anti Xa 0.25-0.5), Initial Set-up verified by: Gaby Real, RN 0047 ($New Bag - Provider: Sheela Phan RN)0831 ($New Bag - Provider: Rosette Nicole RN) lactated ringers infusion at 10 mL/hr, Intravenous, CONTINUOUS, IF patient NOT on dialysis., Starting on 08/11/24 at 1430, Until 08/13/24 at 1529 1432 ($New Bag - Provider: Sonia Griggs RN)1546 (Paused - Provider: Yvonne White APRN HAIR SAMPLE MATCHER - Comment: Switch to gravity)1547 (Restarted - Provider: Yvonne White APRN HAIR SAMPLE MATCHER) sodium chloride 0.9 % infusion (CANCELED) at 100 mL/hr, Intravenous, CONTINUOUS, Starting on 08/10/24 at 1430, Until 08/12/24 at 0822 0321 ($New Bag - Provider: Sheela Phan RN)1905 ($New Bag - Provider: Lo Tate RN) sodium chloride 0.9% irrigation (bag) Irrigation, CONTINUOUS, Starting on 08/11/24 at 1630, For continuous bladder irrigation - Adjust instillation rate to keep outflow at pink or clearer 1708 ($New Bag - Provider: Lo Tate RN) PRN Medication Order 08/11/2024 08/12/2024 08/13/2024 acetaminophen (TYLENOL) Suppository 650 mg(Linked Group 2) 650 mg, Rectal, EVERY 4 HOURS PRN, mild pain, other, and adjunct with moderate or severe pain or per patient request, Starting on Renee 08/09/24 at 2223, Alternate with ibuprofen if ordered. Maximum acetaminophen dose from all sources = 75 mg/kg/day not to exceed 4 grams/day. 1344 (Auto Hold - Provider: Orders Generic Provider - Reason: Transfer to a procedural area)1653 (Unhold - Provider: Orders Generic Provider) 1628 (See Alternative - Provider: Maci Briggs RN) acetaminophen (TYLENOL) tablet 650 mg(Linked Group 2) 650 mg, Oral, EVERY 4 HOURS PRN, mild pain, other, and adjunct with moderate or severe pain or per patient request, Starting on Renee 08/09/24 at 2223, Alternate with ibuprofen if ordered. Maximum acetaminophen dose from all sources = 75 mg/kg/day not to exceed 4 grams/day. 1344 (Auto Hold - Provider: Orders Generic Provider - Reason: Transfer to a procedural area)1653 (Unhold - Provider: Orders Generic Provider) 1628 ($Given - Provider: Maci Briggs, JENNIFER) calcium carbonate (TUMS) chewable tablet 1,000 mg 1,000 mg, Oral, 4 TIMES DAILY PRN, heartburn, Starting on Tue08/09/24 at 2223 1344 (Auto Hold - Provider: Orders Generic Provider - Reason: Transfer to a procedural area)1653 (Unhold - Provider: Orders Generic Provider) HYDROmorphone (DILAUDID) injection 0.2 mg 0.2 mg, Intravenous, EVERY 2 HOURS PRN, moderate pain, Starting on Tue08/10/24 at 0800 1344 (Auto Hold - Provider: Orders Generic Provider - Reason: Transfer to a procedural area)1653 (Unhold - Provider: Orders Generic Provider) HYDROmorphone (DILAUDID) injection 0.4 mg 0.4 mg, Intravenous, EVERY 2 HOURS PRN, severe pain, Starting on Tue08/10/24 at 0800 1152 ($Given - Provider: Lo Tate RN)1344 (Auto Hold - Provider: Orders Generic Provider - Reason: Transfer to a procedural area)1653 (Unhold - Provider: Orders Generic Provider) hydrOXYzine HCl (ATARAX) tablet 25 mg 25 mg, Oral, EVERY 6 HOURS PRN, itching, pain, Starting on Tue08/10/24 at 0801 1344 (Auto Hold - Provider: Orders Generic Provider - Reason: Transfer to a procedural area)1653 (Unhold - Provider: Orders Generic Provider) lidocaine (LMX4) cream Topical, EVERY 1 HOUR [...] the lidocaine cream on the same site. 1344 (Auto Hold - Provider: Orders Generic Provider - Reason: Transfer to a procedural area)1653 (Unhold - Provider: Orders Generic Provider) lidocaine 1 % 0.1-1 mL 0.1-1 mL, Other, EVERY 1 HOUR PRN, mild pain with VAD insertion, Starting on Tue08/09/24 at 2223, MAX dose 1 mL subcutaneous OR intradermal along the side of the vein in divided doses as needed for VAD insertion. Do NOT give if patient has a history of allergy to any local anesthetic or any raman product. Do NOT use both lidocaine intradermal/subcutaneous injection and the lidocaine cream on the same site. 1344 (Auto Hold - Provider: Orders Generic Provider - Reason: Transfer to a procedural area)1653 (Unhold - Provider: Orders Generic Provider) LORazepam (ATIVAN) tablet 0.5 mg 0.5 mg, Oral, EVERY 8 HOURS PRN, anxiety, Starting on Tue08/10/24 at 0913 1344 (Auto Hold - Provider: Orders Generic Provider - Reason: Transfer to a procedural area)1653 (Unhold - Provider: Orders Generic Provider) melatonin tablet 1 mg 1 mg, Oral, AT BEDTIME PRN, sleep, Starting on Renee 08/09/24 at 2223, Do not give unless at least 6 hours of uninterrupted sleep is expected. If patient has multiple medications ordered PRN sleep/insomnia, offer melatonin first. 1344 (Auto Hold - Provider: Orders Generic Provider - Reason: Transfer to a procedural area)1653 (Unhold - Provider: Orders Generic Provider) naloxone (NARCAN) injection 0.2 mg(Linked Group 3) 0.2 mg, Intravenous, EVERY 2 MIN PRN, [...] have not improved after 4 naloxone doses. 1344 (Auto Hold - Provider: Orders Generic Provider - Reason: Transfer to a procedural area)1653 (Unhold - Provider: Orders Generic Provider) naloxone (NARCAN) injection 0.2 mg(Linked Group 3) 0.2 mg, Intramuscular, EVERY 2 MIN PRN, [...] have not improved after 4 naloxone doses. 1344 (Auto Hold - Provider: Orders Generic Provider - Reason: Transfer to a procedural area)1653 (Unhold - Provider: Orders Generic Provider) naloxone (NARCAN) injection 0.4 mg(Linked Group 3) 0.4 mg, Intravenous, EVERY 2 MIN PRN, [...] have not improved after 4 naloxone doses. 1344 (Auto Hold - Provider: Orders Generic Provider - Reason: Transfer to a procedural area)1653 (Unhold - Provider: Orders Generic Provider) naloxone (NARCAN) injection 0.4 mg(Linked Group 3) 0.4 mg, Intramuscular, EVERY 2 MIN PRN, [...] have not improved after 4 naloxone doses. 1344 (Auto Hold - Provider: Orders Generic Provider - Reason: Transfer to a procedural area)165 (Unhold - Provider: Orders Generic Provider) ondansetron (ZOFRAN ODT) ODT tab 4 mg(Linked Group 4) 4 mg, Oral, EVERY 6 HOURS PRN, [...] then swallow with saliva. Liquid not required. 1344 (Auto Hold - Provider: Orders Generic Provider - Reason: Transfer to a procedural area)1653 (Unhold - Provider: Orders Generic Provider) ondansetron (ZOFRAN) injection 4 mg(Linked Group 4) 4 mg, Intravenous, EVERY 6 HOURS PRN, nausea, vomiting, Administer over 2-5 Minutes, Starting on Renee 08/09/24 at 2223, Give IF patient unable to tolerate oral medication. This is Step 1 of nausea and vomiting management. If nausea not resolved in 15 minutes, go to Step 2 prochlorperazine (COMPAZINE). 1344 (Auto Hold - Provider: Orders Generic Provider - Reason: Transfer to a procedural area)1653 (Unhold - Provider: Orders Generic Provider) opium-belladonna (B&O SUPPRETTES) 60-16.2 MG per suppository 1 suppository 1 suppository (60 mg), Rectal, EVERY 8 HOURS PRN, bladder spasms, Starting on Renee 08/09/24 at 2321 1344 (Auto Hold - Provider: Orders Generic Provider - Reason: Transfer to a procedural area)1653 (Unhold - Provider: Orders Generic Provider) oxyBUTYnin (DITROPAN) tablet 5 mg 5 mg, Oral, EVERY 8 HOURS PRN, bladder spasms, Starting on Tue08/12/24 at 1400 oxyCODONE (ROXICODONE) tablet 5 mg 5 mg, Oral, EVERY 4 HOURS PRN, severe pain, Starting on Tue08/10/24 at 0800 1344 (Auto Hold - Provider: Orders Generic Provider - Reason: Transfer to a procedural area)1653 (Unhold - Provider: Orders Generic Provider) oxyCODONE IR (ROXICODONE) half-tab 2.5 mg 2.5 mg, Oral, EVERY 4 HOURS PRN, moderate pain, Starting on Tue08/10/24 at 0800 1344 (Auto Hold - Provider: Orders Generic Provider - Reason: Transfer to a procedural area)1653 (Unhold - Provider: Orders Generic Provider) 0013 ($Given - Provider: Sheela Phan RN) senna-docusate (SENOKOT-S/PERICOLACE) 8.6-50 MG per tablet 1 tablet(Linked Group 5) 1 tablet, Oral, 2 TIMES DAILY PRN, constipation, Starting on Rneee 08/09/24 at 2223, If no bowel movement [...] Step 4: enema Hold for loose stools. 0907 (See Alternative - Provider: Lo Tate RN)1344 (Auto Hold - Provider: Orders Generic Provider - Reason: Transfer to a procedural area)1653 (Unhold - Provider: Orders Generic Provider) 0816 (See Alternative - Provider: Maci Briggs RN) 0618 (See Alternative - Provider: Sheela Phan, JENNIFER) senna-docusate (SENOKOT-S/PERICOLACE) 8.6-50 MG per tablet 2 tablet(Linked Group 5) 2 tablet, Oral, 2 TIMES DAILY PRN, [...] Step 4: enema Hold for loose stools. 0907 ($Given - Provider: Lo Tate RN)1344 (Auto Hold - Provider: Orders Generic Provider - Reason: Transfer to a procedural area)1653 (Unhold - Provider: Orders Generic Provider) 0816 ($Given - Provider: Maci Briggs RN) 0618 ($Given - Provider: Sheela Phan, JENNIFER) sodium chloride (PF) 0.9% PF flush 3 mL 3 mL, Intracatheter, EVERY 1 MIN PRN, line flush, other, to ensure patency or to lock dormant line, Starting on Renee 9/19/24 at 2223 1344 (Auto Hold - Provider: Orders Generic Provider - Reason: Transfer to a procedural area)1653 (Unhold - Provider: Orders Generic Provider) sterile water (bottle) irrigation (CANCELED) PRN, Intra-procedure, Starting on 08/11/24 at 1548, Until 08/11/24 at 1549 1548 ($Given - Provider: Adalberto Eldridge MD) Linked Groups Order Group 1: acetaminophen (TYLENOL) tablet 975 mg (COMPLETED)Jump to med 975 mg, Oral, ONCE, On 08/11/24 at 1430, For 1 dose, Maximum acetaminophen dose from all sources = 75 mg/kg/day not to exceed 4 grams/day., Pre-procedure Or acetaminophen (TYLENOL) Suppository 650 mg (COMPLETED) 650 mg, Rectal, ONCE, On 08/11/24 at 1430, For 1 dose, Maximum acetaminophen dose from all sources = 75 mg/kg/day not to exceed 4 grams/day., Pre-procedure Group 2: acetaminophen (TYLENOL) tablet 650 mgJump to med [...] mg/kg/day not to exceed 4 grams/day. Group 3: naloxone (NARCAN) injection 0.2 mgJump to med [...] not improved after 4 naloxone doses. Group 4: ondansetron (ZOFRAN ODT) ODT tab 4 mgJump [...] go to Step 2 prochlorperazine (COMPAZINE). Group 5: senna-docusate (SENOKOT-S/PERICOLACE) 8.6-50 MG per tablet 1 [...] stools. documented in this encounter Care Teams Crime Analyst Relationship Specialty Start Date End Date [facility]- [address] [place] [address] PCP - General 07/24/21 documented as of this encounter
--- OUTSIDE RECORDS SUMMARY | 2024-09-18 16:13 | XMS_ITS ---
Author Organization [facility] Address [address] [place] [address] Care Team Providers Care Nitrogen Operator Name Role Phone [facility]- Primary Care Provider Adalberto Eldridge MD Unavailable [phone] Transitional Care Management Status:Closed (Closed) Start date:08/14/2024 Enrollment date:08/15/2024 End date:08/28/2024 Close reason:Goals met Continued Care and Services Coordination
--- OUTSIDE RECORDS SUMMARY | 2024-09-18 16:13 | XMS_ITS | Encounter Summary ---
Author Organization [facility] Address [facility] [place] [address] Care Team Providers Care Junior Buyer Name Role Phone [facility]- Primary Care Provider Reason for Visit * Auth/Cert (Routine) Specialty Diagnoses / Procedures Referred By Eric hernandez Referred To Contact Med Surg Diagnoses Gross hematuria Supratherapeutic INR Problem with Weber catheter, initial encounter (H) Gross hematuria Problem with Weber catheter, initial encounter (H24) Supratherapeutic INR [facility] [address] [facility] [address] [place] [address] Phone: tel: fax: Referral ID Status Reason Start Date Expiration Date Visits Re quested Visits Authorized [id number] 1 1 Encounter Details Date Type Department Care Team (Late st Contact Info) Description 08/11/2024 12:10 AM CDT Anesthesia Event [facility] [address] [facility] [address] [place] [address] Walter Crowley MD [facility] ANESTHESIA [address] [place], [place] [address] Yvonne White APRN WEIGHT CHECKER [address] [place], [place] [address] Anesthesia Record Procedure Summary Procedure Name Responsible Anesthesiologist Anesthesia Start Time Anesthesia Stop Time CYSTOSCOPY, EVACUATION OF BLADDER HEMATOMA, REMOVAL OF BLADDER STONES WITH THE THULIUM LASER (canceled) Events Date Time Event Comment 08/10/2024 1626 WEIGHT CHECKER Ready for Procedure Meds * Agents No agents on file. * Blood No blood administrations on file. 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 Type: General. No history of anesthetic complications ROS/MED HX ENT/Pulmonary: - neg pulmonary ROS Neurologic: - neg neurologic ROS Cardiovascular: (+) - - - - - valvular problems/murmurs aortic valve replacement. METS/Exercise Tolerance: Hematologic: - neg hematologic ROS Musculoskeletal: - neg musculoskeletal ROS GI/Hepatic: - neg GI/hepatic ROS Renal/Genitourinary: Comment: Self catheterizes once every few months. (+) BPH, Endo: - neg endo ROS Psychiatric/Substance Use: - neg psychiatric ROS Infectious Disease: - neg infectious disease ROS Malignancy: - neg malignancy ROS Other: - neg other ROS Physical Exam Airway Mallampati: II TM distance: > 3 FB Neck ROM: full Mouth opening: > 3 cm Respiratory Devices and Support Dental no notable dental history (+) Completely normal teeth Cardiovascular cardiovascular exam normal Pulmonary pulmonary exam normal OUTSIDE LABS: CBC: Lab Results Component Value Date WBC 10.5 08/10/2024 WBC 11.5 (H) 08/09/2024 HGB 13.4 08/10/2024 HGB 13.4 08/10/2024 HCT 39.5 (L) 08/10/2024 HCT 44.4 08/09/2024 PLT 262 08/10/2024 PLT 262 08/09/2024 BMP: Lab Results Component Value Date NA 131 (L) 08/10/2024 NA 136 08/09/2024 POTASSIUM 4.6 08/10/2024 POTASSIUM 4.3 08/09/2024 CHLORIDE 101 08/10/2024 CHLORIDE 102 08/09/2024 CO2 21 (L) 08/10/2024 CO2 22 08/09/2024 BUN 17.3 08/10/2024 BUN 15.3 08/09/2024 CR 1.04 08/10/2024 CR 1.19 (H) 08/09/2024 GLC 102 (H) 08/10/2024 GLC 110 (H) 08/10/2024 COAGS: Lab Results Component Value Date INR 4.33 (H) 08/10/2024 POC: No results found for: BGM, HCG, HCGS HEPATIC: No results found for: ALBUMIN, PROTTOTAL, ALT, AST, GGT, ALKPHOS, BILITOTAL,BILIDIRECT, MARISELA OTHER: Lab Results Component Value Date TREVIN 8.4 (L) 08/10/2024 TSH 2.18 07/24/2021 Anesthesia Plan ASA Status: 3 NPO Status: NPO Appropriate Anesthesia Type: General. - Airway: LMA Induction: Intravenous, Propofol. Maintenance: Balanced. Consents Anesthesia Plan(s) and associated risks, benefits, and realistic alternatives discussed. Questions answered and patient/collections representative(s) expressed understanding. - Discussed: - Discussed with: Patient Postoperative Care Pain management: IV analgesics, Oral pain medications, Multi-modal analgesia. PONV prophylaxis: Ondansetron (or other 5HT-3), Dexamethasone or Solumedrol Comments: Walter Crowley MD I have reviewed the pertinent notes and labs in the chart from the past 30 days and (re)examined the patient. Any updates or changes from those notes are reflected in this note. # Hyponatremia: Lowest Na = 131 mmol/L in last 2 days, will monitor as appropriate # Drug Induced Coagulation Defect: home medication list includes an anticoagulant medication documented in this encounter Plan of Treatment Upcoming Encounters Date Type Department Care Team (Late st Contact Info) Description 09/25/2024 8:00 AM SOFTWARE TEST AUTOMATION ENGINEER Office Visit [facility] [address] [place] [phone] Adalberto Eldridge MD [address] [place] [address] 10/02/2024 11:00 AM SOFTWARE TEST AUTOMATION ENGINEER Virtual Visit [facility] [address] [place] [phone] Adalberto Eldridge MD [address] [place] [id number] documented as of this encounter Visit Diagnoses Not on filedocumented in this encounter Care Teams Junior Buyer Relationship Specialty Start Date End Date [facility]- [address] [place] [address] PCP - General 07/24/21 documented as of this encounter
--- OUTSIDE RECORDS SUMMARY | 2024-09-18 16:13 | XMS_ITS | Continuity of Care Document ---
Author Organization [facility] Address [address] [place] [address] Care Team Providers Care Hollow Handle Bench Worker Name Role Phone [facility] Primary Care Provider MARIA ANTONIA MONTES DE OCA Primary Care Provider [phone] Assessment No assessment recorded. Plan of Treatment Reminders Order Date Submit Date Provider Last Modified By Organization Details Last Modified Time Details Appointments LAB BLOOD DRAW 2023 01:20P [facility] Not available Not available Not available Lab urinalysi s, dipstick 2023 [facility], [address], [place], [address], 09/12/2024 12:12:45 urinalysi s, microscop ic 2023 024 [facility], [address], [place], [address], 09/12/2024 12:12:49 culture, urine 2023 024 [facility], [address], [place], [address], 09/14/2024 10:21:30 Referral None recorded. Procedures None recorded. Surgeries None recorded. Imaging None recorded. Medication Orders None recorded. Patient TargetsNo targets recorded. Patient InstructionsNo instructions recorded. Reason for Referral None Reported. Results Created Date Observation Date Name Description Value Unit Range Abnormal Flag Note LastModifiedBy Organization Detail LastModifiedTime 08/21/20 24 08/21/2024 MRI, prost ate, w/wo contr ast No observ ation record ed. [email or web address] [facility] [address], [place], [address], 08/21/2024 12:43:46 Result Notes None recorded. 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 Not Available [facility] 0 02:05:17 Prostate specific antigen above reference range 540079807 Active 2012 790.93 : ELEVATED PSA Not Available [facility] 0 02:05:17 Benign prostatic hyperplas ia with outflow obstructi on 559829932 Active 2020 Victorino Edmonds MD [address] [place] [address],[address], [address] , [facility] 1 14:32:18 Slowing of urinary stream 49019920 Active 2020 Victorino Edmonds MD [address] [place] [address],[address], [address] , [facility] 1 14:32:19 Elvis hematuria 168729115 Active 2020 Victorino Edmonds MD [address] [place] [address],[address], [address] , [facility] 1 14:32:20 Screening for malignant neoplasm of prostate Active 2023 Victorino Edmonds MD [address] [place] [address],[address], [address] , [facility] 4 12:43:12 Lower urinary tract symptoms due to benign prostatic hypertrop 51300902228 101 Active 2023 Victorino Edmonds MD [address] [place] [address],[address], [place], [address] , [facility] 4 12:43:14 Urinary bladder stone 93764842 Active 2023 NAMRATA ROCKWELL MD [address] [place] [address],[address], [place], [address] , [facility] 4 22:04:09 Retention of urine 217653282 Active 2023 NAMRATA ROCKWELL MD [address] [place] [address],[address], [place], [address] , [facility] 4 22:06:05 Problem Notes None recorded. Procedures Surgical History Date Name Laterality Status Provider Name and Address Organization Details Recorded Time 09/20/20 24 Blood Draw/FISHING REEL ASSEMBLER/PSA RESULTS active Nanci Escobar [facility] 09/18/2024 13:07:02 09/12/20 24 Urine Culture completed Nanci Escobar [facility] 09/11/2024 13:49:21 09/12/20 24 Urinalysis completed Nanci Escobar [facility] 09/11/2024 13:49:50 08/30/20 24 Fill and Pull/Voiding Trial/TOV completed Bridgett Rosen [facility] 08/30/2024 09:54:34 08/22/20 24 COMPLEX VISIT completed NAMRATA ROCKWELL MD [address] [place] [address],[address], [place], [address], [facility] 08/21/2024 22:14:06 06/22/20 24 Urine Culture completed Nanci Escobar [facility] 06/20/2024 14:35:49 06/22/20 24 Urinalysis completed Lewis Mera [facility] 06/22/2024 15:47:25 05/29/20 24 Bladder Scan completed Brianna Ferreira [facility] 05/29/2024 16:21:06 05/21/20 24 Urine Culture completed Fabby Casey [facility] 05/21/2024 15:28:58 05/21/20 24 Urinalysis completed Fabby Casey [facility] 05/21/2024 16:18:17 05/21/20 24 Bladder Scan completed Fabby Casey [facility] 05/21/2024 16:18:30 02/16/20 24 COMPLEX VISIT completed NAMRATA ROCKWELL MD [address], [place], [address], [facility] 02/16/2024 11:31:27 02/16/20 24 Bladder Scan completed Dayanna Corona [facility] 02/16/2024 10:49:59 12/23/19 24 Blood Draw/FISHING REEL ASSEMBLER/PSA RESULTS completed Eh Valarie [facility] 12/23/2023 12:49:16 11/23/19 22 Prostate Biopsy Procedure completed Kane Garcia [facility] 11/23/2021 15:29:24 11/23/19 22 Gentamicin Injection completed Vee Anguiano [facility] 11/23/2021 14:11:03 07/24/20 21 Cystoscopy- male completed Victorino Edmonds MD [address], [place], [address], [facility] 07/24/2021 14:37:51 07/24/20 21 Bladder Scan completed Rosana Oconnell [facility] 07/24/2021 14:16:44 11/21/19 19 Colonoscopy completed Rosana Oconnell [facility] 07/24/2021 14:16:32 Excise epiphyseal bar completed [...] Name and Address Organization Details Recorded Time 813994 shellfish derived food,medi cation anaphylax is flushing Not available Not available Not available 12/23/2023 Not Available Health Note 07:52:31 815911 cat dander environme nt anaphylax is flushing respirato ry distress Not available Not available Not available Not available 12/23/2023 Not Available Health Note 4 07:52:31 490757 tramadol medicatio n irregular heart rate palpitati ons Not available Not available Not available 12/23/2023 62397 RxNorm Not Available Health Note 4 07:52:31 Medications Name Sig Start Date Stop Date Status Note LastModified by Organization Details LastModified Time amoxicill in 500 mg capsule TAKE 4 CAPSULES BY MOUTH ONE HOUR PRIOR TO DENTAL APPT 07/24 completed Not Available Not Available Not Available valacyclo vir 1 gram tablet TAKE 1 TABLET BY MOUTH TWICE DAILY NEEDED FOR COLD SORES 08/22 completed HN: Patient reports no longer taking [...] completed Not Available Not Available Not Available ciproflox acin 500 mg tablet active Not Available Not Available No t Available doxycycli ne monohydra te 100 mg tablet Take 1 tablet PO BID. 06/25 completed Not Available Not Available Not Available triamcino lone acetonide 0.1 % topical cream APPLY TOPICALL Y TO THE AFFECTED AREA TWICE DAILY 12/23 completed HN: Patient reports no longer taking Not Available Not Available Not Available warfarin 4 mg tablet TAKE 1 TABLET BY MOUTH ON TUESDAY AND TUESDAY . TAKE 2 TABLETS ALL OTHER DAYS active Not Available Not Available No t Available Macrobid 100 mg capsule Take 1 capsule twice a day by oral route for 5 days. 2023 active Not Available Not Available Not Avai lable famotidin e 20 mg tablet TAKE 1 [...] TAKE 1 CAPSULE BY MOUTH EVERY DAY 08/22 completed HN: Patient reports no longer taking Not Available Not Available Not Available lisinopri l 5 mg tablet TAKE [...] ON THE MORNING OF THE PROCEDUR E 08/22 completed HN: Patient reports no longer taking Not Available Not Available Not Available gentamici n 40 mg/mL injection solution Take 160 mg by injectio n route. 12/23 completed HN: Patient reports no longer taking Not Available Not Available Not Available oxybutyni n chloride 5 mg tablet TAKE 1 TABLET BY MOUTH EVERY 8 HOURS NEEDED FOR BLADDER SPASMS 2023 active Not Available Not Available Not Avai lable cefdinir 300 mg capsule active Not Available Not Available Not Available finasteri de 5 mg tablet Take 1 tablet every day by oral route. 2023 active Not Available Not Available Not Avai lable Bactrim DS 800 mg-160 mg tablet Take 1 tablet twice a day by oral route for 5 days. 2023 active Not Available Not Available Not Avai lable enoxapari n 80 mg/0.8 mL subcutane ous syringe NEED INSUR. INJECT 70 MG SUBCUTAN EOUSLY TWICE PER DAY active Not Available Not Available No t Available metoprolo l tartrate 25 mg tablet 08/22 completed HN: Patient reports no longer taking HN: Patient reports no longer taking Not Available Not Available Not Available testoster one cypionate .5ml/200 mg 2/week active Not Available Not Available No t Available diclofena c 1 % topical gel APPLY 4 GRAMS TOPICALL Y FOUR TIMES DAILY 08/22 completed HN: Patient reports no longer taking Not Available Not Available Not Available ID NOW COVID-19 Test Kit TEST DIRECTED TODAY 12/23 completed HN: Patient reports no longer taking Not Available Not Available Not Available Vitals None Recorded Social History Question Answer Notes LastModified by Organizat ion Details LastModified Time Tobacco Smoking Status Former Smoker Not Available Health Note 12/23/2023 07:52:32 What Is Your Level Of Alcohol Consumption? None [email or web address] Information not available 08/22/2024 What Is Your Level Of Caffeine Consumption? Moderate [email or web address] Information not available 12/23/2023 How Much Tobacco Do You Chew? None [email or web address] Information not available 12/23/2023 Do You Or Have You Ever Used E-cigarettes Or Vape? Never Used Electronic Cigarettes [email or web address] Information not available 12/23/2023 When Did You Quit Smoking? 1-5yearssincel astcigarette [email or web address] Information not available 08/22/2024 Recreational Drug Use No [email or web address] Information not available 07/23/2021 What Was The Date Of Your Most Recent Tobacco Screening? 08/30/2024 [email or web address] Information not available 08/30/2024 What Is Your Relationship Status? Single [email or web address] Information not available 12/23/2023 Are You Sexually Active? No [email or web address] Information not available 12/23/2023 Do You Or Have You Ever Used Smokeless Tobacco? Former Smokeless Tobacco User [email or web address] Information not available 12/23/2023 Do You Use Any Illicit Or Recreational Drugs? No [email or web address] Information not available 12/23/2023 Has Tobacco Cessation Counseling Been Provided? No [email or web address] Information not available 08/22/2024 How Many Years Have You Smoked Tobacco? 25 [email or web address] Information not available 12/23/2023 Do You Or Have You Ever Used Any Other Forms Of Tobacco Or Nicotine? No [email or web address] Information not available 08/22/2024 How Many Days In The Past Year Have You Consumed 5 Or More Drinks? 1 [email or web address] Information no t available 12/23/2023 Sex: Unknown Functional Status None recorded. Mental Status None recorded. Family History Nothing Reported. Medical History Condition Response Diabetes N Sexually Transmitted Infection N Bleeding Disorder N High Blood Pressure N Kidney Stones N Cancer N Lung Disease N Depression N High Cholesterol Y GERD/Acid Reflux N Heart Disease N Immunizations Vaccine Type Date Status Provider Name and Address Organization Details Recorded Time Tdap 02/04/2012 completed CHERYL Boateng [facility] 08/22/2024 09:50:41 Past Encounters Encounter ID Performer Location Encounter Start Date Encounter Closed Date Diagnosis/Indication Diagnosis SNOMED-CT Code Diagnosis ICD10 Code [id number] NAMRATA ROCKWELL MD [facility] [address] [place] [phone] 08/22/2024 09:44:58 08/27/2024 11:12:24 Lower urinary tract symptoms due to benign prostatic hypertrophy 6609019389 9101 N40.1 Prostate s pecific antigen above reference range 571712677 R97.20 Elvis hematuria 16180257 5 R31.0 Urinary bladder stone 70 514580 N21.0 Retention of urine 28108 4002 R33.9 [id number] Bridgett Rosen [facility] [address] [place] [phone] 08/30/2024 09:23:15 08/31/2024 08:48:17 Retention of urine 188050912 R33.9 [id number] Ama Grace [facility] [address] [phone] 09/12/2024 11:55:40 09/12/2024 11:58:59 Burning sensation 36850519 R20.8 Health Concerns Section Related Observation LastModified by Organization Detai ls LastModified Time None Recorded Concern Status LastModified by Organization Details LastModified Time None Recorded Payers Encounter Date Sequence Insurance Name Policy Number Policy Armenta Covered Member ID Armenta Member ID Guarantor Name 09/12/2024 1 [place]ARE [place] [employer] Oleg Sparks [id number] Oleg Sparks
--- OUTSIDE RECORDS SUMMARY | 2024-09-18 16:13 | XMS_ITS | Data Portability ---
Author Organization [facility] Address [address] [place] [address] Care Team Providers Care Director Community Organization Name Role Phone [facility] Primary Care Provider MARIA ANTONIA MONTES DE OCA Primary Care Provider Assessment No assessment recorded. Plan of Treatment Reminders Order Date Submit Date Provider Last Modified By Organization Details Last Modified Time Details Appointments LAB BLOOD DRAW 2023 01:20P [facility] Not available Not available Not available Lab urinalysi s, dipstick 2023 024 [facility], [address], [place], [address], 06/22/2024 16:05:05 urinalysi s, microscop ic 2023 024 [facility], [address], [place], [address], 06/22/2024 16:05:09 culture, urine 2023 024 [facility], [address], [place], [address], 06/25/2024 09:12:44 urinalysi s, dipstick 2023 024 [facility], [address], [place], [address], 09/12/2024 12:12:45 urinalysi s, microscop ic 2023 [facility], [address], [place], [address], 09/12/2024 12:12:49 culture, urine 2023 [facility], [address], [place], [address], 09/14/2024 10:21:[address] referral - referral for prostatic arterial embolizat ion prior to HoLEP outlet surgery [email or web address] [place] [address] Radiology [facility] ([facility]), [address], [place], [address], 08/29/2024 17:14:24 Procedures None recorded. Surgeries None recorded. Imaging None recorded. Medication Orders finasteri de 5 mg tablet 2023 [place] [facility] #[id number], [address] [place], [place], [id number], 08/24/2024 18:29:48 tamsulosi n 0.4 mg capsule 2023 [place] [facility][id number], [address] [place], [place], [id number], 08/24/2024 18:29:48 Patient TargetsNo targets recorded. Patient Instructions Encounter Date Encounter Id Patient Instructions Last Modified By Organization Details Last Modified Time 08/22/2024 [id number] Today we discuss ed the patient's ongoing [...] results and we will discuss next steps. [email or web address] Not available 08/22/2024 10:23:10 Reason for Referral Interventional Radiologist Zeynep bowers for Lower urinary tract symptoms due to benign prostatic hypertrophy referral for prostatic arterial embolization prior to HoLEP outlet surgery Referring Physician: Reji Solis, Urology, Encounter Date: 08/22/2024 Results Created Date Observation Date Name Description Value Unit Range Abnormal Flag Note LastModifiedBy Organization Detail LastModifiedTime 05/21/20 24 05/21/2024 [facility] WITH[facility] MICRO - CS URISC AN blood - uriscan LARGE negati ve abnormal Not Available [facility] [address] [facility] [address], [place], [address], 05/21/2024 16:57:40 05/21/20 24 05/21/2024 UA WITHO UT MICRO - CS URISC AN bilirubin - uriscan NEGATI VE mg/dL negati ve Not Available [facility] [address] [facility] [address], [place], [address], 05/21/2024 16:57:40 05/21/20 24 05/21/2024 UA WITHO UT MICRO - CS URISC AN urobilinogen - uriscan NORMAL mg/dL normal Not Available [facility] [address] [facility] [address], [place], [address], 05/21/2024 16:57:40 05/21/20 24 05/21/2024 UA WITHO UT MICRO - CS URISC AN ketones - uriscan NEGATI VE mg/dL negati ve Not Available [facility] [address] [facility] [address], [place], [address], 05/21/2024 16:57:40 05/21/20 24 05/21/2024 UA WITHO UT MICRO - CS URISC AN protein - uriscan 30 mg/dL negati ve abnormal Not Available [facility] [address] [facility] [address], [place], [address], 05/21/2024 16:57:40 05/21/20 24 05/21/2024 UA WITHO UT MICRO - CS URISC AN nitrites - uriscan POSITI VE negati ve abnormal Not Available [facility] [address] [place] [address] [address], [place], [address], 05/21/2024 16:57:40 05/21/20 24 05/21/2024 UA WITHO UT MICRO - CS URISC AN glucose - uriscan NEGATI VE mg/dL negati ve Not Available [facility] [address] [place] [address] [address], [place], [address], 05/21/2024 16:57:40 05/21/20 24 05/21/2024 UA WITHO UT MICRO - CS URISC AN pH - uriscan 5.50 5.00-9 .00 Not Available [facility] [address] [place] [address] [address], [place], [address], 05/21/2024 16:57:40 05/21/20 24 05/21/2024 UA WITHO UT MICRO - CS URISC AN sp. gravity - uriscan 1.01 1.01-1 .03 Not Available [facility] [address] [place] [address] [address], [place], [address], 05/21/2024 16:57:40 05/21/20 24 05/21/2024 UA WITHO UT MICRO - CS URISC AN leukocytes - uriscan TRACE negati ve abnormal Not Available [facility] [address] [place] [address] [address], [place], [address], 05/21/2024 16:57:40 05/21/20 24 05/21/2024 UA WITHO UT MICRO - CS URISC AN color - uriscan YELLOW lt. yellow ;karin w Not Available [facility] [address] [facility] [address], [place], [address], 05/21/2024 16:57:40 05/21/20 24 05/21/2024 UA WITHO UT MICRO - CS URISC AN clarity - uriscan CLEAR clear Not Available [facility] [address] [facility] [address] [facility] [address], [place], [address], 05/21/2024 16:57:40 05/21/20 24 05/21/2024 UA WITHO UT MICRO - CS URISC AN total urine volume (mL) 60ML /mL ----- ----- ----- ----- ----- ----- ----- ----- ----- ----- ----- ----- ----- ----- ---- *Huong gutierrez note the follo wing minim um quant ities for addit ional urine testi ng: - Atypi cals: 3 mL - Cytol ogy: 20 mL - GC/CH : 2 mL - FISH: 30 mL - Atypi cals w/ GC/CH : 5 mL - Cytol ogy PLUS FISH: 50 mL - Urine Cultu re: 3 mL ----- ----- ----- ----- ----- ----- ----- ----- ----- ----- ----- ----- ----- ----- ---- This lab resul t is being provi ded to you and your provi peter at the same time in compl iance with the 21st Centu ry Cures Act. Your provi peter may not have had time to revie w and make recom menda tions based on the resul t. Felipe currie allow up to one week for provi peter revie w. Not Available [facility] [address] [facility] [address], [place], [address], 05/21/2024 16:57:40 05/21/20 24 05/21/2024 UA MICRO SCOPI C U-WBC 50 - 100 [hpf] 0 - 2 abnormal Not Available [facility] [address] [facility] [address], [place], [address], 05/21/2024 16:57:42 05/21/20 24 05/21/2024 UA MICRO SCOPI C U-RBC 10 - 25 [hpf] 0 - 2 abnormal Not Available [facility] [address] [address], [place], [address], 05/21/2024 16:57:42 05/21/20 24 05/21/2024 UA MICRO SCOPI C bacteria MODERA TE [hpf] none;r are abnormal Not Available [facility] [address] [facility] [address] [facility] [address], [place], [address], 05/21/2024 16:57:42 05/21/20 24 05/21/2024 UA MICRO SCOPI C squamous epi SMALL /lpf negati ve,sma ll This lab resul t is being provi ded to you and your provi peter at the same time in compl iance with the Centu ry Cures Act. Your provi peter may not have had time to revie w and make recom menda tions based on the resul t. Pleas e allow up to one week for provi peter revie w. Not Available [facility] [address] [facility] [address], [place], [address], 05/21/2024 16:57:42 05/21/20 24 05/21/2024 URINE CULTU RE final report MICROB IOLOGY RESULT S abnormal SOURC E Void KNOWN ALLER GIES Cat Dande r, Shell fish, Trama dol TREAT MENT None MEDIA PLATE D AT: Media plate d on 024 @ 3:58 PM COLON Y COUNT >100, 000 cfu/m l RESUL T Staph yloco ccus epide rmidi s (Isol ate 1) Sensi tivit y Imani sis [place] te 1 ----- ----- ----- ----- ----- ----- ----- - CIPRO FLOXA CHARISSA >2 R DAPTO MYCIN <=1*S GENTA MICIN >8 R LEVOF LOXAC IN 4 I LINEZ OLID <=2*S NITRO FURAN TOIN <=32* S OXACI LLIN >2 R PENIC ILLIN 2 R RIFAM PIN <=1*S TETRA CYCLI NE <=4*S TRIME TH/NARAYAN LFA 2/38* S VANCO MYCIN 1*S Orga nisms that are susce ptibl e to tetra cycli ne are gener ally also susce ptibl e to doxyc yclin e and minoc yclin e. Any subst ituti on of drugs which have not been teste d for sensi tivit y shoul d be consi dered based on appro sandy usage of the drugs . Infor matio n on doxyc yclin e and minoc yclin e can be found in the Physi leonarda' s Desk Refer ence or from the [facility] actur er. S= Susce ptibl e;I= Inter media te;R= Resis tant; ESBL= Resis tance due to confi rmed ESBL This lab resul t is being provi ded to you and your provi peter at the same time in compl iance with the Centu ry Cures Act. Your provi peter may not have had time to revie w and make recom menda tions based on the resul t. Pleas e allow up to one week for provi peter revie w. Not Available [facility] [address] [facility] [address], [place], [address], 05/23/2024 10:08:11 06/22/20 24 06/22/2024 UA WITHO UT MICRO - CS URISC AN blood - uriscan LARGE negati ve abnormal Not Available [facility] [address] [facility] [address], [place], [address], 06/22/2024 16:05:05 06/22/20 24 06/22/2024 UA WITHO UT MICRO - CS URISC AN bilirubin - uriscan NEGATI VE mg/dL negati ve Not Available [facility] [address] [place] [address], [place], [address], 06/22/2024 16:05:05 06/22/20 24 06/22/2024 UA WITHO UT MICRO - CS URISC AN urobilinogen - uriscan NORMAL mg/dL normal Not Available [facility] [address] [place] [address], [place], [address], 06/22/2024 16:05:05 06/22/20 24 06/22/2024 UA WITHO UT MICRO - CS URISC AN ketones - uriscan NEGATI VE mg/dL negati ve Not Available [facility] [address] [place] [address], [place], [address], 06/22/2024 16:05:05 06/22/20 24 06/22/2024 UA WITHO UT MICRO - CS URISC AN protein - uriscan 10 mg/dL negati ve abnormal Not Available [facility] [address] [place] [address], [place], [address], 06/22/2024 16:05:05 06/22/20 24 06/22/2024 UA WITHO UT MICRO - CS URISC AN nitrites - uriscan NEGATI VE negati ve Not Available [facility] [address] [place] [address] [address], [place], [address], 06/22/2024 16:05:05 06/22/20 24 06/22/2024 UA WITHO UT MICRO - CS URISC AN glucose - uriscan NEGATI VE mg/dL negati ve Not Available [facility] [address] [place] [address] [address], [place], [address], 06/22/2024 16:05:05 06/22/20 24 06/22/2024 UA WITHO UT MICRO - CS URISC AN pH - uriscan 5.00 5.00-9 .00 Not Available [facility] [address] [place] [address] [address], [place], [address], 06/22/2024 16:05:05 06/22/20 24 06/22/2024 UA WITHO UT MICRO - CS URISC AN sp. gravity - uriscan 1.03 1.01-1 .03 Not Available [facility] [address] [facility] [address], [place], [address], 06/22/2024 16:05:05 06/22/20 24 06/22/2024 UA WITHO UT MICRO - CS URISC AN leukocytes - uriscan TRACE negati ve abnormal Not Available [facility] [address] [place] [address], [place], [address], 06/22/2024 16:05:05 06/22/20 24 06/22/2024 UA WITHO UT MICRO - CS URISC AN color - uriscan YELLOW lt. yellow ;yello w Not Available [facility] [address] [place] [address], [place], [address], 06/22/2024 16:05:05 06/22/20 24 06/22/2024 UA WITHO UT MICRO - CS URISC AN clarity - uriscan CLEAR clear Not Available [facility] [address] [facility] [address], [place], [address], 06/22/2024 16:05:05 06/22/20 24 06/22/2024 UA WITHO UT MICRO - CS URISC AN total urine volume (mL) 50 /mL ----- ----- ----- ----- ----- ----- ----- ----- ----- ----- ----- ----- ----- ----- ---- *Plejayda gutierrez note the follo wing minim um quant ities for addit ional urine testi ng: - Atypi cals: 3 mL - Cytol ogy: 20 mL - GC/CH : 2 mL - FISH: 30 mL - Atypi cals w/ GC/CH : 5 mL - Cytol ogy PLUS FISH: 50 mL - Urine Cultu re: 3 mL ----- ----- ----- ----- ----- ----- ----- ----- ----- ----- ----- ----- ----- ----- ---- This lab resul t is being provi ded to you and your provi peter at the same time in compl iance with the Centu ry Cures Act. Your provi peter may not have had time to revie w and make recom menda tions based on the resul t. Felipe currie allow up to one week for provi peter revie w. Not Available [facility] [address] [facility] [address], [place], [address], 06/22/2024 16:05:05 06/22/20 24 06/22/2024 UA MICRO SCOPI C U-WBC 2 - 5 [hpf] 0 - 2 abnormal Not Available [facility] [address] [facility] [address], [place], [address], 06/22/2024 16:05:09 06/22/20 24 06/22/2024 UA MICRO SCOPI C U-RBC 25 - 50 [hpf] 0 - 2 abnormal Not Available [facility] [address] [place] [address] [address], [place], [address], 06/22/2024 16:05:09 06/22/20 24 06/22/2024 UA MICRO SCOPI C bacteria MODERA TE [hpf] none;r are abnormal Not Available [facility] [address] [place] [address], [place], [address], 06/22/2024 16:05:09 06/22/20 24 06/22/2024 UA MICRO SCOPI C squamous epi SMALL /lpf negati ve,sma ll This lab resul t is being provi ded to you and your provi peter at the same time in compl iance with the 21st Centu ry Cures Act. Your provi peter may not have had time to revie w and make recom menda tions based on the resul t. Felipe currie allow up to one week for provi peter revie w. Not Available [facility] [address], [place], [address], 06/22/2024 16:05:09 06/22/20 24 06/22/2024 URINE CULTU RE final report MICROB IOLOGY RESULT S abnormal SOURC E Void KNOWN ALLER GIES see chart TREAT MENT see chart MEDIA PLATE D AT: Media plate d on 024 @ 3:05 PM COLON Y COUNT 20,00 0-50, 000 cfu/m l RESUL T Staph yloco ccus epide rmidi s (Isol ate 1) Sensi tivit y Imani sis [place] te 1 ----- ----- ----- ----- ----- ----- ----- - CIPRO FLOXA CHARISSA >2 R DAPTO MYCIN <=1*S GENTA MICIN >8 R LEVOF LOXAC IN 4 I LINEZ OLID <=2*S NITRO FURAN TOIN <=32* S OXACI LLIN 2 R PENIC ILLIN >8 R RIFAM PIN <=1*S TETRA CYCLI NE >8 R TRIME TH/NARAYAN LFA 12/09* S VANCO MYCIN 1*S Orga nisms that are susce ptibl e to tetra cycli ne are gener ally also susce ptibl e to doxyc yclin e and minoc yclin e. Any subst ituti on of drugs which have not been teste d for sensi tivit y shoul d be consi dered based on appro sandy usage of the drugs . Infor inés n on doxyc yclin e and minoc yclin e can be found in the Physi leonarda' s Desk [facility]. S= Susce ptibl e;I= Inter media te;R= Resis tant; ESBL= Resis tance due to confi rmed ESBL This lab resul t is being provi ded to you and your provi peter at the same time in compl iance with the Centu ry Cures Act. Your provi peter may not have had time to revie w and make recom menda tions based on the resul tManuel currie allow up to one week for provi peter revie w. Not Available [facility] [address] [facility] [address], [place], [address], 06/25/2024 09:12:43 09/12/2009/12/2024 UA WITHO UT MICRO - CS URISC AN blood - uriscan LARGE negati ve abnormal Not Available [facility] [address] [place] [address], [place], [address], 09/12/2024 12:12:45 09/12/2009/12/2024 UA WITHO UT MICRO - CS URISC AN bilirubin - uriscan NEGATI VE mg/dL negati ve Not Available [facility] [address] [place] [address] [address], [place], [address], 09/12/2024 12:12:45 09/12/2009/12/2024 UA WITHO UT MICRO - CS URISC AN urobilinogen - uriscan NORMAL mg/dL normal Not Available [facility] [address] [facility] [address], [place], [address], 09/12/2024 12:12:45 09/12/2009/12/2024 UA WITHO UT MICRO - CS URISC AN ketones - uriscan NEGATI VE mg/dL negati ve Not Available [facility] [address] [place] [address] [address], [place], [address], 09/12/2024 12:12:45 09/12/2009/12/2024 UA WITHO UT MICRO - CS URISC AN protein - uriscan 10 mg/dL negati ve abnormal Not Available [facility] [address] [place] [address] [address], [place], [address], 09/12/2024 12:12:45 09/12/2009/12/2024 UA WITHO UT MICRO - CS URISC AN nitrites - uriscan POSITI VE negati ve abnormal Not Available [facility] [address] [facility] [address], [place], [address], 09/12/2024 12:12:45 09/12/2009/12/2024 UA WITHO UT MICRO - CS URISC AN glucose - uriscan NEGATI VE mg/dL negati ve Not Available [facility] [address] [facility] [address], [place], [address], 09/12/2024 12:12:45 09/12/2009/12/2024 UA WITHO UT MICRO - CS URISC AN pH - uriscan 5.00 5.00-9 .00 Not Available [facility] [address] [facility] [address], [place], [address], 09/12/2024 12:12:45 09/12/2009/12/2024 UA WITHO UT MICRO - CS URISC AN sp. gravity - uriscan 1.01 1.01-1 .03 Not Available [facility] [address] [facility] [address], [place], [address], 09/12/2024 12:12:45 09/12/2009/12/2024 UA WITHO UT MICRO - CS URISC AN leukocytes - uriscan SMALL negati ve abnormal Not Available [facility] [address] [facility] [address], [place], [address], 09/12/2024 12:12:45 09/12/2009/12/2024 UA WITHO UT MICRO - CS URISC AN color - uriscan YELLOW lt. yellow ;yello w Not Available [facility] [address] [facility] [address], [place], [address], 09/12/2024 12:12:45 09/12/2009/12/2024 UA WITHO UT MICRO - CS URISC AN clarity - uriscan CLEAR clear Not Available [facility] [address] [facility] [address], [place], [address], 09/12/2024 12:12:45 09/12/20 24 09/12/2024 UA WITHO UT MICRO - CS URISC AN total urine volume (mL) 50 /mL ----- ----- ----- ----- ----- ----- ----- ----- ----- ----- ----- ----- ----- ----- ---- *Huong gutierrez note the follo wing minim um quant ities for addit ional urine testi ng: - Atypi cals: 3 mL - Cytol ogy: 20 mL - GC/CH : 2 mL - FISH: 30 mL - Atypi cals w/ GC/CH : 5 mL - Cytol ogy PLUS FISH: 50 mL - Urine Cultu re: 3 mL ----- ----- ----- ----- ----- ----- ----- ----- ----- ----- ----- ----- ----- ----- ---- This lab resul t is being provi ded to you and your provi peter at the same time in compl iance with the 21st Centu ry Cures Act. Your provi peter may not have had time to revie w and make recom menda tions based on the resul t. Felipe currie allow up to one week for provi peter revie w. Not Available [facility] [address] [facility] [address], [place], [address], 09/12/2024 12:12:45 09/12/20 24 09/12/2024 UA MICRO SCOPI C U-WBC 2 - 5 [hpf] 0 - 2 abnormal Not Available [facility] [address] [facility] [address], [place], [address], 09/12/2024 12:12:48 09/12/20 24 09/12/2024 UA MICRO SCOPI C U-RBC 10 - 25 [hpf] 0 - 2 abnormal Not Available [facility] [address] [facility] [address], [place], [address], 09/12/2024 12:12:48 09/12/20 24 09/12/2024 UA MICRO SCOPI C bacteria MODERA TE [hpf] none;r are abnormal Not Available [facility] [address] [facility] [address], [place], [address], 09/12/2024 12:12:48 09/12/2009/12/2024 UA MICRO SCOPI C squamous epi SMALL /lpf negati ve,sma ll This lab resul t is being provi ded to you and your provi peter at the same time [facility] with the Centu ry Cures Act. Your provi peter may not have had time to revie w and make recom menda tions based on the resul t. Felipe currie allow up to one week for provi peter revie w. Not Available [facility] [address] [facility] [address], [place], [address], 09/12/2024 12:12:48 09/12/20 24 09/12/2024 URINE CULTU RE final report MICROB IOLOGY RESULT S abnormal SOURC E Void KNOWN ALLER GIES see chart TREAT MENT none MEDIA PLATE D AT: Media plate d on 09/12 @ 12:02 PM COLON Y COUNT >100, 000 cfu/m l RESUL T Klebs iella oxyto ca (Isol ate 1) Sensi tivit y Imani sis [place] te 1 ----- ----- ----- ----- ----- ----- ----- - AMOX/ K CLAV <=8/4 *S AMP/S ULBAC JUNG <=4/2 *S AMPIC ILLIN >16 R AZTRE ONAM <=4*S CEFAZ MARILU <=2*S CEFOX ITIN <=8*S CEFTA ZIDIM E <=1*S CEFTR IAXON E <=1*S CIPRO FLOXA CHARISSA 1 R NITRO FURAN TOIN <=32* S PIP/T AZO <=8*S TETRA CYCLI NE >8 R TRIME TH/NARAYAN LFA >2/38 R Orga nisms that are susce ptibl e to tetra cycli ne are gener ally also susce ptibl e to doxyc yclin e and minoc yclin e. Any subst ituti on of drugs which have not been teste d for sensi tivit y shoul d be consi dered based on appro sandy usage of the drugs . Infor matio n on doxyc yclin e and minoc yclin e can be found in the Physi leonarda' s Desk Refer ence or from the [facility] actur er. S= Susce ptibl e;I= Inter media te;R= Resis tant; ESBL= Resis tance due to confi rmed ESBL; Suspe cted ESBL= Posit gaurav scree hesham only This lab resul t is being provi ded to you and your provi peter at the same time in compl iance with the Centu ry Cures Act. Your provi peter may not have had time to revie w and make recom menda tions based on the resul t. Pleas e allow up to one week for provi peter revie w. Not Available [facility] [address], [place], [address], 09/14/2024 10:21:30 08/21/20 24 08/21/2024 MRI, prost ate, w/wo contr ast No observ ation record ed. [email or web address] [facility] [address], [place], [address], 08/21/2024 12:43:46 Result Notes None recorded. 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 Not Available [facility] 0 02:05:17 Prostate specific antigen above reference range 308530649 Active 2012 790.93 : ELEVATED PSA Not Available [facility] 0 02:05:17 Benign prostatic hyperplas ia with outflow obstructi on 423882731 Active 2020 Victorino Edmonds MD [address] [place] [address],[address], [address] [place] [address] , [facility] 1 14:32:18 Slowing of urinary stream 96362505 Active 2020 Victorino Edmonds MD [address] [place] [address],[address], [address] [place] [address] , [facility] 1 14:32:19 Elvis hematuria 688987705 Active 2020 Victorino Edmonds MD [address] [place] [address],[address], [address] [place] [address] , [facility] 1 14:32:20 Screening for malignant neoplasm of prostate Active 2023 Victorino Edmonds MD [address] [place] [address],[address], [address] [place] [address] , [facility] 4 12:43:12 Lower urinary tract symptoms due to benign prostatic hypertrop hy 87723716061 101 Active 2023 Victorino Edmonds MD [address] [place] [address],[address], [address] [place] [address] , [facility] 4 12:43:14 Urinary bladder stone 87357075 Active 2023 REJI SOLIS MD [address] [place] [address],[address], [address] [place] [address] , [facility] 4 22:04:09 Retention of urine 189675026 Active 2023 REJI SOLIS MD [address] [place] [address],[address], [address] [place] [address] , [facility] 4 22:06:05 Problem Notes None recorded. Procedures Surgical History Date Name Laterality Status Provider Name and Address Organization Details Recorded Time 09/20/20 24 Blood Draw/HUMAN RESOURCES PARTNER/PSA RESULTS active Nanci Escobar [facility] 09/18/2024 13:07:02 09/12/20 24 Urine Culture completed Nanci Escobar [facility] 09/11/2024 13:49:21 09/12/20 24 Urinalysis completed Nanci Escobar [facility] 09/11/2024 13:49:50 08/30/20 24 Fill and Pull/Voiding Trial/TOV completed Bridgett Rosen [facility] 08/30/2024 09:54:34 08/22/20 24 COMPLEX VISIT completed REJI SOLIS MD [address] [facility],[address], [place], [address], [facility] 08/21/2024 22:14:06 06/22/20 24 Urine Culture completed Nanci Escobar [facility] 06/20/2024 14:35:49 06/22/20 24 Urinalysis completed Lewis Mera [facility] 06/22/2024 15:47:25 05/29/20 24 Bladder Scan completed Brianna Ferreira [facility] 05/29/2024 16:21:06 05/21/20 24 Urine Culture completed Fabby Casey [facility] 05/21/2024 15:28:58 05/21/20 24 Urinalysis completed Fabby Casey [facility] 05/21/2024 16:18:17 05/21/20 24 Bladder Scan completed Fabby Casey [facility] 05/21/2024 16:18:30 02/16/20 24 COMPLEX VISIT completed REJI SOLIS MD [address] [facility],[address], [place], [address], [facility] 02/16/2024 11:31:27 02/16/20 24 Bladder Scan completed Dayanna Corona [facility] 02/16/2024 10:49:59 12/23/19 24 Blood Draw/HUMAN RESOURCES PARTNER/PSA RESULTS completed Eh Sheppard [facility] 12/23/2023 12:49:16 11/23/19 22 Prostate Biopsy Procedure completed Kane Garcia [facility] 11/23/2021 15:29:24 11/23/19 22 Gentamicin Injection completed Vee Anguiano [facility] 11/23/2021 14:11:03 07/24/20 21 Cystoscopy- male completed Victorino Edmonds MD [address] [facility],[address], [place], [address], [facility] 07/24/2021 14:37:51 07/24/20 21 Bladder Scan completed Rosana Oconnell [facility] 07/24/2021 14:16:44 11/21/19 19 Colonoscopy completed Rosana Oconnell [facility] 07/24/2021 14:16:32 Excise epiphyseal bar completed Not Available Health Note 07/23/2021 18:12:41 Insert epicard eltrd open completed Not Available Health Note 07/23/2021 18:12:41 Diagnostic colonoscopy completed Not Available Health Note 12/23/2023 07:52:32 Hernia repair w/mesh completed Not Available Health Note 12/23/2023 07:52:32 Imaging Results Imaging Date Name Status LastModified by Organiz ation Details LastModified Time 08/21/2024 MRI, prostate, w/wo contrast completed [facility] [address] [facility] [address], [place], [address], 08/21/2024 12:43:46 Procedure Notes None recorded. Medical Equipment None Reported. Allergies Allergen ID Allergen Name Allergen Category Reaction Reaction Severity Criticality Documentation Date Start Date Code Code System Note Provider Name and Address Organization Details Recorded Time 332124 shellfish derived food,medi cation anaphylax is flushing Not available Not available Not available 12/23/2023 Not Available Health Note 4 07:52:31 241375 cat dander environme nt anaphylax is flushing respirato ry distress Not available Not available Not available Not available 12/23/2023 Not Available Health Note 4 07:52:31 608689 tramadol medicatio n irregular heart rate palpitati ons Not available Not available Not available 12/23/2023 85857 RxNorm Not Available Health Note 4 07:52:31 [...] Available Not Available Vitals Date Recorded Body height Body mass index (BMI) Body weight Provider Name and Address Organization Details Last Updated DateTime 08/22/2024 170.18 cm 25.8 kg/m2 35089.74 g Sumeet Felix [place] [facility] 08/22/2024 09:50:37 Social History Question Answer Notes LastModified by Organizat ion Details LastModified Time Tobacco Smoking Status Former Smoker Not Available Health Note 12/23/2023 07:52:32 What Is Your Level Of Alcohol Consumption? None [email or web address] Information not available 08/22/2024 What Is Your Level Of Caffeine Consumption? Moderate [email or web address] Information not available 12/23/2023 How Much Tobacco Do You Chew? None [email or web address] Information not available 12/23/2023 Do You Or Have You Ever Used E-cigarettes Or Vape? Never Used Electronic Cigarettes [email or web address] Information not available 12/23/2023 When Did You Quit Smoking? 1-5yearssincel tamanna [email or web address] Information not available 08/22/2024 Recreational Drug Use [...] Has Tobacco Cessation Counseling Been Provided? No [email or web address] Information not available 08/22/2024 How Many Years Have You Smoked Tobacco? 25 [email or web address] Information not available 12/23/2023 Do You Or Have You Ever Used Any Other Forms Of Tobacco Or Nicotine? No [email or web address] Information not available 08/22/2024 How Many Days [...] Recorded Time Tdap 02/04/2012 completed CHERYL Boateng [facility] 08/22/2024 09:50:41 Past Encounters Encounter ID Performer Location Encounter Start Date Encounter Closed Date Diagnosis/Indication Diagnosis SNOMED-CT Code Diagnosis ICD10 Code [id number] Victorino Edmonds MD [facility] [address] [place] [address] 07/24/2021 14:08:06 07/24/2021 14:45:22 Prostate specific antigen above reference range 864568443 R97.20 Benign pro static hyperplasia with outflow obstruction 096405836 N40.1 Slowing of urinary stream 03615421 R39.12 Elvis hematuria 85852980 5 R31.0 [id number] Kane Garcia [facility] [address] [address] 11/23/2021 14:10:12 11/23/2021 16:28:42 Prostate specific antigen above reference range 044930622 R97.20 Benign pro static hyperplasia with outflow obstruction 567604616 N40.1 Slowing of urinary stream 52351280 R39.12 Elvis hematuria 11624723 5 R31.0 [id number] Vee Anguiano [facility] [address] [place] [address] 11/23/2021 14:09:21 11/23/2021 14:20:54 Prostate specific antigen above reference range 033882289 R97.20 [id number] Eh Sheppard [facility] [address] [address] 12/23/2023 12:26:23 12/23/2023 12:56:11 Lower urinary tract symptoms due to benign prostatic hypertrophy 4990048772 9101 N40.1 Slowing of urinary stream 79502839 R39.12 Screening for malignant neoplasm of prostate 818541659 Z12.5 [id number] REJI SOLIS MD [facility] [address] [facility],[address] [place] [address] 02/16/2024 10:37:58 02/16/2024 11:59:59 Lower urinary tract symptoms due to benign prostatic hypertrophy 4323136737 9101 N40.1 Prostate s pecific antigen above reference range 469105100 R97.20 Elvis hematuria 97559990 5 R31.0 [id number] Fabby Casey [facility] [address] [place] [address],it e [address] [place] [phone] 05/21/2024 15:17:15 05/22/2024 08:24:21 Lower urinary tract symptoms due to benign prostatic hypertrophy 5945968376 9101 N40.1 [id number] Brianna Ferreira [facility] [address] [place] [address],[facility] e [address] [place] [address] 05/29/2024 14:48:21 05/30/2024 10:07:47 Prostate specific antigen above reference range 896230757 R97.20 [id number] Lewis Mera [facility] [address] [place] [address] [place] [address] 06/22/2024 15:43:50 06/22/2024 15:49:24 Dysuria 58647823 R30.0 [id number] REJI SOLIS MD [facility] [address] [place] [address] [place] [address] 08/22/2024 09:44:58 08/27/2024 11:12:24 Lower urinary tract symptoms due to benign prostatic hypertrophy 5724105607 9101 N40.1 Prostate s pecific antigen above reference range 598954300 R97.20 Elvis hematuria 84333770 5 R31.0 Urinary bladder stone 70 183468 N21.0 Retention of urine 09653 4002 R33.9 [id number] Bridgett Rosen [facility] [address] [place] [address],it e [address] [place] [address] 08/30/2024 09:23:15 08/31/2024 08:48:17 Retention of urine 935173643 R33.9 [id number] Ama Grace [facility] [address] [facility] [address] [place] [address] 09/12/2024 11:55:40 09/12/2024 11:58:59 Burning sensation 98812770 R20.8 Health Concerns Section Related Observation LastModified by Organization Detai ls LastModified Time None Recorded Concern Status LastModified by Organization Details LastModified Time None Recorded Advance Directives Directive None Recorded Payers Encounter Date Sequence Insurance Name Policy Number Policy Armenta Covered Member ID Armenta Member ID Guarantor Name 05/29/2024 1 [facility] [employer] [facility] Oleg Parks Dahedl [id number] Oleg Parks Dahedl 06/22/2024 1 [place] [employer] [facility] Oleg Parks Dahedl [id number] 8 Oleg Parks Dahedl 08/22/2024 1 [place] [employer] [facility] Oleg Parks Dahedl [id number] 8 Oleg Parks Dahedl 08/30/2024 1 [place] [employer] [facility] Oleg Kasey Dahedl [id number] 8 Oleg Parks Dahedl 09/12/2024 1 [place] [employer] [facility] Oleg Parks Dahedl [id number] 8 Oleg Parks Dahedl Notes Date Note Type Note Provider Name and Address Organization Details Recorded Time 08/22/2024 text/html HPI Notes: 64-year-old male with history of BPH with LUTS, urinary retention, gross hematuria, and elevated PSA. BPH WITH LUTS Currently on dual medical therapy with tamsulosin 0.4 mg daily and finasteride 5 mg daily. He is averse to taking medications care home No prior urologic surgeries He has had prior urinary retention requiring catheterization Recurrent hematuria with recent attempt at self cath resulting in gross hematuria with clot retention requiring cysto with clot evac and fulguration as well as evacuation of some of the bladder stones (but larger ones remain) (Dr. Chente Bradford) on 08/11/24. Now with indwelling box again. Previously described urinary symptoms include: He does have difficulty urinating especially after he holds its back for a period of time and sometimes has to strain; +Double voiding Nocturia x2 He has post-void dribbling Denied urinary incontinence IPSS 12/23/23: 14 02/16/24: 14 (QoL: mostly dissatisfied) 08/22/24: 18 (QoL: terrible) IIEF 02/16/24: 27 CFQ 02/16/24: 10 08/22/24: 8 (leakage once per week or less) ELEVATED PSA PSA 02/19/13 = 5.2 12/24/13 = 6.59 07/31/2020 = 6.4 01/28/21 = 4.06 12/23/23 = 13.27 (corrects to 26.54 on finasteride) Prostate biopsy on 08/29/[address] Riley was negative. Prostate MRI 08/05/21 ([facility]) = 118 gram prostate, PIRADS 3 lesion x 1. S/p Uronav prostate biopsy by Dr. Garcia on 11/23/21 = negative. Repeat prostate MRI on 08/21/24 - 160 cc gland; PIRADS 3 lesion GROSS HEMATURIA Had gross hematuria in early/mid April 2021. Reportedly associated with elevated INR (~5). He underwent work up as below: Cystoscopy 07/24/21 showed a very large prostate without any bladder tumors or stones. Urine cytology 07/24/21 = negative. CT urogram 08/05/21 ([facility]) = normal upper tracts, enlarged prostate, no kidney stone TESTOSTERONE He recently restarted testosterone replacement recently in [place]. PMH: HLD, HTN, low testosterone, a. fib, mechanical AVR, on lifetime warfarin. Anticoagulation: He has to bridge on lovenox for surgical procedures. REJI SOLIS MD [address] [facility],[address], [place], [address], [facility] 08/24/2024 18:30:05
--- OUTSIDE RECORDS SUMMARY | 2024-09-18 16:13 | XMS_ITS | Continuity of Care Document ---
Author Organization [facility], [facility] Address [address] [facility] [address] [place] [address] Care Team Providers Care Card Assembler Name Role Phone [facility] Primary Care Provider [phone] SHAVONMARY ANNEMARIA ANTONIA Primary Care Provider Assessment No assessment recorded. Plan of Treatment Reminders Order Date Submit Date Provider Last Modified By Organization Details Last Modified Time Details Appointments LAB BLOOD DRAW 024 01:20PM [facility] Not available Not available Not available Lab None recorde d. Referral None recorde d. Procedures None recorde d. Surgeries None recorde d. Imaging None recorde d. Medication Orders None recorde d. Patient TargetsNo targets recorded. Patient InstructionsNo instructions recorded. Reason for Referral None Reported. Results Created Date Observation Date Name Description Value Unit Range Abnormal Flag Note LastModifiedBy Organization Detail LastModifiedTime 08/21/20 24 08/21/2024 MRI, prost ate, w/wo contr ast No observ ation record ed. [email or web address] [facility] [address] [facility] [address], [place], [address], 08/21/2024 12:43:46 Result Notes None recorded. 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 Not Available [facility] 0 02:05:17 Prostate specific antigen above reference range 456359720 Active 2012 790.93 : ELEVATED PSA Not Available [facility] 0 02:05:17 Benign prostatic hyperplas ia with outflow obstructi on 203992691 Active 2020 Victorino Edmonds MD [address] [place] [address],[address], [address] , [facility] 1 14:32:18 Slowing of urinary stream 45831516 Active 2020 Victorino Edmonds MD [address] [place] [address],[address], [address] [place] [address] , [facility] 1 14:32:19 Elvis hematuria 571423565 Active 2020 Victorino Edmonds MD [address] [place] [address],[address], [address] , [facility] 1 14:32:20 Screening for malignant neoplasm of prostate Active 2023 Victorino Edmonds MD [address] [place] [address],[address], [address] , [facility] 4 12:43:12 Lower urinary tract symptoms due to benign prostatic hypertrop hy 18733845550 101 Active 2023 Victorino Edmonds MD [address] [place] [address],[address], [address] [place] [address] , [facility] 4 12:43:14 Urinary bladder stone 97004163 Active 2023 NAMRATA ROCKWELL MD [address] [place] [address],[address], [address] , [facility] 4 22:04:09 Retention of urine 607384186 Active 2023 NAMRATA ROCKWELL MD [address] [place] [address],[address], [address] , [facility] 4 22:06:05 Problem Notes None recorded. Procedures Surgical History Date Name Laterality Status Provider Name and Address Organization Details Recorded Time 09/20/20 24 Blood Draw/PASTE MIXER/PSA RESULTS active Nanci Escobar [facility] 09/18/2024 13:07:02 09/12/20 24 Urine Culture completed Nanci Escobar [facility] 09/11/2024 13:49:21 09/12/20 24 Urinalysis completed Nanci Escobar [facility] 09/11/2024 13:49:50 08/30/20 24 Fill and Pull/Voiding Trial/TOV completed Bridgett Rosen [facility] 08/30/2024 09:54:34 08/22/20 24 COMPLEX VISIT completed NAMRATA ROCKWELL MD [address] [place] [address],[address], [place], [address], [facility] 08/21/2024 22:14:06 06/22/20 24 Urine Culture completed Nanci Escobar [facility] 06/20/2024 14:35:49 06/22/20 24 Urinalysis completed Lewis Mera [facility] 06/22/2024 15:47:25 05/29/20 24 Bladder Scan completed Brianna Ferreira [facility] 05/29/2024 16:21:06 05/21/20 24 Urine Culture completed Fabby Casey [facility] 05/21/2024 15:28:58 05/21/20 24 Urinalysis completed Fabby Casey [facility] 05/21/2024 16:18:17 05/21/20 24 Bladder Scan completed Fabby Casey [facility] 05/21/2024 16:18:30 02/16/20 24 COMPLEX VISIT completed NAMRATA ROCKWELL MD [address] [place] [address],[address], [place], [address], [facility] 02/16/2024 11:31:27 02/16/20 24 Bladder Scan completed Dayanna Corona [facility] 02/16/2024 10:49:59 12/23/19 24 Blood Draw/PASTE MIXER/PSA RESULTS completed Eh Sheppard [facility] 12/23/2023 12:49:16 11/23/19 22 Prostate Biopsy Procedure completed Kane Garcia [facility] 11/23/2021 15:29:24 11/23/19 22 Gentamicin Injection [facility] 11/23/2021 14:11:03 07/24/20 21 Cystoscopy- male completed Victorino Edmonds MD [address] [facility],[address], [place], [address], [facility] 07/24/2021 14:37:51 07/24/20 21 Bladder Scan completed Rosana Anish [facility] 07/24/2021 14:16:44 11/21/19 19 Colonoscopy completed Rosana Oconnell [facility] 07/24/2021 14:16:32 Excise epiphyseal bar completed [...] Name and Address Organization Details Recorded Time 898932 shellfish derived food,medi cation anaphylax is flushing Not available Not available Not available 12/23/2023 Not Available Health Note 4 07:52:31 175784 cat dander environme nt anaphylax is flushing respirato ry distress Not available Not available Not available Not available 12/23/2023 Not Available Health Note 4 07:52:31 595917 tramadol medicatio n irregular heart rate palpitati ons Not available Not available Not available 12/23/2023 53411 RxNorm Not Available Health Note 4 07:52:31 [...] Is Your Level Of Alcohol Consumption? None [email or web address] Information not available 08/22/2024 What Is Your Level Of Caffeine Consumption? Moderate [email or web address] Information not available 12/23/2023 How Much Tobacco Do You Chew? None [email or web address] Information not available 12/23/2023 Do You Or Have You Ever Used E-cigarettes Or Vape? Never Used Electronic Cigarettes [email or web address] Information not available 12/23/2023 When Did You Quit Smoking? 1-5yearssincel astcigarette [email or web address] Information not available 08/22/2024 Recreational Drug Use [...] Has Tobacco Cessation Counseling Been Provided? No [email or web address] Information not available 08/22/2024 How Many Years Have You Smoked Tobacco? 25 [email or web address] Information not available 12/23/2023 Do You Or Have You Ever Used Any Other Forms Of Tobacco Or Nicotine? No [email or web address] Information not available 08/22/2024 How Many Days [...] Time Tdap 02/04/2012 completed CHERYL Boateng - [place] [facility] 08/22/2024 09:50:41 Past Encounters Encounter ID Performer Location Encounter Start Date Encounter Closed Date Diagnosis/Indication Diagnosis SNOMED-CT Code Diagnosis ICD10 Code [id number] NAMRATA ROCKWELL MD [facility] [address] [place] [address] 08/22/2024 09:44:58 08/27/2024 11:12:24 Lower urinary tract symptoms due to benign prostatic hypertrophy 8934650065 9101 N40.1 Prostate s pecific antigen above reference range 098074464 R97.20 Elvis hematuria 37506087 5 R31.0 Urinary bladder stone 70 035061 N21.0 Retention of urine 54594 4002 R33.9 [id number] [facility] [address] [place] [address] 08/30/2024 09:23:15 08/31/2024 08:48:17 Retention of urine 327700339 R33.9 Health Concerns Section Related Observation LastModified by Organization Detai ls LastModified Time None Recorded Concern Status LastModified by Organization Details LastModified Time None Recorded Payers Encounter Date Sequence Insurance Name Policy Number Policy Armenta Covered Member ID Armenta Member ID Guarantor Name 08/30/2024 1 [place] [employer] Oleg Sparks [id number] Oleg Sparks
--- OUTSIDE RECORDS SUMMARY | 2024-09-18 16:13 | XMS_ITS | Encounter Summary ---
Author Organization [place] Address [address] [place] [address] Care Team Providers Care Wire Frame Maker Name Role Phone [facility]- Primary Care Provider Reason for Visit * Reason Comments Hematuria * Auth/Cert (Routine) Specialty Diagnoses / Procedures Referred By Eric hernandez Referred To Contact Med Surg Diagnoses Gross hematuria Supratherapeutic INR Problem with Box catheter, initial encounter (H) Gross hematuria Problem with Box catheter, initial encounter (H24) Supratherapeutic INR [place] [address] Medical Surgical [address] [place] [address] Phone: tel: fax: Referral ID Status Reason Start Date Expiration Date Visits Re quested Visits Authorized [id number] 1 1 Encounter Details Date Type Department Care Team (Late st Contact Info) Description 08/11/2024 3:00 PM CDT - 08/11/2024 3:50 PM CDT Surgery [facility] PeriOp Services [address] [place] [phone] Adalberto Eldridge MD [address] [facility] [address] [place], [place] [phone] Cystoscopy, fulguration of the prostate Surgery Details Date/Time Status Location OR Service Patient Class Case Cl ass Case Type Trauma Case? 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 Gender Identity Not on file Sexual Orientation Not on file documented as of this encounter Last Filed Vital Signs Vital Sign Reading Time Taken Comments Blood Pressure 111/63 08/11/2024 3:50 PM CDT Pulse 75 08/11/2024 3:50 PM CDT Temperature 36.4 ??C (97.6 ??F) 08/11/2024 1:54 PM CD T Respiratory Rate 20 08/11/2024 3:50 PM CDT Oxygen Saturation 100% 08/11/2024 3:50 PM CDT Inhaled Oxygen Concentration - - Weight 70.1 kg (154 lb 8.7 oz) 08/09/2024 3:48 P M CDT Height 170.2 cm (5' 7) 08/09/2024 3:48 PM CDT Body Mass Index 25.14 08/09/2024 3:48 PM CDT documented in this encounter Discharge Summaries * Olvin Alejandre DO - 08/13/2024 1:29 PM CDT [facility] Hospitalist Discharge Summary Date of Admission: 08/09/2024 [...] tests Follow up with primary care provider, [facility], within 7 days for hospital follow- up. [...] working on discharge on 08/13/2024. Olvin Alejandre, [place] [address] MEDICAL SURGICAL [address] [facility] [address] Physical Exam Vital Signs: Temp: 98.4 ??F [...] pitting edema LE b/l. Primary Care Physician [facility] Discharge Orders INR CBC with platelets Reason for your hospital stay Hematuria. Follow-up and recommended labs and tests Follow up with primary care provider, [facility], within 7 days for hospital follow- up. [...] Morris PA-C - 08/13/2024 10:15 AM CDT [facility] Urology Progress Note Assessment and Plan: Assessment: POD 2 Cystoscopy, evacuation of bladder hematoma, removal of bladder stones, fulguration of the prostate Gross hematuria Supratherapeutic INR Problem with Box catheter, initial encounter (H24) Plan: -Continue with three-way Box catheter. Can plug CBI irrigation port. -Continue Flomax 0.4 mg once daily and finasteride 5 mg daily. -Follow-up as planned with primary urologist at [facility] for MRI of the prostate and consider ation of possible outlet procedure and bladder stone removal. -Okay to cautiously transition blood thinner. Given patient's mechanical valve, will need to limitiholding anticoagulation. -Patient is willing to learn/discharge with information on how to flush is Box catheter at home. -Okay to discharge from a urology perspective. Will follow peripherally. Genesis Morris PA-C [facility] [phone] Interval History: Had quite a bit of [...] Omero, DO - 08/12/2024 1:59 PM CDT [facility] Medicine Progress Note - Hospitalist Service Date [...] -Had vitamin K 2.5 mg once on 9/20. -INR currently down to 1.8. -Monitor INR [...] Plan Medically Ready for Discharge: Anticipated Tomorrow Olvin Alejandre DO Hospitalist Service [facility] Securely message with [employer] (more info) Text page via [facility] Paging/Directory Interval History Some bladder pain. Improved [...] plan to follow-up with his urologist with [place] [facility]. (He does not know the name of his current urologist) for his MRI prostate followed by bladder stone removal and BPH outlet procedure * Sonia Griggs RN - 08/11/2024 2:[address] Eldridge, sarah plasma. Do not administer at this time. [...] Alejandre, DO - 08/11/2024 1:34 PM CDT [facility] Medicine Progress Note - Hospitalist Service Date [...] 2-4 Days Olvin Alejandre DO Hospitalist Service [facility] Securely message with [employer] (more info) Text page via [employer] Paging/Directory Interval History Continues having bladder pain [...] NPO after midnight tonight * Olvin Alejandre, DO - 08/10/2024 2:28 PM CDT [facility] Medicine Progress Note - Hospitalist Service Date [...] 2-4 Days Olvin Alejandre DO Hospitalist Service [facility] Securely message with [employer] (more info) Text page via [employer] Paging/Directory Interval History Continues any blood in [...] Easton MD - 08/09/2024 9:26 PM CDT [facility] History and Physical Hospitalist Date of [...] days Uziel Easton MD Primary Care Physician [facility] Chief Complaint Hematuria History is obtained [...] from the original note were not included. [facility] Consultation by [facility] @NAME@ Age: [age] year old [...] be corrected as well Adalberto Eldridge M.D. [facility] [phone] Chief Complaint: History is obtained from the patient and EMR. History of Present Illness: This patient is a 64 year old male admitted with gross hematuria and clot retention. He has a knownenlarged prostate with elevated PSA. He sees Dr. Stubbs with [facility]. The patient that he has an [...] mL 3 mL Intracatheter q1 min prn Uizel Easton MD 3mL at 08/10/24 0325 tamsulosin [...] Package accidentally thrown away prior to scanning. [employer] administered with JENNIFER Alvarez also at bedside. * Tangela Artis RN - 08/09/2024 9:00 PM CDT Patient's son continually pressing call light and coming out of room asking for pain medication/nursing intervention. Provider notified and 0.3mg dilaudid and ditropan ordered. * Pam Chin RN - 08/09/2024 8:03 PM CDT [facility] ED Nurse Handoff Report ED Chief complaint: Hematuria . ED Diagnosis: Final diagnoses: Gross hematuria Problem with Box catheter, initial encounter (H24) Supratherapeutic INR Allergies: Allergies Allergen Reactions Shellfish-Derived Products Anaphylaxis Cats Code Status: Full Code Activity level - Baseline/Home: independent. Activity Level - Current: standby. Lift room needed: No. Bariatric: No Buffing Wheel Former Machine Needed: No Isolation: No. Infection: Not Applicable. [...] that 2 days ago,he was fishing in [place] [facility] [place] [facility] [place] near [place] and began experiencing an onset of urinary [...] clot blocking the catheter. He follows with [facility] for his hx of enlarged prostate. [...] Bilirubin Urine Negative Ketones Urine Negative Specific [place] Urine 1.005 Blood Urine Large (*) pH [...] to inpatient care plan. ED Nurse Name: Tanegla Artis RN 8:03 PM RECEIVING UNIT ED [...] 2 days ago, he was fishing in [place] [facility] [place] [facility] near [place] and began experiencing an onset of urinary [...] clot blocking the catheter. He follows with [facility] for his hx of enlarged prostate. [...] Bilirubin Urine Negative Ketones Urine Negative Specific [place] Urine 1.005 Blood Urine Large (*) pH [...] ED Course ED Course as of 08/09/2420[address] [facility] Aug 09, 2024 161 I obtained history and examined the patient as noted above. Additional Documentation None Medical Decision Making / Diagnosis [facility] Diagnoses: None MIPS None MDM Oleg Sparks [...] Notes * Pharmacy-Anticoagulation Service - Andreia Johnston [facility] - 08/13/2024 12:46 PM CDT Images from the original note were not included. 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 INR Goal= 2.5-3.5 Expected length of therapy lifetime. Warfarin ART STUDIO TEACHER Regimen: 4mg Tu/Sun, 8mg ROW Anticoagulation Dose [...] during the last 7 days: --- Reviewed ART STUDIO TEACHER, inpt and discharge meds. Pt admitted with elevated INR, likely due to bactrim interaction (ART STUDIO TEACHER med). Pt INR now subtherapeutic. On enoxaparin bridge. Agree with MD plan to discharge pt on ART STUDIO TEACHER warfarin dose (Bactrim has been discontinued) and [...] and tearful about INR level with PVR. Steel Hanger paged xc who then ultimately started a [...] shift note. Outcome: Progressing Flowsheets (Taken 08/12/2024 9224) Outcome Evaluation: less pain Plan of Care [...] Flowsheet Documentation Taken 08/11/2024756 by Lo Tate, JENNIFER Device Skin Pressure Protection: absorbent pad utilized/changed [...] in the bladder. I used the Urovac spice grinder to irrigate out the hematoma. With this process of the but smaller bladder stones were removed as well. I then performed cystoscopy to make certain all hematoma had been removed. I flushed out any remaining small bladder stones that I could flush out but there still remained multiple large bladder stones. I looked at theprostate and bleeding was primarily coming from the median lobe of the prostate. I used the Bugbee electrode to fulgurate any active bleeding. I removed the scope and drained the bladder with a 24 Israeli three-way Box catheter. I hand irrigate the [...] passing large clotsdespite CBI running wide open. Steel Hanger tried to hand irrigate for over 30 [...] Date/Time: 08/10/2024 0624 Mechanism of Provider Notification: [employer]aging Purpose of Notification: Paged MD to request Dilaudid to accompany B + O suppository for severe bladder spasms. worried about giving B + O with low BPs overnight. Got an updated BP and ok'd to give. MD Magallon ordered IV Dilaudid 0.2mg x1 dose. Steel Hanger asked if CBI should continue despite spasms, red color, and high output. wanted it to keep running. Orders Received: Comments: * Plan of Care - Sabine Goldberg RN - 08/10/2024 7:03 AM CDT Assumed care [phone]. A&Ox4. Ax1 when OOB. On RA. NPO [...] Notification Date/Time: 08/10/20243 Mechanism of Provider Notification: [employer] messaging Purpose of Notification: FYI Patient's most [...] Pertinent Information: outside meds Changes made to ART STUDIO TEACHER medication list: Added: valtrex, lisinopril, ditropan, Bactrim DS, proscar Deleted: None Changed: warfarin Allergies reviewed with patient and updates made in EHR: yes --added tramadol Medication History Completed By: Niall Jaeger RPH 08/09/2024 9:01 PM ART STUDIO TEACHER Med List Medication Sig Last Dose finasteride [...] st Contact Info) Description 09/25/2024 8:00 AM INJECTION PRESS OPERATOR Office Visit [facility] [place] [address] [place] [phone] Adalberto Eldridge MD [address] [place] [address] [place] [address] 10/02/2024 11:00 AM INJECTION PRESS OPERATOR Virtual Visit [facility] [place] [address] [place] [phone] Adalberto Eldridge MD [address] [place] [address] [place] [address] Pending Results Name Type Priority Associated Diagnoses [...] CBC with platelets (08/13/2024 6:48 AM CDT) [facility] WBC Count 8.4 4.0 - [...] LAB - BLOOD ORDERABLES Fin al Result [facility] [address] Lab (1st floor, no room number) [place] [address] * Heparin Unfractionated Anti Xa Level [...] MD LAB - BLOOD ORDERABLES Final Result [facility] [address] Lab (1st floor, no room number) [place] [id number] * (ABNORMAL) INR (08/13/2024 6:37 AM CDT) Pathologist [facility] INR 1.16(H) 0.85 - 1.15 08/13/2024 7:01 AM CDT LABORATORY Blood STRUCTURE OF RIGHT HAND / Unknown Venipuncture / Unknown 08/13/2024 6:37 AM CDT 08/13/2024 6:49 AM CDT Olvin Alejandre DO LAB - BLOOD ORDERABLES Fin al Result LABORATORY [facility] [address] [facility] Lab (1st floor, no room number) [address] * (ABNORMAL) Basic metabolic panel (08/13/2024 6:37 AM CDT) Pathologist [facility] Sodium 137 135 - 145 mmol/L 08/13/2024 [...] CDT 08/13/2024 6:48 AM CDT [facility] - [facility]LOOD ORDERABLES Fin al Result [facility] [address] [facility], no room number) [place] [address] * (ABNORMAL) Ionized Calcium (08/13/2024 6:37 AM CDT) Calcium Ionized Whole Blood 4.2(L) 4.4 - 5.2 mg/dL 08/13/2024 7:00 AM CDT RH LABORATORY Blood STRUCTURE OF RIGHT HAND / Unknown Venipuncture / Unknown 08/13/2024 6:37 AM CDT 08/13/2024 6:49 AM CDT Olvin Alejandre LAB - BLOOD ORDERABLES Fin al Result [facility] [address] [facility] ([facility], no room number) [place] [address] * (ABNORMAL) INR (08/12/2024 11:24 PM CDT) INR 1.35(H) 0.85 - 1.15 08/12/2024 11:57 PM CDT RH LABORATORY Blood STRUCTURE OF RIGHT HAND / Unknown Venipuncture / Unknown 08/12/2024 11:24 PM CDT 08/12/2024 11:33 PM CDT us Grant Fernandez MD LAB - BLOOD ORDERABLES Final Res ult LABORATORY [facility] [address] Lab (1st floor, no room number) [place] [address] * (ABNORMAL) CBC with platelets (08/12/2024 11:24 PM CDT) [facility] WBC Count 9.8 4.0 - 11.0 [...] - BLOOD ORDERABLES Final Res ult LABORATORY [facility] [address] Lab (1st floor, no room number) [place] [address], [facility] * (ABNORMAL) Hemoglobin (08/12/2024 12:27 PM CDT) Hemoglobin 8.9(L) 13.3 - 17.7 g/dL 08/12/2024 12:56 PM CDT LABORATORY Blood STRUCTURE OF RIGHT HAND / Unknown Venipuncture / Unknown 08/12/2024 12:27 PM CDT 08/12/2024 12:53 PM CDT us Adalberto Eldridge MD LAB - BLOOD ORDERABLES Final Result RH LABORATORY [facility] [address] Lab (1st floor, no room number) [place] [address], [facility] * (ABNORMAL) Basic metabolic panel (08/12/2024 6:12 [...] LAB - BLOOD ORDERABLES Final Result LABORATORY [facility] [address] Lab (1st floor, no room number) [place] [phone] * (ABNORMAL) INR (08/12/2024 6:12 AM CDT) Pathologist [facility] INR 1.84(H) 0.85 - 1.15 08/12/2024 6:50 AM CDT LABORATORY Blood STRUCTURE OF RIGHT HAND / Unknown Venipuncture / Unknown 08/12/2024 6:12 AM CDT 08/12/2024 6:30 AM CDT Adalberto Eldridge MD LAB - BLOOD ORDERABLES Final Result Performing Organization Address City/[facility]/ZIP Co de Phone Number LABORATORY [facility] [address] Lab (1st floor, no room number) [place] [phone] [place] [address] * (ABNORMAL) CBC with platelets (08/12/2024 6:12 [...] - BLOOD ORDERABLES Final Result LABORATORY [facility] [address] Lab (1st floor, no room number) [address] * (ABNORMAL) Hemoglobin (08/11/2024 6:03 PM CDT) Hemoglobin 9.5(L) 13.3 - 17.7 g/dL 08/11/2024 6:10 PM CDT LABORATORY Blood STRUCTURE OF RIGHT UPPER LIMB / Unknown Venipuncture / Unknown 08/11/2024 6:03 PM CDT 08/11/2024 6:07 PM CDT Adalberto Eldridge MD LAB - BLOOD ORDERABLES Final Result LABORATORY [facility] [address] Lab (1st floor, no room number) [address] [place] [address] * Stone analysis (08/11/2024 3:34 PM CDT) Stone Mass 273 mg 08/16/2024 9:47 AM CDT [facility] Calculi Description See Note 08/16/2024 9:47 AM CDT [facility] Comment: Specimen consists of numerous brown calculi. The total weight is 273 mg. Stone Composition See Note 024 9:47 AM CDT [facility] Comment: Calculi composed primarily of: 20% calcium [...] composition determined by FTIR analysis. Performed By: [employer] [address] [place] [address] Call Manager: Noah Moran MD, PhD CLIA Number: [id number] Calculus/Stone URINARY BLADDER STRUCTURE / Unknown Non-blood Collection / Unknown 08/11/2024 3:34 PM CDT 08/11/2024 4:00 PM CDT Adalberto Eldridge MD LAB - BODY FLUIDS ORDER AAMNDA Final Result [facility] [address] [place] [address] [phone] * Adult Type and Screen (08/11/2024 12:27 PM CDT) ABO/RH(D) O POS 08/11/2024 12:17 PM CDT RH BLOOD BANK Antibody Screen Negative Negative 08/11/2024 12:17 PM CDT RH BLOOD BANK SPECIMEN EXPIRATION DATE [id number] 08/11/2024 12:17 PM CDT RH BLOOD BANK Blood STRUCTURE OF RIGHT HAND / Unknown Venipuncture / Unknown 08/11/2024 12:27 PM CDT 08/11/2024 12:33 PM CDT Olvin Alejandre DO LAB - BLOOD BANK TEST ORDE R Final Result RH BLOOD BANK [address] [place] [address] * (ABNORMAL) INR (08/11/2024 12:27 PM CDT) INR 2.47(H) 0.85 - 1.15 08/11/2024 1:18 PM CDT RH LABORATORY Blood STRUCTURE OF RIGHT HAND / Unknown Venipuncture / Unknown 08/11/2024 12:27 PM CDT 08/11/2024 12:33 PM CDT us Olvin Alejandre DO LAB - BLOOD ORDERABLES Fin al Result RH LABORATORY [facility] [address] [facility], no room number) [place] [phone] [place] [address] * (ABNORMAL) CBC with platelets (08/11/2024 5:51 [...] BLOOD ORDERABLES Maurilio pedro Result RH LABORATORY [facility] [address] Lab (1st floor, no room number) [place] [address], [facility] * (ABNORMAL) Basic metabolic panel (08/11/2024 5:51 [...] ORDERABLES Fin al Result Performing Organization Address City/[facility]/ZIP Co de Phone Number [facility] [address] Lab (1st floor, no room number) [place] [address] * (ABNORMAL) INR (08/11/2024 5:51 AM CDT) INR 3.67(H) 0.85 - 1.15 08/11/2024 6:46 AM CDT RH LABORATORY Blood STRUCTURE OF RIGHT HAND / Unknown Venipuncture / Unknown 08/11/2024 5:51 AM CDT 08/11/2024 6:02 AM CDT us Olvin Alejandre DO LAB - BLOOD ORDERABLES Fin al Result Performing Organization Address [facility] Co de Phone Number [facility] [address] Lab (1st floor, no room number) [place] [address] * (ABNORMAL) Hemoglobin (08/10/2024 10:40 PM CDT) Hemoglobin 11.1(L) 13.3 - 17.7 g/dL 08/10/2024 10:46 PM CDT LABORATORY Blood STRUCTURE OF RIGHT HAND / Unknown Venipuncture / Unknown 08/10/2024 10:40 PM CDT 08/10/2024 10:44 PM CDT Olvin Alejandre DO LAB - BLOOD ORDERABLES Fin al Result Performing Organization Address City/[facility]/ZIP Co de Phone Number [facility] [address] Lab (1st floor, no room number) [place] [phone] * (ABNORMAL) INR - Pre-Op (08/10/2024 3:58 PM CDT) INR 4.32(H) 0.85 - 1.15 08/10/2024 4:48 PM CDT RH LABORATORY Blood STRUCTURE OF RIGHT UPPER LIMB / Unknown Venipuncture / Unknown 08/10/2024 3:58 PM CDT 08/10/2024 4:02 PM CDT Adalberto Eldridge MD LAB - BLOOD ORDERABLES Final Result LABORATORY [facility] [address] Lab (1st floor, no room number) [place] [id number] * (ABNORMAL) Glucose by meter (08/10/2024 3:50 PM CDT) GLUCOSE BY METER POCT 102(H) 70 - 99 mg/dL 08/10/2024 4:21 PM CDT LABORATORY POC Blood, Capillary BLOOD SPECIMEN / Unknown 08/10/2024 3:50 PM CDT 08/10/2024 4:21 PM CDT Uziel Easton MD LAB - BEAKER POCT Joy l Result LABORATORY [facility] [address] Lab (1st floor, no room number) [place] [phone] [place] [address] * (ABNORMAL) CBC with platelets and differential [...] MD LAB - BLOOD ORDERABLES Final Result [facility] [address] Lab (1st floor, no room number) [address] * (ABNORMAL) INR (08/10/2024 10:34 AM CDT) INR 4.33(H) 0.85 - 1.15 08/10/2024 11:01 AM CDT LABORATORY Blood STRUCTURE OF RIGHT UPPER LIMB / Unknown Venipuncture / Unknown 08/10/2024 10:34 AM CDT 08/10/2024 10:41 AM CDT Olvin Alejandre DO LAB - BLOOD ORDERABLES Fin al Result Performing Organization Address [facility]/ZIP Co de Phone Number [facility] [address] Lab (1st floor, no room number) [address] * Hemoglobin (08/10/2024 10:34 AM CDT) Hemoglobin 13.4 13.3 - 17.7 g/dL 08/10/2024 10:44 AM CDT LABORATORY Blood STRUCTURE OF RIGHT UPPER LIMB / Unknown Venipuncture / Unknown 08/10/2024 10:34 AM CDT 08/10/2024 10:41 AM CDT Uziel Easton MD LAB - BLOOD ORDERABLES Final Result [facility] [address] Lab (1st floor, no room number) [address] * (ABNORMAL) Basic metabolic panel (08/10/2024 [...] LAB - BLOOD ORDERABLES Final Result LABORATORY [facility] [address] [facility] Lab (1st floor, no room number) [place] [address], [facility] * CT Abdomen Pelvis w/o Contrast (08/10/2024 [...] No hydronephrosis. ALBERT ADAMS MD SYSTEM ID: [id number] Narrative 08/10/2024 3:[address] ABDOMEN [...] the urinary bladder lumen related to the Bxo. BOWEL: Multiple duodenal diverticula. No small bowel [...] No hydronephrosis. ALBERT ADAMS MD SYSTEM ID: [id number] us Adalberto Eldridge MD IMG CT ORDERABLES Final Result * (ABNORMAL) Hemoglobin (08/10/2024 3:07 AM CDT) Hemoglobin 11.6(L) 13.3 - 17.7 g/dL 08/10/2024 3:52 AM CDT LABORATORY Blood STRUCTURE OF RIGHT HAND / Unknown Venipuncture / Unknown 08/10/2024 3:07 AM CDT 08/10/2024 3:09 AM CDT us Zainab Magallon MD LAB - BLOOD ORDERABLES Fi nal Result LABORATORY [facility] [address] [facility] Lab (1st floor, no room number) [place] [phone] * Hemoglobin (08/09/2024 11:33 PM CDT) Hemoglobin 14.7 13.3 - 17.7 g/dL 08/09/2024 11:43 PM CDT LABORATORY Blood STRUCTURE OF RIGHT HAND / Unknown Venipuncture / Unknown 08/09/2024 11:33 PM CDT 08/09/2024 11:41 PM CDT us Uziel Easton MD LAB - BLOOD ORDERABLES Final Result LABORATORY [facility] [address] Lab (1st floor, no room number) [place] [phone] * (ABNORMAL) UA with Microscopic reflex [...] mg/dL 08/09/2024 7:55 PM CDT LABORATORY Specific [place] Urine 1.005 1.003 - 1.035 08/09/2024 7:55 [...] URINE ORDERABLES Fi nal Result RH LABORATORY [facility] [address] Lab (1st floor, no room number) [place] [address], [facility] * (ABNORMAL) CBC with platelets and differential [...] BLOOD ORDERABLES Fi nal Result RH LABORATORY [facility] [address] Lab (1st floor, no room number) [place] [address], [facility] * (ABNORMAL) INR (08/09/2024 5:40 PM CDT) INR 4.26(H) 0.85 - 1.15 08/09/2024 7:06 PM CDT LABORATORY Blood STRUCTURE OF LEFT UPPER LIMB / Unknown Venipuncture / Unknown 08/09/2024 5:40 PM CDT 08/09/2024 5:44 PM CDT us Amilcar Holt MD LAB - BLOOD ORDERABLES Fi nal Result LABORATORY [facility] Lab [address] Lab (1st floor, no room number) [place] [address], [facility] * (ABNORMAL) Basic metabolic panel (08/09/2024 5:40 [...] - BLOOD ORDERABLES Fi nal Result LABORATORY [facility] Lab [address] [facility] Lab (1st floor, no room number) [place] [address] documented in this encounter Visit Diagnoses Diagnosis Gross hematuria Problem with Box catheter, initial encounter (H) Supratherapeutic INR Abnormal coagulation profile Gross hematuria Supratherapeutic INR Abnormal coagulation profile Problem with Box catheter, initial encounter (H) Gross hematuria documented in this encounter Administered Medications Inactive [...] $Given 08/12/2024 4:28 PM CDT 650 mg enoxaparin ANTICOAGULANT (LOVENOX) injection 70 mg 70 [...] 5 mg, Oral, DAILY, First dose on 08/12/24 at 1500, *Do not handle tablets if you are * $Given 08/13/2024 8:28 AM CDT 5 mg $Given 08/12/2024 4:28 PM CDT 5 mg HYDROmorphone (DILAUDID) injection 0.2 mg 0.2 mg, Intravenous, EVERY 2 HOURS PRN, moderate pain, Starting on Tue08/10/24 at 0800 HYDROmorphone (DILAUDID) injection 0.4 mg 0.4 mg, Intravenous, EVERY 2 HOURS PRN, severe pain, Starting on Tue08/10/24 at 0800 $Given 08/11/2024 11:52 AM CDT 0.4 mg $Given 08/10/2024 9:16 PM CDT 0.4 mg $Given 08/10/2024 1:05 PM CDT 0.4 mg hydrOXYzine HCl (ATARAX) tablet 25 mg 25 mg, Oral, EVERY 6 HOURS PRN, itching, pain, Starting on Tue08/10/24 at 0801 $Given 08/10/2024 9:43 AM CDT 25 mg lactated ringers infusion at 10 mL/hr, Intravenous, CONTINUOUS, IF patient NOT on dialysis., Starting on Tue08/11/24 at 1430, Until 08/13/24 at 1529 Restarted [...] $Given 08/12/2024 12:13 AM CDT 2.5 mg senna-docusate (SENOKOT-S/PERICOLACE) 8.6-50 MG [...] 3:25 AM CDT 3 mLs sodium chloride 0.9% irrigation (bag) Irrigation, CONTINUOUS, Starting on 08/11/24 at 1630, For continuous bladder irrigation - Adjust instillation rate to keep outflow at pink or clearer $New Bag 08/11/2024 5:08 PM CDT 3,000 mLs sterile water (bottle) irrigation PRN, Intra-procedure, Starting on 08/11/24 at 1548, Until 08/11/24 at 1549 $Given 08/11/2024 3:48 PM CDT 2,500 mLs Operative Site/Surgical Site tamsulosin (FLOMAX) capsule 0.4 mg 0.4 mg, [...] Pharmacist Managed SEE ADMIN INSTRUCTIONS, Starting on 08/12/24 at 2304, Until Tue08/13/24 at 1529, *Note [...] grams/day., Pre-procedure 1434 ($Given - Provider: Sonia Griggs, JENNIFER) calcium gluconate 1 g in 50 mL in sodium chloride intermittent infusion (COMPLETED) 1 g, Intravenous, Administer over 60 Minutes, ONCE, On Tue08/13/24 at 0800, For 1 dose, Do not infuse in the same IV line as phosphate-containing solutions 0855 ($Given - Provider: Rosette Nicole, JENNIFER) ceFAZolin Sodium (ANCEF) injection 2 g (COMPLETED) Routine, 2 g, Intravenous, PRE-OP/PRE-PROCEDURE, Starting on 08/11/24 at 1408, For 1 dose, Give first dose within 1 hour PRIOR to incision. If patient weight is greater than or equal to 120 kg increase dose to 3 g., Indications: Perioperative Pharmacoprophylaxis, Pre-procedure 1514 ($Given - Provider: Yvonne White APRN REEL HOOKER) enoxaparin ANTICOAGULANT (LOVENOX) injection 70 mg 70 mg (rounded from 72.8 mg = 1 mg/kg ? 72.8 kg), Subcutaneous, EVERY 12 HOURS, First dose on Tue08/13/24 at 1300, Give first dose within 1 hour of stopping heparin drip 1305 ($Given - Provider: Rosette Nicole, JENNIFER) ferrous sulfate (FEROSUL) tablet 325 mg 325 mg, Oral, DAILY, First dose on Tue08/13/24 at 1200 1306 ($Given - Provider: Rosette Nicole, JENNIFER) finasteride (PROSCAR) tablet 5 mg 5 mg, Oral, DAILY, First dose on Tue08/12/24 at 1500, *Do not handle tablets if you are * 1628 ($Given - Provider: Maci Briggs RN) 0828 ($Given - Provider: Rosette Nicole, JENNIFER) [...] or open. 0907 ($Given - Provider: Lo Tate RN)1344 (Auto Hold - Provider: Orders Generic Provider - Reason: Transfer to a procedural area)1653 (Unhold - Provider: Orders Generic Provider) 0816 ($Given - Provider: aMci Briggs RN) 0828 ($Given - Provider: Rosette Nicole RN) [...] Initial Set-up verified by: Gaby Real RN 0047 ($New Bag - Provider: Sheela Phan RN)0831 ($New Bag - Provider: Rosette Nicole RN) lactated ringers infusion at 10 mL/hr, Intravenous, CONTINUOUS, IF patient NOT on dialysis., Starting on 08/11/24 at 1430, Until 08/13/24 at 1529 1432 ($New Bag - Provider: Sonia Griggs RN)1546 (Paused - Provider: Yvonne White APRN REEL HOOKER - Comment: Switch to gravity)1547 (Restarted - Provider: Yvonne White APRN REEL HOOKER) sodium chloride 0.9 % infusion (CANCELED) at 100 mL/hr, Intravenous, CONTINUOUS, Starting on 08/10/24 at 1430, Until 08/12/24 at 0822 0321 ($New Bag - Provider: Sheela Phan RN)1905 ($New Bag - Provider: Lo Tate, JENNIFER) sodium chloride 0.9% irrigation (bag) Irrigation, CONTINUOUS, Starting on 08/11/24 at 1630, For continuous bladder irrigation - Adjust instillation rate to keep outflow at pink or clearer 1708 ($New Bag - Provider: Lo Tate, JENNIFER) PRN Medication Order 08/11/2024 08/12/2024 08/13/2024 acetaminophen [...] Generic Provider) 1628 ($Given - Provider: Maci Briggs RN) calcium carbonate (TUMS) chewable tablet 1,000 mg [...] PRN, pain, with VAD insertion, Starting on Tue08/09/24 at 2223, Apply at least 30 minutes [...] area)165 (Unhold - Provider: Orders Generic Provider) naloxone [...] Briggs RN) 0618 (See Alternative - Provider: hSeela Phan RN) senna-docusate (SENOKOT-S/PERICOLACE) 8.6-50 MG per tablet 2 [...] Briggs RN) 0618 ($Given - Provider: Sheela Phan RN) sodium chloride (PF) 0.9% PF flush 3 mL 3 mL, Intracatheter, EVERY 1 MIN PRN, line flush, other, to ensure patency or to lock dormant line, Starting on Renee 08/09/24 at 2223 1344 (Auto Hold - Provider: [...] 2 TIMES DAILY PRN, constipation, Starting on [facility] 08/09/24 at 2223, If no bowel movement [...] stools. documented in this encounter Care Teams Wire Frame Maker Relationship Specialty Start Date End Date [facility]- [address] [place] [address] PCP - General 07/24/21 documented as of this encounter
--- OUTSIDE RECORDS SUMMARY | 2024-09-18 16:13 | XMS_ITS | Encounter Summary ---
Author Organization [facility] Address 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 Gender Identity Not on file Sexual Orientation Not on file documented as of this encounter Plan of Treatment Upcoming Encounters Date Type Department Care Team (Late st Contact Info) Description 09/25/2024 8:00 AM MATTRESS FILLING MACHINE TENDER Office Visit [facility] [address] [place] [phone] Adalberto Eldridge MD [address] [place] [address] 10/02/2024 11:00 AM MATTRESS FILLING MACHINE TENDER Virtual Visit [facility] [address] [place] [phone] Adalberto Eldridge MD [address] [place] [address] documented as of this encounter Visit Diagnoses Not on filedocumented in this encounter Care Teams Bottom Ironer Relationship Specialty Start Date End Date [facility]- [address] [place] [address] PCP - General 07/24/21 documented as of this encounter
--- OUTSIDE RECORDS SUMMARY | 2024-09-18 16:14 | XMS_ITS | Continuity of Care Document ---
Author Organization [facility] Address [address] [place] [address] Care Team Providers Care Gear Grinder Name Role Phone [facility] Primary Care Provider [phone] MARIA ANTONIA MONTES DE OCA Primary Care Provider Assessment No assessment recorded. Plan of Treatment Reminders Order Date Submit Date Provider Last Modified By Organization Details Last Modified Time Details Appointments LAB BLOOD DRAW 2023 01:20P [facility] Not available Not available Not available Lab urinalysi s, dipstick 2023 024 [facility], [address], [place], [address], 06/22/2024 16:05:05 urinalysi s, microscop ic 2023 024 [facility], [address], [place], [address], 06/22/2024 16:05:09 culture, urine 2023 024 [facility], [address], [place], [address], 06/25/2024 09:12:44 Referral None recorded. Procedures None recorded. Surgeries None recorded. Imaging None recorded. Medication Orders None recorded. Patient TargetsNo targets recorded. Patient InstructionsNo instructions recorded. Reason for Referral None Reported. Results Created Date Observation Date Name Description Value Unit Range Abnormal Flag Note LastModifiedBy Organization Detail LastModifiedTime 08/21/20 24 08/21/2024 MRI, prost ate, w/wo contr ast No observ ation record ed. [email or web address] [facility] [address], [place], [address], 08/21/2024 12:43:46 Result Notes None recorded. 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 Not Available [facility] 0 02:05:17 Prostate specific antigen above reference range 226255498 Active 2012 790.93 : ELEVATED PSA Not Available [facility] 0 02:05:17 Benign prostatic hyperplas ia with outflow obstructi on 598983681 Active 2020 Victorino Edmonds MD [address] [place] [address],[address], [place], [address] , [facility] 1 14:32:18 Slowing of urinary stream 53063207 Active 2020 Victorino Edmonds MD [address] [place] [address],[address], [place], [address] , [facility] 1 14:32:19 Elvis hematuria 781200360 Active 2020 Victorino Edmonds MD [address] [place] [address],[address], [place], [address] , [facility] 1 14:32:20 Screening for malignant neoplasm of prostate Active 2023 Victorino Edmonds MD [address] [place] [address],[address], [place], [address] , [facility] 4 12:43:12 Lower urinary tract symptoms due to benign prostatic hypertrop 76824615118 101 Active 2023 Victorino Edmonds MD [address] [place] [address],[address], [place], [address] , [facility] 4 12:43:14 Urinary bladder stone 99871270 Active 2023 NAMRATA ROCKWELL MD [address] [place] [address],[address], [place], [address] , [facility] 4 22:04:09 Retention of urine 160498423 Active 2023 NAMRATA ROCKWELL MD [address] [place] [address],[address], [place], [address] , [facility] 4 22:06:05 Problem Notes None recorded. Procedures Surgical History Date Name Laterality Status Provider Name and Address Organization Details Recorded Time 09/20/20 24 Blood Draw/FILAMENT WOUND PARTS FABRICATOR/PSA RESULTS active Nanci Escobar [facility] 09/18/2024 13:07:02 09/12/20 24 Urine Culture completed Nanci Escobar [facility] 09/11/2024 13:49:21 09/12/20 24 Urinalysis completed Nanci Escobar [facility] 09/11/2024 13:49:50 08/30/20 24 Fill and Pull/Voiding Trial/TOV completed Bridgett Rosen [facility] 08/30/2024 09:54:34 08/22/20 24 COMPLEX VISIT completed NAMRATA ROCKWELL MD [address] [place] [address],[address], [place], [address], [facility] 08/21/2024 22:14:06 06/22/20 24 Urine Culture completed Nanci Escobar [facility] 06/20/2024 14:35:49 06/22/20 24 Urinalysis completed Lewis Mera [facility] 06/22/2024 15:47:25 05/29/20 24 Bladder Scan completed Brianna Ferreira [facility] 05/29/2024 16:21:06 05/21/20 24 Urine Culture completed Fabby Casey [facility] 05/21/2024 15:28:58 05/21/20 24 Urinalysis completed Fabby Casey [facility] 05/21/2024 16:18:17 05/21/20 24 Bladder Scan completed Fabby Casey [facility] 05/21/2024 16:18:30 02/16/20 24 COMPLEX VISIT completed NAMRATA ROCKWELL MD [address], [place], [address], [facility] 02/16/2024 11:31:27 02/16/20 24 Bladder Scan completed Dayanna Corona [facility] 02/16/2024 10:49:59 12/23/19 24 Blood Draw/FILAMENT WOUND PARTS FABRICATOR/PSA RESULTS completed Eh Valarie [facility] 12/23/2023 12:49:16 11/23/19 22 Prostate Biopsy Procedure completed Kane Garcia [facility] 11/23/2021 15:29:24 11/23/19 22 Gentamicin Injection completed Vee Anguiano [facility] 11/23/2021 14:11:03 07/24/20 21 Cystoscopy- male completed Victorino Edmonds MD [address], [place], [address], [facility] 07/24/2021 14:37:51 07/24/20 21 Bladder Scan completed Rosana Oconnell [facility] 07/24/2021 14:16:44 11/21/19 19 Colonoscopy completed Rosana Oconnell [facility] 07/24/2021 14:16:32 Excise epiphyseal bar completed [...] Name and Address Organization Details Recorded Time 029047 shellfish derived food,medi cation anaphylax is flushing Not available Not available Not available 12/23/2023 Not Available Health Note 07:52:31 310508 cat dander environme nt anaphylax is flushing respirato ry distress Not available Not available Not available Not available 12/23/2023 Not Available Health Note 4 07:52:31 [id number] tramadol medicatio n irregular heart rate palpitati ons Not available Not available Not available 12/23/2023 66507 RxNorm Not Available Health Note 4 07:52:31 [...] Is Your Level Of Alcohol Consumption? None [email or web address] Information not available 08/22/2024 What Is Your Level Of Caffeine Consumption? Moderate [email or web address] Information not available 12/23/2023 How Much Tobacco Do You Chew? None [email or web address] Information not available 12/23/2023 Do You Or Have You Ever Used E-cigarettes Or Vape? Never Used Electronic Cigarettes [email or web address] Information not available 12/23/2023 When Did You Quit Smoking? 1-5yearssincel astcigarette [email or web address] Information not available 08/22/2024 Recreational Drug Use [...] Has Tobacco Cessation Counseling Been Provided? No [email or web address] Information not available 08/22/2024 How Many Years Have You Smoked Tobacco? 25 [email or web address] Information not available 12/23/2023 Do You Or Have You Ever Used Any Other Forms Of Tobacco Or Nicotine? No [email or web address] Information not available 08/22/2024 How Many Days In The Past Year Have You Consumed 5 Or More Drinks? 1 [email or web address] Information no t available 12/23/2023 Sex: Unknown Functional Status None recorded. Mental Status None recorded. Family History Nothing Reported. Medical History Condition Response Sexually Transmitted Infection N Diabetes N Bleeding Disorder N High Blood Pressure N Kidney Stones N Cancer N Depression N Lung Disease N High Cholesterol Y GERD/Acid Reflux N Heart Disease N Immunizations Vaccine Type Date Status Provider Name and Address Organization Details Recorded Time Tdap 02/04/2012 [facility]24 09:50:41 Past Encounters Encounter ID Performer Location Encounter Start Date Encounter Closed Date Diagnosis/Indication Diagnosis SNOMED-CT Code Diagnosis ICD10 Code [id number] Brianna Ferreira [facility] [address] [address] 05/29/2024 14:48:21 05/30/2024 10:07:47 Prostate specific antigen above reference range 998600479 R97.20 [id number] Lewis Mera [facility] [address] [place] [phone] 06/22/2024 15:43:50 06/22/2024 15:49:24 Dysuria 48585842 R30.0 Health Concerns Section Related Observation LastModified by Organization Detai ls LastModified Time None Recorded Concern Status LastModified by Organization Details LastModified Time None Recorded Payers Encounter Date Sequence Insurance Name Policy Number Policy Armenta Covered Member ID Armenta Member ID Guarantor Name 06/22/2024 1 [place] [employer] Oleg Sparks [id number] Oleg Sparks
--- OUTSIDE RECORDS SUMMARY | 2024-09-18 16:14 | XMS_ITS | Continuity of Care Document ---
Author Organization [place] - [facility], [facility] Address [address] [facility] [address] [place] [address] Care Team Providers Care Reliability Manager Name Role Phone [facility] Primary Care Provider MARIA ANTONIA MONTES DE OCA Primary Care Provider Assessment No assessment recorded. Plan of Treatment Reminders Order Date Submit Date Provider Last Modified By Organization Details Last Modified Time Details Appointments LAB BLOOD DRAW 2023 01:20P [facility] Not available Not available Not available Lab None recorded. Referral intervent ional radiologi st referral - referral for prostatic arterial embolizat ion prior to HoLEP outlet surgery 2023 [email or web address] [facility] ([facility]), [address], [place], [address], 08/29/2024 17:14:24 Procedures None recorded. Surgeries None recorded. Imaging None recorded. Medication Orders finasteri de 5 mg tablet 2023 [facility][id number], [address] [place], [place], [id number], 08/24/2024 18:29:48 tamsulosi n 0.4 mg capsule 2023 [facility] #[id number], [address] [place], [place], [id number], 08/24/2024 18:29:48 Patient TargetsNo targets recorded. Patient Instructions Encounter Date Encounter Id Patient Instructions Last Modified By Organization Details Last Modified Time 08/22/2024 [id number] Today we discuss ed the patient's ongoing [...] results and we will discuss next steps. [email or web address] Not available 08/22/2024 10:23:10 Reason for Referral Interventional Radiologist R elissa for Lower urinary tract symptoms due to benign prostatic hypertrophy referral for prostatic arterial embolization prior to HoLEP outlet surgery Referring Physician: Reji Solis, Urology, Encounter Date: 08/22/2024 Results Created Date Observation Date Name Description Value Unit Range Abnormal Flag Note LastModifiedBy Organization Detail LastModifiedTime 08/21/20 24 08/21/2024 MRI, prost ate, w/wo contr ast No observ ation record ed. [email or web address] [facility] [address] [facility] [address], [place], [address], 08/21/2024 12:43:46 Result Notes None recorded. 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 Not Available [facility] 0 02:05:17 Prostate specific antigen above reference range 625660506 Active 2012 790.93 : ELEVATED PSA Not Available [facility] 0 02:05:17 Benign prostatic hyperplas ia with outflow obstructi on 616162087 Active 2020 Victorino Edmonds MD [address] [place] [address],[address], [address] [place] [address] , [facility] 1 14:32:18 Slowing of urinary stream 21374276 Active 2020 Victorino Edmonds MD [address] [place] [address],[address], [address] [place] [address] , [facility] 1 14:32:19 Elvis hematuria 729627574 Active 2020 Victorino Edmonds MD [address] [place] [address],[address], [address] [place] [address] , [facility] 1 14:32:20 Screening for malignant neoplasm of prostate Active 2023 Victorino Edmonds MD [address] [place] [address],[address], [address] [place] [address] , [facility] 4 12:43:12 Lower urinary tract symptoms due to benign prostatic hypertrop hy 36085571690 101 Active 2023 Victorino Edmonds MD [address] [place] [address],[address], [address] [place] [address] , [facility] 4 12:43:14 Urinary bladder stone 46014433 Active 2023 REJI SOLIS MD [address] [place] [address],[address], [address] [place] [address] , [facility] 4 22:04:09 Retention of urine 150265121 Active 2023 REJI SOLIS MD [address] [place] [address],[address], [address] [place] [address] , [facility] 4 22:06:05 Problem Notes None recorded. Procedures Surgical History Date Name Laterality Status Provider Name and Address Organization Details Recorded Time 09/20/20 24 Blood Draw/CITY LIBRARY DIRECTOR/PSA RESULTS active Nanci Luz [facility] 09/18/2024 13:07:02 09/12/20 24 Urine Culture completed Nanci Luz [facility] 09/11/2024 13:49:21 09/12/20 24 Urinalysis completed Nanci Escobar [facility] 09/11/2024 13:49:50 08/30/20 24 Fill and Pull/Voiding Trial/TOV completed Bridgett Rosen [facility] 08/30/2024 09:54:34 08/22/20 24 COMPLEX VISIT completed REJI SOLIS MD [address] [place] [address],[address], [place], [address], [facility] 08/21/2024 22:14:06 06/22/20 24 Urine Culture completed Nanci Escobar [facility] 06/20/2024 14:35:49 06/22/20 24 Urinalysis completed Lewis Mera [facility] 06/22/2024 15:47:25 05/29/20 24 Bladder Scan completed Brianna Ferreira [facility] 05/29/2024 16:21:06 05/21/20 24 Urine Culture completed Fabby Casey [facility] 05/21/2024 15:28:58 05/21/20 24 Urinalysis completed Fabby Casey [facility] 05/21/2024 16:18:17 05/21/20 24 Bladder Scan completed Fabby Casey [facility] 05/21/2024 16:18:30 02/16/20 24 COMPLEX VISIT completed REJI SOLIS MD [address] [place] [address],[address], [place], [address], [facility] 02/16/2024 11:31:27 02/16/20 24 Bladder Scan completed Dayanna Corona [facility] 02/16/2024 10:49:59 12/23/19 24 Blood Draw/CITY LIBRARY DIRECTOR/PSA RESULTS completed Eh Sheppard [facility] 12/23/2023 12:49:16 11/23/19 22 Prostate Biopsy Procedure completed Kane Garcia [facility] 11/23/2021 15:29:24 11/23/19 22 Gentamicin Injection completed Vee Anguiano [facility] 11/23/2021 14:11:03 07/24/20 21 Cystoscopy- male completed Victorino Edmonds MD [address] [facility],[address], [place], [address], [facility] 07/24/2021 14:37:51 07/24/20 21 Bladder Scan completed Rosana Oconnell [facility] 07/24/2021 14:16:44 11/21/19 19 Colonoscopy completed Rosana Oconnell [facility] 07/24/2021 14:16:32 Excise epiphyseal bar completed [...] Name and Address Organization Details Recorded Time 170247 shellfish derived food,medi cation anaphylax is flushing Not available Not available Not available 12/23/2023 Not Available Health Note 4 07:52:31 153115 cat dander environme nt anaphylax is flushing respirato ry distress Not available Not available Not available Not available 12/23/2023 Not Available Health Note 4 07:52:31 675591 tramadol medicatio n irregular heart rate palpitati ons Not available Not available Not available 12/23/2023 28596 RxNorm Not Available Health Note 4 07:52:31 [...] Updated DateTime 08/22/2024 170.18 cm 25.8 kg/m2 47273.74 g Sumeet Felix [place] [facility] 08/22/2024 09:50:37 Social History Question Answer Notes LastModified by Organizat ion Details LastModified Time Tobacco Smoking Status Former Smoker Not Available Health Note 12/23/2023 07:52:32 What Is Your Level Of Alcohol Consumption? None [email or web address] Information not available 08/22/2024 What Is Your Level Of Caffeine Consumption? Moderate [email or web address] Information not available 12/23/2023 How Much Tobacco Do You Chew? None [email or web address] Information not available 12/23/2023 Do You Or Have You Ever Used E-cigarettes Or Vape? Never Used Electronic Cigarettes [email or web address] Information not available 12/23/2023 When Did You Quit Smoking? 1-5yearssincel astmelissagarette [email or web address] Information not available 08/22/2024 Recreational Drug Use [...] Has Tobacco Cessation Counseling Been Provided? No [email or web address] Information not available 08/22/2024 How Many Years Have You Smoked Tobacco? 25 [email or web address] Information not available 12/23/2023 Do You Or Have You Ever Used Any Other Forms Of Tobacco Or Nicotine? No [email or web address] Information not available 08/22/2024 How Many Days [...] Recorded Time Tdap 02/04/2012 completed CHERYL Boateng [facility] 08/22/2024 09:50:41 Past Encounters Encounter ID Performer Location Encounter Start Date Encounter Closed Date Diagnosis/Indication Diagnosis SNOMED-CT Code Diagnosis ICD10 Code [id number] REJI SOLIS MD [facility] [address] [facility] [place] [address] 08/22/2024 09:44:58 08/27/2024 11:12:24 Lower urinary tract symptoms due to benign prostatic hypertrophy 8732728117 9101 N40.1 Prostate s pecific antigen above reference range 060543404 R97.20 Elvis hematuria 58571680 5 R31.0 Urinary bladder stone 70 554388 N21.0 Retention of urine 76330 4002 R33.9 Health Concerns Section Related Observation LastModified by Organization Detai ls LastModified Time None Recorded Concern Status LastModified by Organization Details LastModified Time None Recorded Payers Encounter Date Sequence Insurance Name Policy Number Policy Armenta Covered Member ID Armenta Member ID Guarantor Name 08/22/2024 1 MEDICARE [employer]: [place] Oleg Sparks [id number] Oleg Sparks Notes Date Note Type Note Provider Name and Address Organization Details Recorded Time 08/22/2024 text/html HPI Notes: 64-year-old male with history of BPH with LUTS, urinary retention, gross hematuria, and elevated PSA. BPH WITH LUTS Currently on dual medical therapy with tamsulosin 0.4 mg daily and finasteride 5 mg daily. 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. Now with indwelling box again. [...] less) ELEVATED PSA PSA 02/19/13 = 5.2 2/3/14 = 6.59 07/31/2020 = 6.4 01/28/21 = 4.06 12/23/23 = 13.27 (corrects to 26.54 on finasteride) Prostate biopsy on 08/29/[address] Riley was negative. Prostate MRI 08/05/21 ([facility]) = 118 gram prostate, PIRADS 3 lesion [...] cytology 07/24/21 = negative. CT urogram 08/05/21 ([facility]) = normal upper tracts, enlarged prostate, no kidney stone TESTOSTERONE He recently restarted testosterone replacement recently in [place]. PMH: HLD, HTN, low testosterone, a. fib, mechanical AVR, on lifetime warfarin. Anticoagulation: He has to bridge on lovenox for surgical procedures. REJI SOLIS MD [address] [facility],[address], [place], [address], [facility] 08/24/2024 18:30:05
== END 2024-09-17 09:58 | disposition home or self-care (01) ==
LOC: NFLDREF 09-18 16:10
PROVIDERS: PCP Family Medicine; Referring Provider Family Medicine; Visit Provider Family Medicine
DX: Z79.01 Long term (current) use of anticoagulants (principal)
CPT/HCPCS: 85610

== ENCOUNTER 2024-10-12 10:31 | Outpatient (CLI) | payer MEDICARE, SELFPAY ==
--- OUTSIDE RECORDS SUMMARY | 2024-10-14 15:08 | XMS_ITS | Clinical Summary ---
Author Organization [employer] [facility] Address [place], [place] [address] Care Team Providers Care Substitute Bus Driver Name Role Phone Pcp, No Primary Care [...] Encounters Date Type Department Care Team Description 09/19/2024 Orders Only [facility] [address] [place] [address] Oleg Coyle, RN <No scans attached> 09/19/2024 Orders Only [facility] [address] [place] [address] Oleg Coyle RN <No scans attached> 08/07/2024 4:34 PM CDT - 08/07/2024 7:08 PM CDT Emergency [facility] [address] [place] [address] Tobin Ku PA Urinary retention (Primary Dx); Urinary tract infection associated with catheterization of urinary tract, unspecified indwelling urinary catheter type, initial encounter (HC) Discharge Disposition: Home Self Care 08/07/2024 Travel 07/31/2024 Telephone [facility] [address] [place] [phone] Nupur Miranda NP Results 07/31/2024 Telephone [facility] [address] [place] [phone] Yvonne Malone PA Anticoagulation (BPA) 07/29/2024 11:30 AM CDT Office Visit [facility] [address] [place] [phone] Yvonne Malone PA Urinary Problem 07/29/2024 Travel from Last 3 Months Social History Tobacco Use Types Packs/Day Years Used Date Smoking Tobacco: Former Cigarettes 1 - 2002 Passive Smoke Exposure: Never Smokeless [...] 83 08/07/2024 4:41 PM CDT Temperature 36.8 C (98.2 F) 08/07/2024 4:41 PM CDT Respiratory Rate 18 08/07/2024 4:41 PM CDT [...] Additional history exists COVID-19 vaccine series ( - season) 2024 Influenza for age 65+ 07/22/2024 [...] 0-2 /HPF 08/07/2024 6:[address] [facility] WBC >100(A) None Seen, 0-2 /HPF 08/07/2024 6:[address] [facility] BACTERIA Moderate(A ) None Seen Bacteria/H PF 08/07/2024 6:[address] [facility] HYALINE CASTS None Seen None Seen, 0-2, 3-5 /LPF 08/07/2024 6:[address] [facility] EPITHELIAL CELLS None Seen None Seen Epi/HPF 08/07/2024 6:[address] [facility] CALCIUM OXALATE CRYSTALS Present(A) Absent 08/07/2024 6:[address] [facility] Urine URINE SPECIMEN / Unknown Non-Blood / Unknown 08/07/2024 5:35 PM CDT 08/07/2024 6:02 PM CDT Tobin TORRES URINE Performing Organization Address City/[facility]/ZIP Co de Phone Number [facility] [address] [place] [address], [place] [phone] * URINE CULTURE (08/07/2024 5:35 PM CDT) Only the most recent of2 resultswithin the time period is included. CULTURE No growth (<1,000 CFU/mL) 08/09/2024 6:13 PM CDT [facility] Urine URINE SPECIMEN / Unknown Non-Blood / Unknown 08/07/2024 5:35 PM CDT 08/07/2024 6:02 PM CDT Tobin TORRES MICROBIOLOGY Performing Organization Address [facility]/ZIP Co de Phone Number [facility] [address] [place] [address], [place] * (ABNORMAL) UA W/ SEDIMENT EXAM REFLEXED PER CRITERIA (08/07/2024 5:35 PM CDT) Only the most recent of2 resultswithin the time period is included. COLOR Red(A) Yellow Color 08/07/2024 6:[address] [facility] CLARITY Extra Turbid(A) Clear Clarity 08/07/2024 6:[address] [facility] SPECIFIC GRAVITY,URINE 1.008 >1.005 - <1.030 08/07/2024 6:[address] [facility] PH,URINE 6.5 5.5 - 8.5 08/07/2024 6:[address] [facility] UROBILINOGEN, QUALITATIVE Normal Normal EU/dl 08/07/2024 6:[address] [facility] PROTEIN, URINE 2+(A) Negative mg/dL 08/07/2024 6:[address] [facility] GLUCOSE, URINE Negative Negative mg/dL 08/07/2024 6:[address] [facility] KETONES,URINE Negative Negative mg/dL 08/07/2024 6:[address] [facility] BILIRUBIN,URI NE Negative Negative 08/07/2024 6:[address] [facility] OCCULT BLOOD,URINE 3+(A) Negative 08/07/2024 6:[address] [facility] NITRITE Negative Negative 08/07/2024 6:[address] [facility] LEUKOCYTE ESTERASE 1+(A) Negative 08/07/2024 6:[address] [facility] Urine URINE SPECIMEN / Unknown Non-Blood / Unknown 08/07/2024 5:35 PM CDT 08/07/2024 6:02 PM CDT Tobin TORRES URINE [facility] [address] [place] [address], from Last 3 Months Care Teams Substitute Bus Driver Relationship Specialty Start Date End Date Pcp, No . PCP - General 08/07/24
--- OUTSIDE RECORDS SUMMARY | 2024-10-14 15:09 | XMS_ITS | Encounter Summary ---
Author Organization [place] Address Critical access hospital[address] [facility] [place] [address] Care Team Providers Care Instructional Technology Instructor Name Role Phone [facility]- Primary Care Provider Adalberto Eldridge MD Unavailable [phone] Encounter Details Date Type Department Care Team (Late st Contact Info) Description 09/27/2024 Telephone [facility] [place] [address] [place] [address] Adalberto Eldridge MD [address] [place], [place] [phone] Social History Tobacco Use Types Packs/Day Years [...] you bought just not last and you didn t have money to get more? No [...] on file Legal Sex Male 3:18 AM BAD CREDIT COLLECTOR Gender Identity Not on file Sexual Orientation Not on file documented as of this encounter Miscellaneous Notes * Telephone Encounter - Priscilla Casey LPN - 09/27/2024 3:31 PM BAD CREDIT COLLECTOR Returned phone call and spoke with patient. Informed him to monitor urine for now. Explained that Dr. Eldridge is not concerned if urine is light-red to pink. Explained if blood in urine becomes darker renner red or if trouble urinating he should call us or go to ER. Patient expressed understanding. Priscilla Casey LPN CREDIT COLLECTOR * Telephone Encounter - Priscilla Casey LPN - 09/27/2024 2:20 PM BAD CREDIT COLLECTOR Patient called nurse jesica and ALF. Returned phone call and spoke with patient. He reports that he took the lovenox yesterday. He reports intermittent blood in urine. He wanted to know if it's safe to resume physical activity. His PCP regarding the Lovenox/coumadin said he could resume today, which he has done. Patient reports that when he sees the blood in his urine it is light pink in color. 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 Will send message to . Priscilla Casey LPN CREDIT COLLECTOR CREDIT COLLECTOR documented in this encounter Plan of Treatment Upcoming Encounters Date Type Department Care Team (Latest Contact Info) Description 11/23/2024 9:55 AM BAD CREDIT COLLECTOR Hospital Encounter [facility] [address] [place] [phone] Eriberto Souza MD [address] [place] [address] 11/23/2024 9:55 AM BAD CREDIT COLLECTOR - 11/23/2024 1:30 PM BAD CREDIT COLLECTOR Surgery [facility] [address] [place] [phone] Eriberto Souza MD [address] [place] [id number] Holmium Laser Enucleation of the Prostate Scheduled Procedures Name Priority Associated Diagnoses Date/Ti me CYSTOSCOPY, WITH FULGURATION OF HEMORRHAGING BLOOD VESSEL AND THROMBUS REMOVAL Gross hematuria ENUCLEATION, PROSTATE, USING HOLMIUM LASER Benign prostatic hyperplasia with incomplete bladder emptying 11/23/2024 9:55 AM BAD CREDIT COLLECTOR documented as of this encounter Visit Diagnoses Not on filedocumented in this encounter Care Teams Instructional Technology Instructor Relationship Specialty Start Date End Date [facility]- [address] [place] [address] PCP - General 07/24/21 Adalberto Eldridge MD [address] [place] [address] Assigned Surgical Provider 09/12/24 documented as of this encounter
--- OUTSIDE RECORDS SUMMARY | 2024-10-14 15:09 | XMS_ITS | Encounter Summary ---
Author Organization [place] Address [address] [facility] [place] [address] Care Team Providers Care Medicaid Specialist Name Role Phone [facility]- Primary Care Provider Adalberto Eldridge MD Unavailable [phone] Encounter Details Date Type Department Care Team (Late st Contact Info) Description 10/12/2024 Telephone [facility] [place] [address] [facility] [address] [place] [address] Rosana Franklin Social History Tobacco Use Types Packs/Day Years Used Date Smoking Tobacco: Former Cigarettes Q uit: 1999 Smokeless Tobacco: Current Alcohol Use Standard Drinks/Week Comments Not Currently 0 (1 standard drink = 0.6 oz pur e alcohol) PHQ-2 Answer Date Recorded PHQ-2 Score 0 10/04/2024 Adolescent Education Answer Date Record ed Getting [...] on file Legal Sex Male 3:18 AM GALLERY MANAGER Gender Identity Not on file Sexual Orientation Not on file documented as of this encounter Miscellaneous Notes * Telephone Encounter - Rosana Franklin - 10/12/2024 3:20 PM CST JESSICA Spoke with: patient Date of surgery: Tuesday with Dr Souza Location: [facility] Informed patient they will need a adult taxicab driver: YES Pre op with provider: Patient will schedule with [facility] in [place] [facility] Scheduled in PAC-NA Pre procedure covid : Not req Additional imaging: NA Surgery Packet : Mailed to patient Additional comments: Please call for surgery teaching ERY MANAGER documented in this encounter Plan of Treatment Upcoming Encounters Date Type Department Care Team (Latest Contact Info) Description 11/23/2024 9:55 AM GALLERY MANAGER Hospital Encounter [facility] [address] [place] [address] Eriberto Souza MD [address] [place] [address] 11/23/2024 9:55 AM GALLERY MANAGER - 11/23/2024 1:30 PM GALLERY MANAGER Surgery [facility] [address], [address] [place] [phone] Eriberto Souza MD [address] [place] [address] Holmium Laser Enucleation of the Prostate Scheduled Procedures Name Priority Associated Diagnoses Date/Ti me CYSTOSCOPY, WITH FULGURATION OF HEMORRHAGING BLOOD VESSEL AND THROMBUS REMOVAL Gross hematuria ENUCLEATION, PROSTATE, USING HOLMIUM LASER Benign prostatic hyperplasia with incomplete bladder emptying 11/23/2024 9:55 AM GALLERY MANAGER documented as of this encounter Goals Goal Patient Goal Type Associated Problems Recent Progress Patient-Stated? Author MYC ECC SURG ENROLL Care Plan MyC ECC SURG ENROLL No Yumiko Mariscal documented as of this encounter Visit Diagnoses Not on filedocumented in this encounter Additional Health Concerns Active Problems Noted Date Diagnosed Date MyC ECC SURG ENROLL 10/12/2024 documented as of this encounter Care Teams Medicaid Specialist Relationship Specialty Start Date End Date [facility] [address] [place] [address] PCP - General 07/24/21 Adalberto Eldridge MD [address] [place] [address] Assigned Surgical Provider 09/12/24 documented as of this encounter
--- OUTSIDE RECORDS SUMMARY | 2024-10-14 15:09 | XMS_ITS | Clinical Summary ---
Author Organization [place] Address [address] [place] [id number] Care Team Providers Care Configuration Management Consultant Name Role Phone [facility]- Primary Care Provider Adalberto Eldridge MD Unavailable [phone] Allergies Active Allergy Reactions Criticality Noted Date [...] (cold sores). Active acetaminophen (TYLENOL) 325 MG tabletIndications: Gross hematuria Take 2 tablets (650 mg) by mouth every 4 hours as needed for mild pain or other (and adjunct with moderate or severe pain or per patient request). 4 Active ferrous sulfate (FEROSUL) 325 (65 Fe) MG tabletIndications: Gross hematuria Take 1 tablet (325 mg) by mouth daily. 30 tablet 4 Active senna-docusate (SENOKOT-S/PERICOL CLAIRE) 8.6-50 MG tabletIndications: Gross hematuria Take 1 tablet by mouth 2 times daily as needed for constipation. 15 tablet 4 Active cefdinir (OMNICEF) 300 MG capsuleIndications :Urinary tract infection Take 1 capsule (300 mg) by mouth 2 times daily. 20 capsule 4 Active Active Problems Problem Noted Date Diagnosed Date Gross hematuria 08/09/2024 Supratherapeutic INR 08/09/2024 Problem with Weber catheter, initial encounter 0 08/09/2024 Encounters Date Type Department Care Team Description 10/12/2024 Telephone [facility] [address] [address] Rosana Franklin 10/12/2024 Telephone [facility] [address] [place] [address] Rosana Franklin 10/05/2024 Orders Only [facility] [address] [place] [phone] Adalberto Eldridge MD Urinary tract infection (Primary Dx) 10/04/2024 4:00 PM HUSBANDRY TECHNICIAN Lab [facility] [address] [place] [phone] Suspected UTI 10/04/2024 1:00 PM HUSBANDRY TECHNICIAN Virtual Visit [facility] [address] [place] [phone] Gin Uribe MD Benign prostatic hyperplasia with incomplete bladder emptying (Primary Dx) 10/04/2024 Travel 10/04/2024 Orders Only [facility] [address] [place] [phone] Adalberto Eldridge MD Suspected UTI (Primary Dx) 10/04/2024 Telephone [facility] [address] [place] [phone] Adalberto Eldridge MD Call Back 10/02/2024 11:00 AM HUSBANDRY TECHNICIAN Virtual Visit [facility] [address] [place] [phone] Adalberto Eldridge MD Elevated prostate specific antigen (PSA) (Primary Dx); Enlarged prostate; Gross hematuria 09/27/2024 Telephone [facility] [address] [place] [phone] Adalberto Eldridge MD 09/26/2024 Telephone [facility] [address] [place] [phone] Adalberto Eldridge MD 09/25/2024 8:00 AM HUSBANDRY TECHNICIAN Office Visit [facility] [address] [place] [phone] Adalberto Eldridge MD Prophylactic antibiotic (Primary Dx); Elevated prostate specific antigen (PSA) 09/25/2024 Travel 09/18/2024 Telephone [facility] [address] [place] [phone] Adalberto Eldridge MD Medication Question 09/10/2024 8:40 AM CDT - 09/10/2024 11:59 PM CDT Hospital Encounter [facility] [place] [address] Adalberto Eldridge MD Discharge Disposition: Home or Self Care 09/07/2024 Orders Only [facility] [place] [address] [place] [phone] Adalberto Eldridge MD 09/05/2024 Telephone [facility] [address] [place] [phone] Adalberto Eldridge MD Appointment (Called pt to discuss scheduling a prostate biopsy with Dr Eldridge in the [place] office) 09/04/2024 Orders Only [facility] [phone] Adalberto Eldridge MD Elevated prostate specific antigen (PSA) (Primary Dx) 08/31/2024 11:00 AM CDT Office Visit [facility] [address] [phone] Adalberto Eldridge MD Urinary retention (Primary Dx); Enlarged prostate; Gross hematuria; Elevated prostate specific antigen (PSA) 08/31/2024 Travel 08/23/2024 Telephone [facility] [address] [phone] Adalberto Eldridge MD Call Back 08/11/2024 3:14 PM CDT Anesthesia Event [facility] [address] [place] [address] Jai Flores, DO 08/11/2024 3:00 PM CDT - 08/11/2024 3:50 PM CDT Surgery [facility] [address] [place] [address] Adalberto Eldridge MD Cystoscopy, fulguration of the prostate 08/11/2024 12:10 AM CDT Anesthesia Event [place] [address] [facility] [address] [place] [address] Walter Crowley MD Wood, Sarah Ann, APRN CRNA 08/09/2024 3:49 PM CDT - 08/13/2024 1:29 PM CDT Hospital Encounter [place] [address] [facility] [address] [place] [address] Amilcar Holt MD Foss, Kevin, MD Jaleta, [...] on file Legal Sex Male 3:18 AM HUSBANDRY TECHNICIAN Gender Identity Not on file Sexual Orientation Not on file Last Filed Vital Signs Vital Sign Reading Time Taken Comments Blood Pressure 153/77 09/25/2024 8:57 AM HUSBANDRY TECHNICIAN Pulse 70 09/25/2024 8:57 AM HUSBANDRY TECHNICIAN Temperature 36.9 C (98.4 F) 08/13/2024 7:29 AM CDT Respiratory Rate 16 08/13/2024 7:29 AM CDT Oxygen Saturation 99% 09/25/2024 8:57 AM HUSBANDRY TECHNICIAN Inhaled Oxygen Concentration - - Weight 72.6 kg (160 lb) 09/25/2024 8:08 AM HUSBANDRY TECHNICIAN Height 170.2 cm (5' 7) 09/25/2024 8:08 AM HUSBANDRY TECHNICIAN Body Mass Index 25.06 09/25/2024 8:08 AM HUSBANDRY TECHNICIAN Plan of Treatment Upcoming Encounters Date Type Department Care Team (Latest Contact Info) Description 11/23/2024 9:55 AM HUSBANDRY TECHNICIAN Hospital Encounter [facility] [address], [address] [place] [phone] Eriberto Souza MD [address] [place] [phone] 11/23/2024 9:55 AM HUSBANDRY TECHNICIAN - 11/23/2024 1:30 PM HUSBANDRY TECHNICIAN Surgery [facility] [address] [place] [phone] Eriberto Souza MD [address] [place] [phone] Holmium Laser Enucleation of the Prostate Scheduled Procedures Name Priority Associated Diagnoses Date/Ti me CYSTOSCOPY, WITH FULGURATION OF HEMORRHAGING BLOOD VESSEL AND THROMBUS REMOVAL Gross hematuria ENUCLEATION, PROSTATE, USING HOLMIUM LASER Benign prostatic hyperplasia with incomplete bladder emptying 11/23/2024 9:55 AM HUSBANDRY TECHNICIAN Health Maintenance Due Date Last Done Comments ADVANCE CARE PLANNING 1960 ANNUAL REVIEW OF HM ORDERS 1958 CT COLONOGRAPHY 1958 FIT 1958 FLEX SIG 1958 sDNA (Cologuard) 1958 HEPATITIS C SCREENING 1976 LIPID 1998 ZOSTER IMMUNIZATION (1 of 2) 2008 FALL RISK ASSESSMENT 2023 MEDICARE ANNUAL WELLNESS VISIT 2023 Pneumococcal Vaccine: 65+ Years (1 of 1 - PCV) 2023 COVID-19 Vaccine (1 - 2023- season) 2024 INFLUENZA VACCINE (#1) 2024 GLUCOSE 08/13/2027 08/13/2024, 07/23, 08/11/2024, Additional history exists COLONOSCOPY 11/20/2028 11/20/2018 COLORECTAL CANCER SCREENING 11/20/2028 DTAP/TDAP/TD IMMUNIZATION (3 - Td or Tdap) 11/26/2032 11/26/2022, 02/04/2012 RSV VACCINE (1 - 1-dose 75+ series) 2033 AORTIC ANEURYSM SCREENING (SYSTEM ASSIGNED) Completed 08/10/2024 PHQ-2 (once per calendar year) Completed 10/04/2024, 10/02/2024 HPV IMMUNIZATION Aged Out No longer e ligible based on patient's age to complete this topic MENINGITIS IMMUNIZATION Aged Out No l onger eligible based on patient's age to complete this topic RSV MONOCLONAL ANTIBODY Aged Out No l onger eligible based on patient's age to complete this topic Goals Goal Patient Goal Type Associated Problems Recent Progress Patient-Stated? Author MYC ECC SURG ENROLL Care Plan MyC ECC SURG ENROLL No Yumiko Mariscal Procedures Procedure Name Priority Date/Time Associated Diagnosis Comments URINE CULTURE Routine 10/04/2024 3:55 PM HUSBANDRY TECHNICIAN Suspected UTI URINALYSIS MACROSCOPIC Routine 3:55 PM HUSBANDRY TECHNICIAN Suspected UTI SURGICAL PATHOLOGY EXAM Routine 09/25/20 24 9:26 AM HUSBANDRY TECHNICIAN Elevated prostate specific antigen (PSA) MR OUTSIDE READ Routine 09/10/2024 8:40 AM CDT TN MEASURE POST-VOID RESIDUAL URINE/BLADDER CAPACITY, US NON-IMAGING [...] from Last 3 Months Results * (ABNORMAL) UA without Microscopic [[id number]] (10/04/2024 3:55 PM HUSBANDRY TECHNICIAN) Color Urine Yellow Colorless, Straw, Light Yellow, Yellow 10/04/2024 4:05 PM HUSBANDRY TECHNICIAN [facility] Appearance Urine Cloudy(A) Clear 10/04/20 24 4:05 PM HUSBANDRY TECHNICIAN [facility] Glucose Urine Negative Negative mg/dL 10/04/2024 4:05 PM HUSBANDRY TECHNICIAN [facility] Bilirubin Urine Negative Negative 4:05 PM HUSBANDRY TECHNICIAN [facility] Ketones Urine Negative Negative mg/dL 10/04/2024 4:05 PM HUSBANDRY TECHNICIAN CR [facility]ORY Specific [address] Urine 1.010 1.003 - 1.035 10/04/2024 4:05 PM HUSBANDRY TECHNICIAN [facility] Blood Urine Moderate(A) Negative 10/04/2024 4:05 PM HUSBANDRY TECHNICIAN [facility] pH Urine 6.0 5.0 - 7.0 10/04/2024 4:05 PM HUSBANDRY TECHNICIAN [facility] Protein Albumin Urine Negative Negative mg/dL 10/04/2024 4:05 PM HUSBANDRY TECHNICIAN [facility] Urobilinogen Urine 0.2 0.2, 1.0 E.U./dL 10/04/2024 4:05 PM HUSBANDRY TECHNICIAN [facility] Nitrite Urine Negative Negative 10/04/2024 4:05 PM HUSBANDRY TECHNICIAN [facility] Leukocyte Esterase Urine Large(A) Negative 10/04/2024 4:05 PM HUSBANDRY TECHNICIAN [facility] Urine URINE SPECIMEN OBTAINED BY CLEAN CATCH PROCEDURE / Unknown Non-blood Collection / Unknown 10/04/2024 3:55 PM HUSBANDRY TECHNICIAN 10/04/2024 4:00 PM HUSBANDRY TECHNICIAN us Adalberto Eldridge MD LAB - URINE ORDERABLES Final Result [facility] [address] [facility] (no room number, 1st floor of clinic) [place] [address], [facility] * (ABNORMAL) Urine Culture Aerobic Bacterial [[id number]] (10/04/2024 3:55 PM HUSBANDRY TECHNICIAN) Culture >100,000 CFU/mL Raoultella ornithinolytica /planticola(A) SILVER 10/06/2024 10:39 PM HUSBANDRY TECHNICIAN [facility] Culture 10,000-50,000 CFU/mL Raoultella ornithinolytica /planticola(A) 10/06/2024 10:39 PM HUSBANDRY TECHNICIAN [facility] Urine URINE SPECIMEN OBTAINED BY CLEAN CATCH PROCEDURE / Unknown Non-blood Collection / Unknown 10/04/2024 3:55 PM HUSBANDRY TECHNICIAN 10/04/2024 4:01 PM HUSBANDRY TECHNICIAN Narrative Organism Antibiotic Method Susceptibility Raoultella ornithinolytica/plantico la Ampicillin SILVER 16 ug/mL: Resistant Comment:Intrinsicall y Resistant Raoultella ornithinolytica/plantico la Ampicillin/ Sulbactam SILVER <=2 ug/mL: Susceptible Raoultella ornithinolytica/plantico la Piperacillin/Tazobactam SILVER <=4 ug/mL: Susceptible Raoultella ornithinolytica/plantico la Cefazolin SILVER <=4 ug/mL: Susceptible Comment:Cefazolin RI C breakpoints are for the treatment of uncomplicated urinary tract infections. For the treatment of systemic infections, please contact the laboratory for additional testing. Raoultella ornithinolytica/plantico la Cefoxitin SILVER <=4 ug/mL: Susceptible Raoultella ornithinolytica/plantico la Ceftazidime SILVER <=1 ug/mL: Susceptible Raoultella ornithinolytica/plantico la Ceftriaxone SILVER <=1 ug/mL: Susceptible Raoultella ornithinolytica/plantico la Cefepime SILVER <=1 ug/mL: Susceptible Raoultella ornithinolytica/plantico la Amikacin SILVER <=2 ug/mL: Susceptible Raoultella ornithinolytica/plantico la Gentamicin SILVER >=16 ug/mL: Resistant Raoultella ornithinolytica/plantico la Tobramycin SILVER 8 ug/mL: Resistant Raoultella ornithinolytica/plantico la Ciprofloxacin SILVER 0.5 ug/mL: Intermediate Raoultella ornithinolytica/plantico la Levofloxacin SILVER 0.5 ug/mL: Susceptible Raoultella ornithinolytica/plantico la Nitrofurantoin SILVER <=16 ug/mL: Susceptible Raoultella ornithinolytica/plantico la Trimethoprim/Sulfamethoxazo le SILVER >16/304 ug/mL: Resistant Raoultella ornithinolytica/plantico la Ampicillin SILVER 16 ug/mL: Resistant Comment:Intrinsicall y Resistant Raoultella ornithinolytica/plantico la Ampicillin/ Sulbactam SILVER <=2 ug/mL: Susceptible Raoultella ornithinolytica/plantico la Piperacillin/Tazobactam SILVER <=4 ug/mL: Susceptible Raoultella ornithinolytica/plantico la Cefazolin SILVER <=4 ug/mL: Susceptible Comment:Cefazolin RI C breakpoints are for the treatment of uncomplicated urinary tract infections. For the treatment of systemic infections, please contact the laboratory for additional testing. Raoultella ornithinolytica/plantico la Cefoxitin SILVER <=4 ug/mL: Susceptible Raoultella ornithinolytica/plantico la Ceftazidime SILVER <=1 ug/mL: Susceptible Raoultella ornithinolytica/plantico la Ceftriaxone SILVER <=1 ug/mL: Susceptible Raoultella ornithinolytica/plantico la Cefepime SILVER <=1 ug/mL: Susceptible Raoultella ornithinolytica/plantico la Amikacin SILVER <=2 ug/mL: Susceptible Raoultella ornithinolytica/plantico la Gentamicin SILVER >=16 ug/mL: Resistant Raoultella ornithinolytica/plantico la Tobramycin SILVER 8 ug/mL: Resistant Raoultella ornithinolytica/plantico la Ciprofloxacin SILVER 1 ug/mL: Resistant Raoultella ornithinolytica/plantico la Levofloxacin SILVER 0.5 ug/mL: Susceptible Raoultella ornithinolytica/plantico la Nitrofurantoin SILVER <=16 ug/mL: Susceptible Raoultella ornithinolytica/plantico la Trimethoprim/Sulfamethoxazo le SILVER >16/304 ug/mL: Resistant us Adalberto Eldridge MD LAB - MICRO GENERAL ORD ERABLES Final Result [facility] Inf. Diseases Diag. Lab [address] [facility], [address] [place] [address] * Surgical Pathology Exam (09/25/2024 9:26 AM HUSBANDRY TECHNICIAN) Case Report Surgical Pathology Report Case: [id number] Authorizing Provider: Adalberto Eldridge MD Collected: 09/25/2024 09:26 AM Ordering Location: [facility] Received: 09/25/2024 09:27 AM [facility] Pathologist: Jorge More MD Specimens: A) - Prostate, LEFT LATERAL BASE B) - Prostate, LEFT LATERAL MID C) - Prostate, LEFT LATERAL APEX D) - Prostate, LEFT BASE E) - Prostate, LEFT MID F) - Prostate, LEFT APEX G) - Prostate, RIGHT BASE H) - Prostate, RIGHT MID I) - Prostate, RIGHT APEX J) - Prostate, RIGHT LATERAL BASE K) - Prostate, RIGHT LATERAL MID L) - Prostate, RIGHT LATERAL APEX M) - Prostate, PROSTATE LESION X3 09/26/2024 2:00 PM HUSBANDRY TECHNICIAN LABORATORY Final Diagnosis A. Prostate, left lateral base, biopsy- Benign prostate tissue B. Prostate, left lateral mid, biopsy- Benign prostate tissue with atrophic change, chronic inflammation C. Prostate, left lateral apex, biopsy- Benign prostate tissue with atrophic change D. Prostate, left base, biopsy- Benign prostate tissue atrophic change and chronic inflammation E. Prostate, left mid, biopsy- Benign prostate tissue with chronic inflammation F. Prostate, left apex, biopsy- Benign prostate tissue G. Prostate, right base, biopsy- Benign prostate tissue H. Prostate, right mid, biopsy- Benign prostate tissue I. Prostate, right apex, biopsy- Benign prostate tissue J. Prostate, right lateral base, biopsy- Benign prostate tissue with atrophic change K. Prostate, right lateral mid, biopsy- Benign prostate tissue L. Prostate, right lateral apex, biopsy- Benign prostate tissue M. Prostate, not otherwise specified, biopsy- Benign prostate tissue with chronic inflammation 09/26/2024 2:00 PM [facility] Clinical Information ELEVATED PSA 09/26/2024 2:00 PM HUSBANDRY TECHNICIAN LABORATORY Gross Description A(A). Prostate, LEFT LATERAL BASE: The specimen is received in formalin, labeled with the patient's name, medical record number and other identifying information designated left lateral base. It consists of a 1.3 cm fragment of white-long needle core biopsy tissue. The specimen submitted entirely in formalin in 1 cassette. B(B). Prostate, LEFT LATERAL MID: The specimen is received in formalin, labeled with the patient's name, medical record number and other identifying information designated left lateral mid. It consists of a 1.2 cm fragment of white-long needle core biopsy tissue. The specimen submitted entirely in formalin in 1 cassette. C(C). Prostate, LEFT LATERAL APEX: The specimen is received in formalin, labeled with the patient's name, medical record number and other identifying information designated left lateral apex. It consists of a 1.8 cm fragment of white-long needle core biopsy tissue. The specimen submitted entirely in formalin in 1 cassette. D(D). Prostate, LEFT BASE: The specimen is received in formalin, labeled with the patient's name, medical record number and other identifying information designated left base. It consists of a 1.9 cm fragment of white-long needle core biopsy tissue. The specimen submitted entirely in formalin in 1 cassette. E(E). Prostate, LEFT MID: The specimen is received in formalin, labeled with the patient's name, medical record number and other identifying information designated left mid. It consists of a 1.7 cm fragment of white-long needle core biopsy tissue. The specimen submitted entirely in formalin in 1 cassette. F(F). Prostate, LEFT APEX: The specimen is received in formalin, labeled with the patient's name, medical record number and other identifying information designated left apex. It consists of a 1.6 cm fragment of white-long needle core biopsy tissue. The specimen submitted entirely in formalin in 1 cassette. G(G). Prostate, RIGHT BASE: The specimen is received in formalin, labeled with the patient's name, medical record number and other identifying information designated right base. It consists of a 0.9 cm fragment of white-long needle core biopsy tissue. The specimen submitted entirely in formalin in 1 cassette. H(H). Prostate, RIGHT MID: The specimen is received in formalin, labeled with the patient's name, medical record number and other identifying information designated right mid. It consists of a 1.9 cm fragment of white-long needle core biopsy tissue. The specimen submitted entirely in formalin in 1 cassette. I(I). Prostate, RIGHT APEX: The specimen is received in formalin, labeled with the patient's name, medical record number and other identifying information designated right apex. It consists of a 1.4 cm fragment of white-long needle core biopsy tissue. The specimen submitted entirely in formalin in 1 cassette. J(J). Prostate, RIGHT LATERAL BASE: The specimen is received in formalin, labeled with the patient's name, medical record number and other identifying information designated right lateral base. It consists of a 1.6 cm fragment of white-long needle core biopsy tissue. The specimen submitted entirely in formalin in 1 cassette. K(K). Prostate, RIGHT LATERAL MID: The specimen is received in formalin, labeled with the patient's name, medical record number and other identifying information designated right lateral mid. It consists of a 1.7 cm fragment of white-long needle core biopsy tissue. The specimen submitted entirely in formalin in 1 cassette. L(L). Prostate, RIGHT LATERAL APEX: The specimen is received in formalin, labeled with the patient's name, medical record number and other identifying information designated right lateral apex. It consists of a 1.7 cm fragment of white-long needle core biopsy tissue. The specimen submitted entirely in formalin in 1 cassette. M(M). Prostate, PROSTATE LESION X3: The specimen is received in formalin, labeled with the patient's name, medical record number and other identifying information designated prostate lesion x 3. It consists of 3 fragments of white-long needle core biopsy tissue measuring 1.3-1.8 cm in length by <0.1 cm in diameter. The fragments are submitted entirely in formalin wrapped in lens paper in 1 cassette. MELISSA Meléndez(ASCP)CM 09/25/2024 12:07 PM 09/26/2024 2:00 PM [facility] Microscopic Description A-M. Microscopic performed 09/26/2024 2:00 PM [facility] Performing Labs The technical component of this testing was completed at [place] [facility]. Stain controls for all stains resulted within this report have been reviewed and show appropriate reactivity. 09/26/2024 2:00 PM [facility] Case Images 09/26/2024 2:00 PM [facility] Biopsy PROSTATIC STRUCTURE / Unknown Non-blood Collection / Unknown 09/25/2024 9:26 AM HUSBANDRY TECHNICIAN 09/25/2024 9:27 AM HUSBANDRY TECHNICIAN Specimen from unspecified body site obtained by biopsy (specimen) PROSTATIC STRUCTURE / Unknown 09/25/2024 9:26 AM HUSBANDRY TECHNICIAN 09/25/2024 9:27 AM HUSBANDRY TECHNICIAN Specimen from unspecified body site obtained by biopsy (specimen) PROSTATIC STRUCTURE / Unknown 09/25/2024 9:26 AM HUSBANDRY TECHNICIAN 09/25/2024 9:27 AM HUSBANDRY TECHNICIAN Specimen from unspecified body site obtained by biopsy (specimen) PROSTATIC STRUCTURE / Unknown 09/25/2024 9:26 AM HUSBANDRY TECHNICIAN 09/25/2024 9:27 AM HUSBANDRY TECHNICIAN Specimen from unspecified body site obtained by biopsy (specimen) PROSTATIC STRUCTURE / Unknown 09/25/2024 9:26 AM HUSBANDRY TECHNICIAN 09/25/2024 9:27 AM HUSBANDRY TECHNICIAN Specimen from unspecified body site obtained by biopsy (specimen) PROSTATIC STRUCTURE / Unknown 09/25/2024 9:26 AM HUSBANDRY TECHNICIAN 09/25/2024 9:27 AM HUSBANDRY TECHNICIAN Specimen from unspecified body site obtained by biopsy (specimen) PROSTATIC STRUCTURE / Unknown 09/25/2024 9:26 AM HUSBANDRY TECHNICIAN 09/25/2024 9:27 AM HUSBANDRY TECHNICIAN Specimen from unspecified body site obtained by biopsy (specimen) PROSTATIC STRUCTURE / Unknown 09/25/2024 9:26 AM HUSBANDRY TECHNICIAN 09/25/2024 9:27 AM HUSBANDRY TECHNICIAN Specimen from unspecified body site obtained by biopsy (specimen) PROSTATIC STRUCTURE / Unknown 09/25/2024 9:26 AM HUSBANDRY TECHNICIAN 09/25/2024 9:27 AM HUSBANDRY TECHNICIAN Specimen from unspecified body site obtained by biopsy (specimen) PROSTATIC STRUCTURE / Unknown 09/25/2024 9:26 AM HUSBANDRY TECHNICIAN 09/25/2024 9:27 AM HUSBANDRY TECHNICIAN Specimen from unspecified body site obtained by biopsy (specimen) PROSTATIC STRUCTURE / Unknown 09/25/2024 9:26 AM HUSBANDRY TECHNICIAN 09/25/2024 9:27 AM HUSBANDRY TECHNICIAN Specimen from unspecified body site obtained by biopsy (specimen) PROSTATIC STRUCTURE / Unknown 09/25/2024 9:26 AM HUSBANDRY TECHNICIAN 09/25/2024 9:27 AM HUSBANDRY TECHNICIAN Specimen from unspecified body site obtained by biopsy (specimen) PROSTATIC STRUCTURE / Unknown 09/25/2024 9:26 AM HUSBANDRY TECHNICIAN 09/25/2024 9:27 AM HUSBANDRY TECHNICIAN us Adalberto Eldridge MD LAB - ANNITA AP Final R esult LABORATORY [facility] [address] 1[address] floor, [address] [place] [address], [place] [phone] * MR Outside Read (09/10/2024 8:40 AM CDT) Anatomical Region Laterality Modality Outside Computed Radiogr aphy Impressions 09/19/2024 11:47 AM CDT IMPRESSION: 1. Based on the most suspicious abnormality, this exam is characterized as PIRADS 2 - Clinically significant cancer is unlikely to be present. 2. No suspicious adenopathy or evidence of pelvic metastases. PIRADS? v2.1 Assessment Categories PIRADS 1: Very low (clinically significant cancer is highly unlikely to be present) PIRADS 2: Low (clinically significant cancer is unlikely to be present) PIRADS 3: Intermediate (the presence of clinically significant cancer is equivocal) PIRADS 4: High (clinically significant cancer is likely to be present) PIRADS 5: Very high (clinically significant cancer is highly likely to be present) Previously described possible PI-RADS 3 lesion from the original report 08/21/2024 in the transitional zone was marked for tissue sampling if desired. Using an image analysis software package (NetMovies), three-dimensional (3D) volumetric images of the prostate were reconstructed by a radiologist and archived to PACS for prostate lesion analysis and biopsy planning. Additionally, the software package was utilized for contrast kinetic analysis. I have personally reviewed the examination and initial interpretation and I agree with the findings. MONTY BAINS MD Narrative 09/19/2024 11:47 AM CDT EXAMINATION: MR OUTSIDE READ, 09/10/2024 8:40 AM TECHNIQUE: Outside films dated 08/21/2024 were submitted for interpretation. Multisequence multiplanar MR images of the prostate were performed without and with contrast. COMPARISON: CT 08/10/2024. PREVIOUS REPORT: The original interpretation was not available for review at the time of this dictation. HISTORY: Rayus prostate study Most Recent PSA: 4.06 ug/L (01/28/2021) FINDINGS: This report is designed to answer a focused clinical question and should be interpreted in conjunction with the original report. FINDINGS: Size: 6.8 x 6.0 x 6.9 cm. 146.4 grams Hemorrhage: Mild Peripheral zone: Heterogeneous on T2-weighted images. No suspicious lesions identified. Transition zone: Enlarged with BPH changes. Transition zone nodules which are circumscribed or mostly encapsulated without diffusion restriction. PI-RADS 2. No highly suspicious nodules. Lesion 1: Location: Posterior midline mid gland transition zone at the 6 o'clock position relative to the urethra. Series 106 image 20 and series 4 image 15. Additional prostate regions involved: None Size: 8 mm T2 description: Homogenous mild T2 hypointensity possibly within a BPH nodule. T2 numerical assessment: 2 DWI description: Focal marked hypointensity on ADC with mild hyperintensity on DWI. DWI numerical assessment: 3 DCE assessment: Negative Prostate margin: Capsular abutment<6 mm with smooth contour Lesion overall PI-RADS category: 2 Neurovascular bundles: No neurovascular bundle involvement by malignancy. Seminal vesicles: No seminal vesicle involvement by malignancy. Lymph nodes: No lymph node involvement Bones: No suspicious lesions susceptibility artifact in the right lower quadrant abdominal wall. Other pelvic organs: Mild-moderate urinary bladder. Weber catheter in place. Multiple bladder stones. Procedure Note Monty Bains MD - 09/19/2024 EXAMINATION: MR OUTSIDE READ, 09/10/2024 8:40 AM TECHNIQUE: Outside films dated 08/21/2024 were submitted for interpretation. Multisequence multiplanar MR images of the prostate were performed without and with contrast. COMPARISON: CT 08/10/2024. PREVIOUS REPORT: The original interpretation was not available for review at the time of this dictation. HISTORY: Rayus prostate study Most Recent PSA: 4.06 ug/L (01/28/2021) FINDINGS: This report is designed to answer a focused clinical question and should be interpreted in conjunction with the original report. FINDINGS: Size: 6.8 x 6.0 x 6.9 cm. 146.4 grams Hemorrhage: Mild Peripheral zone: Heterogeneous on T2-weighted images. No suspicious lesions identified. Transition zone: Enlarged with BPH changes. Transition zone nodules which are circumscribed or mostly encapsulated without diffusion restriction. PI-RADS 2. No highly suspicious nodules. Lesion 1: Location: Posterior midline mid gland transition zone at the 6 o'clock position relative to the urethra. Series 106 image 20 and series 4 image 15. Additional prostate regions involved: None Size: 8 mm T2 description: Homogenous mild T2 hypointensity possibly within a BPH nodule. T2 numerical assessment: 2 DWI description: Focal marked hypointensity on ADC with mild hyperintensity on DWI. DWI numerical assessment: 3 DCE assessment: Negative Prostate margin: Capsular abutment<6 mm with smooth contour Lesion overall PI-RADS category: 2 Neurovascular bundles: No neurovascular bundle involvement by malignancy. Seminal vesicles: No seminal vesicle involvement by malignancy. Lymph nodes: No lymph node involvement Bones: No suspicious lesions susceptibility artifact in the right lower quadrant abdominal wall. Other pelvic organs: Mild-moderate urinary bladder. Weber catheter in place. Multiple bladder stones. IMPRESSION: 1. Based on the most suspicious abnormality, this exam is characterized as PIRADS 2 - Clinically significant cancer is unlikely to be present. 2. No suspicious adenopathy or evidence of pelvic metastases. PIRADS? v2.1 Assessment Categories PIRADS 1: Very low (clinically significant cancer is highly unlikely to be present) PIRADS 2: Low (clinically significant cancer is unlikely to be present) PIRADS 3: Intermediate (the presence of clinically significant cancer is equivocal) PIRADS 4: High (clinically significant cancer is likely to be present) PIRADS 5: Very high (clinically significant cancer is highly likely to be present) Previously described possible PI-RADS 3 lesion from the original report 08/21/2024 in the transitional zone was marked for tissue sampling if desired. Using an image analysis software package (NetMovies), three-dimensional (3D) volumetric images of the prostate were reconstructed by a radiologist and archived to PACS for prostate lesion analysis and biopsy planning. Additionally, the software package was utilized for contrast kinetic analysis. I have personally reviewed the examination and initial interpretation and I agree with the findings. MONTY BAINS MD Adalberto Eldridge MD IMG MRI ORDERABLES Joy l Result * MEASURE POST-VOID RESIDUAL URINE/BLADDER CAPACITY, US NON-IMAGING (64191) (08/31/2024) Residual Volume (RV) (External) 59 Adalebrto Eldridge MD PROCEDURES Final R esult * [...] - BLOOD ORDERABLES Fin al Result LABORATORY [facility] [address] Lab (1st floor, no room number) [place] [address], [facility] * Heparin Unfractionated Anti Xa [...] BLOOD ORDERABLES Final Result Performing Organization Address City/[facility]/ZIP Co de Phone Number [facility] [address] Lab (1st floor, no room number) [place] [phone] * (ABNORMAL) INR (08/13/2024 6:37 AM CDT) Only the most recent of8 resultswithin the time period is included. INR 1.16(H) 0.85 - 1.15 08/13/2024 7:01 AM CDT LABORATORY Blood STRUCTURE OF RIGHT HAND / Unknown Venipuncture / Unknown 08/13/2024 6:37 AM CDT 08/13/2024 6:49 AM CDT Olvin Alejandre DO LAB - BLOOD ORDERABLES Fin al Result [facility] Lab [address] Lab (1st floor, no room number) [place] [address], [facility] * (ABNORMAL) Ionized Calcium (08/13/2024 6:37 AM CDT) Calcium Ionized Whole Blood 4.2(L) 4.4 - 5.2 mg/dL 08/13/2024 7:00 AM CDT LABORATORY Blood STRUCTURE OF RIGHT HAND / Unknown Venipuncture / Unknown 08/13/2024 6:37 AM CDT 08/13/2024 6:49 AM CDT Olvin Alejandre DO LAB - BLOOD ORDERABLES Maurilio pedro Result RH LABORATORY [facility] [address] [facility] Lab (1st floor, no room number) [place] [address], [facility] * (ABNORMAL) Basic metabolic panel (08/13/2024 6:37 AM CDT) Only the most recent of5 resultswithin the time period is included. [facility] Sodium 137 135 - 145 [...] LAB - BLOOD ORDERABLES Fin al Result [facility] [address] [facility] ([facility], no room number) [place] [address] * (ABNORMAL) Hemoglobin (08/12/2024 12:27 PM CDT) Only the most recent of6 resultswithin the time period is included. Hemoglobin 8.9(L) 13.3 - 17.7 g/dL 08/12/2024 12:56 PM CDT LABORATORY Blood STRUCTURE OF RIGHT HAND / Unknown Venipuncture / Unknown 08/12/2024 12:27 PM CDT 08/12/2024 12:53 PM CDT Adalberto Eldridge MD LAB - BLOOD ORDERABLES Final Result Performing Organization Address [facility] Co de Phone Number [facility] [address] [facility], no room number) [place] [phone] * Stone analysis (08/11/2024 3:34 [...] a matrix of biological compounds and blood. Matrix components are not reported. The clinically significant crystalline components identified in calculi specimens are reported. Gross description may not be consistent with composition determined by FTIR analysis. Performed By: [facility] [address] [place] [address] Rod Tape Operator: Noah Moran MD, PhD CLIA Number: [id number] Calculus/Stone URINARY BLADDER STRUCTURE / Unknown Non-blood Collection / Unknown 08/11/2024 3:34 PM CDT 08/11/2024 4:00 PM CDT Adalberto Eldridge MD LAB - BODY FLUIDS ORDER AMANDA Final Result [facility] [address] [place] [address], [facility] [phone] * ANE AIRWAY SUPRAGLOTTIC PERFORMABLE (08/11/2024 3:26 PM CDT) Narrative Yvonne White APRN CLERK SPECIALIST - 08/11/2024 3:26 PM CDT Yvonne White APRN CLERK SPECIALIST 08/11/2024 3:26 PM Airway Patient location during procedure: OR Staff - CLERK SPECIALIST: Yvonne White APRN CLERK SPECIALIST Performed By: CRNAIndications and Patient Condition Indications [...] of procedure: easy Dentition: Intact and Unchanged Jai Flores DO [place] ANESTHESIA Final Result * Adult Type and Screen (08/11/2024 12:27 PM CDT) ABO/RH(D) O POS 08/11/2024 12:17 PM CDT RH BLOOD BANK Antibody Screen Negative Negative 08/11/2024 12:17 PM CDT RH BLOOD BANK SPECIMEN EXPIRATION DATE [id number] 08/11/2024 12:17 PM CDT RH BLOOD BANK Blood STRUCTURE OF RIGHT HAND / Unknown Venipuncture / Unknown 08/11/2024 12:27 PM CDT 08/11/2024 12:33 PM CDT us Olvin Alejandre DO LAB - BLOOD BANK TEST ORDE R Final Result BLOOD BANK [address] [place] [address], [facility] * (ABNORMAL) Glucose by meter (08/10/2024 3:50 PM CDT) GLUCOSE BY METER POCT 102(H) 70 - 99 mg/dL 08/10/2024 4:21 PM CDT RH LABORATORY POC Blood, Capillary BLOOD SPECIMEN / Unknown 08/10/2024 3:50 PM CDT 08/10/2024 4:21 PM CDT Uziel Easton MD LAB - BEAKER POCT Joy l Result Performing Organization Address City/[facility]/ZIP Co de Phone Number RH LABORATORY POC [facility] [address] [facility] Lab (1st floor, no room number) [place] [address], [facility] * (ABNORMAL) CBC [...] MD LAB - BLOOD ORDERABLES Final Result [facility] [address] [facility] Lab (1st floor, no room number) [place] [address] * CT Abdomen Pelvis w/o Contrast (08/10/2024 9:15 AM CDT) Anatomical Region Laterality Modality Abdomen/Pelvis, SUBRAD CT LORI DY, UMP CT ABDOMEN PELVIS, RAD CT Computed Tomography Impressions 08/10/2024 3:02 PM CDT IMPRESSION: 1. Distended urinary bladder with a large amount of clot around the Weber balloon. Multiple stones in the bladder. 2. Marked prostatomegaly. 3. Two right renal calculi measuring 2 to 3 mm and a 5 mm left renal calculus. No hydronephrosis. ALBERT ADAMS MD SYSTEM ID: [id number] Narrative 08/10/2024 3:[address] ABDOMEN [...] No hydronephrosis. ALBERT ADAMS MD SYSTEM ID: [id number] us Adalberto Eldridge MD [facility] CT ORDERABLES Final Result * (ABNORMAL) UA with Microscopic reflex to Culture (08/09/2024 7:33 PM CDT) Color Urine Brown(A) Colorless, Straw, Light Yellow, Yellow 08/09/2024 7:55 PM CDT LABORATORY Appearance Urine Cloudy(A) Clear 09/19/20 24 7:55 PM CDT RH LABORATORY Glucose Urine Negative Negative mg/dL 08/09/2024 7:55 PM CDT RH LABORATORY Bilirubin Urine Negative Negative 7:55 PM CDT RH LABORATORY Ketones Urine Negative Negative mg/dL 08/09/2024 7:55 PM CDT RH LABORATORY Specific [address] Urine 1.005 1.003 - 1.035 08/09/2024 7:55 [...] - URINE ORDERABLES Fi nal Result LABORATORY [facility] [address] Lab (1st floor, no room number) [place] [address], [facility] * Lab Result - HIM Scan (08/09/2024 12:00 AM CDT) 08/09/2024 Provider Outside MH NON-BEAKER LAB TESTING Final Result from Last 3 Months Additional Health Concerns Active Problems Noted Date Diagnosed Date MyC ECC SURG ENROLL 10/12/2024 Insurance MEDICARE Advance Directives For more information, please contact: [phone] * Full Code (Latest Code Status on File) Date Activated Date Inactivated Comments 08/09/2024 10:23 PM 08/13/2024 3:35 PM All basic a nd advanced life-sustaining interventions are performed as appropriate Question Answer Comments Code status determined by: Discussion with ange nt/ legal decision maker Care Teams Configuration Management Consultant Relationship Specialty Start Date End Date [facility]- [address] [place] [address] PCP - General 07/24/21 Adalberto Eldridge MD [address] [place] [address] Assigned Surgical Provider 09/12/24
--- OUTSIDE RECORDS SUMMARY | 2024-10-14 15:09 | XMS_ITS | Encounter Summary ---
Author Organization [place] Address [address] [facility] 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 Services [address] [place] [phone] Eriberto Souza MD [address] [place] [phone] 11/23/2024 9:55 AM RECYCLABLE MATERIALS COLLECTOR - 11/23/2024 1:30 PM RECYCLABLE MATERIALS COLLECTOR Surgery [facility] [address] [place] [phone] Eriberto Souza MD [address] [place] [phone] Holmium Laser Enucleation of the Prostate Scheduled Procedures Name Priority Associated Diagnoses Date/Ti me CYSTOSCOPY, WITH FULGURATION OF HEMORRHAGING BLOOD VESSEL AND THROMBUS REMOVAL Gross hematuria ENUCLEATION, PROSTATE, USING HOLMIUM LASER Benign prostatic hyperplasia with incomplete bladder emptying 11/23/2024 9:55 AM RECYCLABLE MATERIALS COLLECTOR documented as of this encounter Goals Goal Patient Goal Type Associated Problems Recent Progress Patient-Stated? Author MYC ECC SURG ENROLL Care Plan MyC ECC SURG ENROLL No Yumiko Mariscal documented as of this encounter Visit Diagnoses Not on filedocumented in this encounter Additional Health Concerns Active Problems Noted Date Diagnosed Date MyC ECC SURG ENROLL 10/12/2024 documented as of this encounter Care Teams Print Inspector Relationship Specialty Start Date End Date [facility]- [address] [place] [address] PCP - General 07/24/21 Adalberto Eldridge MD [address] [address] Assigned Surgical Provider 09/12/24 documented as of this encounter
--- OUTSIDE RECORDS SUMMARY | 2024-10-14 15:09 | XMS_ITS | Encounter Summary ---
Author Organization [place] Address [facility]ly [facility] [place] [address] Care Team Providers Care Bill Adjuster Name Role Phone 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 Gender Identity Not on file Sexual Orientation Not on file documented as of this encounter Plan of Treatment Upcoming Encounters Date Type Department Care Team (Latest Contact Info) Description 11/23/2024 9:55 AM PROGRAMMING EQUIPMENT OPERATOR Hospital Encounter [facility] [address] [place] [phone] Eriberto Souza MD [address] [place] [phone] 11/23/2024 9:55 AM PROGRAMMING EQUIPMENT OPERATOR - 11/23/2024 1:30 PM PROGRAMMING EQUIPMENT OPERATOR Surgery [facility] [address] [place] [phone] Eriberto Souza MD [address] [place] [address] [phone] Holmium Laser Enucleation of the Prostate Scheduled Procedures Name Priority Associated Diagnoses Date/Ti me CYSTOSCOPY, WITH FULGURATION OF HEMORRHAGING BLOOD VESSEL AND THROMBUS REMOVAL Gross hematuria ENUCLEATION, PROSTATE, USING HOLMIUM LASER Benign prostatic hyperplasia with incomplete bladder emptying 11/23/2024 9:55 AM PROGRAMMING EQUIPMENT OPERATOR documented as of this encounter Visit Diagnoses Diagnosis Urinary tract infection- Primary Urinary tract infection, site not specified Benign prostatic hyperplasia with incomplete bladder emptying documented in this encounter Care Teams Bill Adjuster Relationship Specialty Start Date End Date [facility]- [address] [place] [address] PCP - General 07/24/21 Adalberto Eldridge MD [address] [address] Assigned Surgical Provider 09/12/24 documented as of this encounter
--- OUTSIDE RECORDS SUMMARY | 2024-10-14 15:09 | XMS_ITS | Encounter Summary ---
Author Organization [place] Address [facility] [place] [address] Care Team Providers Care Medical Anthropologist Name Role Phone [facility]- Primary Care Provider Adalberto Eldridge MD Unavailable [phone] Encounter Details Date Type Department Care Team (Late st Contact Info) Description 09/26/2024 Telephone [facility] [place] [address] [place] [address] Adalberto Eldridge MD [address] [place], [place] [phone] Social History Tobacco Use Types Packs/Day Years [...] in an abandoned building, in an overnight custodial, or couch-surfing.) Yes 08/09/2024 Are you worried [...] on file Legal Sex Male 3:18 AM CLEAN UP WORKER Gender Identity Not on file Sexual Orientation Not on file documented as of this encounter Miscellaneous Notes * Telephone Encounter - Archana Ortega LPN - 09/26/2024 10:24 AM CST Patient will restart warfarin and bridge Lovenox per instructions. Archana Ortega LPN N UP WORKER * Telephone Encounter - Archana Ortega LPN - 09/26/2024 9:08 AM CST Is okay for him to restart his warfarin? He is not having any bleeding. Archana Ortega LPN N UP WORKER documented in this encounter Plan of Treatment Upcoming Encounters Date Type Department Care Team (Latest Contact Info) Description 11/23/2024 9:55 AM CLEAN UP WORKER Hospital Encounter [facility] Services [address] [place] [phone] Eriberto Souza MD [address] [place] [address] 11/23/2024 9:55 AM CLEAN UP WORKER - 11/23/2024 1:30 PM CLEAN UP WORKER Surgery [facility] Services [address] [place] [address] Eriberto Souza MD [address] [place] [address] Holmium Laser Enucleation of the Prostate Scheduled Procedures Name Priority Associated Diagnoses Date/Ti me CYSTOSCOPY, WITH FULGURATION OF HEMORRHAGING BLOOD VESSEL AND THROMBUS REMOVAL Gross hematuria ENUCLEATION, PROSTATE, USING HOLMIUM LASER Benign prostatic hyperplasia with incomplete bladder emptying 11/23/2024 9:55 AM CLEAN UP WORKER documented as of this encounter Visit Diagnoses Not on filedocumented in this encounter Care Teams Medical Anthropologist Relationship Specialty Start Date End Date [facility]- [address] [place] [address] PCP - General 07/24/21 Adalberto Eldridge MD [address] [place] [address] Assigned Surgical Provider 09/12/24 documented as of this encounter
--- OUTSIDE RECORDS SUMMARY | 2024-10-14 15:09 | XMS_ITS | Encounter Summary ---
Author Organization [place] Address [address] [facility] 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 Gender Identity Not on file Sexual Orientation Not on file documented as of this encounter Plan of Treatment Upcoming Encounters Date Type Department Care Team (Latest Contact Info) Description 11/23/2024 9:55 AM CLAY PLANT TREATER Hospital Encounter [facility] Services [address], [address] [place] [phone] Eriberto Souza MD [address] [place] [phone] 11/23/2024 9:55 AM CLAY PLANT TREATER - 11/23/2024 1:30 PM CLAY PLANT TREATER Surgery [facility] [address] [place] [phone] Eriberto Souza MD [address] [place] [phone] Holmium Laser Enucleation of the Prostate Scheduled Procedures Name Priority Associated Diagnoses Date/Ti me CYSTOSCOPY, WITH FULGURATION OF HEMORRHAGING BLOOD VESSEL AND THROMBUS REMOVAL Gross hematuria ENUCLEATION, PROSTATE, USING HOLMIUM LASER Benign prostatic hyperplasia with incomplete bladder emptying 11/23/2024 9:55 AM CLAY PLANT TREATER documented as of this encounter Visit Diagnoses Not on filedocumented in this encounter Care Teams Burial Needs Salesperson Relationship Specialty Start Date End Date [facility]- [address] [place] [address] PCP - General 07/24/21 Adalberto Eldridge MD [address] [place] [address] Assigned Surgical Provider 09/12/24 documented as of this encounter
--- OUTSIDE RECORDS SUMMARY | 2024-10-14 15:09 | XMS_ITS | Encounter Summary ---
Author Organization [place] Address [address] [place] [address] Care Team Providers Care Char Conveyor Tender Cellar Name Role Phone [facility]- Primary Care Provider Adalberto Eldridge MD Unavailable [phone] Reason for Visit * Reason Comments RECHECK Encounter Details Date Type Department Care Team (Late st Contact Info) Description 10/04/2024 1:00 PM JOB PRINTER Virtual Visit [facility] [place] [address] [place] [address] [address] [place] [phone] Gin Uribe MD [address] [place] [address] Benign prostatic hyperplasia with incomplete bladder emptying (Primary Dx) Social History Tobacco Use Types [...] in an abandoned building, in an overnight jail, or couch-surfing.) Yes 08/09/2024 Are you worried [...] on file Legal Sex Male 3:18 AM JOB PRINTER Gender Identity Not on file Sexual Orientation Not on file documented as of this encounter Progress Notes * Gin Uribe MD - 10/04/2024 1:00 PM CST UROLOGY OUTPATIENT VISIT Chief Complaint: urinary retention Synopsis Oleg Sparks is a 64 year old male seen in consultation from Eldridge regarding retention. 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 They have a history of bladder stones, which is a sign of incomplete bladder emptying. The patient occasionally self-catheterizes, which led to significant bleeding inSeptember during a fishing tripThe patient is currently on Coumadin due to a mechanical heart valve. The patient has been experiencing recurrent urinary tract infections, requiring antibiotics approximately every other week since January. BPH related history: - Prostate biopsy was performed recently with normal results. - History of bladder stones. - No cancer detected. - Requires Coumadin for a mechanical heart valve. - Experiences urinary retention requiring self-catheterization. - Recurrent urinary tract infections. Imaging 09/10/2024 MRI IMPRESSION: 1. Based on the most suspicious abnormality, this exam is characterized as PIRADS 2 - Clinically significant cancer is unlikely to be present. 2. No suspicious adenopathy or evidence of pelvic metastases. The following distinct labs were reviewed CBC RESULTS: Recent Labs Lab Test 08/13/24 0648 08/12/24 2324 08/12/24 1227 08/12/24 0612 08/11/24 1803 08/11/24 0551 WBC 8.4 9.8 -- 10.3 -- 7.8 HGB 8.5* 8.5* 8.9* 8.6* < > 10.1* PLT 227 220 -- 211 -- 236 < > = values in this interval not displayed. BMP RESULTS: Recent Labs Lab Test 08/13/24 0637 08/12/24 0612 08/11/24 0551 08/10/24 1550 08/10/24 1034 NA 137 136 132* -- 131* POTASSIUM 4.1 4.5 4.3 -- 4.6 CHLORIDE 107 107 102 -- 101 CO2 22 20* 21* -- 21* ANIONGAP 8 9 9 -- 9 GLC 99 152* 97 102* 110* BUN 12.8 16.9 20.9 -- 17.3 CR 0.80 0.78 1.02 -- 1.04 GFRESTIMATED >90 >90 81 -- 79 Medical Comorbidities Past Medical History: Diagnosis Date Aortic valve replaced Enlarged prostate Medications Current Outpatient Medications Medication Sig Dispense Refill acetaminophen (TYLENOL) 325 MG tablet Take 2 tablets (650 mg) by mouth every 4 hours as needed for mild pain or other (and adjunct with moderate or severe pain or per patient request). ferrous sulfate (FEROSUL) 325 (65 Fe) MG tablet Take 1 tablet (325 mg) by mouth daily. 30 tablet 0 finasteride (PROSCAR) 5 MG tablet Take 5 mg by mouth daily. lisinopril (ZESTRIL) 5 MG tablet Take 5 mg by mouth daily. oxyBUTYnin (DITROPAN) 5 MG tablet Take 5 mg by mouth every 8 hours as needed for bladder spasms. senna-docusate (SENOKOT-S/PERICOLACE) 8.6-50 MG tablet Take 1 tablet by mouth 2 times daily as needed for constipation. 15 tablet 0 tamsulosin (FLOMAX) 0.4 MG capsule Take 0.4 mg by mouth daily valACYclovir (VALTREX) 1000 mg tablet Take 1,000 mg by mouth 2 times daily as needed (cold sores). warfarin ANTICOAGULANT (COUMADIN) 1 MG tablet Take by mouth daily. 4mg= Tue and Sun, 8mg=ROW (Patient not taking: Reported on 09/25/2024) No current facility-administered medications for this visit. Assessment/Plan 64 year old year old person with mechanical aortic valve on coumadin and BPH causing urinary retention, bladder stones, prostate around 160 grams - I discussed the enlarged prostate and its impact on urinary function, highlighting that surgery is indicated due to the formation of bladder stones and recurrent urinary retention. - We explored surgical options: robotic simple prostatectomy and laser enucleation via the penis, opting for the latter to minimize bleeding risk given the patient's anticoagulation needs. - We discussed risks of bleeding, incontinence post-op - The patient is at higher risk for bleeding due to the need to restart anticoagulation soon after surgery. - The plan includes a Coumadin to Lovenox bridge pre-operatively and careful monitoring post-operatively. - The patient was informed about the potential need for a transfusion due to higher bleeding risks associated with resuming AC sooner due to mechanical valve. - Surgery scheduling is constrained due to a shortage of IV fluids, pushing potential dates to November or December, but efforts will be made to schedule sooner if possible. - The patient was provided with a link to further information about the procedure and encouraged toreach out with any questions. CC: [facility], [facility]- Data Reviewed Tests Reviewed: CBC and BMP MRI prostate Level of risk: 5 -- major surgery with patient or procedure risks Joined the call at 10/04/2024, 1:18:09 pm. Left the call at 10/04/2024, 1:49:09 pm. You were on the call for 30 minutes 59 seconds . PRINTER documented in this encounter Nursing Notes * Marie Clark - 10/04/2024 1:00 PM CST Current patient location: [id number] [place] [id number] Is the patient currently in the state of [place]? YES Visit mode:VIDEO If the visit is dropped, the patient can be reconnected by:VIDEO VISIT: Text to cell phone: Telephone Information: Will anyone else be joining the visit? NO (If patient encounters technical issues they should call [phone]) Are changes needed to the allergy or medication list? No and Pt stated no med changes Are refills needed on medications prescribed by this physician? NO Rooming Documentation: Not applicable Reason for visit: RECHECK Marie Kelley VVF PRINTER documented in this encounter Plan of Treatment Upcoming Encounters Date Type Department Care Team (Latest Contact Info) Description 11/23/2024 9:55 AM JOB PRINTER Hospital Encounter [facility] [address] [place] [phone] Eriberto Souza MD [address] [place] [phone] 11/23/2024 9:55 AM JOB PRINTER - 11/23/2024 1:30 PM JOB PRINTER Surgery [facility] [address] [place] [phone] Eriberto Souza MD [address] [place] [phone] Holmium Laser Enucleation of the Prostate Scheduled Orders Name Type Priority Associated Diagnoses Orde r Schedule Urine Culture Microbiology Routine Benign prostatic hyperplasia with incomplete bladder emptying Expected: 10/04/2024 (Approximate), Expires: 10/04/2025 Scheduled Procedures Name Priority Associated Diagnoses Date/Ti me CYSTOSCOPY, WITH FULGURATION OF HEMORRHAGING BLOOD VESSEL AND THROMBUS REMOVAL Gross hematuria ENUCLEATION, PROSTATE, USING HOLMIUM LASER Benign prostatic hyperplasia with incomplete bladder emptying 11/23/2024 9:55 AM JOB PRINTER documented as of this encounter Visit Diagnoses Diagnosis Benign prostatic hyperplasia with incomplete bladder emptying- Primary Benign prostatic hyperplasia with incomplete bladder emptying documented in this encounter Care Teams Char Conveyor Tender Cellar Relationship Specialty Start Date End Date [facility]- [address] [place] [address] PCP - General 07/24/21 Adalberto Eldridge MD [address] [facility] [address] [place] [address] Assigned Surgical Provider 09/12/24 documented as of this encounter
--- OUTSIDE RECORDS SUMMARY | 2024-10-14 15:09 | XMS_ITS | Encounter Summary ---
Author Organization [facility] Address [address] [facility] [place] [address] Care Team Providers Care Maintenance Worker Name Role Phone [facility]- Primary Care Provider Adalberto Eldridge MD Unavailable [phone] Encounter Details Date Type Department Care Team (Latest Contact Info) Description 09/25/2024 Travel Social History Tobacco Use Types Packs/Day [...] on file Legal Sex Male 3:18 AM AREA SUPERVISOR Gender Identity Not on file Sexual Orientation Not on file documented as of this encounter Plan of Treatment Upcoming Encounters Date Type Department Care Team (Latest Contact Info) Description 11/23/2024 9:55 AM AREA SUPERVISOR Hospital Encounter [facility] [address] [place] [phone] Eriberto Souza MD [address] [place] [address] 11/23/2024 9:55 AM AREA SUPERVISOR - 11/23/2024 1:30 PM AREA SUPERVISOR Surgery [facility] [address] [place] [phone] Eriberto Souza MD [address] [place] [phone] Holmium Laser Enucleation of the Prostate Scheduled Procedures Name Priority Associated Diagnoses Date/Ti me CYSTOSCOPY, WITH FULGURATION OF HEMORRHAGING BLOOD VESSEL AND THROMBUS REMOVAL Gross hematuria ENUCLEATION, PROSTATE, USING HOLMIUM LASER Benign prostatic hyperplasia with incomplete bladder emptying 11/23/2024 9:55 AM AREA SUPERVISOR documented as of this encounter Visit Diagnoses Not on filedocumented in this encounter Care Teams Maintenance Worker Relationship Specialty Start Date End Date [facility]- [address] [place] [address] PCP - General 07/24/21 Adalberto Eldridge MD [address] [facility] [address] [place] [address] Assigned Surgical Provider 09/12/24 documented as of this encounter
--- OUTSIDE RECORDS SUMMARY | 2024-10-14 15:09 | XMS_ITS | Encounter Summary ---
Author Organization [facility] Address [facility] [facility] [place] [address] Care Team Providers Care Car Stereo Installer Name Role Phone [facility]- Primary Care Provider Adalberto Eldridge MD Unavailable [phone] Encounter Details Date Type Department Care Team (Late st Contact Info) Description 10/04/2024 Orders Only [facility] [place] [address] [place] [address] Adalberto Eldridge MD [address] [place] [address] [place], [place] [address] Suspected UTI (Primary Dx) Social History Tobacco Use Types [...] on file Legal Sex Male 3:18 AM CHILD ABUSE WORKER Gender Identity Not on file Sexual Orientation Not on file documented as of this encounter Plan of Treatment Upcoming Encounters Date Type Department Care Team (Latest Contact Info) Description 11/23/2024 9:55 AM CHILD ABUSE WORKER Hospital Encounter [facility] [address] [place] [phone] Eriberto Souza MD [address] [place] [phone] 11/23/2024 9:55 AM CHILD ABUSE WORKER - 11/23/2024 1:30 PM CHILD ABUSE WORKER Surgery [facility] [address] [place] [phone] Eriberto Souza MD [address] [place] [phone] Holmium Laser Enucleation of the Prostate Scheduled Procedures Name Priority Associated Diagnoses Date/Ti me CYSTOSCOPY, WITH FULGURATION OF HEMORRHAGING BLOOD VESSEL AND THROMBUS REMOVAL Gross hematuria ENUCLEATION, PROSTATE, USING HOLMIUM LASER Benign prostatic hyperplasia with incomplete bladder emptying 11/23/2024 9:55 AM CHILD ABUSE WORKER documented as of this encounter Results * (ABNORMAL) UA without Microscopic [[id number]] (10/04/2024 3:55 PM CHILD ABUSE WORKER) Color Urine Yellow Colorless, Straw, Light Yellow, Yellow 10/04/2024 4:05 PM CHILD ABUSE WORKER [facility] Appearance Urine Cloudy(A) Clear 10/04/20 24 4:05 PM CHILD ABUSE WORKER [facility] Glucose Urine Negative Negative mg/dL 10/04/2024 4:05 PM CHILD ABUSE WORKER [facility] Bilirubin Urine Negative Negative 4:05 PM CHILD ABUSE WORKER [facility] Ketones Urine Negative Negative mg/dL 10/04/2024 4:05 PM CHILD ABUSE WORKER [facility] Specific [place] Urine 1.010 1.003 - 1.035 10/04/2024 4:05 PM CHILD ABUSE WORKER [facility] Blood Urine Moderate(A) Negative 10/04/2024 4:05 PM CHILD ABUSE WORKER [facility] pH Urine 6.0 5.0 - 7.0 10/04/2024 4:05 PM CHILD ABUSE WORKER [facility] Protein Albumin Urine Negative Negative mg/dL 10/04/2024 4:05 PM CHILD ABUSE WORKER [facility] Urobilinogen Urine 0.2 0.2, 1.0 E.U./dL 10/04/2024 4:05 PM CHILD ABUSE WORKER [facility] Nitrite Urine Negative Negative 10/04/2024 4:05 PM CHILD ABUSE WORKER [facility] Leukocyte Esterase Urine Large(A) Negative 10/04/2024 4:05 PM CHILD ABUSE WORKER [facility] Urine URINE SPECIMEN OBTAINED BY CLEAN CATCH PROCEDURE / Unknown Non-blood Collection / Unknown 10/04/2024 3:55 PM CHILD ABUSE WORKER 10/04/2024 4:00 PM CHILD ABUSE WORKER us Adalberto Eldridge MD LAB - URINE ORDERABLES Final Result [facility] [address] [facility] (no room number, 1st floor of clinic) [place] [address], [facility] * (ABNORMAL) Urine Culture Aerobic Bacterial [[id number]] (10/04/2024 3:55 PM CHILD ABUSE WORKER) Culture >100,000 CFU/mL Raoultella ornithinolytica /planticola(A) SILVER 10/06/2024 10:39 PM CHILD ABUSE WORKER [facility] Culture 10,000-50,000 CFU/mL Raoultella ornithinolytica /planticola(A) 10/06/2024 10:39 PM CHILD ABUSE WORKER [facility] Urine URINE SPECIMEN OBTAINED BY CLEAN CATCH PROCEDURE / Unknown Non-blood Collection / Unknown 10/04/2024 3:55 PM CHILD ABUSE WORKER 10/04/2024 4:01 PM CHILD ABUSE WORKER Narrative Organism Antibiotic Method Susceptibility Raoultella ornithinolytica/plantico la Ampicillin SILVER 16 ug/mL: Resistant Comment:Intrinsicall y Resistant Raoultella ornithinolytica/plantico la Ampicillin/ Sulbactam SILVER <=2 ug/mL: Susceptible Raoultella ornithinolytica/plantico la Piperacillin/Tazobactam SILVER <=4 ug/mL: Susceptible Raoultella ornithinolytica/plantico la Cefazolin SILVER <=4 ug/mL: Susceptible Comment:Cefazolin [place] C breakpoints are for the treatment of [...] la Cefazolin SILVER <=4 ug/mL: Susceptible Comment:Cefazolin [place] C breakpoints are for the treatment of [...] ORD ERABLES Final Result [facility] Inf. Diseases Di[facility]. Lab [address] [facility] [place] [address] documented in this encounter Visit Diagnoses Diagnosis Suspected UTI- Primary Benign prostatic hyperplasia with incomplete bladder emptying documented in this encounter Care Teams Car Stereo Installer Relationship Specialty Start Date End Date [facility]- [address] [place] [address] PCP - General 07/24/21 Adalberto Eldridge MD [address] [address] Assigned Surgical Provider 09/12/24 documented as of this encounter
--- OUTSIDE RECORDS SUMMARY | 2024-10-14 15:09 | XMS_ITS | Referral Summary ---
Author Organization [facility] Address [address] [place] [address]. [place] [address] Care Team Providers Care Alarm Installation Technician Name Role Phone [facility]- Primary Care Provider Adalberto Eldridge MD Unavailable [phone] Encounters Date Type Department Care Team Description 10/12/2024 Telephone [facility] [place] [address] [place] [address] [address] [place] [phone] Rosana Franklin 10/12/2024 Telephone [facility] [place] [address] [place] [address] [address] [place] [phone] Rosana Franklin 10/05/2024 Orders Only [facility] Urology [facility] [address] [place] [phone] Adalberto Eldridge MD Urinary tract infection (Primary Dx) 10/04/2024 Travel 10/04/2024 4:00 PM AERONAUTICAL RESEARCH ENGINEER Lab [facility] [address] [place] [phone] Suspected UTI 10/04/2024 Orders Only [facility] [address] [place] [phone] Adalberto Eldridge MD Suspected UTI (Primary Dx) 10/04/2024 Telephone [facility] [address] [place] [phone] Adalberto Eldridge MD Call Back 10/04/2024 1:00 PM AERONAUTICAL RESEARCH ENGINEER Virtual Visit [facility] [place] [address] [facility] [address] [place] [phone] Gin Uribe MD Benign prostatic hyperplasia with incomplete bladder emptying (Primary Dx) 10/02/2024 11:00 AM AERONAUTICAL RESEARCH ENGINEER Virtual Visit [facility] [place] [address] [place] [phone] Adalberto Eldridge MD Elevated prostate specific antigen (PSA) (Primary Dx); Enlarged prostate; Gross hematuria 09/27/2024 Telephone [facility] [address] [place] [phone] Adalberto Eldridge MD 09/26/2024 Telephone [facility] [place] [address] [place] [phone] Adalberto Eldridge MD 09/25/2024 Travel 09/25/2024 8:00 AM AERONAUTICAL RESEARCH ENGINEER Office Visit [facility] [place] [address] [place] [phone] Adalberto Eldridge MD Prophylactic antibiotic (Primary Dx); Elevated prostate specific antigen (PSA) 09/18/2024 Telephone [facility] [place] [address] [place] [phone] Adalberto Eldridge MD Medication Question 09/10/2024 8:40 AM CDT - 09/10/2024 11:59 PM CDT Hospital Encounter [facility] Imaging [facility] [place] [address] Adalberto Eldridge MD Discharge Disposition: Home or Self Care 09/07/2024 Orders Only [facility] [address] [place] [phone] Adalberto Eldridge MD 09/05/2024 Telephone [facility] [address] [phone] Adalberto Eldridge MD Appointment (Called pt to discuss scheduling a prostate biopsy with Dr Eldridge in the [place] office) 09/04/2024 Orders Only [address] [phone] Adalberto Eldridge MD Elevated prostate specific antigen (PSA) (Primary Dx) 08/31/2024 Travel 08/31/2024 11:00 AM CDT Office Visit [address] [phone] Adalberto Eldridge MD Urinary retention (Primary Dx); Enlarged prostate; Gross hematuria; Elevated prostate specific antigen (PSA) 08/23/[address] [phone] Adalberto Eldridge MD Call Back 08/09/2024 3:49 PM CDT - 08/13/2024 1:29 PM CDT Hospital Encounter [place] [address] [facility] Surgical [address] [place] [phone] Amilcar Holt MD Foss, Kevin, MD Jaleta, Cherinet Negeri, MD Gross hematuria; Problem with Weber catheter, initial encounter (H); Supratherapeutic INR Discharge Disposition: Home or Self Care 08/11/2024 3:14 PM CDT Anesthesia Event [facility] [address] [place] [address] Jai Flores DO 08/11/2024 3:00 PM CDT - 08/11/2024 3:50 PM CDT Surgery [facility] [address] [place] [address] Adalberto Eldridge MD Cystoscopy, fulguration of the prostate 08/11/2024 12:10 AM CDT Anesthesia Event [place] [address] [facility] [address] [place] [phone] Walter Crowley MD Wood, Yvonne Villarreal, SHANELLE YEAGER 08/09/2024 Travel from Last 3 Months Allergies [...] on file Legal Sex Male 3:18 AM AERONAUTICAL RESEARCH ENGINEER Gender Identity Not on file Sexual Orientation Not on file Last Filed Vital Signs Vital Sign Reading Time Taken Comments Blood Pressure 153/77 09/25/2024 8:57 AM AERONAUTICAL RESEARCH ENGINEER Pulse 70 09/25/2024 8:57 AM AERONAUTICAL RESEARCH ENGINEER Temperature 36.9 C (98.4 F) 08/13/2024 7:29 AM CDT Respiratory Rate 16 08/13/2024 7:29 AM CDT Oxygen Saturation 99% 09/25/2024 8:57 AM AERONAUTICAL RESEARCH ENGINEER Inhaled Oxygen Concentration - - Weight 72.6 kg (160 lb) 09/25/2024 8:08 AM AERONAUTICAL RESEARCH ENGINEER Height 170.2 cm (5' 7) 09/25/2024 8:08 AM AERONAUTICAL RESEARCH ENGINEER Body Mass Index 25.06 09/25/2024 8:08 AM AERONAUTICAL RESEARCH ENGINEER Plan of Treatment Upcoming Encounters Date Type Department Care Team (Latest Contact Info) Description 11/23/2024 9:55 AM AERONAUTICAL RESEARCH ENGINEER Hospital Encounter [facility] [address] [place] [phone] Eriberto Souza MD [address] [place] [phone] 11/23/2024 9:55 AM AERONAUTICAL RESEARCH ENGINEER - 11/23/2024 1:30 PM AERONAUTICAL RESEARCH ENGINEER Surgery [facility] [address], [address] [place] [phone] Eriberto Souza MD [address] [place] [phone] Holmium Laser Enucleation of the Prostate Scheduled Procedures Name Priority Associated Diagnoses Date/Ti me CYSTOSCOPY, WITH FULGURATION OF HEMORRHAGING BLOOD VESSEL AND THROMBUS REMOVAL Gross hematuria ENUCLEATION, PROSTATE, USING HOLMIUM LASER Benign prostatic hyperplasia with incomplete bladder emptying 11/23/2024 9:55 AM AERONAUTICAL RESEARCH ENGINEER Goals Goal Patient Goal Type Associated Problems Recent Progress Patient-Stated? Author MYC ECC SURG ENROLL Care Plan MyC ECC SURG ENROLL No Yumiko Mariscal Procedures Procedure Name Priority Date/Time Associated Diagnosis Comments URINE CULTURE Routine 10/04/2024 3:55 PM AERONAUTICAL RESEARCH ENGINEER Suspected UTI URINALYSIS MACROSCOPIC Routine 3:55 PM AERONAUTICAL RESEARCH ENGINEER Suspected UTI SURGICAL PATHOLOGY EXAM Routine 09/25/20 9:26 AM AERONAUTICAL RESEARCH ENGINEER Elevated prostate specific antigen (PSA) MR OUTSIDE READ Routine 09/10/2024 8:40 AM CDT MS MEASURE POST-VOID RESIDUAL URINE/BLADDER CAPACITY, US NON-IMAGING [...] PM CDT ABO/RH TYPE AND SCREEN STAT 4 12:27 PM CDT TYPE AND SCREEN, ADULT STAT 4 12:27 PM CDT INR STAT 08/11/2024 12:27 [...] Months Results * (ABNORMAL) UA without Microscopic [[id number]] (10/04/2024 3:55 PM AERONAUTICAL RESEARCH ENGINEER) Color Urine Yellow Colorless, Straw, Light Yellow, Yellow 10/04/2024 4:05 PM AERONAUTICAL RESEARCH ENGINEER CR LABORATORY Appearance Urine Cloudy(A) Clear 10/04/20 24 4:05 PM AERONAUTICAL RESEARCH ENGINEER CR LABORATORY Glucose Urine Negative Negative mg/dL 10/04/2024 4:05 PM AERONAUTICAL RESEARCH ENGINEER CR LABORATORY Bilirubin Urine Negative Negative 4:05 PM AERONAUTICAL RESEARCH ENGINEER CR LABORATORY Ketones Urine Negative Negative mg/dL 10/04/2024 4:05 PM AERONAUTICAL RESEARCH ENGINEER CR LABORATORY [facility] Urine 1.010 1.003 - 1.035 10/04/2024 4:05 PM AERONAUTICAL RESEARCH ENGINEER CR LABORATORY Blood Urine Moderate(A) Negative 10/04/2024 4:05 PM AERONAUTICAL RESEARCH ENGINEER [facility] LABORATORY pH Urine 6.0 5.0 - 7.0 10/04/2024 4:05 PM AERONAUTICAL RESEARCH ENGINEER CR LABORATORY Protein Albumin Urine Negative Negative mg/dL 10/04/2024 4:05 PM AERONAUTICAL RESEARCH ENGINEER CR LABORATORY Urobilinogen Urine 0.2 0.2, 1.0 E.U./dL 10/04/2024 4:05 PM AERONAUTICAL RESEARCH ENGINEER CR LABORATORY Nitrite Urine Negative Negative 10/04/2024 4:05 PM AERONAUTICAL RESEARCH ENGINEER CR LABORATORY Leukocyte Esterase Urine Large(A) Negative 10/04/2024 4:05 PM AERONAUTICAL RESEARCH ENGINEER CR LABORATORY Urine URINE SPECIMEN OBTAINED BY CLEAN CATCH PROCEDURE / Unknown Non-blood Collection / Unknown 10/04/2024 3:55 PM AERONAUTICAL RESEARCH ENGINEER 10/04/2024 4:00 PM AERONAUTICAL RESEARCH ENGINEER us Adalberto Eldridge MD LAB - URINE ORDERABLES Final Result CR LABORATORY [facility] [address] [facility] (no room number, 1st floor of clinic) [place] [address], [facility] * (ABNORMAL) Urine Culture Aerobic Bacterial [[id number]] (10/04/2024 3:55 PM AERONAUTICAL RESEARCH ENGINEER) Culture >100,000 CFU/mL Raoultella ornithinolytica /planticola(A) SILVER 10/06/2024 10:39 PM AERONAUTICAL RESEARCH ENGINEER [facility] Culture 10,000-50,000 CFU/mL Raoultella ornithinolytica /planticola(A) 10/06/2024 10:39 PM AERONAUTICAL RESEARCH ENGINEER [facility] Urine URINE SPECIMEN OBTAINED BY CLEAN CATCH PROCEDURE / Unknown Non-blood Collection / Unknown 10/04/2024 3:55 PM AERONAUTICAL RESEARCH ENGINEER 10/04/2024 4:01 PM AERONAUTICAL RESEARCH ENGINEER Narrative Organism Antibiotic Method Susceptibility Raoultella ornithinolytica/plantico la Ampicillin SILVER 16 ug/mL: Resistant Comment:Intrinsicall y Resistant Raoultella ornithinolytica/plantico la Ampicillin/ Sulbactam SILVER <=2 ug/mL: Susceptible Raoultella ornithinolytica/plantico la Piperacillin/Tazobactam SILVER <=4 ug/mL: Susceptible Raoultella ornithinolytica/plantico la Cefazolin SILVER <=4 ug/mL: Susceptible Comment:Cefazolin LA C breakpoints are for the treatment of [...] la Cefazolin SILVER <=4 ug/mL: Susceptible Comment:Cefazolin LA C breakpoints are for the treatment of [...] ORD ERABLES Final Result [facility]AT[facility] Inf. Diseases Diag. Lab [address] [facility] [place] [address] * Surgical Pathology Exam (09/25/2024 9:26 AM AERONAUTICAL RESEARCH ENGINEER) Case Report Surgical Pathology Report Case: [id number] Authorizing Provider: Adalberto Eldridge MD Collected: 09/25/2024 09:26 AM Ordering Location: [facility] Received: 09/25/2024 09:27 AM [facility] Pathologist: Jorge More MD Specimens: A) - [...] Prostate, PROSTATE LESION X3 09/26/2024 2:00 PM AERONAUTICAL RESEARCH ENGINEER LABORATORY Final Diagnosis A. Prostate, left lateral [...] tissue with chronic inflammation 09/26/2024 2:00 PM [facility] Clinical Information ELEVATED PSA 09/26/2024 2:00 PM [facility] Gross Description A(A). Prostate, LEFT LATERAL [...] Meléndez(ASCP)CM 09/25/2024 12:07 PM 09/26/2024 2:00 PM [facility] Microscopic Description A-M. Microscopic performed 09/26/2024 2:00 PM [facility] Performing Labs The technical component of this testing was completed at [facility]. Stain controls for all stains resulted within this report have been reviewed and show appropriate reactivity. 09/26/2024 2:00 PM [facility] Case Images 09/26/2024 2:00 PM [facility] Biopsy PROSTATIC STRUCTURE / Unknown Non-blood Collection / Unknown 09/25/2024 9:26 AM AERONAUTICAL RESEARCH ENGINEER 09/25/2024 9:27 AM AERONAUTICAL RESEARCH ENGINEER Specimen from unspecified body site obtained by biopsy (specimen) PROSTATIC STRUCTURE / Unknown 09/25/2024 9:26 AM AERONAUTICAL RESEARCH ENGINEER 09/25/2024 9:27 AM AERONAUTICAL RESEARCH ENGINEER Specimen from unspecified body site obtained by biopsy (specimen) PROSTATIC STRUCTURE / Unknown 09/25/2024 9:26 AM AERONAUTICAL RESEARCH ENGINEER 09/25/2024 9:27 AM AERONAUTICAL RESEARCH ENGINEER Specimen from unspecified body site obtained by biopsy (specimen) PROSTATIC STRUCTURE / Unknown 09/25/2024 9:26 AM AERONAUTICAL RESEARCH ENGINEER 09/25/2024 9:27 AM AERONAUTICAL RESEARCH ENGINEER Specimen from unspecified body site obtained by biopsy (specimen) PROSTATIC STRUCTURE / Unknown 09/25/2024 9:26 AM AERONAUTICAL RESEARCH ENGINEER 09/25/2024 9:27 AM AERONAUTICAL RESEARCH ENGINEER Specimen from unspecified body site obtained by biopsy (specimen) PROSTATIC STRUCTURE / Unknown 09/25/2024 9:26 AM AERONAUTICAL RESEARCH ENGINEER 09/25/2024 9:27 AM AERONAUTICAL RESEARCH ENGINEER Specimen from unspecified body site obtained by biopsy (specimen) PROSTATIC STRUCTURE / Unknown 09/25/2024 9:26 AM AERONAUTICAL RESEARCH ENGINEER 09/25/2024 9:27 AM AERONAUTICAL RESEARCH ENGINEER Specimen from unspecified body site obtained by biopsy (specimen) PROSTATIC STRUCTURE / Unknown 09/25/2024 9:26 AM AERONAUTICAL RESEARCH ENGINEER 09/25/2024 9:27 AM AERONAUTICAL RESEARCH ENGINEER Specimen from unspecified body site obtained by biopsy (specimen) PROSTATIC STRUCTURE / Unknown 09/25/2024 9:26 AM AERONAUTICAL RESEARCH ENGINEER 09/25/2024 9:27 AM AERONAUTICAL RESEARCH ENGINEER Specimen from unspecified body site obtained by biopsy (specimen) PROSTATIC STRUCTURE / Unknown 09/25/2024 9:26 AM AERONAUTICAL RESEARCH ENGINEER 09/25/2024 9:27 AM AERONAUTICAL RESEARCH ENGINEER Specimen from unspecified body site obtained by biopsy (specimen) PROSTATIC STRUCTURE / Unknown 09/25/2024 9:26 AM AERONAUTICAL RESEARCH ENGINEER 09/25/2024 9:27 AM AERONAUTICAL RESEARCH ENGINEER Specimen from unspecified body site obtained by biopsy (specimen) PROSTATIC STRUCTURE / Unknown 09/25/2024 9:26 AM AERONAUTICAL RESEARCH ENGINEER 09/25/2024 9:27 AM AERONAUTICAL RESEARCH ENGINEER Specimen from unspecified body site obtained by biopsy (specimen) PROSTATIC STRUCTURE / Unknown 09/25/2024 9:26 AM AERONAUTICAL RESEARCH ENGINEER 09/25/2024 9:27 AM AERONAUTICAL RESEARCH ENGINEER us Adalberto Eldridge MD LAB - ANNITA AP Final R esult LABORATORY [facility] [address] 1st floor, [address] [place] [address], [facility] [phone] * MR Outside Read (09/10/2024 8:40 AM [...] desired. Using an image analysis software package ([employer]), three-dimensional (3D) volumetric images of the prostate [...] desired. Using an image analysis software package ([employer]), three-dimensional (3D) volumetric images of the prostate were reconstructed by a radiologist and archived to PACS for prostate lesion analysis and biopsy planning. Additionally, the software package was utilized for contrast kinetic analysis. I have personally reviewed the examination and initial interpretation and I agree with the findings. MONTY BAINS MD Adalberto Eldirdge MD IMG MRI ORDERABLES Joy l Result * MEASURE POST-VOID RESIDUAL URINE/BLADDER CAPACITY, US NON-IMAGING (05155) (08/31/2024) Residual Volume (RV) (External) 59 Adalberto Eldridge MD PROCEDURES Final R esult [...] ORDERABLES Fin al Result Performing Organization Address City/[facility]/ZIP Co de Phone Number [facility] [address] [facility] Lab (1st floor, no room number) [place] [address] * Heparin Unfractionated Anti Xa Level (08/13/2024 6:37 AM CDT) Anti Xa Unfractionated Heparin <0.10 For Reference Range, See Comment IU/mL 08/13/2024 8:16 AM CDT LABORATORY Blood STRUCTURE OF RIGHT HAND / Unknown Venipuncture / Unknown 08/13/2024 6:37 AM CDT 08/13/2024 6:49 AM CDT Narrative LABORATORY - 08/13/2024 8:16 AM CDT Therapeutic Range: UFH: 0.25-0.50 IU/mL for low intensity dosing, 0.30-0.70 IU/mL for high intensity dosing DVT and PE. This test is not validated for other direct factor X inhibitors (e.g. rivaroxaban, apixaban, edoxaban, betrixaban, fondaparinux) and should not be used for monitoring of other medications. Uziel Easton MD LAB - BLOOD ORDERABLES Final Result Performing Organization Address [facility] Co de Phone Number [facility] [address] [facility] ([facility]st [facility], no room number) [place] [address] * (ABNORMAL) INR (08/13/2024 6:37 AM CDT) Only the most recent of8 resultswithin the time period is included. INR 1.16(H) 0.85 - 1.15 08/13/2024 7:01 AM CDT LABORATORY Blood STRUCTURE OF RIGHT HAND / Unknown Venipuncture / Unknown 08/13/2024 6:37 AM CDT 08/13/2024 6:49 AM CDT Olvin D Ricklefs DO LAB - BLOOD ORDERABLES Fin al Result Performing Organization Address City/[facility]/ZIP Co de Phone Number LABORATORY [facility] Lab [address] Lab (1st floor, no room number) [place] [phone] * (ABNORMAL) Ionized Calcium (08/13/2024 6:37 AM CDT) Pathologist [facility] Calcium Ionized Whole Blood 4.2(L) 4.4 - 5.2 mg/dL 08/13/2024 7:00 AM CDT LABORATORY Blood STRUCTURE OF RIGHT HAND / Unknown Venipuncture / Unknown 08/13/2024 6:37 AM CDT 08/13/2024 6:49 AM CDT us Olvin Alejandre DO LAB - BLOOD ORDERABLES Fin al Result Performing Organization Address [facility] Co de Phone Number LABORATORY [facility] [address] Lab (1st floor, no room number) [place] [phone] [place] [address] * (ABNORMAL) Basic metabolic panel (08/13/2024 6:37 [...] 7:14 AM CDT LABORATORY Comment:eGFR calculated usin g 1 CKD-EPI equation. Calcium 8.0(L) 8.8 - 10.4 [...] ORDERABLES Fin al Result Performing Organization Address City/[facility]/ZIP Co de Phone Number [facility] [address] Lab (1st floor, no room number) [address] * (ABNORMAL) Hemoglobin (08/12/2024 12:27 PM CDT) Only the most recent of6 resultswithin the time period is included. Hemoglobin 8.9(L) 13.3 - 17.7 g/dL 08/12/2024 12:56 PM CDT LABORATORY Blood STRUCTURE OF RIGHT HAND / Unknown Venipuncture / Unknown 08/12/2024 12:27 PM CDT 08/12/2024 12:53 PM CDT us Adalberto Eldridge MD LAB - BLOOD ORDERABLES Final Result [facility] [address] Lab (1st floor, no room number) [address] [place] [address] * Stone analysis (08/11/2024 3:34 PM CDT) Stone Mass 273 mg 08/16/2024 9:47 AM CDT [facility] Calculi Description See Note 08/16/2024 9:47 AM CDT [facility] Comment: Specimen consists of numerous brown calculi. The total weight is 273 mg. Stone Composition See Note 9:47 AM CDT [facility] Comment: Calculi composed primarily of: 20% calcium [...] composition determined by FTIR analysis. Performed By: [facility] [address] [place] [id number] [employer] Machine Repairer: Noah Moran MD, PhD CLIA Number: [id number] Calculus/Stone URINARY BLADDER STRUCTURE / Unknown Non-blood Collection / Unknown 08/11/2024 3:34 PM CDT 08/11/2024 4:00 PM CDT Adalberto Eldridge MD LAB - BODY FLUIDS ORDER AMANDA Final Result [facility] [address] [place] [phone], [facility] [phone] * ANE AIRWAY SUPRAGLOTTIC PERFORMABLE (08/11/2024 3:26 PM CDT) Narrative Yvonne White APRN CRNA - 08/11/2024 3:26 PM CDT Yvonne White APRN DOG WARDEN 08/11/2024 3:26 PM Airway Patient location during procedure: OR Staff - DOG WARDEN: Yvonne White APRN CRNA Performed By: CRNAIndications and Patient Condition Indications [...] Dentition: Intact and Unchanged Jai Flores DO MS ANESTHESIA Final Result * Adult Type and Screen (08/11/2024 12:27 PM CDT) ABO/RH(D) O POS 08/11/2024 12:17 PM CDT RH BLOOD BANK Antibody Screen Negative Negative 08/11/2024 12:17 PM CDT RH BLOOD BANK SPECIMEN EXPIRATION DATE [id number] 08/11/2024 12:17 PM CDT RH BLOOD BANK Blood STRUCTURE OF RIGHT HAND / Unknown Venipuncture / Unknown 08/11/2024 12:27 PM CDT 08/11/2024 12:33 PM CDT Olvin Alejandre DO LAB - BLOOD BANK TEST ORDE R Final Result Performing Organization Address City/[facility]/ZIP Co de Phone Number BLOOD BANK [address] [place] [address] * (ABNORMAL) Glucose by meter (08/10/2024 3:50 PM CDT) GLUCOSE BY METER POCT 102(H) 70 - 99 mg/dL 08/10/2024 4:21 PM CDT LABORATORY POC Blood, Capillary BLOOD SPECIMEN / Unknown 08/10/2024 3:50 PM CDT 08/10/2024 4:21 PM CDT Uziel Easton MD LAB - BEAKER POCT Joy l Result LABORATORY POC [facility] Lab [address] Lab (1st floor, no room number) [place] [address] * (ABNORMAL) CBC with platelets and [...] - BLOOD ORDERABLES Final Result RH LABORATORY [facility] [address] [facility] Lab (1st floor, no room number) [place] [address] * CT Abdomen Pelvis w/o Contrast [...] No hydronephrosis. ALBERT ADAMS MD SYSTEM ID: [id number] Narrative 08/10/2024 3:[address] ABDOMEN [...] No hydronephrosis. ALBERT ADAMS MD SYSTEM ID: [id number] Adalberto Eldridge MD IMG CT ORDERABLES Final Result * (ABNORMAL) UA [...] 08/09/2024 7:55 PM CDT RH LABORATORY [facility] Urine 1.005 1.003 - 1.035 08/09/2024 7:55 [...] - URINE ORDERABLES Fi nal Result LABORATORY [facility] [address] Lab (1st floor, no room number) [place] [address], [facility] * Lab Result - HIM Scan (08/09/2024 12:00 AM CDT) 08/09/2024 us Provider Outside NON-BEAKER LAB TESTING Final Result from Last 3 Months Additional Health Concerns Active Problems Noted Date Diagnosed Date MyC ECC SURG ENROLL 10/12/2024 Insurance MEDICARE Advance Directives For more information, please contact: [phone] * Full Code (Latest Code Status on File) Date Activated Date Inactivated Comments 08/09/2024 10:23 PM 08/13/2024 3:35 PM All basic a nd advanced life-sustaining interventions are performed as appropriate Question Answer Comments Code status determined by: Discussion with ange yousif/ legal decision maker Care Teams Alarm Installation Technician Relationship Specialty Start Date End Date [facility] [address] [place] [address] PCP - General 07/24/21 Adalberto Eldridge MD [address] [place] [address] Assigned Surgical Provider 09/12/24
--- OUTSIDE RECORDS SUMMARY | 2024-10-14 15:09 | XMS_ITS | Encounter Summary ---
Author Organization [place] Address [address] [facility] [place] [address] Care Team Providers Care Archeologist Classical Name Role Phone [facility]- Primary Care Provider Adalberto Eldridge MD Unavailable [phone] Reason for Visit * Reason Onset Date Comments Call Back 10/04/2024 Encounter Details Date Type Department Care Team (Late st Contact Info) Description 10/04/2024 Telephone [facility] [place] [address] [place] [address] Adalberto Eldridge MD [address] [place] [address] Call Back Social History Tobacco Use Types [...] on file Legal Sex Male 3:18 AM RETAIL EVENT AND SALES ASSISTANT Gender Identity Not on file Sexual Orientation Not on file documented as of this encounter Miscellaneous Notes * Telephone Encounter - Rosana Rhoades LPN - 10/04/2024 9:13 AM CST He feels like he has a UTI. Orders placed for [facility] he will make lab appointment . [place] EVENT [place]ES ASSISTANT * Telephone Encounter - Annika Ge - 10/04/2024 8:49 AM CST [facility] Phone Message May a detailed message be left on voicemail: yes Reason for Call: Other: Pt wants a urine sample order put in today for him. Please call pt back forfurther discussion. Thanks. Action Taken: Other: [facility] UR[facility]IC PH[facility] [place] Travel Screening: Not Applicable Date of Service: [place] EVENT AND SALES ASSISTANT documented in this encounter Plan of Treatment Upcoming Encounters Date Type Department Care Team (Latest Contact Info) Description 11/23/2024 9:55 AM RETAIL EVENT AND SALES ASSISTANT [facility] [address] [place] [phone] Eriberto Souza MD [address] [place], [place] [address] 11/23/2024 9:55 AM RETAIL EVENT AND SALES ASSISTANT - 11/23/2024 1:30 PM RETAIL EVENT AND SALES ASSISTANT Surgery [facility] Services [address] [place] [phone] Eriberto Souza MD [address] [place], [place] [id number] Holmium Laser Enucleation of the Prostate Scheduled Procedures Name Priority Associated Diagnoses Date/Ti me CYSTOSCOPY, WITH FULGURATION OF HEMORRHAGING BLOOD VESSEL AND THROMBUS REMOVAL Gross hematuria ENUCLEATION, PROSTATE, USING HOLMIUM LASER Benign prostatic hyperplasia with incomplete bladder emptying 11/23/2024 9:55 AM RETAIL EVENT AND SALES ASSISTANT documented as of this encounter Visit Diagnoses Not on filedocumented in this encounter Care Teams Archeologist Classical Relationship Specialty Start Date End Date [facility]- [address] [place] [address] PCP - General 07/24/21 Adalberto Eldridge MD [address] [place] [address] Assigned Surgical Provider 09/12/24 documented as of this encounter
--- OUTSIDE RECORDS SUMMARY | 2024-10-14 15:09 | XMS_ITS | Encounter Summary ---
Author Organization [place] Address [facility] [facility] [place] [address] Care Team Providers Care Mechanical Meter Tester Name Role Phone [facility]- Primary Care Provider Adalberto Eldridge MD Unavailable [phone] Encounter Details Date Type Department Care Team (Late st Contact Info) Description 10/04/2024 4:00 PM [facility] [address] [place] [address] Suspected UTI Social History Tobacco Use Types Packs/Day Years [...] on file Legal Sex Male 3:18 AM VAULT INSTALLER Gender Identity Not on file Sexual Orientation Not on file documented as of this encounter Plan of Treatment Upcoming Encounters Date Type Department Care Team (Latest Contact Info) Description 11/23/2024 9:55 AM VAULT INSTALLER Hospital Encounter [facility] Services [address] [place] [phone] Eriberto Souza MD [address] [place] [id number] 11/23/2024 9:55 AM VAULT INSTALLER - 11/23/2024 1:30 PM VAULT INSTALLER Surgery [facility] [address] [place] [phone] Eriberto Souza MD [address] [place] [id number] Holmium Laser Enucleation of the Prostate Scheduled Procedures Name Priority Associated Diagnoses Date/Ti me CYSTOSCOPY, WITH FULGURATION OF HEMORRHAGING BLOOD VESSEL AND THROMBUS REMOVAL Gross hematuria ENUCLEATION, PROSTATE, USING HOLMIUM LASER Benign prostatic hyperplasia with incomplete bladder emptying 11/23/2024 9:55 AM VAULT INSTALLER documented as of this encounter Procedures Procedure Name Priority Date/Time Associated Diagnosis Comments URINALYSIS MACROSCOPIC Routine 10/04/2024 3:55 PM VAULT INSTALLER Suspected UTI URINE CULTURE Routine 10/04/2024 3:55 PM VAULT INSTALLER Suspected UTI documented in this encounter Results * (ABNORMAL) UA without Microscopic [[id number]] (10/04/2024 3:55 PM VAULT INSTALLER) Color Urine Yellow Colorless, Straw, Light Yellow, Yellow 10/04/2024 4:05 PM VAULT INSTALLER [facility] Appearance Urine Cloudy(A) Clear 10/04/20 24 4:05 PM VAULT INSTALLER [facility] Glucose Urine Negative Negative mg/dL 10/04/2024 4:05 PM VAULT INSTALLER [facility] Bilirubin Urine Negative Negative 4:05 PM VAULT INSTALLER [facility] Ketones Urine Negative Negative mg/dL 10/04/2024 4:05 PM VAULT INSTALLER [facility] Specific [place] Urine 1.010 1.003 - 1.035 10/04/2024 4:05 PM VAULT INSTALLER [facility] Blood Urine Moderate(A) Negative 10/04/2024 4:05 PM VAULT INSTALLER [facility] pH Urine 6.0 5.0 - 7.0 10/04/2024 4:05 PM VAULT INSTALLER [facility] Protein Albumin Urine Negative Negative mg/dL 10/04/2024 4:05 PM VAULT INSTALLER [facility] Urobilinogen Urine 0.2 0.2, 1.0 E.U./dL 10/04/2024 4:05 PM VAULT INSTALLER [facility] Nitrite Urine Negative Negative 10/04/2024 4:05 PM VAULT INSTALLER [facility] Leukocyte Esterase Urine Large(A) Negative 10/04/2024 4:05 PM VAULT INSTALLER [facility] Urine URINE SPECIMEN OBTAINED BY CLEAN CATCH PROCEDURE / Unknown Non-blood Collection / Unknown 10/04/2024 3:55 PM VAULT INSTALLER 10/04/2024 4:00 PM VAULT INSTALLER us Adalberto Eldridge MD LAB - URINE ORDERABLES Final Result [facility] [address] [facility] (no room number, 1st floor of clinic) [place] [address], [facility] * (ABNORMAL) Urine Culture Aerobic Bacterial [[id number]] (10/04/2024 3:55 PM VAULT INSTALLER) Culture >100,000 CFU/mL Raoultella ornithinolytica /planticola(A) SILVER 10/06/2024 10:39 PM VAULT INSTALLER [facility] Culture 10,000-50,000 CFU/mL Raoultella ornithinolytica /planticola(A) 10/06/2024 10:39 PM VAULT INSTALLER [facility] Urine URINE SPECIMEN OBTAINED BY CLEAN CATCH PROCEDURE / Unknown Non-blood Collection / Unknown 10/04/2024 3:55 PM VAULT INSTALLER 10/04/2024 4:01 PM VAULT INSTALLER Narrative Organism Antibiotic Method Susceptibility Raoultella ornithinolytica/plantico la Ampicillin SILVER 16 ug/mL: Resistant Comment:Intrinsicall y Resistant Raoultella ornithinolytica/plantico la Ampicillin/ Sulbactam SILVER <=2 ug/mL: Susceptible Raoultella ornithinolytica/plantico la Piperacillin/Tazobactam SILVER <=4 ug/mL: Susceptible Raoultella ornithinolytica/plantico la Cefazolin SILVER <=4 ug/mL: Susceptible Comment:Cefazolin VT C breakpoints are for the treatment of [...] la Cefazolin SILVER <=4 ug/mL: Susceptible Comment:Cefazolin VT C breakpoints are for the treatment of [...] ORD ERABLES Final Result [facility] Lab [address] [facility] [place] [address] documented in this encounter Visit Diagnoses Diagnosis Suspected UTI Benign prostatic hyperplasia with incomplete bladder emptying documented in this encounter Care Teams Mechanical Meter Tester Relationship Specialty Start Date End Date [facility]- [address] [place] [address] PCP - General 07/24/21 Adalberto Eldridge MD [address] [address] Assigned Surgical Provider 09/12/24 documented as of this encounter
--- OUTSIDE RECORDS SUMMARY | 2024-10-14 15:09 | XMS_ITS | Encounter Summary ---
Author Organization [place] Address [facility] [place] [address] Care Team Providers Care Woods Laborer Name Role Phone [facility]- Primary Care Provider Adalberto Eldridge MD Unavailable [phone] Reason for Visit * Reason Comments RECHECK Encounter Details Date Type Department Care Team (Late st Contact Info) Description 10/02/2024 11:00 AM FRAMEMAN Virtual Visit [facility] [place] [address] [place] [phone] Adalberto Eldridge MD [email or web address] [place], [place] [address] Elevated prostate specific antigen (PSA) (Primary Dx); Enlarged prostate; Gross hematuria Social History Tobacco Use Types Packs/Day Years Used Date Smoking Tobacco: Former Cigarettes Q uit: 1999 Smokeless Tobacco: Current Alcohol Use Standard Drinks/Week Comments Not Currently 0 (1 standard drink = 0.6 oz pur e alcohol) PHQ-2 Answer Date Recorded PHQ-2 Score 0 10/02/2024 Adolescent Education Answer Date Record ed Getting [...] on file Legal Sex Male 3:18 AM FRAMEMAN Gender Identity Not on file Sexual Orientation Not on file documented as of this encounter Progress Notes * Adalberto Eldridge MD - 10/02/2024 11:00 AM CST Office Visit Note [facility] UROLOGIC DIAGNOSES: Enlarged prostate History of retention Elevated PSA Bladder stones CURRENT INTERVENTIONS: MRI prostate Prostate biopsy On finasteride and Flomax Prior self-catheterization HISTORY: Oleg underwent UroNav prostate biopsy and the biopsies were all negative, including targeted biopsies taken from the PI-RADS 3 lesion. Those targeted biopsies showed inflammation only. He has not needed to self catheterize again recently. He says overall he is doing fine on the finasteride and Flomax PAST MEDICAL HISTORY: Past Medical History: Diagnosis [...] history on file. SOCIAL HISTORY: Social History Tobacco Use Smoking status: Former Current packs/day: 0.00 Types: Cigarettes Quit date: 1999 Years since quittin.8 Smokeless tobacco: Current Substance Use Topics Alcohol use: Not Currently REVIEW OF SYSTEMS: Skin: No rash, pruritis, or skin pigmentation [...] No weight gain or loss PHYSICAL EXAM: General: Alert and oriented to time, place, and self. In NAD HEENT: Head AT/NC, EOMI, CN Grossly intact Lungs: no respiratory distress, or pursed lip breathing Heart: No obvious jugular venous distension present Musculoskeltal: Normal movements. Normal appearing musculature Skin: no suspicious lesions or rashes Neuro: Alert, oriented, speech and mentation normal; moving all 4 extremities equally. Psych: affect and mood normal Imaging: None Urinalysis: UA RESULTS: Recent Labs Lab Test 08/09/24 1933 COLOR Brown* APPEARANCE Cloudy* URINEGLC Negative URINEBILI Negative URINEKETONE Negative SG 1.005 UBLD Large* URINEPH 5.5 PROTEIN 20* NITRITE Negative LEUKEST Trace* RBCU >182* WBCU 7* PSA: 13.27 Post Void Residual: Other labs: None today IMPRESSION: Enlarged prostate History retention Bladder stones PLAN: We discussed his prostate biopsy results. We did discuss the risks of a false negative with prostate biopsies, but he has now had 2 biopsies and both have been negative. We discussed treatment options for his enlarged prostate and bladder stones. He understands that hehas a very enlarged prostate and in these cases we would normally consider surgical procedure such as HoLEP or robotic simple prostatectomy. He has previously discussed possible prostatic artery embol ization or aquablation as well and these procedures also could be considered. He appears to be a good candidate for HoLEP along with removal of his bladder stones. He would liketo proceed with surgery. I will get him set up to see either Dr. Uribe or Harley to evaluate himfor HoLEP with bladder stone removal Adalberto Eldridge M.D. Virtual Visit Details Type of service: Video Visit Video Start Time: 10:55 AM Video End Time:11:10 AM Originating Location (pt. Location): Home Distant Location (provider location): On-site Platform used for Video Visit: Nohemi EMAN documented in this encounter Nursing Notes * Marie Clark - 10/02/2024 11:00 AM CST Current patient location: [address] [place] [id number] Is the patient currently in the state of [place]? YES Visit mode:VIDEO If the visit is dropped, the patient can be reconnected by:VIDEO VISIT: Text to cell phone: Telephone Information: Will anyone else be joining the visit? NO (If patient encounters technical issues they should call [phone] :[phone]) Are changes needed to the allergy or medication list? No Are refills needed on medications prescribed by this physician? NO Rooming Documentation: Not applicable Reason for visit: RECHECK Marie Kelley VVF EMAN documented in this encounter Plan of Treatment Upcoming Encounters Date Type Department Care Team (Latest Contact Info) Description 11/23/2024 9:55 AM FRAMEMAN Hospital Encounter [facility] Services [address] [place] [phone] Eriberto Souza MD [address] [place] [address] 11/23/2024 9:55 AM FRAMEMAN - 11/23/2024 1:30 PM FRAMEMAN Surgery [facility] [address] [place] [address] Eriberto Souza MD [address] [place] [address] Holmium Laser Enucleation of the Prostate Scheduled Procedures Name Priority Associated Diagnoses Date/Ti me CYSTOSCOPY, WITH FULGURATION OF HEMORRHAGING BLOOD VESSEL AND THROMBUS REMOVAL Gross hematuria ENUCLEATION, PROSTATE, USING HOLMIUM LASER Benign prostatic hyperplasia with incomplete bladder emptying 11/23/2024 9:55 AM FRAMEMAN documented as of this encounter Visit Diagnoses Diagnosis Elevated prostate specific antigen (PSA)- Primary Enlarged prostate Hypertrophy of prostate without urinary obstruction and other lower urinary tract symptoms (LUTS) Gross hematuria Benign prostatic hyperplasia with incomplete bladder emptying documented in this encounter Care Teams Woods Laborer Relationship Specialty Start Date End Date [facility]- [address] [place] [address] PCP - General 07/24/21 Adalberto Eldridge MD [address] [place] [address] Assigned Surgical Provider 09/12/24 documented as of this encounter
--- OUTSIDE RECORDS SUMMARY | 2024-10-14 15:10 | XMS_ITS | Encounter Summary ---
Author Organization [facility] Address [address] [place] [address] Care Team Providers Care Vertical Roll Operator Name Role Phone [facility]- Primary Care Provider Reason for Visit * Reason Comments Hematuria * Auth/Cert (Routine) Specialty Diagnoses / Procedures Referred By Eric hernandez Referred To Contact Med Surg Diagnoses Gross hematuria Supratherapeutic INR Problem with Box catheter, initial encounter (H) Gross hematuria Problem with Box catheter, initial encounter (H24) Supratherapeutic INR [place] [address] [facility] [address] [place] [address] Phone: tel: fax: Referral ID Status Reason Start Date Expiration Date Visits Re quested Visits Authorized [id number] 1 1 Encounter Details Date Type Department Care Team (Late st Contact Info) Description 08/09/2024 3:49 PM CDT - 08/13/2024 1:29 PM CDT Hospital Encounter [place] [address] [facility] [address] [place] [address] Amilcar Holt MD [facility] [address] [place] [phone] Ortega Preciado MD [facility] [address], [address] [place], [place] [address] Uziel Eatson MD [address] [place] [address] Gross hematuria; Problem with Box catheter, initial [...] on file 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, within 7 days for hospital follow- up. [...] working on discharge on 08/13/2024. Olvin Alejandre, [place] [address] [facility] [address] [facility] [address] Physical Exam Vital Signs: Temp: 98.4 ??F [...] pitting edema LE b/l. Primary Care Physician [facility] Discharge Orders INR CBC with platelets Reason for your hospital stay Hematuria. Follow-up and recommended labs and tests Follow up with primary care provider, [facility], within 7 days for hospital follow- up. [...] 12 hours for 5 days. 8 mL 4 08/18/20 24 documented as of this encounter Progress Notes * Genesis Morris PA-C - 08/13/2024 10:15 AM CDT [facility] Progress Note Assessment and Plan: Assessment: POD 2 Cystoscopy, evacuation of bladder hematoma, removal of bladder stones, fulguration of the prostate Gross hematuria Supratherapeutic INR Problem with Box catheter, initial encounter (H24) Plan: -Continue with three-way Box catheter. Can plug CBI irrigation port. -Continue Flomax 0.4 mg once daily and finasteride 5 mg daily. -Follow-up as planned with primary urologist at [facility] for MRI of the prostate and consider ation of possible outlet procedure and bladder stone removal. -Okay to cautiously transition blood thinner. Given patient's mechanical valve, will need to limitiholding anticoagulation. -Patient is willing to learn/discharge with information on how to flush is Box catheter at home. -Okay to discharge from a urology perspective. Will follow peripherally. Genesis Morris PA-C [facility] Urology [phone] Interval History: Had quite a bit of [...] as well. Grant Fernandez MD Hospitalist * Olvin Alejandre, DO - 08/12/2024 1:59 PM CDT [facility] Medicine Progress Note - Hospitalist Service Date [...] Anticipated Tomorrow Olvin Alejandre DO Hospitalist Service [facility] Securely message with [employer] (more info) Text page via [facility] Paging/Directory Interval History Some bladder pain. Improved [...] plan to follow-up with his urologist with [facility]. (He does not know the name [...] Alejandre, DO - 08/11/2024 1:34 PM CDT [facility] Medicine Progress Note - Hospitalist Service Date [...] 2-4 Days Olvin Alejandre DO Hospitalist Service [facility] Securely message with [employer] (more info) Text page via [email or web address] Paging/Directory Interval History Continues having bladder pain [...] Alejandre, DO - 08/10/2024 2:28 PM CDT [facility] Medicine Progress Note - Hospitalist Service Date [...] 2-4 Days Olvin Alejandre DO Hospitalist Service [facility] Securely message with [employer] (more info) Text page via [email or web address] Paging/Directory Interval History Continues any blood in [...] none Will continue to monitor. Cosigned by Sbaine Goldberg RN at 08/10/2024 12:11 AM CDT [...] Easton MD - 08/09/2024 9:26 PM CDT [facility] History and Physical Hospitalist Date of Admission: 08/09/2024 Date of Service (when I saw the patient): 08/09/24 Assessment & Plan Oleg pSarks is a 64 year old male patient [...] days Uziel Easton MD Primary Care Physician [facility] Chief Complaint Hematuria History is obtained from [...] from the original note were not included. [facility] Consultation by [facility] Urology @NAME@ Age: [age] year old Date [...] be corrected as well Adalberto Eldridge M.D. [facility] Urology [phone] Chief Complaint: History is obtained from the patient and EMR. History of Present Illness: This patient is a 64 year old male admitted with gross hematuria and clot retention. He has a knownenlarged prostate with elevated PSA. He sees Dr. Stubbs with [facility]. The patient that he has an [...] mg 0.2 mg Intravenous Q2H PRN Olvin Alejandre DO HYDROmorphone (DILAUDID) injection 0.4 mg 0.4 mg Intravenous Q2H PRN Olvin Alejandre DO hydrOXYzine HCl (ATARAX) tablet 25 mg 25 [...] Package accidentally thrown away prior to scanning. Pit Recorder administered with JENNIFER Alvarez also at bedside. * Tangela Artis RN - 08/09/2024 9:00 PM CDT Patient's son continually pressing call light and coming out of room asking for pain medication/nursing intervention. Provider notified and 0.3mg dilaudid and ditropan ordered. * Pam Chin RN - 08/09/2024 8:03 PM CDT [facility] ED Nurse Handoff Report ED Chief complaint: Hematuria . ED Diagnosis: Final diagnoses: Gross hematuria Problem with Box catheter, initial encounter (H24) Supratherapeutic INR Allergies: Allergies Allergen Reactions Shellfish-Derived Products Anaphylaxis Cats Code Status: Full Code Activity level - Baseline/Home: independent. Activity Level - Current: standby. Lift room needed: No. Bariatric: No Hog Cooler Needed: No Isolation: No. Infection: Not Applicable. [...] that 2 days ago,he was fishing in [facility] [place] [facility] near [place] and began experiencing an onset of urinary [...] clot blocking the catheter. He follows with [facility] for his hx of enlarged prostate. [...] Bilirubin Urine Negative Ketones Urine Negative Specific Kimball Urine 1.005 Blood Urine Large (*) pH [...] August 09, 2024 at 8:42 PM I Vocfrancisca called the ED to inform them the [...] 2 days ago, he was fishing in [place] near [place] and began experiencing an onset of urinary [...] clot blocking the catheter. He follows with [facility] for his hx of enlarged prostate. [...] Bilirubin Urine Negative Ketones Urine Negative Specific Kimball Urine 1.005 Blood Urine Large (*) pH [...] ED Course ED Course as of 08/09/242025 [facility] Aug 09, 2024 1614 I obtained history and examined the patient as noted above. Additional Documentation None Medical Decision Making / Diagnosis [facility] Diagnoses: None MIPS None MDM Oleg Sparks [...] * Pharmacy-Anticoagulation Service - Andreia Johnston [facility] - 08/13/2024 12:46 PM CDT Images from the original note were not included. 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 INR Goal= 2.5-3.5 Expected length of therapy lifetime. Warfarin LOTTERY OFFICE MANAGER Regimen: 4mg Tu/Sun, 8mg ROW Anticoagulation Dose [...] during the last 7 days: --- Reviewed LOTTERY OFFICE MANAGER, inpt and discharge meds. Pt admitted with elevated INR, likely due to bactrim interaction (LOTTERY OFFICE MANAGER med). Pt INR now subtherapeutic. On enoxaparin bridge. Agree with MD plan to discharge pt on LOTTERY OFFICE MANAGER warfarin dose (Bactrim has been discontinued) and [...] and tearful about INR level with PVR. Pit Recorder paged xc who then ultimately started a [...] shift note. Outcome: Progressing Flowsheets (Taken 08/12/2024 8702) Outcome Evaluation: less pain Plan of Care [...] Documentation Taken 08/11/2024756 by Lo Tate, JENNIFER Safety Promotion/Fall Prevention: activity supervised assistive device/personal [...] Intervention: Prevent Infection Recent Flowsheet Documentation Taken 08/11/2024756 by Lo Tate RN Infection Prevention: cohorting [...] in the bladder. I used the Urovac oxidation operator to irrigate out the hematoma. With this [...] and drained the bladder with a 24 [place] three-way Box catheter. I hand irrigate the [...] passing large clotsdespite CBI running wide open. Pit Recorder tried to hand irrigate for over 30 [...] note. Outcome: Not Progressing Flowsheets (Taken 08/11/2024 0619) Outcome Evaluation: Trend INR, plan for cysto [...] Date/Time: 08/10/2024 0624 Mechanism of Provider Notification: HowDoaging Purpose of Notification: Paged MD to request Dilaudid to accompany B + O suppository for severe bladder spasms. worried about giving B + O with low BPs overnight. Got an updated BP and ok'd to give. MD Magallon ordered IV Dilaudid 0.2mg x1 dose. Pit Recorder asked if CBI should continue despite spasms, red color, and high output. wanted it to keep running. Orders Received: Comments: * Plan of Care - Sabine Goldberg RN - 08/10/2024 7:03 AM CDT Assumed care [phone]. A&Ox4. Ax1 when OOB. On RA. NPO [...] Notified Person Name: Zainab Magallon Notification Date/Time: 08/10/2024242 Mechanism of Provider Notification: [employer] messaging Purpose of Notification: FYI Patient's most recent BP 83/44. Having some bleeding going on with CBI. Cross dimple Easton and Ash Casey with urology aware. Hgb just before midnight was 14.7. Orders Received: 500 mL NS bolus ordered, STAT Hgb recheck ordered, reassess response to fluids andrecheck BP Comments: Notified MD Magallon of updates [...] Pertinent Information: outside meds Changes made to LOTTERY OFFICE MANAGER medication list: Added: valtrex, lisinopril, ditropan, Bactrim DS, proscar Deleted: None Changed: warfarin Allergies reviewed with patient and updates made in EHR: yes --added tramadol Medication History Completed By: Niall Jaeger RPH 08/09/2024 9:01 PM LOTTERY OFFICE MANAGER Med List Medication Sig Last Dose [...] (Latest Contact Info) Description 11/23/2024 9:55 AM [facility] Hospital Encounter [facility] [address], [address] [place] [address] Eriberto Souza MD [address] [place], [place] [address] 11/23/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 - 11/23/2024 1:30 PM CORE WORKER [facility] [address], [address] [place] [phone] Eriberto Souza MD [address] [place] [address] Holmium Laser Enucleation of the Prostate Pending Results Name Type Priority Associated Diagnoses Date /Time Prepare plasma (unit) Blood Bank Routine 1:18 PM CDT Scheduled Orders Name Type Priority Associated Diagnoses Orde r Schedule INR Lab Routine Gross hematuria Expected: 08/15/2024 (Approximate), Expires: 08/13/2025 CBC with platelets Lab Routine Gross hematuria Expected: 08/20/2024 (Approximate), Expires: 08/13/2025 Scheduled Procedures Name Priority Associated Diagnoses Date/Ti me CYSTOSCOPY, WITH FULGURATION OF HEMORRHAGING BLOOD VESSEL AND THROMBUS REMOVAL Gross hematuria ENUCLEATION, PROSTATE, USING HOLMIUM LASER Benign prostatic hyperplasia with incomplete bladder emptying 11/23/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 documented as of this encounter Procedures Procedure [...] CBC with platelets (08/13/2024 6:48 AM CDT) [facility] WBC Count 8.4 4.0 - [...] BLOOD ORDERABLES Fin al Result [facility] LABORATORY [facility] [address] [facility] Lab (1st floor, no room number) [place] [address] * Heparin Unfractionated Anti Xa Level [...] LAB - BLOOD ORDERABLES Final Result LABORATORY [facility] [address] Lab (1st floor, no room number) [place] [address], [facility] * (ABNORMAL) INR (08/13/2024 6:37 AM CDT) INR 1.16(H) 0.85 - 1.15 08/13/2024 7:01 AM CDT LABORATORY Blood STRUCTURE OF RIGHT HAND / Unknown Venipuncture / Unknown 08/13/2024 6:37 AM CDT 08/13/2024 6:49 AM CDT Olvin Alejandre DO LAB - BLOOD ORDERABLES Fin al Result Performing Organization Address City/[facility]/ZIP Co de Phone Number LABORATORY [facility] [address] Lab (1st floor, no room number) [place] [address], [facility] * (ABNORMAL) Basic metabolic panel (08/13/2024 6:37 AM CDT) Sodium 137 135 - 145 mmol/L 08/13/2024 [...] >60 mL/min/1.7 3m2 08/13/2024 7:14 AM CDT RH LABORATORY Comment:eGFR calculated usin 2020 [...] ORDERABLES Fin al Result Performing Organization Address City/[facility]/ZIP Co de Phone Number [facility] [address] Lab (1st floor, no room number) [address] [place] [address] * (ABNORMAL) Ionized Calcium (08/13/2024 6:37 AM CDT) Calcium Ionized Whole Blood 4.2(L) 4.4 - 5.2 mg/dL 08/13/2024 7:00 AM CDT LABORATORY Blood STRUCTURE OF RIGHT HAND / Unknown Venipuncture / Unknown 08/13/2024 6:37 AM CDT 08/13/2024 6:49 AM CDT Olvin Alejandre LAB - BLOOD ORDERABLES Fin al Result [facility] [address] [facility], no room number[facility] [place] [phone] [place] [address] * (ABNORMAL) INR (08/12/2024 11:24 PM CDT) INR 1.35(H) 0.85 - 1.15 08/12/2024 11:57 PM CDT RH LABORATORY Blood STRUCTURE OF RIGHT HAND / Unknown Venipuncture / Unknown 08/12/2024 11:24 PM CDT 08/12/2024 11:33 PM CDT us Grant Fernandez MD LAB - BLOOD ORDERABLES Final Res ult RH LABORATORY [facility] [address] Lab (1st floor, no room number) [place] [address] * (ABNORMAL) CBC with platelets (08/12/2024 11:24 PM CDT) WBC Count 9.8 4.0 - 11.0 10e3/uL [...] - BLOOD ORDERABLES Final Res ult LABORATORY [facility] [address] Lab (1st floor, no room number) [place] [address] * (ABNORMAL) Hemoglobin (08/12/2024 12:27 PM CDT) Hemoglobin 8.9(L) 13.3 - 17.7 g/dL 08/12/2024 12:56 PM CDT LABORATORY Blood STRUCTURE OF RIGHT HAND / Unknown Venipuncture / Unknown 08/12/2024 12:27 PM CDT 08/12/2024 12:53 PM CDT Adalberto Eldridge MD LAB - BLOOD ORDERABLES Final Result Performing Organization Address City/[facility]/ZIP Co de Phone Number LABORATORY [facility] [address] Lab (1st floor, no room number) [place] [phone] * (ABNORMAL) Basic metabolic panel (08/12/2024 6:12 [...] - 15 mmol/L 08/12/2024 6:51 AM CDT RH LABORATORY Urea Nitrogen 16.9 8.0 - 23.0 mg/dL 08/12/2024 6:51 AM CDT LABORATORY Creatinine 0.78 0.67 - 1.17 mg/dL 08/12/2024 6:51 AM CDT LABORATORY GFR Estimate >90 >60 mL/min/1.7 3m2 08/12/2024 6:51 AM CDT RH LABORATORY Comment:eGFR calculated usin 2020 CKD-EPI equation. Calcium 7.8(L) 8.8 - 10.4 mg/dL 08/12/2024 6:51 AM CDT [facility] LABORATORY Comment:Reference intervals for [...] ORDERABLES Final Result Performing Organization Address City/[facility]/ZIP Co de Phone Number [facility] [address] Lab (1st floor, no room number) [address] * (ABNORMAL) INR (08/12/2024 6:12 AM CDT) INR 1.84(H) 0.85 - 1.15 08/12/2024 6:50 AM CDT LABORATORY Blood STRUCTURE OF RIGHT HAND / Unknown Venipuncture / Unknown 08/12/2024 6:12 AM CDT 08/12/2024 6:30 AM CDT Adalberto Eldridge MD LAB - BLOOD ORDERABLES Final Result [facility] [address] Lab (1st floor, no room number) [address] * (ABNORMAL) CBC with platelets (08/12/2024 6:12 [...] LAB - BLOOD ORDERABLES Final Result [facility] [address] Lab (1st floor, no room number) [place] [phone] [place] [address] * (ABNORMAL) Hemoglobin (08/11/2024 6:03 PM CDT) Hemoglobin 9.5(L) 13.3 - 17.7 g/dL 08/11/2024 6:10 PM CDT RH LABORATORY Blood STRUCTURE OF RIGHT UPPER LIMB / Unknown Venipuncture / Unknown 08/11/2024 6:03 PM CDT 08/11/2024 6:07 PM CDT Adalberto Eldridge MD LAB - BLOOD ORDERABLES Final Result [facility] [address] Lab (1st floor, no room number) [place] [address] * Stone analysis (08/11/2024 3:34 PM CDT) Stone Mass 273 mg 08/16/2024 9:47 AM CDT [facility] Calculi Description See Note 08/16/2024 9:47 AM CDT [facility] Comment: Specimen consists of numerous brown calculi. The total weight is 273 mg. Stone Composition See Note 9:47 AM CDT [facility] Comment: Calculi composed primarily of: 20% [...] composition determined by FTIR analysis. Performed By: [employer] [address] [place] [address] Sales Trainer: Noah Moran MD, PhD CLIA Number: [id number] Calculus/Stone URINARY BLADDER STRUCTURE / Unknown Non-blood Collection / Unknown 08/11/2024 3:34 PM CDT 08/11/2024 4:00 PM CDT Adalberto Eldridge MD LAB - BODY FLUIDS ORDER AMANDA Final Result [address] [address], [facility] [phone] * Adult Type and Screen (08/11/2024 12:27 PM CDT) ABO/RH(D) O POS 08/11/2024 12:17 PM CDT RH BLOOD BANK Antibody Screen Negative Negative 08/11/2024 12:17 PM CDT RH BLOOD BANK SPECIMEN EXPIRATION DATE [id number] 08/11/2024 12:17 PM CDT RH BLOOD BANK Blood STRUCTURE OF RIGHT HAND / Unknown Venipuncture / Unknown 08/11/2024 12:27 PM CDT 08/11/2024 12:33 PM CDT Olvin Alejandre DO LAB - BLOOD BANK TEST ORDE R Final Result BLOOD BANK [address] [place] [address] * (ABNORMAL) INR (08/11/2024 12:27 PM CDT) INR 2.47(H) 0.85 - 1.15 08/11/2024 1:18 PM CDT RH LABORATORY Blood STRUCTURE OF RIGHT HAND / Unknown Venipuncture / Unknown 08/11/2024 12:27 PM CDT 08/11/2024 12:33 PM CDT Olvin Alejandre DO LAB - BLOOD ORDERABLES Fin al Result Performing Organization Address City/[facility]/ZIP Co de Phone Number LABORATORY [facility] [address] [facility] Lab (1st floor, no room number) [place] [address] * (ABNORMAL) CBC with platelets (08/11/2024 5:51 [...] - 15.0 % 08/11/2024 6:06 AM CDT LABORATORY Platelet Count 236 150 - 450 10e3/uL 08/11/2024 6:06 AM CDT LABORATORY Blood STRUCTURE OF RIGHT HAND / Unknown Venipuncture / Unknown 08/11/2024 5:51 AM CDT 08/11/2024 6:02 AM CDT us Olvin Alejandre DO LAB - BLOOD ORDERABLES Fin al Result LABORATORY [facility] [address] Lab (1st floor, no room number) [place] [address], [facility] * (ABNORMAL) Basic metabolic panel [...] - 10.4 mg/dL 08/11/2024 6:42 AM CDT LABORATORY Comment:Reference intervals for this test were updated on 06/05/2024 to reflect our healthy population more accurately. There may be differences in the flagging of prior results with similar values performed with this method. Those prior results can be interpreted in the context of the updated reference intervals. Glucose 97 70 - 99 mg/dL 08/11/2024 6:42 AM CDT RH LABORATORY Blood STRUCTURE OF RIGHT HAND / Unknown Venipuncture / Unknown 08/11/2024 5:51 AM CDT 08/11/2024 6:02 AM CDT Olvin Alejandre DO LAB - BLOOD ORDERABLES Fin al Result Performing Organization Address City/[facility]/ZIP Co de Phone Number [facility] [address] Lab (1st floor, no room number) [place] [address] * (ABNORMAL) INR (08/11/2024 5:51 AM CDT) INR 3.67(H) 0.85 - 1.15 08/11/2024 6:46 AM CDT LABORATORY Blood STRUCTURE OF RIGHT HAND / Unknown Venipuncture / Unknown 08/11/2024 5:51 AM CDT 08/11/2024 6:02 AM CDT us Olvin Alejandre DO LAB - BLOOD ORDERABLES Fin al Result Performing Organization Address [facility] Co de Phone Number [facility] [address] Lab (1st floor, no room number) [place] [address] * (ABNORMAL) Hemoglobin (08/10/2024 10:40 PM CDT) Hemoglobin 11.1(L) 13.3 - 17.7 g/dL 08/10/2024 10:46 PM CDT LABORATORY Blood STRUCTURE OF RIGHT HAND / Unknown Venipuncture / Unknown 08/10/2024 10:40 PM CDT 08/10/2024 10:44 PM CDT us Olvin Alejandre DO LAB - BLOOD ORDERABLES Fin al Result Performing Organization Address City/[facility]/ZIP Co de Phone Number [facility] [address] Lab (1st floor, no room number) [place] [address] * (ABNORMAL) INR - Pre-Op (08/10/2024 3:58 PM CDT) INR 4.32(H) 0.85 - 1.15 08/10/2024 4:48 PM CDT LABORATORY Blood STRUCTURE OF RIGHT UPPER LIMB / Unknown Venipuncture / Unknown 08/10/2024 3:58 PM CDT 08/10/2024 4:02 PM CDT Adalberto Eldridge MD LAB - BLOOD ORDERABLES Final Result LABORATORY [facility] [address] Lab (1st floor, no room number) [place] [address] * (ABNORMAL) Glucose by meter (08/10/2024 3:50 PM CDT) [facility] GLUCOSE BY METER POCT 102(H) 70 - 99 mg/dL 08/10/2024 4:21 PM CDT LABORATORY POC Blood, Capillary BLOOD SPECIMEN / Unknown 08/10/2024 3:50 PM CDT 08/10/2024 4:21 PM CDT Uziel Easton MD LAB - BEAKER POCT Joy l Result LABORATORY [facility] [address] Lab (1st floor, no room number) [place] [address] * (ABNORMAL) CBC with platelets and differential (08/10/2024 10:34 AM CDT) WBC Count 10.5 4.0 - 11.0 10e3/uL 08/10/2024 10:44 AM CDT LABORATORY RBC Count 4.47 4.40 - 5.90 10e6/uL 08/10/2024 10:44 AM CDT LABORATORY Hemoglobin 13.4 13.3 - 17.7 g/dL [...] MD LAB - BLOOD ORDERABLES Final Result [facility] [address] Lab (1st floor, no room number) [place] [address] * (ABNORMAL) INR (08/10/2024 10:34 AM CDT) INR 4.33(H) 0.85 - 1.15 08/10/2024 11:01 AM CDT [facility] LABORATORY Blood STRUCTURE OF RIGHT UPPER LIMB / Unknown Venipuncture / Unknown 08/10/2024 10:34 AM CDT 08/10/2024 10:41 AM CDT Olvin Alejandre DO LAB - BLOOD ORDERABLES Fin al Result [facility] [address] Lab (1st floor, no room number) [place] [address], [facility] * Hemoglobin (08/10/2024 10:34 AM CDT) Hemoglobin 13.4 13.3 - 17.7 g/dL 08/10/2024 10:44 AM CDT LABORATORY Blood STRUCTURE OF RIGHT UPPER LIMB / Unknown Venipuncture / Unknown 08/10/2024 10:34 AM CDT 08/10/2024 10:41 AM CDT Uziel Easton MD LAB - BLOOD ORDERABLES Final Result [facility] [address] Lab (1st floor, no room number) [place] [address], [facility] * (ABNORMAL) Basic metabolic panel (08/10/2024 10:34 [...] 10:34 AM CDT 08/10/2024 10:41 AM CDT Uzeil Easton MD LAB - BLOOD ORDERABLES Final Result LABORATORY [facility] [address] Lab (1st floor, no room number) [place] [address], [facility] * CT Abdomen Pelvis w/o [...] No hydronephrosis. ALBERT ADAMS MD SYSTEM ID: [id number] Narrative 08/10/2024 3:[address] ABDOMEN [...] No hydronephrosis. ALBERT ADAMS MD SYSTEM ID: [id number] Adalberto Eldridge MD [facility] CT ORDERABLES Final Result * (ABNORMAL) Hemoglobin (08/10/2024 3:07 AM CDT) Hemoglobin 11.6(L) 13.3 - 17.7 g/dL 08/10/2024 3:52 AM CDT [facility] LAB[facility]ATORY Blood STRUCTURE OF RIGHT HAND / Unknown Venipuncture / Unknown 08/10/2024 3:07 AM CDT 08/10/2024 3:09 AM CDT Zainab Magallon MD LAB - BLOOD ORDERABLES Fi nal Result LABORATORY [facility] [address] (1st floor, no room number) [place] [phone] [place] [address] * Hemoglobin (08/09/2024 11:33 PM CDT) Hemoglobin 14.7 13.3 - 17.7 g/dL 08/09/2024 11:43 PM CDT LABORATORY Blood STRUCTURE OF RIGHT HAND / Unknown Venipuncture / Unknown 08/09/2024 11:33 PM CDT 08/09/2024 11:41 PM CDT Uziel Easton MD LAB - BLOOD ORDERABLES Final Result Performing Organization Address City/[facility]/ZIP Co de Phone Number LABORATORY [facility] [address] (1st floor, no room number) [place] [phone] * (ABNORMAL) UA with Microscopic reflex to Culture (08/09/2024 7:33 PM CDT) Color Urine Brown(A) Colorless, Straw, Light Yellow, Yellow 08/09/2024 7:55 PM CDT LABORATORY Appearance Urine Cloudy(A) Clear 08/09/20 24 7:55 PM CDT LABORATORY Glucose Urine Negative Negative mg/dL 08/09/2024 7:55 PM CDT LABORATORY Bilirubin Urine Negative Negative 4 7:55 PM CDT LABORATORY Ketones Urine Negative Negative mg/dL 08/09/2024 7:55 PM CDT LABORATORY Specific [place] Urine 1.005 1.003 - 1.035 08/09/2024 7:55 [...] URINE ORDERABLES Fi nal Result RH LABORATORY [facility] [address] Lab (1st floor, no room number) [place] [address] * (ABNORMAL) CBC with platelets and [...] BLOOD ORDERABLES Fi nal Result RH LABORATORY [facility] [address] Lab (1st floor, no room number) [place] [address] * (ABNORMAL) INR (08/09/2024 5:40 PM CDT) INR 4.26(H) 0.85 - 1.15 08/09/2024 7:06 PM CDT [facility] LABORATORY Blood STRUCTURE OF LEFT UPPER LIMB / Unknown Venipuncture / Unknown 08/09/2024 5:40 PM CDT 08/09/2024 5:44 PM CDT us Amilcar Holt MD LAB - BLOOD ORDERABLES Fi nal Result LABORATORY [facility] [address] Lab (1st floor, no room number) [place] [phone] [place] [address] * (ABNORMAL) Basic metabolic panel (08/09/2024 5:40 [...] Amilcar Holt MD LAB - BLOOD ORDERABLES nal Result LABORATORY [facility] [address] [facility] Lab (1st floor, no room number) [place] [address], [facility] documented in this encounter Visit Diagnoses Diagnosis Gross hematuria Problem with Box catheter, initial encounter (H) Supratherapeutic INR Abnormal coagulation profile Gross hematuria Supratherapeutic INR Abnormal coagulation profile Problem with Box catheter, initial encounter (H) Benign prostatic hyperplasia with incomplete bladder emptying documented in this encounter Administered Medications Inactive [...] 975 mg 975 mg, Oral, ONCE, On 08/11/24 at [...] (rounded from 72.8 mg = 1 mg/kg 72.8 kg), Subcutaneous, EVERY 12 HOURS, First [...] (rounded from 4,368 Units = 60 Units/kg 72.8 kg), Intravenous, ONCE, On Tue08/13/24 at [...] 1 mg 1 mg, Intravenous, ONCE, On Renee 08/09/24 at 2150, For 1 dose $Given 08/09/2024 9:52 PM CDT 1 mg HYDROmorphone (PF) (DILAUDID) injection 0.3 mg 0.3 mg, Intravenous, ONCE, On Renee 08/09/24 at 2055, For 1 dose $Given 08/09/2024 9:16 PM [...] spasms, Starting on Renee 08/09/24 at 2321 $Given 08/10/2024 6:35 AM CDT 1 suppository oxyBUTYnin (DITROPAN) tablet 5 mg 5 mg, Oral, ONCE, On Renee 08/09/24 at 2055, For 1 dose $Given 08/09/2024 [...] 1514 ($Given - Provider: Yvonne White APRN CHAR HOUSE SUPERVISOR) enoxaparin ANTICOAGULANT (LOVENOX) injection 70 mg 70 mg (rounded from 72.8 mg = 1 mg/kg 72.8 kg), Subcutaneous, EVERY 12 HOURS, First [...] JENNIFER) 0828 ($Given - Provider: Rosette Nicole, RN) heparin - BOLUS DOSE from infusion (COMPLETED) 4,350 Units (rounded from 4,368 Units = 60 Units/kg 72.8 kg), Intravenous, ONCE, On Tue08/13/24 at [...] medication order. 0829 ($Given - Provider: Rosette Nicole RN) lidocaine (XYLOCAINE) 2 % external gel 6 mL Urethral, ONCE, On Tue08/09/24 at 1650, For 1 dose 1344 (Auto [...] Briggs RN)2230 (Canceled Entry - Provider: Sheela Phna RN) 0630 (Not Given - Provider: Sheela [...] 0816 ($Given - Provider: Maci Briggs RN) 0828 [...] RN)1546 (Paused - Provider: Yvonne White APRN CHAR HOUSE SUPERVISOR - Comment: Switch to gravity)1547 (Restarted - Provider: Yvonne White APRN CHAR HOUSE SUPERVISOR) sodium chloride 0.9 % infusion (CANCELED) at [...] 4 TIMES DAILY PRN, heartburn, Starting on Renee 08/09/24 at 2223 1344 [...] site for insertion. MAX Dose: 2.5 g ( of 5 g tube) Do NOT give [...] Oral, AT BEDTIME PRN, sleep, Starting on Tue08/09/24 at 2223, Do not give unless at [...] area)165 (Unhold - Provider: Orders Generic Provider) opium-belladonna (B&O SUPPRETTES) 60-16.2 MG per suppository 1 suppository 1 suppository (60 mg), Rectal, EVERY 8 HOURS PRN, bladder spasms, Starting on Renee 08/09/24 at 2321 1344 (Auto Hold - Provider: Orders Generic Provider - Reason: Transfer to a procedural area)165 (Unhold - Provider: Orders Generic Provider) oxyBUTYnin [...] area)165 (Unhold - Provider: Orders Generic Provider) oxyCODONE [...] RN) 0618 (See Alternative - Provider: Sheela Phan RN) senna-docusate (SENOKOT-S/PERICOLACE) [...] stools. documented in this encounter Care Teams Vertical Roll Operator Relationship Specialty Start Date End Date [facility] [address] [place] [address] PCP - General 07/24/21 documented as of this encounter
--- OUTSIDE RECORDS SUMMARY | 2024-10-14 15:10 | XMS_ITS | Encounter Summary ---
Author Organization [place] Address [facility] [place] [address] Care Team Providers Care Pets Salesperson Name Role Phone [facility]- Primary Care Provider Adalberto Eldridge MD Unavailable [phone] Reason for Visit * Reason Comments Elevated PSA Here for transrectal ultrasound MRI prostate biopsy Encounter Details Date Type Department Care Team (Late st Contact Info) Description 09/25/2024 8:00 AM RETURN TO FACTORY CLERK Office Visit [facility] [place] [address] [place] [phone] Adalberto Eldridge MD [address] [place], [place] [phone] Prophylactic antibiotic (Primary Dx); Elevated prostate specific antigen (PSA) Social History [...] on file Legal Sex Male 3:18 AM RETURN TO FACTORY CLERK Gender Identity Not on file Sexual Orientation Not on file documented as of this encounter Last Filed Vital Signs Vital Sign Reading Time Taken Comments Blood Pressure 153/77 09/25/2024 8:57 AM RETURN TO FACTORY CLERK Pulse 70 09/25/2024 8:57 AM RETURN TO FACTORY CLERK Temperature - - Respiratory Rate - - Oxygen Saturation 99% 09/25/2024 8:57 AM RETURN TO FACTORY CLERK Inhaled Oxygen Concentration - - Weight 72.6 kg (160 lb) 09/25/2024 8:08 AM RETURN TO FACTORY CLERK Height 170.2 cm (5' 7) 09/25/2024 8:08 AM RETURN TO FACTORY CLERK Body Mass Index 25.06 09/25/2024 8:08 AM RETURN TO FACTORY CLERK documented in this encounter Patient Instructions * Patient Instructions* Criss Hill CMA - 09/25/2024 8:00 AM RETURN TO FACTORY CLERK eal Urology Transrectal Ultrasound Post Operative Information The physician who performed your Transrectal Ultrasound is Dr. eldridge (telephone number [phone], 8-5 Tuesday thru Tuesday, after hours). Please contact this doctor if you have any problems or questions. If unable to reach your doctor, please return to the Emergency Department. Take one antibiotic the evening of the procedure and then as directed on your prescription. Drink at least 6-8 glasses of fluids for the first 48 hours. Avoid heavy lifting and strenuous activity for 48 hours. Avoid sexual intercourse for the first 24 hours. No aspirin or ibuprofen products (Motrin, Advil, Nuprin, ect.) for one week. You may take acetaminophen (Tylenol) for pain. You may notice a small amount of blood on the tissue after a bowel movement. You may pass blood with clots in your urine following the procedure. The amount will decrease with time but may be visible for up to two weeks. You make have blood in your semen for 4 weeks after the procedure. You may experience mild perineal (groin area) discomfort after the procedure. Please call you doctor if you have any of the follow symptoms: Fever Increase in the amount of blood passed Severe discomfort or pain RN TO FACTORY CLERK documented in this encounter Progress Notes * Adalberto Eldridge MD - 09/25/2024 8:00 AM CST Here for an LDY-lvrylhafyb-ndysuc guided biopsy of the prostate We previously obtained an MRI of the prostate and identified all PIRADS 4-5 lesions for targeting Target Lesion #1 Prostate lesion Prostate volume on MRI 160mL No results found for: PSA An enema was completed and 500 mg of Cipro was given prior to the biopsy. After obtaining informed consent patient was placed in lateral decubitus position. The ultrasound probe was placed in the rectum. The prostate was numbed using ultrasound guidance with 1% lidocaine 5 mls along each nerve bundle. US images were obtained and then fused with the MRI images. The fused images were then used to guide the biopsy of the targeted lesions with at least 2 cores taken of each lesion. We then performed random biopsies. 12 cores were taken with 6 on each side, base, mid and apex. The patient tolerated the procedure well. We will follow up with the results in 7-10 days and contact patient with these results. RN TO FACTORY CLERK documented in this encounter Nursing Notes * Criss Hill CMA - 09/25/2024 8:00 AM CST Chief Complaint Patient presents with Elevated PSA Here for transrectal ultrasound MRI prostate biopsy Procedure was explained to patient prior to performing said procedure. The patient signed the consent form and all questions were answered prior to the procedure. Any pre-procedural antibiotics were given according to the performing physicians recommendation. Pt's information was confirmed on samples and samples were sent for analysis. Florence reviewed information on labels sent with patient and confirmed the accuracy of all the labels. Consent read and signed: Yes Allergies Allergen Reactions Shellfish-Derived Products Anaphylaxis Cats Tramadol Fatigue Light headed Performing Physician: Dr. Eldridge Antibiotic taken? yes Aspirin or other blood thinning medications discontinued 7-10 days: yes Time of Fleet's enema: 605 am 12 samples were taken from the right and left, medial and lateral base, mid, and apex of the prostate respectively. additional samples were taken from . Vitals were repeated prior to patient leaving and instructions for post TRUS care were explained to the pt. RN TO FACTORY CLERK * Caroline Jaimes CMA - 09/25/2024 8:00 AM CST Chief Complaint Patient presents with Elevated PSA Here for transrectal ultrasound MRI prostate biopsy Procedure was explained to patient prior to performing said procedure. The patient signed the consent form and all questions were answered prior to the procedure. Any pre-procedural antibiotics were given according to the performing physicians recommendation. Pt's information was confirmed on samples and samples were sent for analysis. Florence reviewed information on labels sent with patient and confirmed the accuracy of all the labels. Consent read and signed: Yes Allergies Allergen Reactions Shellfish-Derived Products Anaphylaxis Cats Tramadol Fatigue Light headed Performing Physician: Dr. Eldridge Patient given Gentamicin intramuscular injection 30 minutes prior to procedure Yes 12 samples were taken from the right and left, medial and lateral base, mid, and apex of the prostate respectively. additional samples were taken Vitals were repeated prior to patient leaving and instructions for post Transrectal Ultrasound MRI Prostate Biopsy care were explained to the patient. The following medication was given by MD: MEDICATION: Lidocaine 1% Soln ROUTE: Local Infiltration SITE: Prostate DOSE: 18ML LOT #: [id number] HSE COORDINATOR: Hospira EXPIRATION DATE: [facility]#: [id number] Was there drug waste? Yes Amount of drug waste (mL): 4ML. Reason for waste: Single use vial Multi-dose vial: Yes The following medication was given: MEDICATION: Gentamicin ROUTE: IM SITE: Ventrogluteal - Left DOSE:80mg/2ml LOT #: [id number] HSE COORDINATOR: NEMO Equipment EXPIRATION DATE: [facility]#: [id number] Was there drug waste? No Multi-dose vial: Yes Clinic Administered Medication Documentation Patient was given 1 Lidocaine / Gentamicin 80 mg. Prior to medication administration, verified patient's identity using patient???s name and date of . Please see MAR and medication order for additional information. Patient instructed to remain in clinic for 15 minutes and report any adverse reaction to staff immediately. Vial/Syringe: Single dose vial. Was entire vial of medication used? No, The remainder 16 ML of 20 ML was discarded as unavoidable waste. SRIDEVI Jensen RN TO FACTORY CLERK RN TO FACTORY CLERK RN TO FACTORY CLERK documented in this encounter Plan of Treatment Upcoming Encounters Date Type Department Care Team (Latest Contact Info) Description 11/23/2024 9:55 AM RETURN TO FACTORY CLERK Hospital Encounter [facility] [address] [place] [phone] Eriberto Souza MD [address] [place] [id number] 11/23/2024 9:55 AM RETURN TO FACTORY CLERK - 11/23/2024 1:30 PM RETURN TO FACTORY CLERK Surgery [facility] [address], [address] [place] [phone] Eriberto Souza MD [address] [place] [address] Holmium Laser Enucleation of the Prostate Scheduled Procedures Name Priority Associated Diagnoses Date/Ti me CYSTOSCOPY, WITH FULGURATION OF HEMORRHAGING BLOOD VESSEL AND THROMBUS REMOVAL Gross hematuria ENUCLEATION, PROSTATE, USING HOLMIUM LASER Benign prostatic hyperplasia with incomplete bladder emptying 11/23/2024 9:55 AM RETURN TO FACTORY CLERK documented as of this encounter Procedures Procedure Name Priority Date/Time Associated Diagnosis Comments SURGICAL PATHOLOGY EXAM Routine 09/25/2024 9:26 AM RETURN TO FACTORY CLERK Elevated prostate specific antigen (PSA) documented in this encounter Results * Surgical Pathology Exam (09/25/2024 9:26 AM RETURN TO FACTORY CLERK) Case Report Surgical Pathology Report Case: [id number] Authorizing Provider: Adalberto Eldridge MD Collected: 09/25/2024 09:26 AM Ordering Location: [facility] Received: 09/25/2024 09:[address] [facility] Pathologist: Jorge More MD Specimens: A) - [...] Prostate, PROSTATE LESION X3 09/26/2024 2:00 PM RETURN TO FACTORY CLERK LABORATORY Final Diagnosis A. Prostate, left lateral [...] tissue with chronic inflammation 09/26/2024 2:00 PM [facility] Clinical Information ELEVATED PSA 09/26/2024 2:00 PM [facility] Gross Description A(A). Prostate, LEFT LATERAL [...] Meléndez(ASCP)CM 09/25/2024 12:07 PM 09/26/2024 2:00 PM [facility] Microscopic Description A-M. Microscopic performed 09/26/2024 2:00 PM [facility] Performing Labs The technical component of this testing was completed at [facility]. Stain controls for all stains resulted within this report have been reviewed and show appropriate reactivity. 09/26/2024 2:00 PM [facility] Case Images 09/26/2024 2:00 PM [facility] Biopsy PROSTATIC STRUCTURE / Unknown Non-blood Collection / Unknown 09/25/2024 9:26 AM RETURN TO FACTORY CLERK 09/25/2024 9:27 AM RETURN TO FACTORY CLERK Specimen from unspecified body site obtained by biopsy (specimen) PROSTATIC STRUCTURE / Unknown 09/25/2024 9:26 AM RETURN TO FACTORY CLERK 09/25/2024 9:27 AM RETURN TO FACTORY CLERK Specimen from unspecified body site obtained by biopsy (specimen) PROSTATIC STRUCTURE / Unknown 09/25/2024 9:26 AM RETURN TO FACTORY CLERK 09/25/2024 9:27 AM RETURN TO FACTORY CLERK Specimen from unspecified body site obtained by biopsy (specimen) PROSTATIC STRUCTURE / Unknown 09/25/2024 9:26 AM RETURN TO FACTORY CLERK 09/25/2024 9:27 AM RETURN TO FACTORY CLERK Specimen from unspecified body site obtained by biopsy (specimen) PROSTATIC STRUCTURE / Unknown 09/25/2024 9:26 AM RETURN TO FACTORY CLERK 09/25/2024 9:27 AM RETURN TO FACTORY CLERK Specimen from unspecified body site obtained by biopsy (specimen) PROSTATIC STRUCTURE / Unknown 09/25/2024 9:26 AM RETURN TO FACTORY CLERK 09/25/2024 9:27 AM RETURN TO FACTORY CLERK Specimen from unspecified body site obtained by biopsy (specimen) PROSTATIC STRUCTURE / Unknown 09/25/2024 9:26 AM RETURN TO FACTORY CLERK 09/25/2024 9:27 AM RETURN TO FACTORY CLERK Specimen from unspecified body site obtained by biopsy (specimen) PROSTATIC STRUCTURE / Unknown 09/25/2024 9:26 AM RETURN TO FACTORY CLERK 09/25/2024 9:27 AM RETURN TO FACTORY CLERK Specimen from unspecified body site obtained by biopsy (specimen) PROSTATIC STRUCTURE / Unknown 09/25/2024 9:26 AM RETURN TO FACTORY CLERK 09/25/2024 9:27 AM RETURN TO FACTORY CLERK Specimen from unspecified body site obtained by biopsy (specimen) PROSTATIC STRUCTURE / Unknown 09/25/2024 9:26 AM RETURN TO FACTORY CLERK 09/25/2024 9:27 AM RETURN TO FACTORY CLERK Specimen from unspecified body site obtained by biopsy (specimen) PROSTATIC STRUCTURE / Unknown 09/25/2024 9:26 AM RETURN TO FACTORY CLERK 09/25/2024 9:27 AM RETURN TO FACTORY CLERK Specimen from unspecified body site obtained by biopsy (specimen) PROSTATIC STRUCTURE / Unknown 09/25/2024 9:26 AM RETURN TO FACTORY CLERK 09/25/2024 9:27 AM RETURN TO FACTORY CLERK Specimen from unspecified body site obtained by biopsy (specimen) PROSTATIC STRUCTURE / Unknown 09/25/2024 9:26 AM RETURN TO FACTORY CLERK 09/25/2024 9:27 AM RETURN TO FACTORY CLERK us Adalberto HECK - ANNITA AP Final R esult LABORATORY [facility] [address] 1[address] floor, [address] [place] [address], [facility] [phone] documented in this encounter Visit Diagnoses Diagnosis Prophylactic antibiotic- Primary Encounter for long-term (current) use of antibiotics Elevated prostate specific antigen (PSA) Benign prostatic hyperplasia with incomplete bladder emptying documented in this encounter Administered Medications Inactive Administered Medications - up to 3 most recent administrations Medication Order MAR Action Action Date Dose Rate Site gentamicin (GARAMYCIN) injection 80 mg Routine, 80 mg, Intramuscular, ONCE, On e 09/25/24 at 0830, For 1 dose, Indications: Perioperative PharmacoprophylaxisIndicatio ns:Perioperative Pharmacoprophylaxis $Given 09/25/2024 8:15 AM RETURN TO FACTORY CLERK 80 mg Left Ventrogluteal lidocaine 1 % 10 mL 10 mL, Infiltration, ONCE, On 09/25/24 at 0830, For 1 doseIndications:Elevated prostate specific antigen (PSA) $Given 09/25/2024 8:40 AM RETURN TO FACTORY CLERK 16 mLs Anus documented in this encounter Care Teams Pets Salesperson Relationship Specialty Start Date End Date [facility]- [address] [place] [address] PCP - General 07/24/21 Adalberto Eldridge MD [address] [place] [address] Assigned Surgical Provider 09/12/24 documented as of this encounter
--- OUTSIDE RECORDS SUMMARY | 2024-10-14 15:10 | XMS_ITS | Encounter Summary ---
Author Organization [place] Address [address] [place] [address]. [place] [address] Care Team Providers Care Irrigation Specialist Name Role Phone [facility]- Primary Care Provider Reason for Referral * Diagnostic Imaging MRI (Routine) - Closed Specialty Diagnoses / Procedures Referred By Contkaylah t Referred To Contact Radiology. Procedures MR Outside Read Adalberto Eldridge MD [address] [place] [address] Phone: tel: fax: Referral ID Status Reason Start Date Expiration Date Visits Re quested Visits Authorized [id number] Closed 09/07/2024 09/07/2025 1 1 Encounter Details Date Type Department Care Team (Late st Contact Info) Description 09/07/2024 Orders Only [facility] [place] [address] [place] [phone] Adalberto Eldridge MD [address] [place] [address] Social History Tobacco Use Types Packs/Day Years [...] on file Legal Sex Male 3:18 AM COOL ROOFING INSTALLER Gender Identity Not on file Sexual Orientation Not on file documented as of this encounter Plan of Treatment Upcoming Encounters Date Type Department Care Team (Latest Contact Info) Description 11/23/2024 9:55 AM COOL ROOFING INSTALLER Hospital Encounter [facility] [address] [place] [phone] Eriberto Souza MD [address] [place] [address] 11/23/2024 9:55 AM COOL ROOFING INSTALLER - 11/23/2024 1:30 PM COOL ROOFING INSTALLER Surgery [facility] [address] [place] [phone] Eriberto Souza MD [address] [place] [address] Holmium Laser Enucleation of the Prostate Scheduled Procedures Name Priority Associated Diagnoses Date/Ti me CYSTOSCOPY, WITH FULGURATION OF HEMORRHAGING BLOOD VESSEL AND THROMBUS REMOVAL Gross hematuria ENUCLEATION, PROSTATE, USING HOLMIUM LASER Benign prostatic hyperplasia with incomplete bladder emptying 11/23/2024 9:55 AM COOL ROOFING INSTALLER documented as of this encounter Results * MR Outside Read (09/10/2024 8:40 AM [...] desired. Using an image analysis software package ([employer] three-dimensional (3D) volumetric images of the prostate [...] desired. Using an image analysis software package ([employer] three-dimensional (3D) volumetric images of the prostate were reconstructed by a radiologist and archived to PACS for prostate lesion analysis and biopsy planning. Additionally, the software package was utilized for contrast kinetic analysis. I have personally reviewed the examination and initial interpretation and I agree with the findings. MONTY BAINS MD Adalberto Eldridge MD IMG MRI ORDERABLES Joy l Result documented in this encounter Visit Diagnoses Not on filedocumented in this encounter Care Teams Irrigation Specialist Relationship Specialty Start Date End Date [facility]- [address] [place] [address] PCP - General 07/24/21 documented as of this encounter
--- OUTSIDE RECORDS SUMMARY | 2024-10-14 15:10 | XMS_ITS | Encounter Summary ---
Author Organization [place] Address [facility] [place] [address] Care Team Providers Care Consumer Insights Specialist Name Role Phone [facility]- Primary Care Provider Reason for Visit * Reason Onset Date Comments Call Back 08/23/2024 Encounter Details Date Type Department Care Team (Late st Contact Info) Description 08/23/2024 Telephone [facility] [address] [place] [address] Adalberto Eldridge MD [address] [phone] Call Back Social History Tobacco Use Types [...] in an abandoned building, in an overnight fdc, or couch-surfing.) Yes 08/09/2024 Are you worried [...] on file Legal Sex Male 3:18 AM TOWEL WEAVER Gender Identity Not on file Sexual Orientation Not on file documented as of this encounter Miscellaneous Notes * Telephone Encounter - Ramana Pugh - 08/28/2024 10:31 AM CDT [facility] Phone Message May a detailed message be left on voicemail: no Reason for Call: Other: Patient called to follow up on the message below. Please call back patient to discuss. Action Taken: Other: [facility] Travel Screening: Not Applicable * Telephone Encounter - Julia Humphreys - 08/23/2024 1:53 PM CDT [facility] Phone Message May a detailed message be left on voicemail: yes Reason for Call: Appointment Intake Referring Provider Name: self (currently under Dr Solis - [facility]) Diagnosis and/or Symptoms: needs laser treatment to shrink prostate and current urologist can't do it until Spring. Dr Solis has not performed any of his surgeries/procedures yet. Dr Eldridge recently did a cysto on this patient. Please call pt back to discuss/schedule. Thank you! Action Taken: Message routed to: [facility] Travel Screening: Not Applicable Date of Service: documented in this encounter Plan of Treatment Upcoming Encounters Date Type Department Care Team (Latest Contact Info) Description 11/23/2024 9:55 AM TOWEL WEAVER [facility] [address] [place] [phone] Eriberto Souza MD [address] [place] [phone] 11/23/2024 9:55 AM TOWEL WEAVER - 11/23/2024 1:30 PM TOWEL WEAVER [facility] [address] [place] [phone] Eriberto Souza MD [address] [place] [phone] Holmium Laser Enucleation of the Prostate Scheduled Procedures Name Priority Associated Diagnoses Date/Ti me CYSTOSCOPY, WITH FULGURATION OF HEMORRHAGING BLOOD VESSEL AND THROMBUS REMOVAL Gross hematuria ENUCLEATION, PROSTATE, USING HOLMIUM LASER Benign prostatic hyperplasia with incomplete bladder emptying 11/23/2024 9:55 AM TOWEL WEAVER documented as of this encounter Visit Diagnoses Not on filedocumented in this encounter Care Teams Consumer Insights Specialist Relationship Specialty Start Date End Date [facility]- [address] [place] [address] PCP - General 07/24/21 documented as of this encounter
--- OUTSIDE RECORDS SUMMARY | 2024-10-14 15:10 | XMS_ITS | Encounter Summary ---
Author Organization [place] Address [facility] [place] [address] Care Team Providers Care Analysis Evaluator Name Role Phone [facility]- Primary Care Provider Adalberto Eldridge MD Unavailable [phone] Reason for Visit * Reason Comments Bladder hematoma Urinary Retention Encounter Details Date Type Department Care Team (Late st Contact Info) Description 08/31/2024 11:00 AM CDT Office Visit [facility] [address] [place] [address] Adalberto Eldridge MD [address] [facility] 500 [place] [address] Urinary retention (Primary Dx); Enlarged prostate; Gross [...] on file Legal Sex Male 3:18 AM VAC PRESS OPERATOR Gender Identity Not on file [...] 4 weeks CALL THE DOCTOR'S OFFICE AT [phone] DURING OFFICE HOURS IF YOU HAVE ANY OF THESE SYMPTOMS. IF YOU CANNOT CONTACT THE OFFICE, GO TO THE EMERGENCY ROOM. Your biopsy is scheduled on 09/25/24, at our [place] office located at [address] [place] [address],[address], [place] [address]. Please be at the office at 8:00 AM. A follow up visit has been scheduled for you on 10/02/24, at 11:00 AM. This is a virtual visit. Your doctor will discuss your results with you at this visit. documented in this encounter Progress Notes * Adalberto Eldridge MD - 08/31/2024 11:00 AM CDT Office Visit Note [facility] UROLOGIC DIAGNOSES: Urinary retention Enlarged prostate Elevated PSA Bladder stones CURRENT INTERVENTIONS: Self-catheterization HISTORY: Oleg returns to clinic today for urologic follow-up. He had his MRI of the prostate performed at [facility] radiology and it revealed a significantly enlarged prostate measuring 160 cm??. There is a PI-RADS 3 lesion seen in the in the transition zone. He reports that he had his Weber catheter removed yesterday morning at [facility]. He says that they have been [...] Social Connections: Socially Integrated (05/19/2023) Received from [facility] Social Connections Frequency of Communication with Friends [...] Cardiac: No peripheral edema Back/Flank: Not done DIAMOND CLEANER/PNS: Normal musculature and movements, moves all extremities [...] prostate. However, he does tell me that ramone another MRI performed 2 to 3 years ago as well as a prostate biopsy performed 2 to 3 years ago and the biopsy was negative. We are not certain at this time if there been any changes in either thePSA or in the MRI findings. I counseled Oleg that we will need to obtain records from [facility] to get information onhis previous MRI, [...] of during thatsame procedure. Addendum: Records from [facility] reviewed. Patient had an MRI of [...] repeat UroNav prostate biopsy. Adalberto Eldridge M.D. PRESS OPERATOR documented in this encounter Nursing Notes * Erin Chavez - 08/31/2024 11:00 AM CDT Chief Complaint Patient presents with Bladder hematoma Urinary Retention PVR: 59 mL by bladder scan Erin Chavez, Online Merchandising Coordinator documented in this encounter Plan of Treatment Upcoming Encounters Date Type Department Care Team (Latest Contact Info) Description 11/23/2024 9:55 AM VAC PRESS OPERATOR [facility] [address] [place] [phone] Eriberto Souza MD [address] [place], [place] [phone] 11/23/2024 9:55 AM VAC PRESS OPERATOR - 11/23/2024 1:30 PM VAC PRESS OPERATOR Surgery [facility] Services [address] [place] [phone] Eriberto Souza MD [address] [place], [place] [phone] Holmium Laser Enucleation of the Prostate Scheduled Procedures Name Priority Associated Diagnoses Date/Ti me CYSTOSCOPY, WITH FULGURATION OF HEMORRHAGING BLOOD VESSEL AND THROMBUS REMOVAL Gross hematuria ENUCLEATION, PROSTATE, USING HOLMIUM LASER Benign prostatic hyperplasia with incomplete bladder emptying 11/23/2024 9:55 AM VAC PRESS OPERATOR documented as of this encounter Procedures Procedure Name Priority Date/Time Associated Diagnosis Comments [place] MEASURE POST-VOID RESIDUAL URINE/BLADDER CAPACITY, US NON-IMAGING Routine 08/31/2024 Urinary retention documented in this encounter Results * MEASURE POST-VOID RESIDUAL URINE/BLADDER CAPACITY, US NON-IMAGING (41373) (08/31/2024) Residual Volume (RV) (External) 59 us Adalberto Eldridge MD PROCEDURES Final R esult documented in this encounter Visit Diagnoses Diagnosis Urinary retention- Primary Retention of urine, unspecified Enlarged prostate Hypertrophy of prostate without urinary obstruction and other lower urinary tract symptoms (LUTS) Gross hematuria Elevated prostate specific antigen (PSA) Benign prostatic hyperplasia with incomplete bladder emptying documented in this encounter Care Teams Analysis Evaluator Relationship Specialty Start Date End Date [facility]- [address] [place] [address] PCP - General 07/24/21 Adalberto Eldridge MD [address] [address] Assigned Surgical Provider 09/12/24 documented as of this encounter
--- OUTSIDE RECORDS SUMMARY | 2024-10-14 15:10 | XMS_ITS | Encounter Summary ---
Author Organization [place] Address [address] [facility] [place] [address] Care Team Providers Care Radiology Administrator Name Role Phone [facility]- Primary Care Provider Reason for Visit * Reason Onset Date Comments Appointment 09/05/2024 Called pt to dis cuss scheduling a prostate biopsy with Dr Eldridge in the [place] office Encounter Details Date Type Department Care Team (Late st Contact Info) Description 09/05/2024 Telephone [facility] [address] [place] [address] Adalberto Eldridge MD [address] [facility] 500 [place] [address] Appointment (Called pt to discuss scheduling a prostate biopsy with Dr Eldridge in the [place] office) Social History Tobacco Use Types Packs/Day [...] on file Legal Sex Male 3:18 AM MAIL CENSOR Gender Identity Not on file Sexual Orientation Not on file documented as of this encounter Miscellaneous Notes * Telephone Encounter - Marge Forman - 09/05/2024 10:29 AM CDT Called pt to discuss scheduling a prostate biopsy with Dr Eldridge in the [place] office documented in this encounter Plan of Treatment Upcoming Encounters Date Type Department Care Team (Latest Contact Info) Description 11/23/2024 9:55 AM MAIL CENSOR Hospital Encounter [facility] Services [address] [place] [phone] Eriebrto Souza MD [address] [place] [address] 11/23/2024 9:55 AM MAIL CENSOR - 11/23/2024 1:30 PM MA[address] C[address]OR Surgery [facility] Services [address] [place] [phone] Eriberto Souza MD [address] [place] [address] Holmium Laser Enucleation of the Prostate Scheduled Procedures Name Priority Associated Diagnoses Date/Ti me CYSTOSCOPY, WITH FULGURATION OF HEMORRHAGING BLOOD VESSEL AND THROMBUS REMOVAL Gross hematuria ENUCLEATION, PROSTATE, USING HOLMIUM LASER Benign prostatic hyperplasia with incomplete bladder emptying 11/23/2024 9:55 AM MAIL CENSOR documented as of this encounter Visit Diagnoses Not on filedocumented in this encounter Care Teams Radiology Administrator Relationship Specialty Start Date End Date [facility]- [address] [place] [address] PCP - General 07/24/21 documented as of this encounter
--- OUTSIDE RECORDS SUMMARY | 2024-10-14 15:10 | XMS_ITS | Encounter Summary ---
Author Organization [place] Address [address] [facility] [place] [address] Care Team Providers Care Flatwork Tier Name Role Phone [facility]- Primary Care Provider Encounter Details Date Type [...] on file Legal Sex Male 3:18 AM WAREHOUSE OPERATIONS ASSOCIATE Gender Identity Not on file Sexual Orientation Not on file documented as of this encounter Plan of Treatment Upcoming Encounters Date Type Department Care Team (Latest Contact Info) Description 11/23/2024 9:55 AM WAREHOUSE OPERATIONS ASSOCIATE Hospital Encounter [facility] Services [address] [place] [phone] Eriberto Souza MD [address] [place] [phone] 11/23/2024 9:55 AM WAREHOUSE OPERATIONS ASSOCIATE - 11/23/2024 1:30 PM WAREHOUSE OPERATIONS ASSOCIATE Surgery [facility] Services [address] [place] [phone] Eriberto Souza MD [address] [place] [phone] Holmium Laser Enucleation of the Prostate Scheduled Procedures Name Priority Associated Diagnoses Date/Ti me CYSTOSCOPY, WITH FULGURATION OF HEMORRHAGING BLOOD VESSEL AND THROMBUS REMOVAL Gross hematuria ENUCLEATION, PROSTATE, USING HOLMIUM LASER Benign prostatic hyperplasia with incomplete bladder emptying 11/23/2024 9:55 AM WAREHOUSE OPERATIONS ASSOCIATE documented as of this encounter Visit Diagnoses Not on filedocumented in this encounter Care Teams Flatwork Tier Relationship Specialty Start Date End Date [facility]- [address] [place] [address] PCP - General 07/24/21 documented as of this encounter
--- OUTSIDE RECORDS SUMMARY | 2024-10-14 15:10 | XMS_ITS | Encounter Summary ---
Author Organization [place] Address [facility] [place] [address] Care Team Providers Care Wirer Maintenance Name Role Phone [facility]- Primary Care Provider Encounter Details Date Type Department Care Team (Late st Contact Info) Description 09/04/2024 Orders Only [facility]rology Clinic [address] [place] [address] Adalberto Eldridge MD [address] [facility] [address] [place], [place] [phone] Elevated prostate specific antigen (PSA) (Primary Dx) [...] in an abandoned building, in an overnight penitentiary, or couch-surfing.) Yes 08/09/2024 Are you worried [...] on file Legal Sex Male 3:18 AM TRAINING EXECUTIVE Gender Identity Not on file Sexual Orientation Not on file documented as of this encounter Plan of Treatment Upcoming Encounters Date Type Department Care Team (Latest Contact Info) Description 11/23/2024 9:55 AM TRAINING EXECUTIVE [facility] [address] [place] [phone] Eriberto Souza MD [address] [place] [phone] 11/23/2024 9:55 AM TRAINING EXECUTIVE - 11/23/2024 1:30 PM TRAINING EXECUTIVE Surgery [facility] Services [address] [place] [phone] Eriberto Souza MD [address] [place] [address] [phone] Holmium Laser Enucleation of the Prostate Scheduled Procedures Name Priority Associated Diagnoses Date/Ti me CYSTOSCOPY, WITH FULGURATION OF HEMORRHAGING BLOOD VESSEL AND THROMBUS REMOVAL Gross hematuria ENUCLEATION, PROSTATE, USING HOLMIUM LASER Benign prostatic hyperplasia with incomplete bladder emptying 11/23/2024 9:55 AM TRAINING EXECUTIVE documented as of this encounter Visit Diagnoses Diagnosis Elevated prostate specific antigen (PSA)- Primary Benign prostatic hyperplasia with incomplete bladder emptying documented in this encounter Care Teams Wirer Maintenance Relationship Specialty Start Date End Date [facility]- [address] [place] [address] PCP - General 07/24/21 documented as of this encounter
--- OUTSIDE RECORDS SUMMARY | 2024-10-14 15:10 | XMS_ITS | Encounter Summary ---
Author Organization [place] Address [address] [place] [address] Care Team Providers Care E Commerce Merchandising Coordinator Name Role Phone [facility]- Primary Care Provider Reason for Referral * Diagnostic Imaging MRI (Routine) - Closed Specialty Diagnoses / Procedures Referred By Eric hernandez Referred To Contact Radiology. Procedures MR Outside Read Adalberto Eldridge MD [address] [employer] [address] [place] [address] Phone: tel: fax: Referral ID Status Reason Start Date Expiration Date Visits Re quested Visits Authorized [id number] Closed 09/07/2024 09/07/2025 1 1 Reason for Visit * Diagnostic Imaging MRI (Routine) - Closed Specialty Diagnoses / Procedures Referred By Eric hernandez Referred To Contact Radiology. Procedures MR Outside Read Adalberto Eldridge MD [address] [place] [address] Phone: tel: fax: Referral ID Status Reason Start Date Expiration Date Visits Re quested Visits Authorized [id number] Closed 09/07/2024 09/07/2025 1 1 Encounter Details Date Type Department Care Team (Latest Contact Info) Description 09/10/2024 8:40 AM CDT - 09/10/2024 11:59 PM CDT Hospital Encounter [facility] [address] [place] [phone] Adalberto Eldridge MD [address] [place] [address] Discharge Disposition: Home or Self Care Social [...] on file Legal Sex Male 3:18 AM ORACLE EBS CONSULTANT Gender Identity Not on file Sexual Orientation [...] sulfate (FEROSUL) 325 (65 Fe) MG tabletIndications:Judson ash hematuria Take 1 tablet (325 mg) by [...] (Latest Contact Info) Description 11/23/2024 9:55 AM ORACLE EBS CONSULTANT Hospital Encounter [facility] Services [address] [place] [phone] Eriberto Souza MD [address] [place] [address] 11/23/2024 9:55 AM ORACLE EBS CONSULTANT - 11/23/2024 1:30 PM ORACLE EBS CONSULTANT Surgery [facility] Services [address] [place] [phone] Eriberto Souza MD [address] [place] [phone] Holmium Laser Enucleation of the Prostate Scheduled Procedures Name Priority Associated Diagnoses Date/Ti me CYSTOSCOPY, WITH FULGURATION OF HEMORRHAGING BLOOD VESSEL AND THROMBUS REMOVAL Gross hematuria ENUCLEATION, PROSTATE, USING HOLMIUM LASER Benign prostatic hyperplasia with incomplete bladder emptying 11/23/2024 9:55 AM ORACLE EBS CONSULTANT documented as of this encounter Procedures Procedure Name Priority Date/Time Associated Diagnosis Comments MR OUTSIDE READ Routine 09/10/2024 8:40 AM CDT documented in this encounter Results * MR Outside Read [...] desired. Using an image analysis software package (Sellplex), three-dimensional (3D) volumetric images of the prostate [...] wall. Other pelvic organs: Mild-moderate urinary bladder. Webre catheter in place. Multiple bladder stones. IMPRESSION: [...] desired. Using an image analysis software package (Sellplex), three-dimensional (3D) volumetric images of the prostate [...] on filedocumented in this encounter Care Teams E Commerce Merchandising Coordinator Relationship Specialty Start Date End Date [facility]- [address] [place] [address] PCP - General 07/24/21 documented as of this encounter
--- OUTSIDE RECORDS SUMMARY | 2024-10-14 15:10 | XMS_ITS | Encounter Summary ---
Author Organization [place] Address [facility]0 [facility] [place] [address] Care Team Providers Care Manager Investigations Name Role Phone [facility]- Primary Care Provider Reason for Visit * Auth/Cert (Routine) Specialty Diagnoses / Procedures Referred By Eric hernandez Referred To Contact Med Surg Diagnoses Gross hematuria Supratherapeutic INR Problem with Weber catheter, initial encounter (H) Gross hematuria Problem with Weber catheter, initial encounter (H24) Supratherapeutic INR [facility] 5 Medical Surgical [address] [place] [address] Phone: tel: fax: Referral ID Status Reason Start Date Expiration Date Visits Re quested Visits Authorized [id number] 1 1 Encounter Details Date Type Department Care Team (Late st Contact Info) Description 08/11/2024 3:14 PM CDT Anesthesia Event [facility] PeriOp Services [address] [place] [phone] Jai Flores DO [facility] ANESTHESIA [address] [facility] [address] [place] [address] Anesthesia Record Procedure Summary Procedure Name Responsible Anesthesiologist Anesthesia Start Time Anesthesia Stop Time Cystoscopy, fulguration of the prostate (Urethra) Jai Flores DO 08/11/24 1514 08/11/24 1550 Events Date Time Event Comment 08/11/2024 1505 BRINE ROOM LABORER Ready for Procedure 1514 An Start Anesthesia [...] recorded are pre- induction. Yvonne White APRN BRINE ROOM LABORER 1517 An Induction 1518 An LMA 1518 [...] 1 08/11/24 1526 by Yvonne White APRN BRINE ROOM LABORER 08/11/24 1538 by Yvonne White APRN CRNA [...] in an abandoned building, in an overnight half-way, or couch-surfing.) Yes 08/09/2024 Are you worried [...] on file Legal Sex Male 3:18 AM PEDIATRIC LPN Gender Identity Not on file Sexual Orientation [...] Patient location during procedure: OR Staff - BRINE ROOM LABORER: Yvonne White APRN BRINE ROOM LABORER Performed By: CRNAIndications and Patient Condition Indications [...] Unchanged * Anesthesia Preprocedure Evaluation - Jai Flores, DO - 08/11/2024 2:16 PM CDT Anesthesia [...] and realistic alternatives discussed. Questions answered and patient/technical services representative(s) expressed understanding. - Discussed: - Discussed [...] Care Transfer Note - Yvonne White APRN BRINE ROOM LABORER - 08/11/2024 3:53 PM CDT Patient: Oleg [...] (Latest Contact Info) Description 11/23/2024 9:55 AM PEDIATRIC LPN [facility] [address] [place] [phone] Eriberto Souza MD [address] [place] [phone] 11/23/2024 9:55 AM PEDIATRIC LPN - 11/23/2024 1:30 PM PEDIATRIC LPN Surgery [facility] Services [address] [place] [phone] Eriberto Souza MD [address] [place] [phone] Holmium Laser Enucleation of the Prostate Scheduled Procedures Name Priority Associated Diagnoses Date/Ti me CYSTOSCOPY, WITH FULGURATION OF HEMORRHAGING BLOOD VESSEL AND THROMBUS REMOVAL Gross hematuria ENUCLEATION, PROSTATE, USING HOLMIUM LASER Benign prostatic hyperplasia with incomplete bladder emptying 11/23/2024 9:55 AM PEDIATRIC LPN documented as of this encounter Procedures Procedure Name Priority Date/Time Associated Diagnosis Comments ANE AIRWAY SUPRAGLOTTIC PERFORMABLE Routine 08/11/2024 3:26 PM CDT documented in this encounter Results * ANE AIRWAY SUPRAGLOTTIC PERFORMABLE (08/11/2024 3:26 PM CDT) Narrative Yvonne White APRN BRINE ROOM LABORER - 08/11/2024 3:26 PM CDT Yvonne White APRN CRNA 08/11/2024 3:26 PM Airway Patient location during procedure: OR Staff - BRINE ROOM LABORER: Yvonne White APRN CRNA Performed By: CRNAIndications [...] Dentition: Intact and Unchanged Jai Flores DO [place] ANESTHESIA Final Result documented in this encounter [...] mg documented in this encounter Care Teams Manager Investigations Relationship Specialty Start Date End Date [facility]- [address] [place] [address] PCP - General 07/24/21 documented as of this encounter
--- OUTSIDE RECORDS SUMMARY | 2024-10-14 15:10 | XMS_ITS | Encounter Summary ---
Author Organization [place] Address [address] [place] [address] Care Team Providers Care Setter Automatic Spinning Lathe Name Role Phone [facility]- Primary Care Provider Adalberto Eldridge MD Unavailable [phone] Reason for Visit * Reason Onset Date Comments Medication Question 09/18/2024 Encounter Details Date Type Department Care Team (Late st Contact Info) Description 09/18/2024 Telephone [facility] [address] [place] [address] Adalberto Eldridge MD [address] [place] [address] Medication Question Social History Tobacco [...] in an abandoned building, in an overnight halfway, or couch-surfing.) Yes 08/09/2024 Are you worried [...] on file Legal Sex Male 3:18 AM ASSOCIATE MANAGER AFFILIATE MARKETING Gender Identity Not on file Sexual Orientation [...] patient back to discuss. Action Taken: Other: [facility] Travel Screening: Not Applicable Date of Service: documented in this encounter Plan of Treatment Upcoming Encounters Date Type Department Care Team (Latest Contact Info) Description 11/23/2024 9:55 AM ASSOCIATE MANAGER AFFILIATE MARKETING Hospital Encounter [facility] [address] [place] [phone] Eriberto Souza MD [address] [place], [place] [id number] 11/23/2024 9:55 AM ASSOCIATE MANAGER AFFILIATE MARKETING - 11/23/2024 1:30 PM ASSOCIATE MANAGER AFFILIATE MARKETING Surgery [facility] [address] [place] [phone] Eriberto Souza MD [address] [place] [id number] Holmium Laser Enucleation of the Prostate Scheduled Procedures Name Priority Associated Diagnoses Date/Ti me CYSTOSCOPY, WITH FULGURATION OF HEMORRHAGING BLOOD VESSEL AND THROMBUS REMOVAL Gross hematuria ENUCLEATION, PROSTATE, USING HOLMIUM LASER Benign prostatic hyperplasia with incomplete bladder emptying 11/23/2024 9:55 AM ASSOCIATE MANAGER AFFILIATE MARKETING documented as of this encounter Visit Diagnoses Not on filedocumented in this encounter Care Teams Setter Automatic Spinning Lathe Relationship Specialty Start Date End Date [facility]- [address] [place] [address] PCP - General 07/24/21 Adalberto Eldridge MD [address] [place] [id number] Assigned Surgical Provider 09/12/24 documented as of this encounter
--- OUTSIDE RECORDS SUMMARY | 2024-10-14 15:11 | XMS_ITS | Encounter Summary ---
Author Organization [place] Address [address] [place] [address] Care Team Providers Care Wirer Street Light Name Role Phone [facility]- Primary Care Provider Encounter Details [...] in an abandoned building, in an overnight usp, or couch-surfing.) Yes 08/09/2024 Are you worried [...] on file Legal Sex Male 3:18 AM CARDIOLOGY MANAGER Gender Identity Not on file Sexual Orientation Not on file documented as of this encounter Plan of Treatment Upcoming Encounters Date Type Department Care Team (Latest Contact Info) Description 11/23/2024 9:55 AM CARDIOLOGY MANAGER Hospital Encounter [facility] [address] [place] [phone] Eriberto Souza MD [address] [place] [phone] 11/23/2024 9:55 AM CARDIOLOGY MANAGER - 11/23/2024 1:30 PM CARDIOLOGY MANAGER Surgery [facility] [address] [place] [phone] Eriberto Souza MD [address] [place] [phone] Holmium Laser Enucleation of the Prostate Scheduled Procedures Name Priority Associated Diagnoses Date/Ti me CYSTOSCOPY, WITH FULGURATION OF HEMORRHAGING BLOOD VESSEL AND THROMBUS REMOVAL Gross hematuria ENUCLEATION, PROSTATE, USING HOLMIUM LASER Benign prostatic hyperplasia with incomplete bladder emptying 11/23/2024 9:55 AM CARDIOLOGY MANAGER documented as of this encounter Visit Diagnoses Not on filedocumented in this encounter Care Teams Wirer Street Light Relationship Specialty Start Date End Date [facility]- [address] [place] [address] PCP - General 07/24/21 documented as of this encounter
--- OUTSIDE RECORDS SUMMARY | 2024-10-14 15:11 | XMS_ITS | Encounter Summary ---
Author Organization [place] Address Critical access hospital0 [facility] [place] [place] [address] Care Team Providers Care Ortho Rn Name Role Phone [facility]- Primary Care Provider Reason for Visit * Auth/Cert (Routine) Specialty Diagnoses / Procedures Referred By Eric hernandez Referred To Contact Med Surg Diagnoses Gross hematuria Supratherapeutic INR Problem with [place] catheter, initial encounter (H) Gross hematuria Problem with Weber catheter, initial encounter (H24) Supratherapeutic INR [place] [address] [facility] [address] [place] [address] Phone: tel: fax: Referral ID Status Reason Start Date Expiration Date Visits Re quested Visits Authorized [id number] 1 1 Encounter Details Date Type Department Care Team (Late st Contact Info) Description 08/11/2024 12:10 AM CDT Anesthesia Event [place] [address] [facility] [address] [place] [address] Walter Crowley MD [facility] ANESTHESIA [address] [place], [place] [address] Yvonne White APRN WATER SYSTEMS DESIGNER [address] [place], [place] [phone] Anesthesia Record Procedure Summary Procedure Name Responsible Anesthesiologist Anesthesia Start Time Anesthesia Stop Time CYSTOSCOPY, EVACUATION OF BLADDER HEMATOMA, REMOVAL OF BLADDER STONES WITH THE THULIUM LASER (canceled) Events Date Time Event Comment 08/10/2024 1626 WATER SYSTEMS DESIGNER Ready for Procedure Meds * Agents No [...] in an abandoned building, in an overnight long term, or couch-surfing.) Yes 08/09/2024 Are you worried [...] on file Legal Sex Male 3:18 AM HOSPITAL CLEANER Gender Identity Not on file Sexual Orientation [...] and realistic alternatives discussed. Questions answered and patient/traffic representative(s) expressed understanding. - Discussed: - Discussed [...] (Latest Contact Info) Description 11/23/2024 9:55 AM HOSPITAL CLEANER Hospital Encounter [facility] [address] [place] [phone] Eriberto Souza MD [address] [place] [address] 11/23/2024 9:55 AM HOSPITAL CLEANER - 11/23/2024 1:30 PM HOSPITAL CLEANER [facility] [address] [place] [phone] Eriberto Souza MD [address] [place] [phone] Holmium Laser Enucleation of the Prostate Scheduled Procedures Name Priority Associated Diagnoses Date/Ti me CYSTOSCOPY, WITH FULGURATION OF HEMORRHAGING BLOOD VESSEL AND THROMBUS REMOVAL Gross hematuria ENUCLEATION, PROSTATE, USING HOLMIUM LASER Benign prostatic hyperplasia with incomplete bladder emptying 11/23/2024 9:55 AM HOSPITAL CLEANER documented as of this encounter Visit Diagnoses Not on filedocumented in this encounter Care Teams Ortho Rn Relationship Specialty Start Date End Date [facility]- [address] [place] [address] PCP - General 07/24/21 documented as of this encounter
--- OUTSIDE RECORDS SUMMARY | 2024-10-14 15:11 | XMS_ITS | Continuity of Care Document ---
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 Plan of Treatment Reminders Order Date Submit Date Provider Last Modified By Organization Details Last Modified Time Details Appointments None recorded. Lab urinalysis, dipstick 2023 [facility], [address], [place], [address], 12:12:45 urinalysis, microscopic 2023 [facility], [address], [place], [address], 12:12:49 culture, urine 2023 [facility], [address], [place], [address], 10:21:30 Referral None recorded. Procedures None recorded. Surgeries None recorded. Imaging None recorded. Medication Orders None recorded. Patient TargetsNo targets recorded. Patient InstructionsNo instructions recorded. Reason for Referral None Reported. Results Created Date Observation Date Name Description Value Unit Range Abnormal Flag Note LastModifiedBy Organization Detail LastModifiedTime 08/21/2008/21/2024 MRI, prost ate, w/wo contr ast No observ ation record ed. 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 He has also had episod es of associ ated hematu leonidas second leah to self cathet erizat ion requir ing cauter izatio n. He has been on Flomax and Prosca r for his sympto ms, but to date has experi enced subopt imal sympto m contro l. He has been found to have post-v oid residu al volume s of 59 cc. His prosta te gland volume has been estima maria e at 160cc. Additi onally the patien t had a recent prosta te MRI with a BI-RAD S 3 lesion and increa sing PSA level with plan for biopsy in early er. The patien t's IPSS score is 14. He is here today to discus s the option of outpat ient transa rteria l prosta tic arteri al emboli zation , as a means to improv e his bladde r outlet obstru ction and hematu leonidas. PAST MEDICA L HISTOR Y: Gross hematu leonidas, aortic valve stenos is/bic uspid valve, prosta tomega ly PAST SURGIC AL HISTOR Y: Cystos copy, aortic valve replac ement, hernia repair SOCIAL HISTOR Y: Histor y of smokin g FAMILY HISTOR Y: None releva nt ALLERG IES: Shellf julio cesar, cats, tramad ol MEDICA TIONS: Prosca , lisino pril, Flomax , Valtre x, Coumad in REVIEW OF SYSTEM S: A focuse d 8 point review of system s was perfor med and was negati ve aside from what was mentio karine within the HPI. Vitals : BP: 132/75 , Heart Rate: 55, Oxygen Satura tion: 98% Consti tution al: Health y, alert, no acute distre ss Head: Normoc ephali c, atraum atic Cardio vascul ar: No cyanos is Respir atory: Normal respir atory effort /WOB Psychi atric: Bright /gita l affect . Normal mentat ion. IMAGIN G: Prosta te MRI 024 ASSESS MENT: Oleg Sparks is a 64 year male with signif icant lower urinar y obstru ctive sympto ms and hematu leonidas result ing from severe benign prosta tic hyperp lasia. These sympto ms have been bother some despit e therap y with tamsul osin and finast eride. His prosta te gland volume is report edly around 160 cc. Given his sympto motolo gy in need for long-t erm use of Coumad in, he has been referr ed for prosta tic artery emboli zation . Recent studie s show excell ent treatm ent respon ses with this therap y, which are especi ally robust in patien ts with larger prosta te glands such as his. The proced ure would give him a high probab ility of gland atroph y and improv ement of his sympto ms. The possib ility of a poor respon se to embolo therap y as well as the risk of sexual impair ment was discus sed with the patien t (altho ugh we also discus sed that patien ts who underg o this treatm ent actual ly show a trend toward s improv ement of erecti le functi on). Given his overal l condit ion and functi onal status , he is an excell ent candid ate for the proced ure, which could likely be done on an outpat ient basis. We also discus sed that should he need prosta te surger y in the future , the decrea sed blood flow to the prosta te from the PAE would likely decrea se any associ ated blood loss from the proced ure. Our clinic al reason ing and the availa ble litera ture were review ed with the patien t, and the plan, risks, benefi ts, and altern atives to prosta tic artery emboli zation were discus sed with the patien t, and he agreed to procee d with the follow ing treatm ent plan: 1. Pre-pr ocdure planni ng CTA 2. Pre-pr ocedur e labs: BMP, coags, and CBC. 3. Ciprof loxaci n 500mg BID and schedu led ibupro fen 600mg 2 days before the proced ure. The antibi otic will be contin ued for one week after, and the ibupro fen for 3 days after, and beyond that, as needed . 4. Bilate ral prosta tic artery emboli zation via right common femora l arteri al access . This will need to be done in specif ic fluoro scopy suites either at [facility] or [facility], as intra- proced ural rotati onal cone-b eam CT will be necess leah. The patien t would be admitt ed cheryl rodriguezt for observ ation to the IR servic e if need be, but would likely be able to be discha rged home the same day. 5. F/u 2-3 months s/p proced ure with repeat labs, IPSS questi onaire , and clinic visit. A total of 30 minute s was spent with the patien t, greate r than 75% of this time was spent counse ling the patien t on the diseas e and potent ial treatm ent option s. Thank you for your kind referr al and andrés haynes us to partic ipate in the care of this patiernestina t. Brian Chan M.D. [facility] Vascul ar and Interv ention al Radiol ogy Schedu ling: This report was electr onical ly interp reted by: DR. BRIAN CHAN M.D. [facility] - [address], [address], 09/19/2024 18:49:24 Result Notes None recorded. 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 Not Available [facility] 0 02:05:17 Prostate specific antigen above reference range 193276931 Active 2012 790.93 : ELEVATED PSA Not Available [facility] 0 02:05:17 Benign prostatic hyperplas ia with outflow obstructi on 039131613 Active 2020 Victorino Edmonds MD [address] [place] [address],[address], [address] [place] [address] , [facility] 1 14:32:18 Slowing of urinary stream 95030654 Active 2020 Victorino Edmonds MD [address] [place] [address],[address], [address] [place] [address] , [facility] 1 14:32:19 Elvis hematuria 096616735 Active 2020 Victorino Edmonds MD [address] [place] [address],[address], [address] [place] [address] , [facility] 1 14:32:20 Screening for malignant neoplasm of prostate Active 2023 Victorino Edmonds MD [address] [place] [address],[address], [address] [place] [address] , [facility] 4 12:43:12 Lower urinary tract symptoms due to benign prostatic hypertrop hy 65494573436 101 Active 2023 Victorino Edmonds MD [address] [place] [address],[address], [address] [place] [address] , [facility] 4 12:43:14 Urinary bladder stone 09135074 Active 2023 REJI ROCKWELL MD [address] [place] [address],[address], [address] [place] [address] , [facility] 4 22:04:09 Retention of urine 289870664 Active 2023 REJI ROCKWELL MD [address] [place] [address],[address], [address] [place] [address] , [facility] 4 22:06:05 Problem Notes None recorded. Procedures Surgical History Date Name Laterality Status Provider Name and Address Organization Details Recorded Time 09/21/20 24 Blood Draw/BANDER HAND/PSA RESULTS cancelled Nanci Escobar [facility] 09/18/2024 13:07:02 09/12/20 24 Urine Culture completed Nanci Escobar [facility] 09/11/2024 13:49:21 09/12/20 24 Urinalysis completed Nanci Escobar [facility] 09/11/2024 13:49:50 08/30/20 24 Fill and Pull/Voiding Trial/TOV completed Bridgett Rosen [facility] 08/30/2024 09:54:34 08/22/20 24 COMPLEX VISIT completed REJI ROCKWELL MD [address] [place] [address],[address], [address], [facility] 08/21/2024 22:14:06 06/22/20 24 Urine Culture completed Nanci Escobar [facility] 06/20/2024 14:35:49 06/22/20 24 Urinalysis completed Lewis Mera [facility] 06/22/2024 15:47:25 05/29/20 24 Bladder Scan completed Brianna Ferreira [facility] 05/29/2024 16:21:06 05/21/20 24 Urine Culture completed Fabby Casey [facility] 05/21/2024 15:28:58 05/21/20 24 Urinalysis completed Fabby Casey [facility] 05/21/2024 16:18:17 05/21/20 24 Bladder Scan completed Fabby Casey [facility] 05/21/2024 16:18:30 02/16/20 24 COMPLEX VISIT completed REJI ROCKWELL MD [address] [place] [address],[address], [place], [address], [facility] 02/16/2024 11:31:27 02/16/20 24 Bladder Scan completed Dayanna Corona [facility] 02/16/2024 10:49:59 12/23/19 24 Blood Draw/BANDER HAND/PSA RESULTS completed Eh Sheppard [facility] 12/23/2023 12:49:16 11/23/19 22 Prostate Biopsy Procedure completed Kane Garcia [facility] 11/23/2021 15:29:24 11/23/19 22 Gentamicin Injection completed Vee Stubbsie [facility] 11/23/2021 14:11:03 07/24/20 21 Cystoscopy- male completed Victorino Edmonds MD [address] [facility],[address], [place], [address], [facility] 07/24/2021 14:37:51 07/24/20 21 Bladder Scan completed Rosana Oconnell [facility] 07/24/2021 14:16:44 11/21/19 19 Colonoscopy completed Rosana Oconnell [facility] 07/24/2021 14:16:32 Excise epiphyseal bar completed Not [...] Name and Address Organization Details Recorded Time 668313 shellfish derived food,medi cation anaphylax is flushing Not available Not available Not available 12/23/2023 94656 UNK Not Available Health Note 4 07:52:31 608088 cat dander environme nt anaphylax is flushing respirato ry distress Not available Not available Not available Not available 12/23/2023 39846 UNK Not Available Health Note 4 07:52:31 494205 tramadol medicatio n irregular heart rate palpitati ons Not available Not available Not available 12/23/2023 71478 RxNorm Not Available Health Note 4 07:52:31 [...] Not Available Not Available No t Available sulfameth oxazole 800 mg-trimet hoprim 160 mg tablet TAKE 1 TABLET BY MOUTH TWICE DAILY FOR 5 DAYS active Not Available Not [...] TAKE 1 CAPSULE BY MOUTH TWICE DAILY FOR 5 DAYS active Not Available Not Available No t Available testoster one cypionate .5ml/200 mg 2/week [...] Is Your Level Of Alcohol Consumption? None [email or web address] Information not available 08/22/2024 What Is Your Level Of Caffeine Consumption? Moderate [email or web address] Information not available 12/23/2023 How Much Tobacco Do You Chew? None [email or web address] Information not available 12/23/2023 Do You Or Have You Ever Used E-cigarettes Or Vape? Never Used Electronic Cigarettes [email or web address] Information not available 12/23/2023 When Did You Quit Smoking? 1-5yearssincel astcigarette [email or web address] Information not available 08/22/2024 Recreational Drug Use [...] Has Tobacco Cessation Counseling Been Provided? No [email or web address] Information not available 08/22/2024 How Many Years Have You Smoked Tobacco? 25 [email or web address] Information not available 12/23/2023 Do You Or Have You Ever Used Any Other Forms Of Tobacco Or Nicotine? No [email or web address] Information not available 08/22/2024 How Many Days [...] Time Tdap 02/04/2012 completed CHERYL Boateng - [facility] 08/22/2024 09:50:41 Past Encounters Encounter ID Performer Location Encounter Start Date Encounter Closed Date Diagnosis/Indication Diagnosis SNOMED-CT Code Diagnosis ICD10 Code [id number] REJI ROCKWELL MD [facility] [address] [place] [phone] 08/22/2024 09:44:58 08/27/2024 11:12:24 Lower urinary tract symptoms due to benign prostatic hypertrophy 9280369240 9101 N40.1 Prostate s pecific antigen above reference range 215119161 R97.20 Elvis hematuria 89189520 5 R31.0 Urinary bladder stone 70 384810 N21.0 Retention of urine 19643 4002 R33.9 [id number] Bridgett Rosen [facility] [address] [place] [phone] 08/30/2024 09:23:15 08/31/2024 08:48:17 Retention of urine 582532664 R33.9 [id number] Ama Grace [facility] [address] [place] [phone] 09/12/2024 11:55:40 09/12/2024 11:58:59 Burning sensation 83221847 R20.8 Health Concerns Section Related Observation LastModified by Organization Detai ls LastModified Time None Recorded Concern Status LastModified by Organization Details LastModified Time None Recorded Payers Encounter Date Sequence Insurance Name Policy Number Policy Armenta Covered Member ID Armenta Member ID Guarantor Name 09/12/2024 1 [place]ARE [place] [employer] Oleg Sparks [id number] Oleg Sparks
--- OUTSIDE RECORDS SUMMARY | 2024-10-14 15:11 | XMS_ITS | Encounter Summary ---
Author Organization [facility] Address [address] [place] [address] Care Team Providers Care Quality Control Director Name Role Phone [facility]- Primary Care Provider Reason for Visit * Reason Comments Hematuria * Auth/Cert (Routine) Specialty Diagnoses / Procedures Referred By Eric hernandez Referred To Contact Med Surg Diagnoses Gross hematuria Supratherapeutic INR Problem with Box catheter, initial encounter (H) Gross hematuria Problem with Box catheter, initial encounter (H24) Supratherapeutic INR [place] [address] [facility] Surgical [address] [place] [address] Phone: tel: fax: Referral ID Status Reason Start Date Expiration Date Visits Re quested Visits Authorized [id number] 1 1 Encounter Details Date Type Department Care Team (Late st Contact Info) Description 08/11/2024 3:00 PM CDT - 08/11/2024 3:50 PM CDT Surgery [facility] PeriOp Services [address] [place] [phone] Adalberto Eldridge MD [address] [facility] [address] [place], [place] [id number] Cystoscopy, fulguration of the prostate Surgery Details [...] on file Legal 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 Gender Identity Not on file Sexual Orientation Not on file documented as of this encounter Last Filed Vital Signs Vital Sign Reading Time Taken Comments Blood Pressure 111/63 08/11/2024 3:50 PM CDT Pulse 75 08/11/2024 3:50 PM CDT Temperature 36.4 C (97.6 F) 08/11/2024 1:54 PM CDT Respiratory Rate 20 08/11/2024 3:50 PM CDT Oxygen Saturation 100% 08/11/2024 3:50 PM CDT Inhaled Oxygen Concentration - - Weight 70.1 kg (154 lb 8.7 oz) 08/09/2024 3:48 P M CDT Height 170.2 cm (5' 7) 08/09/2024 3:48 PM CDT Body Mass Index 25.14 08/09/2024 3:48 PM CDT documented in this encounter Discharge Summaries * Olvin Alejandre DO - 08/13/2024 1:29 PM CDT [facility] Hospitalist Discharge Summary Date of Admission: 08/09/2024 [...] tests Follow up with primary care provider, [facility], within 7 days for hospital follow- [...] working on discharge on 08/13/2024. Olvin Alejandre, [place] [address] MEDICAL SURGICAL [address] [facility] [address] Physical Exam Vital Signs: Temp: 98.4 ??F [...] pitting edema LE b/l. Primary Care Physician [facility] Discharge Orders INR CBC with platelets Reason for your hospital stay Hematuria. Follow-up and recommended labs and tests Follow up with primary care provider, [facility], within 7 days for hospital follow- [...] Morris PA-C - 08/13/2024 10:15 AM CDT [facility] Progress Note Assessment and Plan: Assessment: POD 2 Cystoscopy, evacuation of bladder hematoma, removal of bladder stones, fulguration of the prostate Gross hematuria Supratherapeutic INR Problem with Box catheter, initial encounter (H24) Plan: -Continue with three-way Box catheter. Can plug CBI irrigation port. -Continue Flomax 0.4 mg once daily and finasteride 5 mg daily. -Follow-up as planned with primary urologist at [facility] for MRI of the prostate and consider ation of possible outlet procedure and bladder stone removal. -Okay to cautiously transition blood thinner. Given patient's mechanical valve, will need to limitiholding anticoagulation. -Patient is willing to learn/discharge with information on how to flush is Box catheter at home. -Okay to discharge from a urology perspective. Will follow peripherally. Genesis Morris PA-C [facility] [phone] Interval History: Had quite a bit of [...] 5 mg 5 mg Oral Daily Olvin Alejandre, 5 mg at 08/13/24 0828 HYDROmorphone (DILAUDID) [...] Alejandre, DO - 08/12/2024 1:59 PM CDT [facility] Medicine Progress Note - Hospitalist Service Date [...] Anticipated Tomorrow Olvin Alejandre DO Hospitalist Service [facility] Securely message with LoLo (more info) Text page via [facility] Paging/Directory Interval History Some bladder pain. [...] plan to follow-up with his urologist with [facility]. (He does not know the name [...] Alejandre, DO - 08/11/2024 1:34 PM CDT [facility] Medicine Progress Note - Hospitalist Service Date [...] 2-4 Days Olvin Alejandre DO Hospitalist Service [facility] Securely message with LoLo (more info) Text page via [employer] Paging/Directory Interval History Continues having bladder pain [...] Alejandre, DO - 08/10/2024 2:28 PM CDT [facility] Medicine Progress Note - Hospitalist Service Date [...] 2-4 Days Olvin Alejandre DO Hospitalist Service [facility] Securely message with LoLo (more info) Text page via [facility] Paging/Directory Interval History Continues any blood in [...] Easton MD - 08/09/2024 9:26 PM CDT [facility] History and Physical Hospitalist Date of Admission: [...] days Uziel Easton MD Primary Care Physician [facility] Chief Complaint Hematuria History is obtained [...] from the original note were not included. [facility] Consultation by [facility] @NAME@ Age: [age] year old [...] be corrected as well Adalberto Eldridge M.D. [facility] [phone] Chief Complaint: History is obtained from the patient and EMR. History of Present Illness: This patient is a 64 year old male admitted with gross hematuria and clot retention. He has a knownenlarged prostate with elevated PSA. He sees Dr. Stubbs with [facility]. The patient that he has an [...] Package accidentally thrown away prior to scanning. Powerplant Operator administered with JENNIFER Alvarez also at bedside. * Tangela Artis RN - 08/09/2024 9:00 PM CDT Patient's son continually pressing call light and coming out of room asking for pain medication/nursing intervention. Provider notified and 0.3mg dilaudid and ditropan ordered. * Pam Chin RN - 08/09/2024 8:03 PM CDT [facility] ED Nurse Handoff Report ED Chief complaint: Hematuria . ED Diagnosis: Final diagnoses: Gross hematuria Problem with Box catheter, initial encounter (H24) Supratherapeutic INR Allergies: Allergies Allergen Reactions Shellfish-Derived Products Anaphylaxis Cats Code Status: Full Code Activity level - Baseline/Home: independent. Activity Level - Current: standby. Lift room needed: No. Bariatric: No Chinese Instructor Needed: No Isolation: No. Infection: Not Applicable. [...] that 2 days ago,he was fishing in [facility] [place] near [place] and began experiencing an onset of urinary [...] clot blocking the catheter. He follows with [facility] for his hx of enlarged prostate. [...] Bilirubin Urine Negative Ketones Urine Negative Specific [place] Urine 1.005 Blood Urine Large (*) pH [...] August 09, 2024 at 8:42 PM I Donald called the ED to inform them the [...] 2 days ago, he was fishing in [place] and began experiencing an onset of urinary [...] clot blocking the catheter. He follows with [facility] for his hx of enlarged prostate. [...] Bilirubin Urine Negative Ketones Urine Negative Specific [place] Urine 1.005 Blood Urine Large (*) pH [...] ED Course ED Course as of 08/09/242025 [facility] Aug 09, 2024 1614 I obtained history and examined the patient as noted above. Additional Documentation None Medical Decision Making / Diagnosis [facility] Diagnoses: None MIPS None MDM Oleg Sparks [...] Notes * Pharmacy-Anticoagulation Service - Andreia Johnston [facility] - 08/13/2024 12:46 PM CDT Images from the original note were not included. 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 INR Goal= 2.5-3.5 Expected length of therapy lifetime. Warfarin SILVERING DEPARTMENT SUPERVISOR Regimen: 4mg Tu/Sun, 8mg ROW Anticoagulation Dose [...] during the last 7 days: --- Reviewed SILVERING DEPARTMENT SUPERVISOR, inpt and discharge meds. Pt admitted with elevated INR, likely due to bactrim interaction (SILVERING DEPARTMENT SUPERVISOR med). Pt INR now subtherapeutic. On enoxaparin bridge. Agree with MD plan to discharge pt on SILVERING DEPARTMENT SUPERVISOR warfarin dose (Bactrim has been discontinued) and [...] and tearful about INR level with PVR. Powerplant Operator paged xc who then ultimately started a [...] Pain Recent Flowsheet Documentation Taken 08/12/20242130 by Wehrspann, Sheela A, RN Sensory Stimulation Regulation: care clustered television [...] shift note. Outcome: Progressing Flowsheets (Taken 08/12/2024 5911) Outcome Evaluation: less pain Plan of Care [...] in the bladder. I used the Urovac tube cutter to irrigate out the hematoma. With this [...] and drained the bladder with a 24 [place] three-way Box catheter. I hand irrigate the [...] passing large clotsdespite CBI running wide open. Powerplant Operator tried to hand irrigate for over 30 [...] Date/Time: 08/10/2024 0624 Mechanism of Provider Notification: [employer] Purpose of Notification: Paged MD to request Dilaudid to accompany B + O suppository for severe bladder spasms. worried about giving B + O with low BPs overnight. Got an updated BP and ok'd to give. MD Magallon ordered IV Dilaudid 0.2mg x1 dose. Powerplant Operator asked if CBI should continue despite spasms, red color, and high output. wanted it to keep running. Orders Received: Comments: * Plan of Care - Sabine Goldberg RN - 08/10/2024 7:03 AM CDT Assumed care [id number]. A&Ox4. Ax1 when OOB. On RA. NPO [...] Notification Date/Time: 08/10/2024242 Mechanism of Provider Notification: LoLo messaging Purpose of Notification: FYI Patient's most [...] Pertinent Information: outside meds Changes made to SILVERING DEPARTMENT SUPERVISOR medication list: Added: valtrex, lisinopril, ditropan, Bactrim DS, proscar Deleted: None Changed: warfarin Allergies reviewed with patient and updates made in EHR: yes --added tramadol Medication History Completed By: Niall Jaeger RPH 08/09/2024 9:01 PM SILVERING DEPARTMENT SUPERVISOR Med List Medication Sig Last Dose finasteride [...] (Latest Contact Info) Description 11/23/2024 9:55 AM [facility] Hospital Encounter [facility] [address], [address] [place] [address] Eriberto Souza MD [address] [place], [place] [phone] 11/23/2024 9:55 AM FACULTY MEMBER - 11/23/2024 1:30 PM FACULTY MEMBER [facility] [address], [address] [place] [phone] Eriberto Souza MD [address] [place] [address] Holmium Laser Enucleation of the Prostate Pending [...] with incomplete bladder emptying 11/23/2024 9:55 AM FACULTY MEMBER documented as of this encounter Procedures Procedure [...] CBC with platelets (08/13/2024 6:48 AM CDT) [facility] WBC Count 8.4 4.0 - 11.0 10e3/uL [...] BLOOD ORDERABLES Fin al Result RH LABORATORY [facility] [address] [facility] Lab (1st floor, no room number) [place] [address] * Heparin Unfractionated Anti Xa Level [...] LAB - BLOOD ORDERABLES Final Result LABORATORY [facility] [address] Lab (1st floor, no room number) [place] [address], [facility] * (ABNORMAL) INR (08/13/2024 6:37 AM CDT) INR 1.16(H) 0.85 - 1.15 08/13/2024 7:01 AM CDT LABORATORY Blood STRUCTURE OF RIGHT HAND / Unknown Venipuncture / Unknown 08/13/2024 6:37 AM CDT 08/13/2024 6:49 AM CDT lOvin Alejandre DO LAB - BLOOD ORDERABLES Fin al Result Performing Organization Address City/[facility]/ZIP Co de Phone Number LABORATORY [facility] [address] Lab (1st floor, no room number) [place] [address], [facility] * (ABNORMAL) Basic metabolic panel (08/13/2024 [...] ORDERABLES Fin al Result Performing Organization Address City/[facility]/ZIP Co de Phone Number [facility] [address] Lab (1st floor, no room number) [address] [place] [address] * (ABNORMAL) Ionized Calcium (08/13/2024 6:37 AM CDT) Calcium Ionized Whole Blood 4.2(L) 4.4 - 5.2 mg/dL 08/13/2024 7:00 AM CDT LABORATORY Blood STRUCTURE OF RIGHT HAND / Unknown Venipuncture / Unknown 08/13/2024 6:37 AM CDT 08/13/2024 6:49 AM CDT Olvin Alejandre LAB - BLOOD ORDERABLES Fin al Result [facility] [address] [facility], no room number) [place] [phone] [place] [address] * (ABNORMAL) INR (08/12/2024 11:24 PM CDT) INR 1.35(H) 0.85 - 1.15 08/12/2024 11:57 PM CDT RH LABORATORY Blood STRUCTURE OF RIGHT HAND / Unknown Venipuncture / Unknown 08/12/2024 11:24 PM CDT 08/12/2024 11:33 PM CDT us Grant Fernandez MD LAB - BLOOD ORDERABLES Final Res ult RH LABORATORY [facility] [address] Lab (1st floor, no room number) [place] [address] * (ABNORMAL) CBC with platelets (08/12/2024 [...] - BLOOD ORDERABLES Final Res ult LABORATORY [facility] [address] Lab (1st floor, no room number) [place] [address] * (ABNORMAL) Hemoglobin (08/12/2024 12:27 PM CDT) Hemoglobin 8.9(L) 13.3 - 17.7 g/dL 08/12/2024 12:56 PM CDT LABORATORY Blood STRUCTURE OF RIGHT HAND / Unknown Venipuncture / Unknown 08/12/2024 12:27 PM CDT 08/12/2024 12:53 PM CDT Adalberto Eldridge MD LAB - BLOOD ORDERABLES Final Result Performing Organization Address City/[facility]/ZIP Co de Phone Number LABORATORY [facility] [address] Lab (1st floor, no room number) [place] [phone] * (ABNORMAL) Basic metabolic panel (08/12/2024 [...] BLOOD ORDERABLES Final Result Performing Organization Address City/[facility]/ZIP Co de Phone Number [facility] [address] Lab (1st floor, no room number) [address] * (ABNORMAL) INR (08/12/2024 6:12 AM CDT) INR 1.84(H) 0.85 - 1.15 08/12/2024 6:50 AM CDT LABORATORY Blood STRUCTURE OF RIGHT HAND / Unknown Venipuncture / Unknown 08/12/2024 6:12 AM CDT 08/12/2024 6:30 AM CDT Adalberto Eldridge MD LAB - BLOOD ORDERABLES Final Result [facility] Lab [address] Lab (1st floor, no room number) [address] * (ABNORMAL) CBC with platelets (08/12/2024 [...] MD LAB - BLOOD ORDERABLES Final Result [facility] [address] Lab (1st floor, no room number) [place] [phone] [place] [address] * (ABNORMAL) Hemoglobin (08/11/2024 6:03 PM CDT) Hemoglobin 9.5(L) 13.3 - 17.7 g/dL 08/11/2024 6:10 PM CDT RH LABORATORY Blood STRUCTURE OF RIGHT UPPER LIMB / Unknown Venipuncture / Unknown 08/11/2024 6:03 PM CDT 08/11/2024 6:07 PM CDT Adalberto Eldridge MD LAB - BLOOD ORDERABLES Final Result [facility] Lab [address] Lab (1st floor, no room number) [place] [address] * Stone analysis (08/11/2024 3:34 PM CDT) Stone Mass 273 mg 08/16/2024 9:47 AM CDT [facility] Calculi Description See Note 08/16/2024 9:47 AM CDT [facility] Comment: Specimen consists of numerous brown calculi. The total weight is 273 mg. Stone Composition See Note 9:47 AM CDT [facility] Comment: Calculi composed primarily of: 20% [...] composition determined by FTIR analysis. Performed By: [facility] [address] [place] [address] General Operator: Noah Moran MD, PhD CLIA Number: [id number] Calculus/Stone URINARY BLADDER STRUCTURE / Unknown Non-blood Collection / Unknown 08/11/2024 3:34 PM CDT 08/11/2024 4:00 PM CDT Adalberto Eldridge MD LAB - BODY FLUIDS ORDER AMANDA Final Result [address] [address], [facility] [phone] * Adult Type and Screen (08/11/2024 12:27 PM CDT) ABO/RH(D) O POS 08/11/2024 12:17 PM CDT RH BLOOD BANK Antibody Screen Negative Negative 08/11/2024 12:17 PM CDT RH BLOOD BANK SPECIMEN EXPIRATION DATE [id number] 08/11/2024 12:17 PM CDT RH BLOOD BANK Blood STRUCTURE OF RIGHT HAND / Unknown Venipuncture / Unknown 08/11/2024 12:27 PM CDT 08/11/2024 12:33 PM CDT Olvin Alejandre DO LAB - BLOOD BANK TEST ORDE R Final Result BLOOD BANK [address] [place] [address] * (ABNORMAL) INR (08/11/2024 12:27 PM CDT) INR 2.47(H) 0.85 - 1.15 08/11/2024 1:18 PM CDT RH LABORATORY Blood STRUCTURE OF RIGHT HAND / Unknown Venipuncture / Unknown 08/11/2024 12:27 PM CDT 08/11/2024 12:33 PM CDT Olvin Alejandre DO LAB - BLOOD ORDERABLES Fin al Result Performing Organization Address City/[facility]/ZIP Co de Phone Number LABORATORY [facility] [address] [facility] Lab (1st floor, no room number) [place] [address] * (ABNORMAL) CBC with platelets (08/11/2024 5:51 [...] - BLOOD ORDERABLES Fin al Result LABORATORY [facility] [address] Lab (1st floor, no room number) [place] [address], [facility] * (ABNORMAL) Basic metabolic panel (08/11/2024 5:51 [...] ORDERABLES Fin al Result Performing Organization Address City/[facility]/ZIP Co de Phone Number [facility] [address] Lab (1st floor, no room number) [place] [address] * (ABNORMAL) INR (08/11/2024 5:51 AM CDT) INR 3.67(H) 0.85 - 1.15 08/11/2024 6:46 AM CDT LABORATORY Blood STRUCTURE OF RIGHT HAND / Unknown Venipuncture / Unknown 08/11/2024 5:51 AM CDT 08/11/2024 6:02 AM CDT us Olvin Alejandre DO LAB - BLOOD ORDERABLES Fin al Result Performing Organization Address [facility] Co de Phone Number [facility] [address] Lab (1st floor, no room number) [place] [address] * (ABNORMAL) Hemoglobin (08/10/2024 10:40 PM CDT) Hemoglobin 11.1(L) 13.3 - 17.7 g/dL 08/10/2024 10:46 PM CDT LABORATORY Blood STRUCTURE OF RIGHT HAND / Unknown Venipuncture / Unknown 08/10/2024 10:40 PM CDT 08/10/2024 10:44 PM CDT us Olvin Alejandre DO LAB - BLOOD ORDERABLES Fin al Result Performing Organization Address City/[facility]/ZIP Co de Phone Number [facility] [address] Lab (1st floor, no room number) [place] [address] * (ABNORMAL) INR - Pre-Op (08/10/2024 3:58 PM CDT) INR 4.32(H) 0.85 - 1.15 08/10/2024 4:48 PM CDT LABORATORY Blood STRUCTURE OF RIGHT UPPER LIMB / Unknown Venipuncture / Unknown 08/10/2024 3:58 PM CDT 08/10/2024 4:02 PM CDT Adalberto Eldridge MD LAB - BLOOD ORDERABLES Final Result LABORATORY [facility] [address] Lab (1st floor, no room number) [place] [address] * (ABNORMAL) Glucose by meter (08/10/2024 3:50 PM CDT) [facility] GLUCOSE BY METER POCT 102(H) 70 - 99 mg/dL 08/10/2024 4:21 PM CDT LABORATORY POC Blood, Capillary BLOOD SPECIMEN / Unknown 08/10/2024 3:50 PM CDT 08/10/2024 4:21 PM CDT Uziel Easton MD LAB - BEAKER POCT Joy l Result LABORATORY [facility] Lab [address] Lab (1st floor, no room number) [place] [address] * (ABNORMAL) CBC with platelets and [...] MD LAB - BLOOD ORDERABLES Final Result [facility] Lab [address] Lab (1st floor, no room number) [place] [address] * (ABNORMAL) INR (08/10/2024 10:34 AM CDT) INR 4.33(H) 0.85 - 1.15 08/10/2024 11:01 AM CDT RH LABORATORY Blood STRUCTURE OF RIGHT UPPER LIMB / Unknown Venipuncture / Unknown 08/10/2024 10:34 AM CDT 08/10/2024 10:41 AM CDT Olvin Alejandre DO LAB - BLOOD ORDERABLES Fin al Result [facility] [address] Lab (1st floor, no room number) [place] [address], [facility] * Hemoglobin (08/10/2024 10:34 AM CDT) Hemoglobin 13.4 13.3 - 17.7 g/dL 08/10/2024 10:44 AM CDT LABORATORY Blood STRUCTURE OF RIGHT UPPER LIMB / Unknown Venipuncture / Unknown 08/10/2024 10:34 AM CDT 08/10/2024 10:41 AM CDT Uziel Easton MD LAB - BLOOD ORDERABLES Final Result [facility] [address] Lab (1st floor, no room number) [place] [address], [facility] * (ABNORMAL) Basic metabolic panel (08/10/2024 10:34 [...] LAB - BLOOD ORDERABLES Final Result LABORATORY [facility] [address] Lab (1st floor, no room number) [place] [address], [facility] * CT Abdomen Pelvis w/o Contrast [...] No hydronephrosis. ALBERT ADAMS MD SYSTEM ID: [id number] Narrative 08/10/2024 3:[address] ABDOMEN [...] No hydronephrosis. ALBERT ADAMS MD SYSTEM ID: [id number] Adalberto Eldridge MD [facility] ORDERABLES Final Result * (ABNORMAL) Hemoglobin (08/10/2024 3:07 AM CDT) Hemoglobin 11.6(L) 13.3 - 17.7 g/dL 08/10/2024 3:52 AM CDT RH LABORATORY Blood STRUCTURE OF RIGHT HAND / Unknown Venipuncture / Unknown 08/10/2024 3:07 AM CDT 08/10/2024 3:09 AM CDT Zainab Magallon MD LAB - BLOOD ORDERABLES Fi nal Result LABORATORY [facility] [address] Lab (1st floor, no room number) [place] [phone] [place] [address] * Hemoglobin (08/09/2024 11:33 PM CDT) Hemoglobin 14.7 13.3 - 17.7 g/dL 08/09/2024 11:43 PM CDT LABORATORY Blood STRUCTURE OF RIGHT HAND / Unknown Venipuncture / Unknown 08/09/2024 11:33 PM CDT 08/09/2024 11:41 PM CDT Uziel Easton MD LAB - BLOOD ORDERABLES Final Result Performing Organization Address City/[facility]/ZIP Co de Phone Number LABORATORY [facility] Lab [address] Lab (1st floor, no room number) [place] [id number] * (ABNORMAL) UA with Microscopic reflex [...] mg/dL 08/09/2024 7:55 PM CDT LABORATORY Specific [place] Urine 1.005 1.003 - 1.035 08/09/2024 [...] URINE ORDERABLES Fi nal Result RH LABORATORY [facility] [address] Lab (1st floor, no room number) [place] [address] * (ABNORMAL) CBC with platelets and [...] BLOOD ORDERABLES Fi nal Result RH LABORATORY [facility] [address] Lab (1st floor, no room number) [place] [address] * (ABNORMAL) INR (08/09/2024 5:40 PM CDT) INR 4.26(H) 0.85 - 1.15 08/09/2024 7:06 PM CDT RH LABORATORY Blood STRUCTURE OF LEFT UPPER LIMB / Unknown Venipuncture / Unknown 08/09/2024 5:40 PM CDT 08/09/2024 5:44 PM CDT us Amilcar Holt MD LAB - BLOOD ORDERABLES Fi nal Result LABORATORY [facility] [address] Lab (1st floor, no room number) [place] [phone] [place] [address] * (ABNORMAL) Basic metabolic panel (08/09/2024 5:40 [...] LAB - BLOOD ORDERABLES nal Result LABORATORY [facility] [address] [facility] Lab (1st floor, no room number) [place] [address], [facility] documented in this encounter Visit Diagnoses Diagnosis Gross hematuria Problem with Box catheter, initial encounter (H) Supratherapeutic INR Abnormal coagulation profile Gross hematuria Supratherapeutic INR Abnormal coagulation profile Problem with Box catheter, initial encounter (H) Gross hematuria Benign prostatic hyperplasia with incomplete [...] Subcutaneous, EVERY 12 HOURS, First dose on 08/13/24 at 1300, Give first dose within 1 [...] dialysis., Starting on Tue08/11/24 at 1430, Until Tue08/13/24 at 1529 Restarted 08/11/2024 3:47 PM CDT [...] 6 HOURS PRN, nausea, vomiting, Starting on Tue08/09/24 at 2223, This is Step 1 of [...] 1514 ($Given - Provider: Yvonne White APRN AUTOMOTIVE TECHNOLOGY INSTRUCTOR) enoxaparin ANTICOAGULANT (LOVENOX) injection 70 mg 70 [...] RN)1546 (Paused - Provider: Yvonne White APRN AUTOMOTIVE TECHNOLOGY INSTRUCTOR - Comment: Switch to gravity)1547 (Restarted - Provider: Yvonne White APRN AUTOMOTIVE TECHNOLOGY INSTRUCTOR) sodium chloride 0.9 % infusion (CANCELED) at [...] stools. documented in this encounter Care Teams Quality Control Director Relationship Specialty Start Date End Date [facility]- [address] [place] [address] PCP - General 07/24/21 documented as of this encounter
--- OUTSIDE RECORDS SUMMARY | 2024-10-14 15:11 | XMS_ITS ---
Author Organization Holder Address [address] [place] [address] Care Team Providers Care Booking Agent Name Role Phone [facility]- Primary Care Provider Adalberto Eldridge MD Unavailable [phone] Transitional Care Management Status:Closed (Closed) Start date:08/14/2024 Enrollment date:08/15/2024 End date:08/28/2024 Close reason:Goals met Continued Care and Services Coordination
--- OUTSIDE RECORDS SUMMARY | 2024-10-14 15:11 | XMS_ITS | Continuity of Care Document ---
Author Organization [facility], [facility] Address [address] [facility] [address] [place] [address] Care Team Providers Care Lathe Machinist Name Role Phone [facility] Primary Care Provider MARIA ANTONIA MONTES DE OCA Primary Care Provider Assessment No assessment recorded. Plan of Treatment Reminders Order Date Submit Date Provider Last Modified By Organization Details Last Modified Time Details Appointments None recorded. Lab None recorded. Referral interventio nal radiologist referral - referral for prostatic arterial embolizatio n prior to HoLEP outlet surgery 2023 [facility] ([facility]), [address], [place], [address], 17:14:24 Procedures None recorded. Surgeries None recorded. Imaging None recorded. Medication Orders finasteride 5 mg tablet 2023 [facility] #[id number], [id number], [place], [phone], 18:29:48 tamsulosin 0.4 mg capsule 2023 [facility] #[id number], [id number], [place], [id number], 18:29:48 Patient TargetsNo targets recorded. Patient Instructions Encounter Date Encounter Id Patient Instructions Last Modified By Organization Details Last Modified Time 08/22/2024 [id number] Today we discuss ed the patient's ongoing [...] results and we will discuss next steps. [email or web address] Not available 08/22/2024 10:23:10 Reason for Referral [...] contr ast No observ ation record ed. [email or web address] [facility] [address] [facility] [address], [place], [address], 08/21/2024 12:43:46 09/19/20 24 09/19/2024 ir consu lt new patie nt [facility] O[facility] INTERV ENTION AL RADIOL OGY CLINIC NOTE INITIA L VISIT REFERR ED BY Reji Crowley and; Margarita Luque HISTOR Y OF PRESEN T JOHNATHAN S: Oleg Sparks is a 64 year [...] level with plan for biopsy in early b er. The patien t's IPSS score is [...] repair SOCIAL HISTOR Y: Histor y of vilmasd g FAMILY HISTOR Y: None releva nt ALLERG IES: Shellf julio cesar, cats, tramad ol MEDICA TIONS: Prosca , lisino pril, Flomax , Valtre x, Coumad in REVIEW OF SYSTEM S: A focuse d 8 point review of system s was perfor med and was negati ve aside from what was mentio karien within the HPI. Vitals : BP: 132/75 [...] litera ture were review ed with the tere t, and the plan, risks, benefi ts, and altern atives to prosta tic artery emboli zation were discus sed with the patiernestina t, and he agreed to procee d [...] specif ic fluoro scopy suites either at [facility] or [facility] hospit al, as intra- proced ural rotati onal cone-b eam CT will be necess leah. The patien t would be admitt ed cheryl t for observ ation to the IR servic e if need be, but would likely be able to be discha rged home the same day. 5. F/u 2-3 months s/p proced ure with repeat labs, IPSS questi onaire , and clinic visit. A total of 30 minute s was spent with the junie moura r than 75% of this time was spent counse ling the patien t on the diseas e and potent ial treatm ent option s. Thank you for your kind referr al and andrés ng us to partic ipate in the care of this tere hernandez. Brian Chan M.D. [facility] Vascul ar and Interv ention al Radiol ogy Schedu ling: This report was electr onical ly interp reted by: DR. BRIAN CHAN M.D. [email or web address] [facility] - [address], [address], 09/19/2024 18:49:24 Result Notes None recorded. 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 Not Available [facility] 0 02:05:17 Prostate specific antigen above reference range 556562781 Active 2012 790.93 : ELEVATED PSA Not Available [facility] 0 02:05:17 Benign prostatic hyperplas ia with outflow obstructi on 991475047 Active 2020 Victorino Edmonds MD [address] [place] [address],[address] [place] [address], [address] , [facility] 1 14:32:18 Slowing of urinary stream 73738845 Active 2020 Victorino Edmonds MD [address] [place] [address],[address], [address] , [facility] 1 14:32:19 Elvis hematuria 250060695 Active 2020 Victorino Edmonds MD [address] [place] [address],[address] [place] [address], [address] , [facility] 1 14:32:20 Screening for malignant neoplasm of prostate Active 2023 Victorino Edmonds MD [address] [place] [address],[address] [place] [address], [address] , [facility] 4 12:43:12 Lower urinary tract symptoms due to benign prostatic hypertrop 16750610714 101 Active 2023 Victorino Edmonds MD [address] [place] [address],[address] [place] [address], [address] , [facility] 4 12:43:14 Urinary bladder stone 33988408 Active 2023 REJI SOLIS MD [address] [place] [address],[address] [place] [address], [address] [place] [address] , [facility] 4 22:04:09 Retention of urine 836591491 Active 2023 REJI SOLIS MD [address] [place] [address],[address] [place] [address], [address] , [facility] 4 22:06:05 Problem Notes None recorded. Procedures Surgical History Date Name Laterality Status Provider Name and Address Organization Details Recorded Time 09/21/20 24 Blood Draw/LAPPING MACHINE SET UP OPERATOR/PSA RESULTS cancelled Nanci Escobar [facility] 09/18/2024 13:07:02 09/12/20 24 Urine Culture completed Nanci Escobar [facility] 09/11/2024 13:49:21 09/12/20 24 Urinalysis completed Nanci Escobar [facility] 09/11/2024 13:49:50 08/30/20 24 Fill and Pull/Voiding Trial/TOV completed Bridgett Rosen [facility] 08/30/2024 09:54:34 08/22/20 24 COMPLEX VISIT completed REJI SOLIS MD [address] [place] [address],[address], [place], [address], [facility] 08/21/2024 22:14:06 06/22/20 24 Urine Culture completed Nanci Escobar [facility] 06/20/2024 14:35:49 06/22/20 24 Urinalysis completed Lewis Mera [facility] 06/22/2024 15:47:25 05/29/20 24 Bladder Scan completed Brianna Ferreira [facility] 05/29/2024 16:21:06 05/21/20 24 Urine Culture completed Fabby Casey [facility] 05/21/2024 15:28:58 05/21/20 24 Urinalysis completed Fabby Casey [facility] 05/21/2024 16:18:17 05/21/20 24 Bladder Scan completed Fabby Casey [facility] 05/21/2024 16:18:30 02/16/20 24 COMPLEX VISIT completed REJI SOLIS MD [address] [place] [address],[address], [place], [address], [facility] 02/16/2024 11:31:27 02/16/20 24 Bladder Scan completed Dayanna Corona [facility] 02/16/2024 10:49:59 12/23/19 24 Blood Draw/LAPPING MACHINE SET UP OPERATOR/PSA RESULTS completed Eh Sheppard [facility] 12/23/2023 12:49:16 11/23/19 22 Prostate Biopsy Procedure completed Kane Garcia [facility] 11/23/2021 15:29:24 11/23/19 22 Gentamicin Injection completed Vee Anguiano [facility] 11/23/2021 14:11:03 07/24/20 21 Cystoscopy- male completed Victorino Edmonds MD [address] [place] [address],[address], [place], [address], [facility] 07/24/2021 14:37:51 07/24/20 21 Bladder Scan completed Rosana Oconnell [facility] 07/24/2021 14:16:44 11/21/19 19 Colonoscopy completed Rosana Oconnell [facility] 07/24/2021 14:16:32 Excise epiphyseal bar completed [...] Name and Address Organization Details Recorded Time 132902 shellfish derived food,medi cation anaphylax is flushing Not available Not available Not available 12/23/2023 07490 UNK Not Available Health Note 4 07:52:31 574990 cat dander environme nt anaphylax is flushing respirato ry distress Not available Not available Not available Not available 12/23/2023 18298 UNK Not Available Health Note 4 07:52:31 944640 tramadol medicatio n irregular heart rate palpitati ons Not available Not available Not available 12/23/2023 03685 RxNorm Not Available Health Note 4 07:52:31 [...] Updated DateTime 08/22/2024 170.18 cm 25.8 kg/m2 60692.74 g Sumeet Felix [place] [facility] 08/22/2024 09:50:37 Social History Question Answer Notes LastModified by Organizat ion Details LastModified Time Tobacco Smoking Status Former Smoker Not Available Health Note 12/23/2023 07:52:32 What Is Your Level Of Alcohol Consumption? None [email or web address] Information not available 08/22/2024 What Is Your Level Of Caffeine Consumption? Moderate [email or web address] Information not available 12/23/2023 How Much Tobacco Do You Chew? None [email or web address] Information not available 12/23/2023 Do You Or Have You Ever Used E-cigarettes Or Vape? Never Used Electronic Cigarettes [email or web address] Information not available 12/23/2023 When Did You Quit Smoking? 1-5yearssincel [email or web address] Information not available 08/22/2024 Recreational Drug Use [...] Has Tobacco Cessation Counseling Been Provided? No [email or web address] Information not available 08/22/2024 How Many Years Have You Smoked Tobacco? 25 [email or web address] Information not available 12/23/2023 Do You Or Have You Ever Used Any Other Forms Of Tobacco Or Nicotine? No [email or web address] Information not available 08/22/2024 How Many Days In The Past Year Have You Consumed 5 Or More Drinks? 1 [email or web address] Information no t available 12/23/2023 Sex: Unknown Functional Status None recorded. Mental Status None recorded. Family History Nothing Reported. Medical History Condition Response High Blood Pressure N Kidney Stones N Depression N Lung Disease N GERD/Acid Reflux N Sexually Transmitted Infection N Diabetes N Bleeding Disorder N Cancer N High Cholesterol Y Heart Disease N Immunizations Vaccine Type Date Status Provider Name and Address Organization Details Recorded Time Tdap 02/04/2012 completed S[facility] 08/22/2024 09:50:41 Past Encounters Encounter ID Performer Location Encounter Start Date Encounter Closed Date Diagnosis/Indication Diagnosis SNOMED-CT Code Diagnosis ICD10 Code [id number] REJI SOLIS MD [facility] [address] [place] [phone] 08/22/2024 09:44:58 08/27/2024 11:12:24 Lower urinary tract symptoms due to benign prostatic hypertrophy 5303200097 9101 N40.1 Prostate s pecific antigen above reference range 517145399 R97.20 Elvis hematuria 48356914 5 R31.0 Urinary bladder stone 70 534487 N21.0 Retention of urine 51019 4002 R33.9 Health Concerns Section Related Observation LastModified by Organization Detai ls LastModified Time None Recorded Concern Status LastModified by Organization Details LastModified Time None Recorded Payers Encounter Date Sequence Insurance Name Policy Number Policy Armenta Covered Member ID Armenta Member ID Guarantor Name 08/22/2024 1 [place]ICARE [place] [employer] [facility] Oleg Sparks [id number] Oleg Parks Bridger Notes Date Note Type Note Provider Name and Address Organization Details Recorded Time 4 text/htm l 64-year-old male with history of BPH with LUTS, urinary retention, gross hematuria, and elevated PSA. BPH WITH LUTSCurrently on dual medical therapy with tamsulosin 0.4 mg daily and finasteride 5 mg daily. He is averse to taking medications long termNo prior urologic surgeries He has had prior urinary retention requiring catheterizationRecurrent hematuria with recent attempt at self cath resulting in gross hematuria with clot retention requiring cysto with clot evac and fulguration as well as evacuation of some of the bladder stones(but larger ones remain) (Salvador Lorrainedevonte, Dr. Eldridge) on 08/11/24. Now with indwelling box again. Previously described urinary symptoms include:He does have difficulty urinating especially after he holds its back for a period of time and sometimes has to strain; +Double voidingNocturia x2He has post-void dribblingDenied urinary incontinence IPSS2: 143: 14 (QoL: mostly dissatisfied)08/22/24: 18 (QoL: terrible)IIEF02/16/24: 27CFQ02/16/24: 1010: 8 (leakage once per week or less) ELEVATED PSAPSA4 = 5.22/02/01 = 6.599/08/2020 = 6.43/09/10 = 4.062 = 13.27 (corrects to 26.54 on finasteride)Prostate biopsy on 08/29/[address] Riley was negative.Prostate MRI 08/05/21 ([place]) = 118 gram prostate, PIRADS 3 lesion x 1.S/p Uronav prostate biopsy by Dr. Garcia on 11/23/21 = negative.Repeat prostate MRI on 08/21/24 - 160 cc gland; PIRADS 3 lesion GROSS HEMATURIAHad gross hematuria in early/mid April 2021. Reportedly associated with elevated INR (~5). He underwent work up as below:Cystoscopy 07/24/21 showed a very large prostate without any bladder tumors or stones.Urine cytology 07/24/21 = negative.CT urogram 08/05/21 ([place]) = normal upper tracts, enlarged prostate, no kidney stone TESTOSTERONEHe recently restarted testosterone replacement recently in [place]. PMH: HLD, HTN, low testosterone, a. fib, mechanical AVR, on lifetime warfarin.Anticoagulation: He has to bridge on lovenox for surgical procedures. REJI SOLIS MD [address] [place] [address],[address], [place], [address], [facility] 08/24/2024 18:30:05
--- OUTSIDE RECORDS SUMMARY | 2024-10-14 15:11 | XMS_ITS | Continuity of Care Document ---
Author Organization [facility], [facility] Address [address] [facility] [address] [place] [address] Care Team Providers Care Electrician Journeyman Wireman Name Role Phone [facility] Primary Care Provider SHAVONMARY ANNEMARIA ANTONIA Primary Care Provider Assessment No assessment recorded. Plan of Treatment Reminders Order Date Submit Date Provider Last Modified By Organization Details Last Modified Time Details Appointments None record ed. Lab None record ed. Referral None record ed. Procedures None record ed. Surgeries None record ed. Imaging None record ed. Medication Orders None record ed. Patient TargetsNo targets recorded. Patient InstructionsNo instructions recorded. Reason for Referral None Reported. Results Created Date Observation Date Name Description Value Unit Range Abnormal Flag Note LastModifiedBy Organization Detail LastModifiedTime 08/21/20 24 08/21/2024 MRI, prost ate, w/wo contr ast No observ ation record ed. [email or web address] [facility] [address] [place] [address] [address], [place], [address], 08/21/2024 12:43:46 09/19/20 24 09/19/2024 ir consu [...] self cathet erizat ion requir ing cauter olimpia n. He has been on Flomax and [...] respir atory effort /WOB Psychi atric: Bright /giat l affect . Normal mentat ion. IMAGIN [...] specif ic fluoro scopy suites either at [facility] or [facility] hospit al, as intra- proced ural rotati onal cone-b eam CT will be necess leah. The patien t would be admitt ed overni ght for observ ation to the IR servic [...] partic ipate in the care of this patien t. Brian Chan M.D. [facility] Vascul ar and Interv ention al Radiol ogy Schedu ling: [phone] This report was electr onical ly interp reted by: DR. BRIAN CHAN M.D. [facility] - [address], [address], 09/19/2024 18:49:24 Result Notes None recorded. 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 Not Available [facility] 0 02:05:17 Prostate specific antigen above reference range 725758400 Active 2012 790.93 : ELEVATED PSA Not Available [facility] 0 02:05:17 Benign prostatic hyperplas ia with outflow obstructi on 209462018 Active 2020 Victorino Edmonds MD [address], [place], [address] , [place] [facility] 1 14:32:18 Slowing of urinary stream 22569587 Active 2020 Victorino Edmonds MD [address] [place] [address],[address] [place] [address], [address] [place] [address] , [facility] 1 14:32:19 Elvis hematuria 178969218 Active 2020 Victorino Edmonds MD [address] [place] [address],[address], [address] [place] [address] , [facility] 1 14:32:20 Screening for malignant neoplasm of prostate Active 2023 Victorino Edmonds MD [address] [place] [address],[address], [address] [place] [address] , [facility] 4 12:43:12 Lower urinary tract symptoms due to benign prostatic hypertrop hy 00426097660 101 Active 2023 Victorino Edmonds MD [address] [place] [address],[address], [address] [place] [address] , [facility] 4 12:43:14 Urinary bladder stone 21190593 Active 2023 REJI ROCKWELL MD [address] [place] [address],[address], [address] [place] [address] , [facility] 4 22:04:09 Retention of urine 644378757 Active 2023 REJI ROCKWELL MD [address] [place] [address] , [facility] 4 22:06:05 Problem Notes None recorded. Procedures Surgical History Date Name Laterality Status Provider Name and Address Organization Details Recorded Time 09/21/20 24 Blood Draw/SENIOR TAX ANALYST/PSA RESULTS cancelled Nanci Escobar [facility] 09/18/2024 13:07:02 09/12/20 24 Urine Culture completed Nanci Escobar [facility] 09/11/2024 13:49:21 09/12/20 24 Urinalysis completed Nanci Escobar [facility] 09/11/2024 13:49:50 08/30/20 24 Fill and Pull/Voiding Trial/TOV completed Bridgett Rosen [facility] 08/30/2024 09:54:34 08/22/20 24 COMPLEX VISIT completed REJI ROCKWELL MD [address] [place] [address],[place] [id number], [facility] 08/21/2024 22:14:06 06/22/20 24 Urine Culture completed Nanci Escobar [facility] 06/20/2024 14:35:49 06/22/20 24 Urinalysis completed Lewis Mera [facility] 06/22/2024 15:47:25 05/29/20 24 Bladder Scan completed Brianna Ferreira [facility] 05/29/2024 16:21:06 05/21/20 24 Urine Culture completed Fabby Casey [facility] 05/21/2024 15:28:58 05/21/20 24 Urinalysis completed Fabby Casey [facility] 05/21/2024 16:18:17 05/21/20 24 Bladder Scan completed Fabby Casey [facility] 05/21/2024 16:18:30 02/16/20 24 COMPLEX VISIT completed REJI ROCKWELL MD [address], [place], [address], [facility] 02/16/2024 11:31:27 02/16/20 24 Bladder Scan completed Dayanna Corona [facility] 02/16/2024 10:49:59 12/23/19 24 Blood Draw/SENIOR TAX ANALYST/PSA RESULTS completed Eh Sheppard [facility] 12/23/2023 12:49:16 11/23/19 22 Prostate Biopsy Procedure completed Kane Garcia [facility] 11/23/2021 15:29:24 11/23/19 22 Gentamicin Injection [facility] 11/23/2021 14:11:03 07/24/20 21 Cystoscopy- male completed Victorino Edmonds MD [address], [place], [address], [facility] 07/24/2021 14:37:51 07/24/20 21 Bladder Scan completed Rosana Oconnell [facility] 07/24/2021 14:16:44 11/21/19 19 Colonoscopy completed Rosana Oconnell [facility] 07/24/2021 14:16:32 Excise epiphyseal bar completed [...] Name and Address Organization Details Recorded Time 645346 shellfish derived food,medi cation anaphylax is flushing Not available Not available Not available 12/23/2023 82275 UNK Not Available Health Note 4 07:52:31 059447 cat dander environme nt anaphylax is flushing respirato ry distress Not available Not available Not available Not available 12/23/2023 45440 UNK Not Available Health Note 4 07:52:31 603252 tramadol medicatio n irregular heart rate palpitati ons Not available Not available Not available 12/23/2023 31069 RxNorm Not Available Health Note 4 07:52:31 [...] Is Your Level Of Alcohol Consumption? None [email or web address] Information not available 08/22/2024 What Is Your Level Of Caffeine Consumption? Moderate [email or web address] Information not available 12/23/2023 How Much Tobacco Do You Chew? None [email or web address] Information not available 12/23/2023 Do You Or Have You Ever Used E-cigarettes Or Vape? Never Used Electronic Cigarettes [email or web address] Information not available 12/23/2023 When Did You Quit Smoking? 1-5yearssincel [email or web address] Information not available 08/22/2024 Recreational Drug Use [...] Has Tobacco Cessation Counseling Been Provided? No [email or web address] Information not available 08/22/2024 How Many Years Have You Smoked Tobacco? 25 [email or web address] Information not available 12/23/2023 Do You Or Have You Ever Used Any Other Forms Of Tobacco Or Nicotine? No [email or web address] Information not available 08/22/2024 How Many Days [...] Recorded Time Tdap 02/04/2012 completed CHERYL Boateng [facility] 08/22/2024 09:50:41 Past Encounters Encounter ID Performer Location Encounter Start Date Encounter Closed Date Diagnosis/Indication Diagnosis SNOMED-CT Code Diagnosis ICD10 Code [id number] MD Calvin [facility] [address] [place] [phone] 08/22/2024 09:44:58 08/27/2024 11:12:24 Lower urinary tract symptoms due to benign prostatic hypertrophy 4972742666 9101 N40.1 Prostate s pecific antigen above reference range 057610570 R97.20 Elvis hematuria 41555917 5 R31.0 Urinary bladder stone 70 161621 N21.0 Retention of urine 28910 4002 R33.9 [id number] Bridgett Rosen [facility] [address] [phone] 08/30/2024 09:23:15 08/31/2024 08:48:17 Retention of urine 281540703 R33.9 Health Concerns Section Related Observation LastModified by Organization Detoleg ls LastModified Time None Recorded Concern Status LastModified by Organization Details LastModified Time None Recorded Payers Encounter Date Sequence Insurance Name Policy Number Policy Armenta Covered Member ID Armenta Member ID Guarantor Name 08/30/2024 1 [place] [employer] Oleg Sparks [id number] Oleg Sparks
--- OUTSIDE RECORDS SUMMARY | 2024-10-14 15:11 | XMS_ITS | Data Portability ---
Author Organization [facility], [facility] Address [address] [place] [address] Care Team Providers Care Spiral Winding Machine Helper Name Role Phone [facility] Primary Care Provider MARIA ANTONIA MONTES DE OCA Primary Care Provider [phone] Assessment No assessment recorded. Plan of Treatment Reminders Order Date Submit Date Provider Last Modified By Organization Details Last Modified Time Details Appointments None recorded. Lab urinalysis, dipstick 2023 024 [facility], [address], [place], [address], 16:05:05 urinalysis, microscopic 2023 024 [facility], [address], [place], [address], 4 16:05:09 culture, urine 2023 024 [facility], [address], [place], [address], 4 09:12:44 urinalysis, dipstick 2023 024 [facility], [address], [place], [address], 4 12:12:45 urinalysis, microscopic 2023 024 [facility], [address], [place], [address], 12:12:49 culture, urine 2023 [facility], [address], [place], [address], 10:21:30 Referral interventio nal radiologist referral - referral for prostatic arterial embolizatio n prior to HoLEP outlet surgery 2023 [email or web address] [facility] ([facility]), [address], [place], [address], 17:14:24 Procedures None recorded. Surgeries None recorded. Imaging None recorded. Medication Orders finasteride 5 mg tablet 2023 [facility] #[id number], [address] [facility], [place], [place], [phone], 18:29:48 tamsulosin 0.4 mg capsule 2023 [facility] #[id number], [address], [place], [place], [phone], 18:29:48 Patient TargetsNo targets recorded. Patient Instructions Encounter Date Encounter Id Patient Instructions Last Modified By Organization Details Last Modified Time 08/22/2024 [id number] Today we discuss ed the patient's ongoing [...] results and we will discuss next steps. Not available 08/22/2024 10:23:10 Reason for Referral [...] uriscan LARGE negati ve abnormal Not Available [facility] [address] [facility] [address], [place], [address], 05/21/2024 16:57:40 05/21/20 24 05/21/2024 UA WITHO UT MICRO - CS URISC AN bilirubin - uriscan NEGATI VE mg/dL negati ve Not Available [facility] [address] [facility] [address], [place], [address], 05/21/2024 16:57:40 05/21/20 24 05/21/2024 UA WITHO UT MICRO - CS URISC AN urobilinogen - uriscan NORMAL mg/dL normal Not Available [facility] [address] [facility] [address], [place], [address], 05/21/2024 16:57:40 05/21/20 24 05/21/2024 UA WITHO UT MICRO - CS URISC AN ketones - uriscan NEGATI VE mg/dL negati ve Not Available [facility] [address] [facility] [address], [place], [address], 05/21/2024 16:57:40 05/21/20 24 05/21/2024 UA WITHO UT MICRO - CS URISC AN protein - uriscan 30 mg/dL negati ve abnormal Not Available [facility] [address] [facility] [address], [place], [address], 05/21/2024 16:57:40 05/21/20 24 05/21/2024 UA WITHO UT MICRO - CS URISC AN nitrites - uriscan POSITI VE negati ve abnormal Not Available [facility] [address] [place] [address] [address], [place], [address], 05/21/2024 16:57:40 05/21/20 24 05/21/2024 UA WITHO UT MICRO - CS URISC AN glucose - uriscan NEGATI VE mg/dL negati ve Not Available [facility] [address] [place] [address] [address], [place], [address], 05/21/2024 16:57:40 05/21/20 24 05/21/2024 UA WITHO UT MICRO - CS URISC AN pH - uriscan 5.50 5.00-9 .00 Not Available [facility] [address] [place] [address] [address], [place], [address], 05/21/2024 16:57:40 05/21/20 24 05/21/2024 UA WITHO UT MICRO - CS URISC AN sp. gravity - uriscan 1.01 1.01-1 .03 Not Available [facility] [address] [place] [address] [address], [place], [address], 05/21/2024 16:57:40 05/21/20 24 05/21/2024 UA WITHO UT MICRO - CS URISC AN leukocytes - uriscan TRACE negati ve abnormal Not Available [facility] [address] [facility] [address], [place], [address], 05/21/2024 16:57:40 05/21/20 24 05/21/2024 UA WITHO UT MICRO - CS URISC AN color - uriscan YELLOW lt. yellow ;yello w Not Available [facility] [address] [place] [address] [address], [place], [address], 05/21/2024 16:57:40 05/21/20 24 05/21/2024 UA WITHO UT MICRO - CS URISC AN clarity - uriscan CLEAR clear Not Available [facility] [address] [facility] [address], [place], [address], 05/21/2024 16:57:40 05/21/20 24 05/21/2024 UA WITHO [...] for provi peter revie w. Not Available [facility] [address] [facility] [address], [place], [address], 05/21/2024 16:57:40 05/21/20 24 05/21/2024 UA MICRO SCOPI C U-WBC 50 - 100 [hpf] 0 - 2 abnormal Not Available [facility] [address] [facility] [address], [place], [address], 05/21/2024 16:57:42 05/21/20 24 05/21/2024 UA MICRO SCOPI C U-RBC 10 - 25 [hpf] 0 - 2 abnormal Not Available [facility] [address] [facility] [address], [place], [address], 05/21/2024 16:57:42 05/21/20 24 05/21/2024 UA MICRO SCOPI C bacteria MODERA TE [hpf] none;r are abnormal Not Available [facility] [address] [facility] [address], [place], [address], 05/21/2024 16:57:42 05/21/20 24 05/21/2024 UA MICRO [...] for provi peter revie w. Not Available [facility] [address] [facility] [address], [place], [address], 05/21/2024 16:57:42 05/21/20 24 05/21/2024 URINE CULTU [...] ate 1) Sensi tivit y Imani sis [place] te 1 ----- ----- ----- ----- ----- ----- ----- - CIPRO FLOXA CHARISSA >2 R DAPTO MYCIN <=1*S GENTA MICIN >8 R LEVOF LOXAC IN 4 I LINEZ OLID <=2*S NITRO FURAN TOIN <=32* S OXACI LLIN >2 R PENIC ILLIN 2 R RIFAM PIN <=1*S TETRA CYCLI NE <=4*S TRIME TH/NARAYAN LFA 38* S VANCO MYCIN 1*S Orga nisms that [...] s Desk Refer ence or from the [facility] actur er. S= Susce ptibl e;I= [...] tions based on the resul t. Felipe e allow up to one week for provi peter revie w. Not Available [facility] [address] [facility] [address], [place], [address], 05/23/2024 10:08:11 06/22/20 24 06/22/2024 UA WITHO UT MICRO - CS URISC AN blood - uriscan LARGE negati ve abnormal Not Available [facility] [address] [facility] [address], [place], [address], 06/22/2024 16:05:05 06/22/20 24 06/22/2024 UA WITHO UT MICRO - CS URISC AN bilirubin - uriscan NEGATI VE mg/dL negati ve Not Available [facility] [address] [facility] [address], [place], [address], 06/22/2024 16:05:05 06/22/20 24 06/22/2024 UA WITHO UT MICRO - CS URISC AN urobilinogen - uriscan NORMAL mg/dL normal Not Available [facility] [address] [facility] [address], [place], [address], 06/22/2024 16:05:05 06/22/20 24 06/22/2024 UA WITHO UT MICRO - CS URISC AN ketones - uriscan NEGATI VE mg/dL negati ve Not Available [facility] [address] [place] [address], [place], [address], 06/22/2024 16:05:05 06/22/20 24 06/22/2024 UA WITHO UT MICRO - CS URISC AN protein - uriscan 10 mg/dL negati ve abnormal Not Available [facility] [address] [place] [address], [place], [address], 06/22/2024 16:05:05 06/22/20 24 06/22/2024 UA WITHO UT MICRO - CS URISC AN nitrites - uriscan NEGATI VE negati ve Not Available [facility] [address] [place] [address], [place], [address], 06/22/2024 16:05:05 06/22/20 24 06/22/2024 UA WITHO UT MICRO - CS URISC AN glucose - uriscan NEGATI VE mg/dL negati ve Not Available [facility] [address] [place] [address], [place], [address], 06/22/2024 16:05:05 06/22/20 24 06/22/2024 UA WITHO UT MICRO - CS URISC AN pH - uriscan 5.00 5.00-9 .00 Not Available [facility] [address] [place] [address], [place], [address], 06/22/2024 16:05:05 08/02/06/22/2024 UA WITHO UT MICRO - CS URISC AN sp. gravity - uriscan 1.03 1.01-1 .03 Not Available [facility] [address] [place] [address], [place], [address], 06/22/2024 16:05:05 06/22/20 24 06/22/2024 UA WITHO UT MICRO - CS URISC AN leukocytes - uriscan TRACE negati ve abnormal Not Available [facility] [address] [place] [address], [place], [address], 06/22/2024 16:05:05 06/22/20 24 06/22/2024 UA WITHO UT MICRO - CS URISC AN color - uriscan YELLOW lt. yellow ;yello w Not Available [facility] [address] [place] [address], [place], [address], 06/22/2024 16:05:05 06/22/20 24 06/22/2024 UA WITHO UT MICRO - CS URISC AN clarity - uriscan CLEAR clear Not Available [facility] [address] [place] [address], [place], [address], 06/22/2024 16:05:05 06/22/20 24 06/22/2024 UA WITHO UT MICRO - CS URISC AN total urine volume (mL) 50 /mL ----- ----- ----- ----- ----- ----- ----- ----- ----- ----- ----- ----- ----- ----- ---- *Plea se note the follo wing minim um quant [...] peter at the same time [facility] with [facility] u ry Cures Act. Your provi peter may not have had time to revie w and make recom menda tions based on the resul t. Felipe e allow up to one week for provi peter revie w. Not Available [facility] [address] [facility] [address], [place], [address], 06/22/2024 16:05:05 06/22/20 24 06/22/2024 UA MICRO SCOPI C U-WBC 2 - 5 [hpf] 0 - 2 abnormal Not Available [facility] [address] [place] [address], [place], [address], 06/22/2024 16:05:09 06/22/20 24 06/22/2024 UA MICRO SCOPI C U-RBC 25 - 50 [hpf] 0 - 2 abnormal Not Available [facility] [address] [place] [address], [place], [address], 06/22/2024 16:05:09 06/22/20 24 06/22/2024 UA MICRO SCOPI C bacteria MODERA TE [hpf] none;r are abnormal Not Available [facility] [address] [place] [address], [place], [address], 06/22/2024 16:05:09 06/22/20 24 06/22/2024 UA MICRO SCOPI C squamous epi SMALL /lpf negati ve,sma ll This lab resul t is being provi ded to you and your provi peter at the same time in compl iaale with the u ry Cures Act. Your provi peter may not have had time to revie w and make recom menda tions based on the resul t. Felipe e allow up to one week for provi peter revie w. Not Available [facility] [address] [facility] [address], [place], [address], 06/22/2024 16:05:09 06/22/20 24 06/22/2024 URINE CULTU RE final report MICROB IOLOGY RESULT S abnormal SOURC E Void KNOWN ALLER GIES see chart TREAT MENT see chart MEDIA PLATE D AT: Media plate d on 024 @ 3:05 PM COLON Y COUNT 20,00 0-50, 000 cfu/m l RESUL T Staph yloco ccus epide rmidi s (Isol ate 1) Sensi tivit y Imani sis [place] te 1 ----- ----- ----- ----- ----- [...] sandy usage of the drugs . Infor matcash n on doxyc yclin e and minoc yclin e can be found in the Physi leonarda' s Desk [facility]. S= Susce ptibl e;I= Inter [...] recom menda tions based on the resul raya currie allow up to one week for provi peter omer w. Not Available [facility] [address] [facility] [address], [place], [address], 06/25/2024 09:12:43 09/12/20 24 09/12/2024 UA WITHO UT MICRO - CS URISC AN blood - uriscan LARGE negati ve abnormal Not Available [facility] [address] [place] [address], [place], [address], 09/12/2024 12:12:45 09/12/2009/12/2024 UA WITHO UT MICRO - CS URISC AN bilirubin - uriscan NEGATI VE mg/dL negati ve Not Available [facility] [address] [place] [address], [place], [address], 09/12/2024 12:12:45 09/12/2009/12/2024 UA WITHO UT MICRO - CS URISC AN urobilinogen - uriscan NORMAL mg/dL normal Not Available [facility] [address] [facility] [address], [place], [address], 09/12/2024 12:12:45 09/12/2009/12/2024 UA WITHO UT MICRO - CS URISC AN ketones - uriscan NEGATI VE mg/dL negati ve Not Available [facility] [address] [place] [address], [place], [address], 09/12/2024 12:12:45 09/12/2009/12/2024 UA WITHO UT MICRO - CS URISC AN protein - uriscan 10 mg/dL negati ve abnormal Not Available [facility] [address] [place] [address], [place], [address], 09/12/2024 12:12:45 09/12/20 24 09/12/2024 UA WITHO UT MICRO - CS URISC AN nitrites - uriscan POSITI VE negati ve abnormal Not Available [facility] [address] [facility] [address], [place], [address], 09/12/2024 12:12:45 09/12/2009/12/2024 UA WITHO UT MICRO - CS URISC AN glucose - uriscan NEGATI VE mg/dL negati ve Not Available [facility] [address] [place] [address], [place], [address], 09/12/2024 12:12:45 09/12/2009/12/2024 UA WITHO UT MICRO - CS URISC AN pH - uriscan 5.00 5.00-9 .00 Not Available [facility] [address] [place] [address], [place], [address], 09/12/2024 12:12:45 09/12/2009/12/2024 UA WITHO UT MICRO - CS URISC AN sp. gravity - uriscan 1.01 1.01-1 .03 Not Available [facility] [address] [place] [address], [place], [address], 09/12/2024 12:12:45 09/12/2009/12/2024 UA WITHO UT MICRO - CS URISC AN leukocytes - uriscan SMALL negati ve abnormal Not Available [facility] [address] [place] [address], [place], [address], 09/12/2024 12:12:45 09/12/2009/12/2024 UA WITHO UT MICRO - CS URISC AN color - uriscan YELLOW lt. yellow ;yello w Not Available [facility] [address] [place] [address], [place], [address], 09/12/2024 12:12:45 09/12/2009/12/2024 UA WITHO UT MICRO - CS URISC AN clarity - uriscan CLEAR clear Not Available [facility] [address] [place] [address], [place], [address], 09/12/2024 12:12:45 09/12/20 24 09/12/2024 UA WITHO [...] for provi peter revie w. Not Available [facility] [address] [facility] [address], [place], [address], 09/12/2024 12:12:45 09/12/20 24 09/12/2024 UA MICRO SCOPI C U-WBC 2 - 5 [hpf] 0 - 2 abnormal Not Available [facility] [address] [facility] [address], [place], [address], 09/12/2024 12:12:48 09/12/20 24 09/12/2024 UA MICRO SCOPI C U-RBC 10 - 25 [hpf] 0 - 2 abnormal Not Available [facility] [address] [facility] [address], [place], [address], 09/12/2024 12:12:48 09/12/20 24 09/12/2024 UA MICRO SCOPI C bacteria MODERA TE [hpf] none;r are abnormal Not Available [facility] [address] [facility] [address], [place], [address], 09/12/2024 12:12:48 09/12/20 24 09/12/2024 UA MICRO SCOPI C squamous epi SMALL [...] for provi peter revie w. Not Available [facility] [address] [facility] [address], [place], [address], 09/12/2024 12:12:48 09/12/2009/12/2024 URINE CULTU RE final report MICROB IOLOGY RESULT S abnormal SOURC E Void KNOWN ALLER GIES see chart TREAT MENT none MEDIA PLATE D AT: Media plate d on 09/12 @ 12:02 PM COLON Y COUNT >100, 000 cfu/m l RESUL T Klebs iella oxyto ca (Isol ate 1) Sensi tivit y Imani sis [place] te 1 ----- ----- ----- ----- ----- [...] s Desk Refer ence or from the [facility] actur er. S= Susce ptibl e;I= [...] allow up to one week for provi petre revie w. Not Available [facility] [address] [facility] [address], [place], [address], 09/14/2024 10:21:30 08/21/20 24 08/21/2024 MRI, prost ate, w/wo contr ast No observ ation record ed. [email or web address] [facility] [address] [facility] [address], [place], [address], 08/21/2024 12:43:46 09/19/20 24 09/19/2024 ir consu [...] self cathet erizat ion requir ing cauter mirandao n. He has been on Flomax and [...] repair SOCIAL HISTOR Y: Histor y of ish herron FAMILY HISTOR Y: None releva nt ALLERG [...] specif ic fluoro scopy suites either at [place] [facility], as intra- proced ural rotati [...] s was spent with the patien t, jbe r than 75% of this time was spent counse ling the patien t on the diseas e and potent ial treatm ent option s. Thank you for your kind referr al and andrés haynes us to partic ipate in the care of this patiernestina t. Brian Chan M.D. [facility] Vascul ar and Interv ention al Radiol ogy Schedu ling: This report was electr onical ly interp reted by: DR. BRIAN CHAN M.D. [facility] [address], [address], 09/19/2024 18:49:24 Result Notes None recorded. 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 1 14:32:18 Slowing of urinary stream 02607116 Active 2020 Victorino Edmonds MD [address] [place] [address],[address], [address] , [facility] 1 14:32:19 Elvis hematuria 140661708 Active 2020 Victorino Edmonds MD [address] [place] [address],[address] [place] [address], [address] , [facility] 1 14:32:20 Screening for malignant neoplasm of prostate Active 2023 Victorino Edmonds MD [address] [place] [address],[address], [address] , [facility] 4 12:43:12 Lower urinary tract symptoms due to benign prostatic hypertrop hy 27353581977 101 Active 2023 Victorino Edmonds MD [address] [place] [address],[address], [place], [address] [place] [address] , [facility] 4 12:43:14 Urinary bladder stone 00130143 Active 2023 REJI SOLIS MD [address] [place] [address],[address] [place] [address], [address] , [facility] 4 22:04:09 Retention of urine 501778148 Active 2023 REJI SOLIS MD [address] [place] [address],[address] [place] [address], [address] [place] [address] , [facility] 4 22:06:05 Problem Notes None recorded. Procedures Surgical History Date Name Laterality Status Provider Name and Address Organization Details Recorded Time 09/21/20 24 Blood Draw/CLIENT ADVOCATE/PSA RESULTS cancelled Nanci Escobar [facility] 09/18/2024 13:07:02 09/12/20 24 Urine Culture completed Nanci Escobar [facility] 09/11/2024 13:49:21 09/12/20 24 Urinalysis completed Nanci Escobar [facility] 09/11/2024 13:49:50 08/30/20 24 Fill and Pull/Voiding Trial/TOV completed Bridgett Rosen [facility] 08/30/2024 09:54:34 08/22/20 24 COMPLEX VISIT completed REJI SOLIS MD [address] [facility],[address], [place], [address], [facility] 08/21/2024 22:14:06 06/22/20 24 Urine Culture completed Nanci Escobar [facility] 06/20/2024 14:35:49 06/22/20 24 Urinalysis completed Lewis Mera [facility] 06/22/2024 15:47:25 05/29/20 24 Bladder Scan completed Brianna Ferreira [facility] 05/29/2024 16:21:06 05/21/20 24 Urine Culture completed Fabby Casey [facility] 05/21/2024 15:28:58 05/21/20 24 Urinalysis completed Fabby Casey [facility] 05/21/2024 16:18:17 05/21/20 24 Bladder Scan completed Fabby Casey [facility] 05/21/2024 16:18:30 02/16/20 24 COMPLEX VISIT completed REJI SOLIS MD [address] [facility],[address], [place], [address], [facility] 02/16/2024 11:31:27 02/16/20 24 Bladder Scan completed Dayanna Corona [facility] 02/16/2024 10:49:59 12/23/19 24 Blood Draw/CLIENT ADVOCATE/PSA RESULTS completed Eh Sheppard [facility] 12/23/2023 12:49:16 11/23/19 22 Prostate Biopsy Procedure completed Kane Garcia [facility] 11/23/2021 15:29:24 11/23/19 22 Gentamicin Injection completed Vee Anguiano [facility] 11/23/2021 14:11:03 07/24/20 21 Cystoscopy- male completed Victorino Edmonds MD [address] [facility],[address], [place], [address], [facility] 07/24/2021 14:37:51 07/24/20 21 Bladder Scan completed Rosana Oconnell [facility] 07/24/2021 14:16:44 11/21/19 19 Colonoscopy completed Rosana Oconnell [facility] 07/24/2021 14:16:32 Excise epiphyseal bar completed Not Available [facility] 07/23/2021 18:12:41 Insert epicard eltrd open completed Not Available [facility] 07/23/2021 18:12:41 Diagnostic colonoscopy completed Not Available [facility] 12/23/2023 07:52:32 Hernia repair w/mesh completed Not Available [facility] Note 12/23/2023 07:52:32 Imaging Results Imaging Date Name Status LastModified by Organiz ation Details LastModified Time 08/21/2024 MRI, prostate, w/wo contrast completed [email or web address] [facility] [address], [place], [address], 08/21/2024 12:43:46 09/19/2024 ir consult new patient completed [email or web address] [facility] [place] [address] [place], [address], 09/19/2024 18:49:24 Procedure Notes None recorded. Medical Equipment None Reported. Allergies Allergen ID Allergen Name Allergen Category Reaction Reaction Severity Criticality Documentation Date Start Date Code Code System Note Provider Name and Address Organization Details Recorded Time 231588 shellfish derived food,medi cation anaphylax is flushing Not available Not available Not available 12/23/2023 39751 UNK Not Available Health Note 07:52:31 652024 cat dander environme nt anaphylax is flushing respirato ry distress Not available Not available Not available Not available 12/23/2023 98648 UNK Not Available Health Note 07:52:31 379503 tramadol medicatio n irregular heart rate palpitati ons Not available Not available Not available 12/23/2023 85592 RxNorm Not Available Health Note 07:52:31 Medications [...] Updated DateTime 08/22/2024 170.18 cm 25.8 kg/m2 46162.74 g Sumeet LUNA [facility] 08/22/2024 09:50:37 Social History Question Answer Notes LastModified by Organizat ion Details LastModified Time Tobacco Smoking Status Former Smoker Not Available Health Note 12/23/2023 07:52:32 What Is Your Level Of Alcohol Consumption? None [email or web address] Information not available 08/22/2024 What Is Your Level Of Caffeine Consumption? Moderate [email or web address] Information not available 12/23/2023 How Much Tobacco Do You Chew? None [email or web address] Information not available 12/23/2023 Do You Or Have You Ever Used E-cigarettes Or Vape? Never Used Electronic Cigarettes [email or web address] Information not available 12/23/2023 When Did You Quit Smoking? 1-5yearssincel astcigarette [email or web address] Information not available 08/22/2024 Recreational Drug Use [...] Has Tobacco Cessation Counseling Been Provided? No [email or web address] Information not available 08/22/2024 How Many Years Have You Smoked Tobacco? 25 [email or web address] Information not available 12/23/2023 Do You Or Have You Ever Used Any Other Forms Of Tobacco Or Nicotine? No [email or web address] Information not available 08/22/2024 How Many Days [...] Time Tdap 02/04/2012 completed CHERYL Boateng - [facility] 08/22/2024 09:50:41 Past Encounters Encounter ID Performer Location Encounter Start Date Encounter Closed Date Diagnosis/Indication Diagnosis SNOMED-CT Code Diagnosis ICD10 Code [id number] Victorino Edmonds MD [facility] [address] [place] [phone] 0 07/24/2021 14:08:06 07/24/2021 14:45:22 Prostate specific antigen above reference range 925766779 R97.20 Benign pro static hyperplasia with outflow obstruction 969276292 N40.1 Slowing of urinary stream 60681128 R39.12 Elvis hematuria 13992075 5 R31.0 [id number] Kane Garcia [facility] [address] [place] [phone] 0 11/23/2021 14:10:12 11/23/2021 16:28:42 Prostate specific antigen above reference range 202175411 R97.20 Benign pro static hyperplasia with outflow obstruction 365450277 N40.1 Slowing of urinary stream 41568743 R39.12 Elvis hematuria 03969697 5 R31.0 [id number] Vee Anguiano [facility] [address] [place] [phone] 0 11/23/2021 14:09:21 11/23/2021 14:20:54 Prostate specific antigen above reference range 720154517 R97.20 [id number] Eh Sheppard [facility] [address] [place] [phone] 0 12/23/2023 12:26:23 12/23/2023 12:56:11 Lower urinary tract symptoms due to benign prostatic hypertrophy 2855656586 9101 N40.1 Slowing of urinary stream 95382448 R39.12 Screening for malignant neoplasm of prostate 348933928 Z12.5 [id number] [facility] [address] [facility] [address] [place] [address] 02/16/2024 10:37:58 02/16/2024 11:59:59 Lower urinary tract symptoms due to benign prostatic hypertrophy 8654823081 9101 N40.1 Prostate s pecific antigen above reference range 372240242 R97.20 Elvis hematuria 59524971 5 R31.0 [id number] Fabby Casey [facility] [address] [place] [phone] 0 05/21/2024 15:17:15 05/22/2024 08:24:21 Lower urinary tract symptoms due to benign prostatic hypertrophy 1277806690 9101 N40.1 [id number] [facility] [address] [address] 05/29/2024 14:48:21 05/30/2024 10:07:47 Prostate specific antigen above reference range 294891012 R97.20 [id number] Lewis Mera [facility] [address] [address] 06/22/2024 15:43:50 06/22/2024 15:49:24 Dysuria 29898682 R30.0 [id number] [facility] [address] [phone] 08/22/2024 09:44:58 08/27/2024 11:12:24 Lower urinary tract symptoms due to benign prostatic hypertrophy 2460093615 9101 N40.1 Prostate s pecific antigen above reference range 773280642 R97.20 Elvis hematuria 27731810 5 R31.0 Urinary bladder stone 70 577139 N21.0 Retention of urine 53500 4002 R33.9 [id number] Br[facility]t Rosen [facility] [address] [address] 08/30/2024 09:23:15 08/31/2024 08:48:17 Retention of urine 814963232 R33.9 [id number] Ama Grace [facility] [address] [address] 0 09/12/2024 11:55:40 09/12/2024 11:58:59 Burning sensation 91013762 R20.8 Health Concerns Section Related Observation LastModified by Organization Detai ls LastModified Time None Recorded Concern Status LastModified by Organization Details LastModified Time None Recorded Advance Directives Directive None Recorded Payers Encounter Date Sequence Insurance Name Policy Number Policy Armenta Covered Member ID Armenta Member ID Guarantor Name 05/29/2024 1 [place] [facility] Oleg Trenthedl [id number] Oleg Trenthedl 06/22/2024 1 [place] [facility] Oleg Trenthedl [id number] Oleg Parks Dahedl 08/22/2024 1 [place] [facility] Oleg Trenthedl [id number] Oleg Parks Dahedl 08/30/2024 1 [place] [facility] Oleg Trenthedl [id number] 8 Oleg Parks Dahedl 09/12/2024 1 [place] [facility] Oleg Trenthedl [id number] 8 Oleg Trenthedl Notes Date Note Type Note Provider Name [...] of the bladder stones(but larger ones remain) ([facility], Dr. Eldridge) on 08/11/24. Now with indwelling box again. Previously described urinary symptoms include:He does have difficulty urinating especially after he holds its back for a period of time and sometimes has to strain; +Double voidingNocturia x2He has post-void dribblingDenied urinary incontinence IPSS2: 143: 14 (QoL: mostly dissatisfied)08/22/24: 18 (QoL: terrible)IIEF02/16/24: 27CFQ02/16/24: 1010: 8 (leakage once per week or less) ELEVATED PSAPSA4/12/03 = 5.22/02/01 = 6.599/08/2020 = 6.43/09/10 = 4.062/01/14 = 13.27 (corrects to 26.54 on finasteride)Prostate biopsy on 08/29/[address] Riley was negative.Prostate MRI 08/05/21 ([place]) = 118 gram prostate, PIRADS 3 lesion [...] stones.Urine cytology 07/24/21 = negative.CT urogram 08/05/21 ([place]) = normal upper tracts, enlarged prostate, no kidney stone TESTOSTERONEHe recently restarted testosterone replacement recently in [place]. PMH: HLD, HTN, low testosterone, a. fib, mechanical AVR, on lifetime warfarin.Anticoagulation: He has to bridge on lovenox for surgical procedures. REJI SOLIS MD [address] [facility],[address], [place], [address], [facility] - [facility] 08/24/2024 18:30:05
== END 2024-10-12 10:32 | disposition home or self-care (01) ==
LOC: NFLDREF 10-14 15:07
PROVIDERS: PCP Family Medicine; Referring Provider Family Medicine; Visit Provider Family Medicine
DX: Z79.01 Long term (current) use of anticoagulants (principal); R31.9 Hematuria, unspecified
CPT/HCPCS: 85610

== ENCOUNTER 2024-11-08 16:20 | Outpatient (CLI) | payer MEDICARE, SELFPAY | END 2024-11-08 16:21 | disposition home or self-care (01) | LOC: LKVREF 16:21 | PROVIDERS: PCP Family Medicine; Visit Provider Family Medicine | DX: R33.9 Retention of urine, unspecified (principal) | CPT/HCPCS: 87086 ==

== ENCOUNTER 2025-02-06 08:56 | Outpatient (CLI) | payer MEDICARE, SELFPAY | END 2025-02-06 08:57 | disposition home or self-care (01) | LOC: NFLDREF 02-08 04:48 | PROVIDERS: PCP Family Medicine; Referring Provider Family Medicine; Visit Provider Family Medicine | DX: Z95.2 Presence of prosthetic heart valve (principal) | CPT/HCPCS: 85610 ==

== ENCOUNTER 2025-02-20 09:14 | Outpatient (CLI) | payer MEDICARE, SELFPAY | END 2025-02-20 09:15 | disposition home or self-care (01) | LOC: NFLDREF 02-23 12:46 | PROVIDERS: PCP Family Medicine; Referring Provider Family Medicine; Visit Provider Family Medicine | DX: Z95.2 Presence of prosthetic heart valve (principal); Z79.01 Long term (current) use of anticoagulants | CPT/HCPCS: 85610 ==

== ENCOUNTER 2025-03-06 10:16 | Outpatient (CLI) | payer MEDICARE, SELFPAY | END 2025-03-06 10:17 | disposition home or self-care (01) | LOC: NFLDREF 03-11 12:03 | PROVIDERS: PCP Family Medicine; Referring Provider Family Medicine; Visit Provider Family Medicine | DX: Z95.2 Presence of prosthetic heart valve (principal); Z79.01 Long term (current) use of anticoagulants | CPT/HCPCS: 85610 ==

== ENCOUNTER 2025-03-27 09:44 | Outpatient (CLI) | payer MEDICARE, SELFPAY | END 2025-03-27 09:45 | disposition home or self-care (01) | LOC: NFLDREF 03-31 23:46 | PROVIDERS: PCP Family Medicine; Referring Provider Family Medicine; Visit Provider Family Medicine | DX: Z79.01 Long term (current) use of anticoagulants (principal); Z95.2 Presence of prosthetic heart valve | CPT/HCPCS: 85610 ==

== ENCOUNTER 2025-04-24 10:31 | Outpatient (CLI) | payer MEDICARE, SELFPAY | END 2025-04-24 10:32 | disposition home or self-care (01) | LOC: NFLDREF 04-26 22:36 | PROVIDERS: PCP Family Medicine; Referring Provider Family Medicine; Visit Provider Family Medicine | DX: Z79.01 Long term (current) use of anticoagulants (principal); Z95.2 Presence of prosthetic heart valve | CPT/HCPCS: 85610 ==

== ENCOUNTER 2025-05-22 10:04 | Outpatient (CLI) | payer MEDICARE, SELFPAY | END 2025-05-22 10:05 | disposition home or self-care (01) | LOC: NFLDREF 05-25 20:25 | PROVIDERS: PCP Family Medicine; Referring Provider Family Medicine; Visit Provider Family Medicine | DX: Z79.01 Long term (current) use of anticoagulants (principal); Z95.2 Presence of prosthetic heart valve | CPT/HCPCS: 85610 ==

== ENCOUNTER 2025-06-18 10:45 | Outpatient (CLI) | payer MEDICARE, SELFPAY | END 2025-06-18 10:46 | disposition home or self-care (01) | LOC: NFLDREF 06-20 14:48 | PROVIDERS: PCP Family Medicine; Referring Provider Family Medicine; Visit Provider Family Medicine | DX: Z95.2 Presence of prosthetic heart valve (principal); Z79.01 Long term (current) use of anticoagulants | CPT/HCPCS: 85610 ==

== ENCOUNTER 2025-07-05 16:45 | Outpatient (CLI) | payer MEDICARE, SELFPAY | END 2025-07-05 16:46 | disposition home or self-care (01) | LOC: NFLDREF 07-09 18:18 | PROVIDERS: PCP Family Medicine; Referring Provider Family Medicine; Visit Provider Family Medicine | DX: Z79.01 Long term (current) use of anticoagulants (principal); Z95.2 Presence of prosthetic heart valve | CPT/HCPCS: 85610 ==

== ENCOUNTER 2025-08-26 10:18 | Outpatient (CLI) | payer MEDICARE, SELFPAY | END 2025-08-26 10:19 | disposition home or self-care (01) | LOC: NFLDREF 08-28 16:05 | PROVIDERS: PCP Family Medicine; Referring Provider Family Medicine; Visit Provider Family Medicine | DX: Z79.01 Long term (current) use of anticoagulants (principal) | CPT/HCPCS: 85610 ==

== ENCOUNTER 2025-09-30 10:41 | Outpatient (CLI) | payer MEDICARE, SELFPAY | END 2025-09-30 10:42 | disposition home or self-care (01) | LOC: NFLDREF 10-04 02:43 | PROVIDERS: PCP Family Medicine; Referring Provider Family Medicine; Visit Provider Family Medicine | DX: Z79.01 Long term (current) use of anticoagulants (principal) | CPT/HCPCS: 85610 ==